=== PATIENT | male | born 1955 | race African-American/Black ===

== ENCOUNTER 2017-09-30 22:48 | Inpatient (IN) | payer OTHER ==
[2017-10-01 01:21] LABS: ADD MAN DIFF? NO
[2017-10-01] MEDS: ASPIRIN 325 MG TAB PO (01:28)
[2017-10-01] MEDS: morphine 2 MG INJ IV (01:28)
[2017-10-01] MEDS: ONDANSETRON 4 MG INJ IV ×3 (01:28→17:09)
[2017-10-01 01:48] LABS: ANION GAP 12 (8-16); BLOOD UREA NITROGEN 12 mg/dl (7-20); CARBON DIOXIDE 28 mmol/L (21-31); CHLORIDE 104 mmol/L (97-110); GLUCOSE 125 mg/dl (70-220); POTASSIUM 3.5 mmol/L (3.5-5.1); SODIUM 140 mmol/L (135-144)
[2017-10-01 02:01] LABS: TROPONIN-I < 0.012 ng/ml (0.00-0.12)
[2017-10-01 02:38] LABS: WHITE BLOOD COUNT 4.8 10^3/ul (4.8-10.8)
[2017-10-01 02:38] LABS: ABNORMAL IP MESSAGE 1; BASOPHILS % 0.2 % (0.0-2.0); EOSINOPHILS # 0.1 10^3/ul (0.0-0.5); EOSINOPHILS % 1.5 % (0.0-7.0); HEMATOCRIT 34.1 % (42.0-52.0); HEMOGLOBIN 10.3 g/dl (14.0-18.0); LYMPHOCYTES # 1.4 10^3/ul (0.8-2.9); MEAN CORPUSCULAR HEMOGLOBIN 23.3 pg (29.0-33.0); MEAN CORPUSCULAR HGB CONC 30.2 g/dl (32.0-37.0); MEAN PLATELET VOLUME 9.7 fl (7.4-10.4); MONOCYTE # 0.4 10^3/ul (0.3-0.9); MONOCYTES % 8.8 % (0.0-11.0); NEUTROPHIL # 2.9 10^3/ul (1.6-7.5); NEUTROPHILS % 60.1 % (39.0-77.0); PLATELET COUNT 258 10^3/UL (140-415); POSITIVE DIFF @See below; RED BLOOD COUNT 4.43 10^6/ul (4.70-6.10); RED CELL DISTRIBUTION WIDTH 24.4 % (11.5-14.5)
[2017-10-01] MEDS ORDERED: DOCUSATE SODIUM 100 MG CAP PO (06:30)
[2017-10-01] MEDS: PANTOPRAZOLE (EC) 40 MG TAB PO ×2 (06:55→19:03)
[2017-10-01] MEDS: LEVOFLOXACIN 500MG/D5W (PMX) 100 ML IVPB (06:55)
[2017-10-01] MEDS: DIPHENHYDRAMINE 50 MG INJ IV ×3 (06:57→21:33)
[2017-10-01] MEDS: morphine 4 MG/ML VIAL IV ×4 (07:16→21:33)
[2017-10-01 07:47] LABS: CREATINE KINASE 104 IU/L (23-200)
[2017-10-01 08:00] LABS: CK INDEX 2.3
[2017-10-01 08:10] LABS: CK-MB 2.41 ng/ml (0.0-2.4); TROPONIN-I < 0.012 ng/ml (0.00-0.12)
[2017-10-01] MEDS: BRIMONIDINE 0.1% 5 ML OPH BOTH EYES ×2 (09:00→21:29)
[2017-10-01] MEDS: RANOLAZINE (SR) 500 MG TAB PO ×2 (09:53→21:32)
[2017-10-01] MEDS: SOTALOL 80 MG TAB PO ×2 (09:54→21:32)
[2017-10-01] MEDS: ISOSORBIDE MONONITRATE(SR)60 MG TAB PO (09:54)
[2017-10-01] MEDS: ASPIRIN 81 MG TAB PO (09:54)
[2017-10-01] MEDS: TICAGRELOR 90 MG TABLET PO ×2 (09:56→21:31)
[2017-10-01] MEDS: ENOXAPARIN 40 MG/0.4 ML SYG SC (10:05)
[2017-10-01 13:39] LABS: CREATINE KINASE 96 IU/L (23-200)
[2017-10-01 13:51] LABS: CK INDEX 2.4
[2017-10-01 13:56] LABS: CK-MB 2.32 ng/ml (0.0-2.4); TROPONIN-I < 0.012 ng/ml (0.00-0.12)
[2017-10-01] MEDS: LATANOPROST 0.005% 2.5 ML OPH BOTH EYES (21:31)
[2017-10-01] MEDS: ATORVASTATIN 80 MG TAB PO (21:32)
[2017-10-02] MEDS: ONDANSETRON 4 MG INJ IV ×4 (04:12→22:07)
[2017-10-02] MEDS: DIPHENHYDRAMINE 50 MG INJ IV ×4 (04:12→22:07)
[2017-10-02] MEDS: morphine 4 MG/ML VIAL IV ×4 (04:13→22:08)
[2017-10-02] MEDS: LEVOFLOXACIN 500MG/D5W (PMX) 100 ML IVPB (06:30)
[2017-10-02] MEDS: PANTOPRAZOLE (EC) 40 MG TAB PO ×2 (06:43→18:00)
[2017-10-02 07:25] LABS: ADD MAN DIFF? NO
[2017-10-02 07:28] LABS: WHITE BLOOD COUNT 4.8 10^3/ul (4.8-10.8)
[2017-10-02 07:28] LABS: ABNORMAL IP MESSAGE 1; BASOPHILS % 0.2 % (0.0-2.0); EOSINOPHILS # 0.1 10^3/ul (0.0-0.5); EOSINOPHILS % 2.1 % (0.0-7.0); HEMATOCRIT 31.5 % (42.0-52.0); HEMOGLOBIN 9.5 g/dl (14.0-18.0); LYMPHOCYTES # 1.5 10^3/ul (0.8-2.9); LYMPHOCYTES % 31.3 % (15.0-51.0); MEAN CORPUSCULAR HGB CONC 30.2 g/dl (32.0-37.0); MEAN CORPUSCULAR VOLUME 76.3 fl (82.0-101.0); MEAN PLATELET VOLUME 9.3 fl (7.4-10.4); MONOCYTE # 0.4 10^3/ul (0.3-0.9); MONOCYTES % 8.1 % (0.0-11.0); NEUTROPHIL # 2.8 10^3/ul (1.6-7.5); NEUTROPHILS % 57.9 % (39.0-77.0); PLATELET COUNT 269 10^3/UL (140-415); POSITIVE DIFF @See below; RED BLOOD COUNT 4.13 10^6/ul (4.70-6.10); RED CELL DISTRIBUTION WIDTH 24.3 % (11.5-14.5)
[2017-10-02 07:57] LABS: ANION GAP 12 (8-16); BLOOD UREA NITROGEN 11 mg/dl (7-20); CALCIUM 8.8 mg/dl (8.4-10.2); CARBON DIOXIDE 24 mmol/L (21-31); CHLORIDE 107 mmol/L (97-110); CREATININE 0.93 mg/dl (0.61-1.24); GLUCOSE 113 mg/dl (70-220); POTASSIUM 3.9 mmol/L (3.5-5.1); SODIUM 139 mmol/L (135-144)
[2017-10-02] MEDS: BRIMONIDINE 0.1% 5 ML OPH BOTH EYES ×2 (09:00→21:00)
[2017-10-02] MEDS: ASPIRIN 81 MG TAB PO (09:08)
[2017-10-02] MEDS: RANOLAZINE (SR) 500 MG TAB PO ×2 (09:10→22:03)
[2017-10-02] MEDS: SOTALOL 80 MG TAB PO ×2 (09:11→22:04)
[2017-10-02] MEDS: ISOSORBIDE MONONITRATE(SR)60 MG TAB PO (09:11)
[2017-10-02] MEDS: TICAGRELOR 90 MG TABLET PO ×2 (09:15→22:06)
[2017-10-02] MEDS: ENOXAPARIN 40 MG/0.4 ML SYG SC (09:15)
[2017-10-02] MEDS: REGADENOSON 0.4 MG/5 ML SYG (14:00)
[2017-10-02] MEDS: LATANOPROST 0.005% 2.5 ML OPH BOTH EYES (21:00)
[2017-10-02] MEDS: ATORVASTATIN 80 MG TAB PO (22:03)
[2017-10-03] MEDS: DIPHENHYDRAMINE 50 MG INJ IV ×4 (04:22→22:16)
[2017-10-03] MEDS: ONDANSETRON 4 MG INJ IV ×4 (04:22→22:15)
[2017-10-03] MEDS: morphine 4 MG/ML VIAL IV ×4 (04:23→22:15)
[2017-10-03] MEDS: PANTOPRAZOLE (EC) 40 MG TAB PO ×2 (05:46→18:20)
[2017-10-03] MEDS: LEVOFLOXACIN 500MG/D5W (PMX) 100 ML IVPB (05:46)
[2017-10-03] MEDS: BRIMONIDINE 0.1% 5 ML OPH BOTH EYES ×2 (09:00→21:00)
[2017-10-03] MEDS: RANOLAZINE (SR) 500 MG TAB PO ×2 (09:11→21:58)
[2017-10-03] MEDS: SOTALOL 80 MG TAB PO ×2 (09:11→21:59)
[2017-10-03] MEDS: ASPIRIN 81 MG TAB PO (09:11)
[2017-10-03] MEDS: ISOSORBIDE MONONITRATE(SR)60 MG TAB PO (09:11)
[2017-10-03] MEDS: TICAGRELOR 90 MG TABLET PO ×2 (09:19→22:01)
[2017-10-03] MEDS: ENOXAPARIN 40 MG/0.4 ML SYG SC (09:19)
[2017-10-03] MEDS: LATANOPROST 0.005% 2.5 ML OPH BOTH EYES (21:00)
[2017-10-03] MEDS: ATORVASTATIN 80 MG TAB PO (21:58)
[2017-10-04] MEDS: ONDANSETRON 4 MG INJ IV ×3 (04:36→17:50)
[2017-10-04] MEDS: DIPHENHYDRAMINE 50 MG INJ IV ×3 (04:36→17:49)
[2017-10-04] MEDS: morphine 4 MG/ML VIAL IV ×3 (04:36→17:48)
[2017-10-04] MEDS: LEVOFLOXACIN 500MG/D5W (PMX) 100 ML IVPB (05:49)
[2017-10-04] MEDS: PANTOPRAZOLE (EC) 40 MG TAB PO ×2 (05:49→17:46)
[2017-10-04] MEDS: BRIMONIDINE 0.1% 5 ML OPH BOTH EYES ×2 (09:00→21:00)
[2017-10-04 09:10] LABS: ADD MAN DIFF? NO
[2017-10-04] MEDS: SOTALOL 80 MG TAB PO ×2 (09:10→21:21)
[2017-10-04] MEDS: ISOSORBIDE MONONITRATE(SR)60 MG TAB PO (09:10)
[2017-10-04] MEDS: RANOLAZINE (SR) 500 MG TAB PO ×2 (09:10→21:21)
[2017-10-04] MEDS: ASPIRIN 81 MG TAB PO (09:10)
[2017-10-04] MEDS: TICAGRELOR 90 MG TABLET PO ×2 (09:13→21:23)
[2017-10-04] MEDS: ENOXAPARIN 40 MG/0.4 ML SYG SC (09:14)
[2017-10-04 09:24] LABS: ABNORMAL IP MESSAGE 1; BASOPHILS % 0.3 % (0.0-2.0); EOSINOPHILS # 0.1 10^3/ul (0.0-0.5); EOSINOPHILS % 1.5 % (0.0-7.0); HEMATOCRIT 35.2 % (42.0-52.0); HEMOGLOBIN 10.9 g/dl (14.0-18.0); LYMPHOCYTES # 1.4 10^3/ul (0.8-2.9); MEAN CORPUSCULAR VOLUME 77.4 fl (82.0-101.0); MEAN PLATELET VOLUME 9.6 fl (7.4-10.4); MONOCYTE # 0.4 10^3/ul (0.3-0.9); MONOCYTES % 6.5 % (0.0-11.0); NEUTROPHIL # 4.1 10^3/ul (1.6-7.5); NEUTROPHILS % 68.4 % (39.0-77.0); PLATELET COUNT 299 10^3/UL (140-415); POSITIVE DIFF @See below; RED BLOOD COUNT 4.55 10^6/ul (4.70-6.10); RED CELL DISTRIBUTION WIDTH 24.8 % (11.5-14.5)
[2017-10-04 09:42] LABS: ANION GAP 16 (8-16); BLOOD UREA NITROGEN 11 mg/dl (7-20); CALCIUM 8.9 mg/dl (8.4-10.2); CARBON DIOXIDE 22 mmol/L (21-31); CHLORIDE 105 mmol/L (97-110); GLUCOSE 128 mg/dl (70-220); MAGNESIUM 1.9 mg/dl (1.7-2.5); POTASSIUM 3.9 mmol/L (3.5-5.1); SODIUM 139 mmol/L (135-144)
[2017-10-04] MEDS: LATANOPROST 0.005% 2.5 ML OPH BOTH EYES (21:00)
[2017-10-04] MEDS: ATORVASTATIN 80 MG TAB PO (21:21)
[2017-10-05] MEDS: DIPHENHYDRAMINE 50 MG INJ IV ×3 (02:45→21:25)
[2017-10-05] MEDS: ONDANSETRON 4 MG INJ IV ×4 (02:46→21:25)
[2017-10-05] MEDS: morphine 4 MG/ML VIAL IV ×4 (02:46→21:26)
[2017-10-05] MEDS: LEVOFLOXACIN 500MG/D5W (PMX) 100 ML IVPB (05:58)
[2017-10-05] MEDS: PANTOPRAZOLE (EC) 40 MG TAB PO ×2 (05:58→18:26)
[2017-10-05 08:25] LABS: ANION GAP 18 (8-16); BLOOD UREA NITROGEN 12 mg/dl (7-20); CALCIUM 9.5 mg/dl (8.4-10.2); CARBON DIOXIDE 24 mmol/L (21-31); CHLORIDE 104 mmol/L (97-110); CREATININE 1.01 mg/dl (0.61-1.24); GLUCOSE 99 mg/dl (70-220); POTASSIUM 4.2 mmol/L (3.5-5.1); SODIUM 142 mmol/L (135-144)
[2017-10-05] MEDS: BRIMONIDINE 0.1% 5 ML OPH BOTH EYES ×2 (09:00→21:00)
[2017-10-05] MEDS: SOTALOL 80 MG TAB PO ×2 (09:16→21:24)
[2017-10-05] MEDS: ISOSORBIDE MONONITRATE(SR)60 MG TAB PO (09:17)
[2017-10-05] MEDS: ASPIRIN 81 MG TAB PO (09:17)
[2017-10-05] MEDS: RANOLAZINE (SR) 500 MG TAB PO ×2 (09:17→21:24)
[2017-10-05] MEDS: TICAGRELOR 90 MG TABLET PO ×2 (09:21→21:27)
[2017-10-05] MEDS: ENOXAPARIN 40 MG/0.4 ML SYG SC (09:22)
[2017-10-05] MEDS: LATANOPROST 0.005% 2.5 ML OPH BOTH EYES (21:24)
[2017-10-05] MEDS: ATORVASTATIN 80 MG TAB PO (21:24)
[2017-10-06] MEDS: DIPHENHYDRAMINE 50 MG INJ IV ×4 (03:28→23:11)
[2017-10-06] MEDS: ONDANSETRON 4 MG INJ IV ×4 (03:29→23:11)
[2017-10-06] MEDS: morphine 4 MG/ML VIAL IV ×4 (03:31→23:12)
[2017-10-06] MEDS: PANTOPRAZOLE (EC) 40 MG TAB PO ×2 (06:20→17:04)
[2017-10-06] MEDS: ISOSORBIDE MONONITRATE(SR)60 MG TAB PO (08:18)
[2017-10-06] MEDS: ASPIRIN 81 MG TAB PO (08:19)
[2017-10-06] MEDS: SOTALOL 80 MG TAB PO ×2 (08:19→21:58)
[2017-10-06] MEDS: RANOLAZINE (SR) 500 MG TAB PO ×2 (08:20→21:00)
[2017-10-06] MEDS: TICAGRELOR 90 MG TABLET PO ×2 (08:21→21:59)
[2017-10-06] MEDS: ENOXAPARIN 40 MG/0.4 ML SYG SC (08:22)
[2017-10-06] MEDS: BRIMONIDINE 0.1% 5 ML OPH BOTH EYES ×2 (08:27→21:00)
[2017-10-06] MEDS: LATANOPROST 0.005% 2.5 ML OPH BOTH EYES (21:00)
[2017-10-06] MEDS: ATORVASTATIN 80 MG TAB PO (21:55)
[2017-10-06 22:36] LABS: B-TYPE NATRIURETIC PEPTIDE 388 PG/ML (0-125)
[2017-10-07] MEDS: PANTOPRAZOLE (EC) 40 MG TAB PO ×2 (05:20→17:50)
[2017-10-07] MEDS: ONDANSETRON 4 MG INJ IV ×3 (05:20→17:50)
[2017-10-07] MEDS: morphine 4 MG/ML VIAL IV ×3 (05:22→17:51)
[2017-10-07] MEDS: BRIMONIDINE 0.1% 5 ML OPH BOTH EYES ×2 (09:00→21:00)
[2017-10-07] MEDS: ASPIRIN 81 MG TAB PO (10:13)
[2017-10-07] MEDS: ISOSORBIDE MONONITRATE(SR)60 MG TAB PO (10:14)
[2017-10-07] MEDS: SOTALOL 80 MG TAB PO (10:15)
[2017-10-07] MEDS: RANOLAZINE (SR) 500 MG TAB PO (10:15)
[2017-10-07] MEDS: TICAGRELOR 90 MG TABLET PO (10:16)
[2017-10-07] MEDS: ENOXAPARIN 40 MG/0.4 ML SYG SC (10:25)
[2017-10-07] MEDS: DIPHENHYDRAMINE 50 MG INJ IV ×2 (11:22→17:50)
[2017-10-07] MEDS: LATANOPROST 0.005% 2.5 ML OPH BOTH EYES (21:00)
[2017-10-08] MEDS: RANOLAZINE (SR) 500 MG TAB PO ×3 (00:01→22:16)
[2017-10-08] MEDS: ATORVASTATIN 80 MG TAB PO ×2 (00:01→22:16)
[2017-10-08] MEDS: SOTALOL 80 MG TAB PO ×3 (00:01→22:18)
[2017-10-08] MEDS: ONDANSETRON 4 MG INJ IV ×4 (00:02→18:35)
[2017-10-08] MEDS: DIPHENHYDRAMINE 50 MG INJ IV ×4 (00:02→18:35)
[2017-10-08] MEDS: morphine 4 MG/ML VIAL IV ×4 (00:02→22:37)
[2017-10-08] MEDS: TICAGRELOR 90 MG TABLET PO ×3 (00:11→22:24)
[2017-10-08] MEDS: PANTOPRAZOLE (EC) 40 MG TAB PO ×2 (06:02→18:40)
[2017-10-08] MEDS: ASPIRIN 81 MG TAB PO (08:17)
[2017-10-08] MEDS: ISOSORBIDE MONONITRATE(SR)60 MG TAB PO (08:19)
[2017-10-08] MEDS: ENOXAPARIN 40 MG/0.4 ML SYG SC (08:20)
[2017-10-08] MEDS: SPIRONOLACTONE 25 MG TAB PO (08:21)
[2017-10-08] MEDS: BRIMONIDINE 0.1% 5 ML OPH BOTH EYES ×2 (08:25→21:00)
[2017-10-08 08:30] LABS: ADD MAN DIFF? NO
[2017-10-08 08:37] LABS: WHITE BLOOD COUNT 5.5 10^3/ul (4.8-10.8)
[2017-10-08 08:37] LABS: ABNORMAL IP MESSAGE 1; BASOPHILS % 0.2 % (0.0-2.0); EOSINOPHILS # 0.2 10^3/ul (0.0-0.5); EOSINOPHILS % 2.7 % (0.0-7.0); HEMATOCRIT 35.4 % (42.0-52.0); HEMOGLOBIN 10.5 g/dl (14.0-18.0); LYMPHOCYTES # 1.3 10^3/ul (0.8-2.9); MEAN CORPUSCULAR HEMOGLOBIN 23.2 pg (29.0-33.0); MEAN CORPUSCULAR HGB CONC 29.7 g/dl (32.0-37.0); MEAN CORPUSCULAR VOLUME 78.1 fl (82.0-101.0); MEAN PLATELET VOLUME 9.1 fl (7.4-10.4); MONOCYTE # 0.5 10^3/ul (0.3-0.9); NEUTROPHIL # 3.5 10^3/ul (1.6-7.5); NEUTROPHILS % 63.9 % (39.0-77.0); PLATELET COUNT 319 10^3/UL (140-415); POSITIVE DIFF @See below; RED BLOOD COUNT 4.53 10^6/ul (4.70-6.10); RED CELL DISTRIBUTION WIDTH 24.2 % (11.5-14.5)
[2017-10-08 09:00] LABS: ANION GAP 14 (8-16); BLOOD UREA NITROGEN 10 mg/dl (7-20); CALCIUM 8.8 mg/dl (8.4-10.2); CARBON DIOXIDE 26 mmol/L (21-31); CHLORIDE 105 mmol/L (97-110); CREATININE 0.97 mg/dl (0.61-1.24); GLUCOSE 144 mg/dl (70-220); POTASSIUM 4.1 mmol/L (3.5-5.1); SODIUM 141 mmol/L (135-144)
[2017-10-08] MEDS: LATANOPROST 0.005% 2.5 ML OPH BOTH EYES (21:00)
[2017-10-09] MEDS: morphine 4 MG/ML VIAL IV ×4 (04:43→23:06)
[2017-10-09] MEDS: DIPHENHYDRAMINE 50 MG INJ IV ×4 (04:43→23:05)
[2017-10-09] MEDS: ONDANSETRON 4 MG INJ IV ×4 (04:43→23:05)
[2017-10-09] MEDS: PANTOPRAZOLE (EC) 40 MG TAB PO ×2 (05:51→17:04)
[2017-10-09] MEDS: RANOLAZINE (SR) 500 MG TAB PO ×2 (08:08→20:58)
[2017-10-09] MEDS: ISOSORBIDE MONONITRATE(SR)60 MG TAB PO (08:10)
[2017-10-09] MEDS: SPIRONOLACTONE 25 MG TAB PO (08:11)
[2017-10-09] MEDS: ASPIRIN 81 MG TAB PO (08:11)
[2017-10-09] MEDS: SOTALOL 80 MG TAB PO ×2 (08:11→20:58)
[2017-10-09] MEDS: ENOXAPARIN 40 MG/0.4 ML SYG SC (08:12)
[2017-10-09] MEDS: TICAGRELOR 90 MG TABLET PO ×2 (08:12→21:01)
[2017-10-09] MEDS: BRIMONIDINE 0.1% 5 ML OPH BOTH EYES ×2 (08:20→21:00)
[2017-10-09] MEDS: ATORVASTATIN 80 MG TAB PO (20:58)
[2017-10-09] MEDS: LATANOPROST 0.005% 2.5 ML OPH BOTH EYES (21:00)
[2017-10-10] MEDS: PANTOPRAZOLE (EC) 40 MG TAB PO ×2 (05:04→16:42)
[2017-10-10] MEDS: ONDANSETRON 4 MG INJ IV ×4 (05:06→23:04)
[2017-10-10] MEDS: morphine 4 MG/ML VIAL IV ×4 (05:06→23:08)
[2017-10-10] MEDS: DIPHENHYDRAMINE 50 MG INJ IV ×4 (05:06→23:04)
[2017-10-10] MEDS: BRIMONIDINE 0.1% 5 ML OPH BOTH EYES ×2 (08:01→21:00)
[2017-10-10] MEDS: ASPIRIN 81 MG TAB PO (08:02)
[2017-10-10] MEDS: RANOLAZINE (SR) 500 MG TAB PO ×2 (08:02→21:34)
[2017-10-10] MEDS: SOTALOL 80 MG TAB PO ×2 (08:02→21:34)
[2017-10-10] MEDS: ISOSORBIDE MONONITRATE(SR)60 MG TAB PO (08:03)
[2017-10-10] MEDS: SPIRONOLACTONE 25 MG TAB PO (08:03)
[2017-10-10] MEDS: TICAGRELOR 90 MG TABLET PO ×2 (08:04→21:36)
[2017-10-10] MEDS: ENOXAPARIN 40 MG/0.4 ML SYG SC (08:04)
[2017-10-10] MEDS: LATANOPROST 0.005% 2.5 ML OPH BOTH EYES (21:00)
[2017-10-10] MEDS: ATORVASTATIN 80 MG TAB PO (21:34)
[2017-10-11] MEDS: ONDANSETRON 4 MG INJ IV ×4 (05:37→22:59)
[2017-10-11] MEDS: PANTOPRAZOLE (EC) 40 MG TAB PO ×2 (05:37→16:59)
[2017-10-11] MEDS: morphine 4 MG/ML VIAL IV ×4 (05:37→22:59)
[2017-10-11] MEDS: DIPHENHYDRAMINE 50 MG INJ IV ×4 (05:37→22:59)
[2017-10-11 08:43] LABS: ANION GAP 15 (8-16); BLOOD UREA NITROGEN 12 mg/dl (7-20); CALCIUM 8.7 mg/dl (8.4-10.2); CARBON DIOXIDE 27 mmol/L (21-31); CHLORIDE 102 mmol/L (97-110); CREATININE 0.99 mg/dl (0.61-1.24); GLUCOSE 146 mg/dl (70-220); POTASSIUM 4.2 mmol/L (3.5-5.1); SODIUM 140 mmol/L (135-144)
[2017-10-11] MEDS: BRIMONIDINE 0.1% 5 ML OPH BOTH EYES ×2 (09:00→21:00)
[2017-10-11] MEDS: ASPIRIN 81 MG TAB PO (09:08)
[2017-10-11] MEDS: ISOSORBIDE MONONITRATE(SR)60 MG TAB PO (09:08)
[2017-10-11] MEDS: SPIRONOLACTONE 25 MG TAB PO (09:08)
[2017-10-11] MEDS: RANOLAZINE (SR) 500 MG TAB PO ×2 (09:09→21:09)
[2017-10-11] MEDS: TICAGRELOR 90 MG TABLET PO ×2 (09:09→21:12)
[2017-10-11] MEDS: SOTALOL 80 MG TAB PO ×2 (09:09→21:10)
[2017-10-11] MEDS: ENOXAPARIN 40 MG/0.4 ML SYG SC (09:10)
[2017-10-11] MEDS ORDERED: morphine 4 MG/ML VIAL IV (18:30)
[2017-10-11] MEDS: LATANOPROST 0.005% 2.5 ML OPH BOTH EYES (21:00)
[2017-10-11] MEDS: ATORVASTATIN 80 MG TAB PO (21:13)
[2017-10-12] MEDS: PANTOPRAZOLE (EC) 40 MG TAB PO ×2 (05:23→17:28)
[2017-10-12] MEDS: DIPHENHYDRAMINE 50 MG INJ IV ×4 (05:24→23:22)
[2017-10-12] MEDS: morphine 4 MG/ML VIAL IV ×4 (05:24→23:23)
[2017-10-12] MEDS: ONDANSETRON 4 MG INJ IV ×4 (05:25→23:22)
[2017-10-12] MEDS: BRIMONIDINE 0.1% 5 ML OPH BOTH EYES ×3 (09:00→20:43)
[2017-10-12] MEDS: SPIRONOLACTONE 25 MG TAB PO (09:08)
[2017-10-12] MEDS: RANOLAZINE (SR) 500 MG TAB PO ×2 (09:08→20:42)
[2017-10-12] MEDS: ASPIRIN 81 MG TAB PO (09:08)
[2017-10-12] MEDS: ISOSORBIDE MONONITRATE(SR)60 MG TAB PO (09:08)
[2017-10-12] MEDS: SOTALOL 80 MG TAB PO ×2 (09:08→20:41)
[2017-10-12] MEDS: TICAGRELOR 90 MG TABLET PO ×2 (09:12→20:40)
[2017-10-12] MEDS: ENOXAPARIN 40 MG/0.4 ML SYG SC (09:16)
[2017-10-12] MEDS ORDERED: morphine LIQ (10 MG/5 ML) CUP PO (15:00)
[2017-10-12] MEDS: ATORVASTATIN 80 MG TAB PO (20:40)
[2017-10-12] MEDS: LATANOPROST 0.005% 2.5 ML OPH BOTH EYES (20:42)
[2017-10-13] MEDS: PANTOPRAZOLE (EC) 40 MG TAB PO ×2 (05:28→17:30)
[2017-10-13] MEDS: ONDANSETRON 4 MG INJ IV ×4 (05:28→23:30)
[2017-10-13] MEDS: DIPHENHYDRAMINE 50 MG INJ IV ×4 (05:28→23:30)
[2017-10-13] MEDS: morphine 4 MG/ML VIAL IV ×4 (05:29→23:30)
[2017-10-13] MEDS: RANOLAZINE (SR) 500 MG TAB PO ×2 (08:38→21:10)
[2017-10-13] MEDS: ASPIRIN 81 MG TAB PO (08:39)
[2017-10-13] MEDS: SPIRONOLACTONE 25 MG TAB PO (08:39)
[2017-10-13] MEDS: ISOSORBIDE MONONITRATE(SR)60 MG TAB PO (08:39)
[2017-10-13] MEDS: SOTALOL 80 MG TAB PO ×2 (08:40→21:11)
[2017-10-13] MEDS: TICAGRELOR 90 MG TABLET PO ×2 (08:47→21:12)
[2017-10-13] MEDS: ENOXAPARIN 40 MG/0.4 ML SYG SC (08:47)
[2017-10-13] MEDS: BRIMONIDINE 0.1% 5 ML OPH BOTH EYES ×2 (08:53→21:00)
[2017-10-13] MEDS: LATANOPROST 0.005% 2.5 ML OPH BOTH EYES (21:00)
[2017-10-13] MEDS: ATORVASTATIN 80 MG TAB PO (21:10)
[2017-10-14] MEDS: ONDANSETRON 4 MG INJ IV ×2 (05:25→11:34)
[2017-10-14] MEDS: morphine 4 MG/ML VIAL IV ×2 (05:26→11:34)
[2017-10-14] MEDS: PANTOPRAZOLE (EC) 40 MG TAB PO (05:26)
[2017-10-14] MEDS: BRIMONIDINE 0.1% 5 ML OPH BOTH EYES (09:00)
[2017-10-14] MEDS: RANOLAZINE (SR) 500 MG TAB PO (09:02)
[2017-10-14] MEDS: ASPIRIN 81 MG TAB PO (09:02)
[2017-10-14] MEDS: TICAGRELOR 90 MG TABLET PO (09:02)
[2017-10-14] MEDS: SPIRONOLACTONE 25 MG TAB PO (09:03)
[2017-10-14] MEDS: SOTALOL 80 MG TAB PO (09:03)
[2017-10-14] MEDS: ENOXAPARIN 40 MG/0.4 ML SYG SC (09:03)
[2017-10-14] MEDS: ISOSORBIDE MONONITRATE(SR)60 MG TAB PO (09:04)
[2017-10-14] MEDS: DIPHENHYDRAMINE 50 MG INJ IV (11:34)
== END 2017-10-14 17:46 | DRG 313 ==
LOC: E/R 22:48 → MS4 10-01 02:53
DX: R07.89 Other chest pain (principal); I25.5 Ischemic cardiomyopathy; I11.0 Hypertensive heart disease with heart failure; I50.22 Chronic systolic (congestive) heart failure; D50.9 Iron deficiency anemia, unspecified; Z95.1 Presence of aortocoronary bypass graft; Z95.810 Presence of automatic (implantable) cardiac defibrillator; Z95.5 Presence of coronary angioplasty implant and graft; G47.33 Obstructive sleep apnea (adult) (pediatric); Z79.02 Long term (current) use of antithrombotics/antiplatelets; Z79.82 Long term (current) use of aspirin; F41.9 Anxiety disorder, unspecified
CPT/HCPCS: 36415; 71045; 78452; 80048; 82550; 82553; 83735; 83880; 84484; 85025; 93005; 93017; 93306; 94660; 96374; 96375; 97110; 97116; 97162; 99285-25; G0378

== ENCOUNTER 2017-10-20 04:35 | Inpatient (IN) | payer OTHER ==
[2017-10-20 05:55] LABS: ADD MAN DIFF? NO
[2017-10-20 06:01] LABS: ABNORMAL IP MESSAGE 1; BASOPHILS % 0.2 % (0.0-2.0); EOSINOPHILS # 0.1 10^3/ul (0.0-0.5); EOSINOPHILS % 1.2 % (0.0-7.0); HEMOGLOBIN 11.9 g/dl (14.0-18.0); LYMPHOCYTES # 1.4 10^3/ul (0.8-2.9); LYMPHOCYTES % 22.1 % (15.0-51.0); MEAN CORPUSCULAR HEMOGLOBIN 23.5 pg (29.0-33.0); MEAN CORPUSCULAR HGB CONC 30.5 g/dl (32.0-37.0); MEAN CORPUSCULAR VOLUME 76.9 fl (82.0-101.0); MONOCYTE # 0.5 10^3/ul (0.3-0.9); MONOCYTES % 7.5 % (0.0-11.0); NEUTROPHIL # 4.5 10^3/ul (1.6-7.5); NEUTROPHILS % 68.7 % (39.0-77.0); PLATELET COUNT 252 10^3/UL (140-415); POSITIVE DIFF @See below; RED BLOOD COUNT 5.07 10^6/ul (4.70-6.10); RED CELL DISTRIBUTION WIDTH 22.7 % (11.5-14.5)
[2017-10-20 06:01] LABS: WHITE BLOOD COUNT 6.5 10^3/ul (4.8-10.8)
[2017-10-20 06:21] LABS: ANION GAP 18 (8-16); BLOOD UREA NITROGEN 20 mg/dl (7-20); CALCIUM 9.8 mg/dl (8.4-10.2); CARBON DIOXIDE 23 mmol/L (21-31); CHLORIDE 107 mmol/L (97-110); CREATININE 1.27 mg/dl (0.61-1.24); GLUCOSE 168 mg/dl (70-220); POTASSIUM 4.4 mmol/L (3.5-5.1); SODIUM 144 mmol/L (135-144)
[2017-10-20 06:31] LABS: TROPONIN-I 0.014 ng/ml (0.00-0.12)
[2017-10-20] MEDS ORDERED: ACETAMINOPHEN 325 MG TAB PO (07:30)
[2017-10-20] MEDS: ONDANSETRON 4 MG INJ IV (12:59)
[2017-10-20] MEDS ORDERED: DOCUSATE SODIUM 100 MG CAP PO (13:00)
[2017-10-20] MEDS: morphine 2 MG INJ IV (13:03)
[2017-10-20] MEDS: TICAGRELOR 90 MG TABLET PO ×2 (14:54→21:25)
[2017-10-20] MEDS: SOTALOL 80 MG TAB PO ×2 (14:56→21:00)
[2017-10-20] MEDS: RANOLAZINE (SR) 500 MG TAB PO ×2 (14:57→21:23)
[2017-10-20] MEDS: ISOSORBIDE MONONITRATE(SR)60 MG TAB PO (14:57)
[2017-10-20] MEDS: LISINOPRIL 5 MG TAB PO (15:03)
[2017-10-20 16:04] LABS: TROPONIN-I < 0.012 ng/ml (0.00-0.12)
[2017-10-20] MEDS: PANTOPRAZOLE (EC) 40 MG TAB PO (17:59)
[2017-10-20] MEDS ORDERED: NITROGLYCERIN (SL) 0.4 MG TAB SL (19:00)
[2017-10-20] MEDS: DIPHENHYDRAMINE 50 MG INJ IV (20:03)
[2017-10-20] MEDS: BIMATOPROST 0.01% 2.5 ML BTL BOTH EYES (20:47)
[2017-10-20] MEDS: ATORVASTATIN 80 MG TAB PO (21:22)
[2017-10-21 01:28] LABS: CREATINE KINASE 118 IU/L (23-200)
[2017-10-21 01:40] LABS: CK INDEX 1.4; TROPONIN-I 0.015 ng/ml (0.00-0.12)
[2017-10-21 01:45] LABS: CK-MB 1.61 ng/ml (0.0-2.4)
[2017-10-21] MEDS: ONDANSETRON 4 MG INJ IV (03:48)
[2017-10-21] MEDS: DIPHENHYDRAMINE 50 MG INJ IV (03:48)
[2017-10-21] MEDS: morphine 2 MG INJ IV (04:46)
[2017-10-21 05:36] LABS: CREATINE KINASE 111 IU/L (23-200)
[2017-10-21 05:47] LABS: CK INDEX 1.3; TROPONIN-I 0.012 ng/ml (0.00-0.12)
[2017-10-21] MEDS: PANTOPRAZOLE (EC) 40 MG TAB PO (05:53)
[2017-10-21 06:18] LABS: CK-MB 1.44 ng/ml (0.0-2.4)
[2017-10-21] MEDS ORDERED: ASPIRIN 81 MG TAB PO (09:00)
== END 2017-10-21 14:58 | disposition left against medical advice (07) | DRG 313 ==
LOC: E/R 04:35 → MS3 07:03
DX: R07.9 Chest pain, unspecified (principal); I25.10 Atherosclerotic heart disease of native coronary artery without angina pectoris; I42.9 Cardiomyopathy, unspecified; I50.9 Heart failure, unspecified; I10 Essential (primary) hypertension; Z95.1 Presence of aortocoronary bypass graft; E78.5 Hyperlipidemia, unspecified; H40.9 Unspecified glaucoma; I48.91 Unspecified atrial fibrillation; Z79.82 Long term (current) use of aspirin
CPT/HCPCS: 36415; 71045; 80048; 82550; 82553; 84484; 85025; 93005; 94660; 99285-25

== ENCOUNTER 2018-01-21 17:17 | Inpatient (IN) | payer OTHER ==
[2018-01-21] MEDS: ASPIRIN 81 MG TAB PO (19:34)
[2018-01-21 19:56] LABS: ADD MAN DIFF? NO
[2018-01-21 19:59] LABS: BASOPHILS % 0.2 % (0.0-2.0); EOSINOPHILS # 0.1 10^3/ul (0.0-0.5); EOSINOPHILS % 1.1 % (0.0-7.0); HEMATOCRIT 37.3 % (42.0-52.0); HEMOGLOBIN 11.6 g/dl (14.0-18.0); LYMPHOCYTES # 1.4 10^3/ul (0.8-2.9); LYMPHOCYTES % 24.4 % (15.0-51.0); MEAN CORPUSCULAR HEMOGLOBIN 25.7 pg (29.0-33.0); MEAN CORPUSCULAR HGB CONC 31.1 g/dl (32.0-37.0); MEAN CORPUSCULAR VOLUME 82.7 fl (82.0-101.0); MEAN PLATELET VOLUME 10.3 fl (7.4-10.4); MONOCYTE # 0.4 10^3/ul (0.3-0.9); MONOCYTES % 7.9 % (0.0-11.0); NEUTROPHIL # 3.7 10^3/ul (1.6-7.5); NEUTROPHILS % 66.2 % (39.0-77.0); PLATELET COUNT 213 10^3/UL (140-415); RED BLOOD COUNT 4.51 10^6/ul (4.70-6.10); RED CELL DISTRIBUTION WIDTH 20.6 % (11.5-14.5)
[2018-01-21 19:59] LABS: WHITE BLOOD COUNT 5.5 10^3/ul (4.8-10.8)
[2018-01-21 20:16] LABS: ANION GAP 12 (8-16); BLOOD UREA NITROGEN 16 mg/dl (7-20); CALCIUM 8.5 mg/dl (8.4-10.2); CARBON DIOXIDE 26 mmol/L (21-31); CHLORIDE 109 mmol/L (97-110); CREATININE 0.98 mg/dl (0.61-1.24); GLUCOSE 109 mg/dl (70-220); POTASSIUM 3.2 mmol/L (3.5-5.1); SODIUM 144 mmol/L (135-144)
[2018-01-21 20:27] LABS: B-TYPE NATRIURETIC PEPTIDE 1920 PG/ML (0-125); TROPONIN-I 0.049 ng/ml (0.00-0.12)
[2018-01-21] MEDS ORDERED: ONDANSETRON 4 MG INJ IV (21:30)
[2018-01-21] MEDS ORDERED: ACETAMINOPHEN 325 MG TAB PO (21:30)
[2018-01-21] MEDS: morphine 4 MG/ML VIAL IV (21:34)
[2018-01-21] MEDS: ONDANSETRON 4 MG INJ IV (21:34)
[2018-01-21 21:47] LABS: PROTIME 13.3 Sec (11.9-14.9)
[2018-01-22] MEDS ORDERED: DOCUSATE SODIUM 100 MG CAP PO (01:00)
[2018-01-22] MEDS: DIPHENHYDRAMINE 50 MG INJ IV ×4 (01:24→20:18)
[2018-01-22] MEDS: morphine 2 MG INJ IV ×4 (01:26→20:17)
[2018-01-22] MEDS: ONDANSETRON 4 MG INJ IV ×4 (01:35→20:18)
[2018-01-22 02:08] LABS: CREATINE KINASE 399 IU/L (23-200)
[2018-01-22 02:17] LABS: CK INDEX 1.1; TROPONIN-I 0.055 ng/ml (0.00-0.12)
[2018-01-22 02:19] LABS: CK-MB 4.29 ng/ml (0.0-2.4)
[2018-01-22] MEDS ORDERED: ACETAMINOPHEN 325 MG TAB PO (04:30)
[2018-01-22] MEDS: POTASSIUM CHLORIDE (SR) 20 MEQ TAB PO (06:12)
[2018-01-22] MEDS: BRIMONIDINE 0.1% 5 ML OPH BOTH EYES ×2 (09:00→20:06)
[2018-01-22] MEDS: RANOLAZINE (SR) 500 MG TAB PO ×2 (10:08→20:18)
[2018-01-22] MEDS: ISOSORBIDE MONONITRATE(SR)60 MG TAB PO (10:08)
[2018-01-22] MEDS: PANTOPRAZOLE (EC) 40 MG TAB PO ×2 (10:08→20:18)
[2018-01-22] MEDS: ASPIRIN 81 MG TAB PO (10:08)
[2018-01-22] MEDS: SOTALOL 80 MG TAB PO ×2 (10:09→20:32)
[2018-01-22] MEDS: TICAGRELOR 90 MG TABLET PO ×2 (10:16→20:59)
[2018-01-22] MEDS: ENOXAPARIN 40 MG/0.4 ML SYG SC (10:16)
[2018-01-22 16:09] LABS: ADD MAN DIFF? NO
[2018-01-22 16:34] LABS: ANION GAP 12 (8-16); BLOOD UREA NITROGEN 13 mg/dl (7-20); CALCIUM 8.2 mg/dl (8.4-10.2); CARBON DIOXIDE 25 mmol/L (21-31); CHLORIDE 106 mmol/L (97-110); CREATININE 1.15 mg/dl (0.61-1.24); GLUCOSE 91 mg/dl (70-220); POTASSIUM 4.2 mmol/L (3.5-5.1); SODIUM 139 mmol/L (135-144)
[2018-01-22 16:55] LABS: WHITE BLOOD COUNT 5.2 10^3/ul (4.8-10.8)
[2018-01-22 16:55] LABS: BASOPHILS % 0.2 % (0.0-2.0); EOSINOPHILS # 0.1 10^3/ul (0.0-0.5); EOSINOPHILS % 1.9 % (0.0-7.0); HEMATOCRIT 35.7 % (42.0-52.0); HEMOGLOBIN 11.2 g/dl (14.0-18.0); LYMPHOCYTES # 0.8 10^3/ul (0.8-2.9); MEAN CORPUSCULAR HEMOGLOBIN 26.1 pg (29.0-33.0); MEAN CORPUSCULAR HGB CONC 31.4 g/dl (32.0-37.0); MEAN CORPUSCULAR VOLUME 83.2 fl (82.0-101.0); MEAN PLATELET VOLUME 9.6 fl (7.4-10.4); MONOCYTE # 0.3 10^3/ul (0.3-0.9); MONOCYTES % 5.6 % (0.0-11.0); NEUTROPHILS % 76.9 % (39.0-77.0); PLATELET COUNT 221 10^3/UL (140-415); RED BLOOD COUNT 4.29 10^6/ul (4.70-6.10); RED CELL DISTRIBUTION WIDTH 20.7 % (11.5-14.5)
[2018-01-22 18:37] LABS: TROPONIN-I 0.032 ng/ml (0.00-0.12)
[2018-01-22] MEDS: LATANOPROST 0.005% 2.5 ML OPH BOTH EYES ×2 (20:06→20:18)
[2018-01-22] MEDS: ALTEPLASE (CATHFLO) 2 MG INJ CATHETER (20:19)
[2018-01-22] MEDS ORDERED: ATORVASTATIN 80 MG TAB PO (21:00)
[2018-01-23] MEDS: morphine 2 MG INJ IV ×4 (02:19→21:14)
[2018-01-23] MEDS: ONDANSETRON 4 MG INJ IV ×4 (02:20→21:10)
[2018-01-23] MEDS: DIPHENHYDRAMINE 50 MG INJ IV ×4 (02:20→21:13)
[2018-01-23] MEDS: ASPIRIN 81 MG TAB PO (08:26)
[2018-01-23] MEDS: RANOLAZINE (SR) 500 MG TAB PO ×2 (08:27→21:09)
[2018-01-23] MEDS: BRIMONIDINE 0.1% 5 ML OPH BOTH EYES ×2 (08:28→21:00)
[2018-01-23] MEDS: PANTOPRAZOLE (EC) 40 MG TAB PO ×2 (08:28→21:10)
[2018-01-23] MEDS: ISOSORBIDE MONONITRATE(SR)60 MG TAB PO (08:28)
[2018-01-23] MEDS: SOTALOL 80 MG TAB PO ×2 (08:28→21:09)
[2018-01-23] MEDS: LISINOPRIL 5 MG TAB PO (08:30)
[2018-01-23] MEDS: ENOXAPARIN 40 MG/0.4 ML SYG SC (08:43)
[2018-01-23] MEDS: TICAGRELOR 90 MG TABLET PO ×2 (08:43→21:12)
[2018-01-23 09:11] LABS: ADD MAN DIFF? NO
[2018-01-23 09:16] LABS: BASOPHILS % 0.2 % (0.0-2.0); EOSINOPHILS # 0.1 10^3/ul (0.0-0.5); EOSINOPHILS % 1.9 % (0.0-7.0); HEMATOCRIT 37.9 % (42.0-52.0); HEMOGLOBIN 11.6 g/dl (14.0-18.0); LYMPHOCYTES % 18.4 % (15.0-51.0); MEAN CORPUSCULAR HEMOGLOBIN 25.8 pg (29.0-33.0); MEAN CORPUSCULAR HGB CONC 30.6 g/dl (32.0-37.0); MEAN CORPUSCULAR VOLUME 84.2 fl (82.0-101.0); MEAN PLATELET VOLUME 10.1 fl (7.4-10.4); MONOCYTE # 0.4 10^3/ul (0.3-0.9); MONOCYTES % 7.6 % (0.0-11.0); NEUTROPHIL # 3.9 10^3/ul (1.6-7.5); NEUTROPHILS % 71.5 % (39.0-77.0); PLATELET COUNT 249 10^3/UL (140-415); RED CELL DISTRIBUTION WIDTH 20.8 % (11.5-14.5)
[2018-01-23 09:16] LABS: WHITE BLOOD COUNT 5.4 10^3/ul (4.8-10.8)
[2018-01-23 09:35] LABS: ANION GAP 9 (8-16); BLOOD UREA NITROGEN 14 mg/dl (7-20); CALCIUM 8.3 mg/dl (8.4-10.2); CARBON DIOXIDE 28 mmol/L (21-31); CHLORIDE 109 mmol/L (97-110); CHOL/HDL RATIO 4.4 RATIO; CHOLESTEROL 142 mg/dl (100-200); CREATININE 1.31 mg/dl (0.61-1.24); GLUCOSE 87 mg/dl (70-220); HDL CHOLESTEROL 32 mg/dl (30-78); LDL CHOLESTEROL,CALCULATED 73 mg/dl; POTASSIUM 4.2 mmol/L (3.5-5.1); SODIUM 142 mmol/L (135-144); TRIGLYCERIDES 184 mg/dl (0-149)
[2018-01-23 09:36] LABS: HEMOGLOBIN A1C 6.7 % (0-5.9)
[2018-01-23 09:49] LABS: FREE T4 (FREE THYROXINE) 1.31 ng/dl (0.78-2.44)
[2018-01-23 10:03] LABS: THYROID STIMULATING HORMONE 0.408 MIU/L (0.465-4.680)
[2018-01-23] MEDS: FUROSEMIDE 20 MG INJ IV (13:50)
[2018-01-23] MEDS: LATANOPROST 0.005% 2.5 ML OPH BOTH EYES (21:00)
[2018-01-24] MEDS: DIPHENHYDRAMINE 50 MG INJ IV ×4 (03:04→21:56)
[2018-01-24] MEDS: morphine 2 MG INJ IV ×4 (03:05→21:57)
[2018-01-24] MEDS: ONDANSETRON 4 MG INJ IV ×4 (03:05→21:57)
[2018-01-24] MEDS: BRIMONIDINE 0.1% 5 ML OPH BOTH EYES ×2 (09:00→19:50)
[2018-01-24] MEDS: LISINOPRIL 5 MG TAB PO (09:00)
[2018-01-24] MEDS: PANTOPRAZOLE (EC) 40 MG TAB PO ×2 (09:23→21:56)
[2018-01-24] MEDS: SOTALOL 80 MG TAB PO ×2 (09:23→21:55)
[2018-01-24] MEDS: FUROSEMIDE 20 MG INJ IV (09:23)
[2018-01-24] MEDS: ASPIRIN 81 MG TAB PO (09:23)
[2018-01-24] MEDS: RANOLAZINE (SR) 500 MG TAB PO ×2 (09:24→21:56)
[2018-01-24] MEDS: ISOSORBIDE MONONITRATE(SR)60 MG TAB PO (09:24)
[2018-01-24] MEDS: ENOXAPARIN 40 MG/0.4 ML SYG SC (09:29)
[2018-01-24] MEDS: TICAGRELOR 90 MG TABLET PO ×2 (09:29→21:56)
[2018-01-24 09:44] LABS: ANION GAP 12 (8-16); BLOOD UREA NITROGEN 17 mg/dl (7-20); CALCIUM 8.4 mg/dl (8.4-10.2); CARBON DIOXIDE 27 mmol/L (21-31); CHLORIDE 104 mmol/L (97-110); CREATININE 1.19 mg/dl (0.61-1.24); GLUCOSE 96 mg/dl (70-220); SODIUM 139 mmol/L (135-144)
[2018-01-24] MEDS: LATANOPROST 0.005% 2.5 ML OPH BOTH EYES (19:51)
[2018-01-25] MEDS: morphine 2 MG INJ IV ×4 (05:14→23:32)
[2018-01-25] MEDS: DIPHENHYDRAMINE 50 MG INJ IV ×4 (05:15→23:32)
[2018-01-25] MEDS: ONDANSETRON 4 MG INJ IV ×4 (05:15→23:32)
[2018-01-25] MEDS: PANTOPRAZOLE (EC) 40 MG TAB PO ×2 (08:07→20:52)
[2018-01-25] MEDS: BRIMONIDINE 0.1% 5 ML OPH BOTH EYES ×2 (08:07→20:46)
[2018-01-25] MEDS: RANOLAZINE (SR) 500 MG TAB PO ×2 (08:07→20:51)
[2018-01-25] MEDS: ASPIRIN 81 MG TAB PO (08:09)
[2018-01-25] MEDS: FUROSEMIDE 20 MG INJ IV (08:09)
[2018-01-25] MEDS: SOTALOL 80 MG TAB PO ×2 (08:09→20:51)
[2018-01-25 08:13] LABS: ADD MAN DIFF? NO
[2018-01-25] MEDS: ISOSORBIDE MONONITRATE(SR)60 MG TAB PO (08:13)
[2018-01-25] MEDS: ENOXAPARIN 40 MG/0.4 ML SYG SC (08:20)
[2018-01-25] MEDS: TICAGRELOR 90 MG TABLET PO ×2 (08:21→21:02)
[2018-01-25] MEDS: LISINOPRIL 5 MG TAB PO (08:21)
[2018-01-25 08:24] LABS: WHITE BLOOD COUNT 3.8 10^3/ul (4.8-10.8)
[2018-01-25 08:24] LABS: BASOPHILS % 0.3 % (0.0-2.0); EOSINOPHILS # 0.1 10^3/ul (0.0-0.5); EOSINOPHILS % 1.8 % (0.0-7.0); HEMATOCRIT 34.2 % (42.0-52.0); HEMOGLOBIN 10.6 g/dl (14.0-18.0); LYMPHOCYTES # 1.1 10^3/ul (0.8-2.9); LYMPHOCYTES % 29.2 % (15.0-51.0); MEAN CORPUSCULAR HEMOGLOBIN 25.5 pg (29.0-33.0); MEAN CORPUSCULAR VOLUME 82.2 fl (82.0-101.0); MEAN PLATELET VOLUME 10.3 fl (7.4-10.4); MONOCYTE # 0.5 10^3/ul (0.3-0.9); NEUTROPHIL # 2.2 10^3/ul (1.6-7.5); NEUTROPHILS % 56.4 % (39.0-77.0); PLATELET COUNT 209 10^3/UL (140-415); POSITIVE DIFF @See below; RED BLOOD COUNT 4.16 10^6/ul (4.70-6.10); RED CELL DISTRIBUTION WIDTH 20.4 % (11.5-14.5)
[2018-01-25 08:38] LABS: ANION GAP 9 (8-16); BLOOD UREA NITROGEN 19 mg/dl (7-20); CALCIUM 8.5 mg/dl (8.4-10.2); CARBON DIOXIDE 30 mmol/L (21-31); CHLORIDE 106 mmol/L (97-110); CREATININE 1.19 mg/dl (0.61-1.24); GLUCOSE 114 mg/dl (70-220); POTASSIUM 4.1 mmol/L (3.5-5.1); SODIUM 141 mmol/L (135-144)
[2018-01-25] MEDS: LATANOPROST 0.005% 2.5 ML OPH BOTH EYES (20:46)
[2018-01-26] MEDS: ONDANSETRON 4 MG INJ IV ×3 (06:00→18:09)
[2018-01-26] MEDS: DIPHENHYDRAMINE 50 MG INJ IV ×3 (06:00→18:09)
[2018-01-26] MEDS: morphine 2 MG INJ IV ×3 (06:01→18:09)
[2018-01-26] MEDS: SOTALOL 80 MG TAB PO ×2 (08:17→21:25)
[2018-01-26] MEDS: ISOSORBIDE MONONITRATE(SR)60 MG TAB PO (08:18)
[2018-01-26] MEDS: ASPIRIN 81 MG TAB PO (08:18)
[2018-01-26] MEDS: PANTOPRAZOLE (EC) 40 MG TAB PO ×2 (08:18→21:25)
[2018-01-26] MEDS: FUROSEMIDE 20 MG INJ IV (08:18)
[2018-01-26] MEDS: RANOLAZINE (SR) 500 MG TAB PO ×2 (08:18→21:25)
[2018-01-26] MEDS: TICAGRELOR 90 MG TABLET PO ×2 (08:19→21:43)
[2018-01-26] MEDS: ENOXAPARIN 40 MG/0.4 ML SYG SC (08:20)
[2018-01-26] MEDS: LISINOPRIL 5 MG TAB PO (08:21)
[2018-01-26] MEDS: BRIMONIDINE 0.1% 5 ML OPH BOTH EYES ×2 (08:21→21:00)
[2018-01-26 08:43] LABS: ADD MAN DIFF? NO
[2018-01-26 08:48] LABS: WHITE BLOOD COUNT 3.8 10^3/ul (4.8-10.8)
[2018-01-26 08:48] LABS: BASOPHILS % 0.3 % (0.0-2.0); EOSINOPHILS # 0.1 10^3/ul (0.0-0.5); EOSINOPHILS % 2.4 % (0.0-7.0); HEMATOCRIT 36.2 % (42.0-52.0); HEMOGLOBIN 11.4 g/dl (14.0-18.0); LYMPHOCYTES # 1.1 10^3/ul (0.8-2.9); LYMPHOCYTES % 29.5 % (15.0-51.0); MEAN CORPUSCULAR HGB CONC 31.5 g/dl (32.0-37.0); MEAN CORPUSCULAR VOLUME 82.5 fl (82.0-101.0); MEAN PLATELET VOLUME 10.1 fl (7.4-10.4); MONOCYTE # 0.4 10^3/ul (0.3-0.9); MONOCYTES % 10.4 % (0.0-11.0); NEUTROPHIL # 2.2 10^3/ul (1.6-7.5); NEUTROPHILS % 57.1 % (39.0-77.0); PLATELET COUNT 269 10^3/UL (140-415); RED BLOOD COUNT 4.39 10^6/ul (4.70-6.10); RED CELL DISTRIBUTION WIDTH 20.3 % (11.5-14.5)
[2018-01-26 09:16] LABS: ANION GAP 14 (8-16); BLOOD UREA NITROGEN 18 mg/dl (7-20); CALCIUM 8.8 mg/dl (8.4-10.2); CARBON DIOXIDE 27 mmol/L (21-31); CHLORIDE 103 mmol/L (97-110); CREATININE 1.09 mg/dl (0.61-1.24); GLUCOSE 134 mg/dl (70-220); POTASSIUM 4.2 mmol/L (3.5-5.1); SODIUM 140 mmol/L (135-144)
[2018-01-26] MEDS ORDERED: NITROGLYCERIN AEROSOL (4.9 GM) (09:30)
[2018-01-26] MEDS: SOD CHLORIDE 0.9% 100 ML (09:50)
[2018-01-26] MEDS: IOHEXOL 100 ML (09:50)
[2018-01-26] MEDS: IOHEXOL 350MG/ML 50 ML BTL (09:50)
[2018-01-26] MEDS: LATANOPROST 0.005% 2.5 ML OPH BOTH EYES (21:00)
[2018-01-27] MEDS: ONDANSETRON 4 MG INJ IV ×4 (00:14→18:13)
[2018-01-27] MEDS: morphine 2 MG INJ IV ×4 (00:14→18:13)
[2018-01-27] MEDS: DIPHENHYDRAMINE 50 MG INJ IV ×4 (00:14→18:13)
[2018-01-27] MEDS: RANOLAZINE (SR) 500 MG TAB PO ×2 (08:15→21:18)
[2018-01-27] MEDS: SOTALOL 80 MG TAB PO ×2 (08:15→21:00)
[2018-01-27] MEDS: PANTOPRAZOLE (EC) 40 MG TAB PO ×2 (08:16→21:18)
[2018-01-27] MEDS: ISOSORBIDE MONONITRATE(SR)60 MG TAB PO (08:16)
[2018-01-27] MEDS: ASPIRIN 81 MG TAB PO (08:17)
[2018-01-27] MEDS: FUROSEMIDE 20 MG INJ IV (08:17)
[2018-01-27] MEDS: ENOXAPARIN 40 MG/0.4 ML SYG SC (08:20)
[2018-01-27] MEDS: TICAGRELOR 90 MG TABLET PO ×2 (08:22→21:30)
[2018-01-27] MEDS: BRIMONIDINE 0.1% 5 ML OPH BOTH EYES ×2 (08:25→21:00)
[2018-01-27] MEDS: LISINOPRIL 5 MG TAB PO (08:26)
[2018-01-27 09:19] LABS: ADD MAN DIFF? NO
[2018-01-27 09:21] LABS: WHITE BLOOD COUNT 4.2 10^3/ul (4.8-10.8)
[2018-01-27 09:21] LABS: BASOPHILS % 0.5 % (0.0-2.0); EOSINOPHILS # 0.1 10^3/ul (0.0-0.5); EOSINOPHILS % 1.9 % (0.0-7.0); HEMATOCRIT 38.5 % (42.0-52.0); HEMOGLOBIN 12.1 g/dl (14.0-18.0); LYMPHOCYTES # 1.2 10^3/ul (0.8-2.9); LYMPHOCYTES % 29.2 % (15.0-51.0); MEAN CORPUSCULAR HEMOGLOBIN 25.5 pg (29.0-33.0); MEAN CORPUSCULAR HGB CONC 31.4 g/dl (32.0-37.0); MEAN CORPUSCULAR VOLUME 81.2 fl (82.0-101.0); MEAN PLATELET VOLUME 9.9 fl (7.4-10.4); MONOCYTE # 0.3 10^3/ul (0.3-0.9); MONOCYTES % 7.5 % (0.0-11.0); NEUTROPHIL # 2.6 10^3/ul (1.6-7.5); NEUTROPHILS % 60.7 % (39.0-77.0); POSITIVE DIFF @See below; RED BLOOD COUNT 4.74 10^6/ul (4.70-6.10); RED CELL DISTRIBUTION WIDTH 19.9 % (11.5-14.5)
[2018-01-27 09:30] LABS: PLATELET COUNT 184 10^3/UL (140-415)
[2018-01-27 09:48] LABS: ANION GAP 17 (8-16); BLOOD UREA NITROGEN 16 mg/dl (7-20); CALCIUM 8.5 mg/dl (8.4-10.2); CARBON DIOXIDE 25 mmol/L (21-31); CHLORIDE 102 mmol/L (97-110); CREATININE 1.15 mg/dl (0.61-1.24); GLUCOSE 139 mg/dl (70-220); POTASSIUM 4.1 mmol/L (3.5-5.1); SODIUM 140 mmol/L (135-144)
[2018-01-27] MEDS: LATANOPROST 0.005% 2.5 ML OPH BOTH EYES (21:00)
[2018-01-28] MEDS: DIPHENHYDRAMINE 50 MG INJ IV ×4 (00:27→18:47)
[2018-01-28] MEDS: ONDANSETRON 4 MG INJ IV ×4 (00:27→18:46)
[2018-01-28] MEDS: morphine 2 MG INJ IV ×4 (00:28→18:46)
[2018-01-28 06:48] LABS: ADD MAN DIFF? NO
[2018-01-28 06:54] LABS: WHITE BLOOD COUNT 4.4 10^3/ul (4.8-10.8)
[2018-01-28 06:54] LABS: BASOPHILS % 0.7 % (0.0-2.0); EOSINOPHILS # 0.1 10^3/ul (0.0-0.5); EOSINOPHILS % 1.8 % (0.0-7.0); HEMATOCRIT 38.8 % (42.0-52.0); HEMOGLOBIN 12.2 g/dl (14.0-18.0); LYMPHOCYTES # 1.6 10^3/ul (0.8-2.9); MEAN CORPUSCULAR HEMOGLOBIN 25.6 pg (29.0-33.0); MEAN CORPUSCULAR HGB CONC 31.4 g/dl (32.0-37.0); MEAN CORPUSCULAR VOLUME 81.5 fl (82.0-101.0); MEAN PLATELET VOLUME 9.6 fl (7.4-10.4); MONOCYTE # 0.4 10^3/ul (0.3-0.9); MONOCYTES % 9.5 % (0.0-11.0); NEUTROPHIL # 2.3 10^3/ul (1.6-7.5); NEUTROPHILS % 51.5 % (39.0-77.0); PLATELET COUNT 296 10^3/UL (140-415); RED BLOOD COUNT 4.76 10^6/ul (4.70-6.10); RED CELL DISTRIBUTION WIDTH 20.5 % (11.5-14.5)
[2018-01-28 07:10] LABS: ANION GAP 12 (8-16); BLOOD UREA NITROGEN 18 mg/dl (7-20); CARBON DIOXIDE 30 mmol/L (21-31); CHLORIDE 103 mmol/L (97-110); CREATININE 1.23 mg/dl (0.61-1.24); GLUCOSE 115 mg/dl (70-220); POTASSIUM 4.4 mmol/L (3.5-5.1); SODIUM 141 mmol/L (135-144)
[2018-01-28] MEDS: LISINOPRIL 5 MG TAB PO (09:00)
[2018-01-28] MEDS: BRIMONIDINE 0.1% 5 ML OPH BOTH EYES ×2 (09:00→21:00)
[2018-01-28] MEDS: FUROSEMIDE 20 MG INJ IV (09:10)
[2018-01-28] MEDS: RANOLAZINE (SR) 500 MG TAB PO ×2 (09:11→21:23)
[2018-01-28] MEDS: ASPIRIN 81 MG TAB PO (09:11)
[2018-01-28] MEDS: ISOSORBIDE MONONITRATE(SR)60 MG TAB PO (09:11)
[2018-01-28] MEDS: PANTOPRAZOLE (EC) 40 MG TAB PO ×2 (09:11→21:18)
[2018-01-28] MEDS: SOTALOL 80 MG TAB PO ×2 (09:12→21:18)
[2018-01-28] MEDS: ENOXAPARIN 40 MG/0.4 ML SYG SC (09:22)
[2018-01-28] MEDS: TICAGRELOR 90 MG TABLET PO ×2 (09:23→21:22)
[2018-01-28] MEDS: LATANOPROST 0.005% 2.5 ML OPH BOTH EYES (21:00)
[2018-01-29] MEDS: morphine 2 MG INJ IV ×4 (00:39→18:50)
[2018-01-29] MEDS: ONDANSETRON 4 MG INJ IV ×4 (00:39→18:48)
[2018-01-29] MEDS: DIPHENHYDRAMINE 50 MG INJ IV ×4 (00:39→18:48)
[2018-01-29] MEDS: LISINOPRIL 5 MG TAB PO (08:37)
[2018-01-29] MEDS: BRIMONIDINE 0.1% 5 ML OPH BOTH EYES ×2 (08:37→21:00)
[2018-01-29] MEDS: FUROSEMIDE 20 MG INJ IV ×2 (08:38→08:52)
[2018-01-29] MEDS: ISOSORBIDE MONONITRATE(SR)60 MG TAB PO (08:40)
[2018-01-29] MEDS: RANOLAZINE (SR) 500 MG TAB PO ×2 (08:40→21:33)
[2018-01-29] MEDS: ASPIRIN 81 MG TAB PO (08:41)
[2018-01-29] MEDS: SOTALOL 80 MG TAB PO ×2 (08:41→21:33)
[2018-01-29] MEDS: PANTOPRAZOLE (EC) 40 MG TAB PO ×2 (08:41→21:33)
[2018-01-29] MEDS: TICAGRELOR 90 MG TABLET PO ×2 (08:43→21:35)
[2018-01-29] MEDS: ENOXAPARIN 40 MG/0.4 ML SYG SC (08:44)
[2018-01-29] MEDS: LATANOPROST 0.005% 2.5 ML OPH BOTH EYES (21:00)
[2018-01-30] MEDS: morphine 2 MG INJ IV ×4 (00:54→18:21)
[2018-01-30] MEDS: DIPHENHYDRAMINE 50 MG INJ IV ×4 (00:54→18:20)
[2018-01-30] MEDS: ONDANSETRON 4 MG INJ IV ×4 (00:54→18:20)
[2018-01-30 06:25] LABS: ADD MAN DIFF? NO
[2018-01-30 06:29] LABS: WHITE BLOOD COUNT 4.8 10^3/ul (4.8-10.8)
[2018-01-30 06:29] LABS: BASOPHILS % 0.2 % (0.0-2.0); EOSINOPHILS # 0.1 10^3/ul (0.0-0.5); EOSINOPHILS % 1.5 % (0.0-7.0); HEMATOCRIT 38.2 % (42.0-52.0); HEMOGLOBIN 11.8 g/dl (14.0-18.0); LYMPHOCYTES # 1.4 10^3/ul (0.8-2.9); LYMPHOCYTES % 28.8 % (15.0-51.0); MEAN CORPUSCULAR HEMOGLOBIN 25.4 pg (29.0-33.0); MEAN CORPUSCULAR HGB CONC 30.9 g/dl (32.0-37.0); MEAN CORPUSCULAR VOLUME 82.3 fl (82.0-101.0); MONOCYTE # 0.3 10^3/ul (0.3-0.9); MONOCYTES % 6.5 % (0.0-11.0); NEUTROPHILS % 62.6 % (39.0-77.0); PLATELET COUNT 302 10^3/UL (140-415); RED BLOOD COUNT 4.64 10^6/ul (4.70-6.10); RED CELL DISTRIBUTION WIDTH 19.9 % (11.5-14.5)
[2018-01-30 07:05] LABS: ANION GAP 12 (8-16); BLOOD UREA NITROGEN 17 mg/dl (7-20); CALCIUM 8.8 mg/dl (8.4-10.2); CARBON DIOXIDE 29 mmol/L (21-31); CHLORIDE 104 mmol/L (97-110); CREATININE 1.24 mg/dl (0.61-1.24); GLUCOSE 137 mg/dl (70-220); POTASSIUM 4.1 mmol/L (3.5-5.1); SODIUM 141 mmol/L (135-144)
[2018-01-30] MEDS: ENOXAPARIN 40 MG/0.4 ML SYG SC (08:10)
[2018-01-30] MEDS: ASPIRIN 81 MG TAB PO (08:44)
[2018-01-30] MEDS: BRIMONIDINE 0.1% 5 ML OPH BOTH EYES ×2 (08:44→21:00)
[2018-01-30] MEDS: FUROSEMIDE 20 MG INJ IV (08:44)
[2018-01-30] MEDS: SOTALOL 80 MG TAB PO ×2 (08:44→21:01)
[2018-01-30] MEDS: PANTOPRAZOLE (EC) 40 MG TAB PO ×2 (08:44→21:01)
[2018-01-30] MEDS: RANOLAZINE (SR) 500 MG TAB PO ×2 (08:44→21:01)
[2018-01-30] MEDS: LISINOPRIL 5 MG TAB PO (08:45)
[2018-01-30] MEDS: ISOSORBIDE MONONITRATE(SR)60 MG TAB PO (08:45)
[2018-01-30] MEDS: TICAGRELOR 90 MG TABLET PO ×2 (08:51→21:05)
[2018-01-30] MEDS ORDERED: FENTAnyl 50 MCG/ML VIAL (09:05)
[2018-01-30] MEDS ORDERED: HEPARIN 1000 UNITS/NS (A-LINE) 1,000 ML (09:05)
[2018-01-30] MEDS ORDERED: MIDAZOLAM 1 MG/ML 2 ML INJ (09:05)
[2018-01-30] MEDS ORDERED: LIDOCAINE 1% (MDV) 20 ML INJ ×2 (09:05→10:08)
[2018-01-30] MEDS ORDERED: IODIXANOL LOCM 100 ML BTL ×2 (09:05→10:08)
[2018-01-30] MEDS ORDERED: AL HYDROX/MG HYDROX/SIMETH 30 ML CUP PO (11:00)
[2018-01-30] MEDS ORDERED: ACETAMINOPHEN 325 MG TAB PO (11:00)
[2018-01-30] MEDS: SOD CHLORIDE 0.9% 1,000 ML IV (12:31)
[2018-01-30] MEDS: LATANOPROST 0.005% 2.5 ML OPH BOTH EYES (21:00)
[2018-01-31] MEDS: morphine 2 MG INJ IV ×4 (00:21→18:10)
[2018-01-31] MEDS: DIPHENHYDRAMINE 50 MG INJ IV ×4 (00:24→18:10)
[2018-01-31] MEDS: ONDANSETRON 4 MG INJ IV ×4 (00:24→18:10)
[2018-01-31 07:06] LABS: ADD MAN DIFF? NO
[2018-01-31 07:15] LABS: WHITE BLOOD COUNT 4.7 10^3/ul (4.8-10.8)
[2018-01-31 07:15] LABS: BASOPHILS % 0.2 % (0.0-2.0); EOSINOPHILS # 0.1 10^3/ul (0.0-0.5); EOSINOPHILS % 1.3 % (0.0-7.0); HEMATOCRIT 42.8 % (42.0-52.0); HEMOGLOBIN 13.3 g/dl (14.0-18.0); LYMPHOCYTES # 1.4 10^3/ul (0.8-2.9); LYMPHOCYTES % 28.7 % (15.0-51.0); MEAN CORPUSCULAR HEMOGLOBIN 25.5 pg (29.0-33.0); MEAN CORPUSCULAR HGB CONC 31.1 g/dl (32.0-37.0); MONOCYTE # 0.3 10^3/ul (0.3-0.9); MONOCYTES % 6.3 % (0.0-11.0); NEUTROPHILS % 63.1 % (39.0-77.0); PLATELET COUNT 341 10^3/UL (140-415); RED BLOOD COUNT 5.22 10^6/ul (4.70-6.10); RED CELL DISTRIBUTION WIDTH 20.1 % (11.5-14.5)
[2018-01-31 07:29] LABS: BLOOD UREA NITROGEN 18 mg/dl (7-20); CARBON DIOXIDE 26 mmol/L (21-31); CHLORIDE 104 mmol/L (97-110); CREATININE 1.16 mg/dl (0.61-1.24); GLUCOSE 113 mg/dl (70-220); POTASSIUM 4.4 mmol/L (3.5-5.1); SODIUM 142 mmol/L (135-144)
[2018-01-31 07:59] LABS: ANION GAP 16 (8-16)
[2018-01-31] MEDS: BRIMONIDINE 0.1% 5 ML OPH BOTH EYES ×2 (08:06→21:00)
[2018-01-31] MEDS: FUROSEMIDE 20 MG INJ IV (08:07)
[2018-01-31] MEDS: LISINOPRIL 5 MG TAB PO (08:08)
[2018-01-31] MEDS: SOTALOL 80 MG TAB PO ×2 (08:08→21:00)
[2018-01-31] MEDS: ISOSORBIDE MONONITRATE(SR)60 MG TAB PO (08:08)
[2018-01-31] MEDS: ASPIRIN 81 MG TAB PO (08:08)
[2018-01-31] MEDS: PANTOPRAZOLE (EC) 40 MG TAB PO ×2 (08:09→21:51)
[2018-01-31] MEDS: RANOLAZINE (SR) 500 MG TAB PO ×2 (08:09→21:51)
[2018-01-31] MEDS: ENOXAPARIN 40 MG/0.4 ML SYG SC (08:36)
[2018-01-31] MEDS: TICAGRELOR 90 MG TABLET PO ×2 (08:36→21:54)
[2018-01-31] MEDS: LATANOPROST 0.005% 2.5 ML OPH BOTH EYES (21:00)
[2018-02-01] MEDS: DIPHENHYDRAMINE 50 MG INJ IV ×4 (00:13→16:53)
[2018-02-01] MEDS: ONDANSETRON 4 MG INJ IV ×4 (00:14→16:58)
[2018-02-01] MEDS: morphine 2 MG INJ IV ×5 (00:14→12:30)
[2018-02-01] MEDS: ISOSORBIDE MONONITRATE(SR)60 MG TAB PO (08:39)
[2018-02-01] MEDS: ASPIRIN 81 MG TAB PO (08:39)
[2018-02-01] MEDS: PANTOPRAZOLE (EC) 40 MG TAB PO ×2 (08:39→21:03)
[2018-02-01] MEDS: RANOLAZINE (SR) 500 MG TAB PO ×2 (08:40→21:03)
[2018-02-01] MEDS: FUROSEMIDE 20 MG INJ IV (08:40)
[2018-02-01] MEDS: LISINOPRIL 5 MG TAB PO (08:40)
[2018-02-01] MEDS: BRIMONIDINE 0.1% 5 ML OPH BOTH EYES ×2 (08:41→21:00)
[2018-02-01] MEDS: ENOXAPARIN 40 MG/0.4 ML SYG SC (08:56)
[2018-02-01] MEDS: TICAGRELOR 90 MG TABLET PO ×2 (08:56→21:06)
[2018-02-01] MEDS: SOTALOL 80 MG TAB PO ×2 (10:04→21:03)
[2018-02-01] MEDS: morphine LIQ (10 MG/5 ML) CUP PO (16:54)
[2018-02-01] MEDS: LATANOPROST 0.005% 2.5 ML OPH BOTH EYES (21:00)
[2018-02-02] MEDS: morphine LIQ (10 MG/5 ML) CUP PO ×2 (03:36→16:03)
[2018-02-02] MEDS: ONDANSETRON 4 MG INJ IV ×3 (03:36→16:03)
[2018-02-02] MEDS: DIPHENHYDRAMINE 50 MG INJ IV ×3 (03:39→16:03)
[2018-02-02] MEDS: ASPIRIN 81 MG TAB PO (09:00)
[2018-02-02] MEDS: BRIMONIDINE 0.1% 5 ML OPH BOTH EYES (09:00)
[2018-02-02] MEDS: RANOLAZINE (SR) 500 MG TAB PO (09:00)
[2018-02-02] MEDS: LISINOPRIL 5 MG TAB PO (09:00)
[2018-02-02] MEDS: ISOSORBIDE MONONITRATE(SR)60 MG TAB PO (09:00)
[2018-02-02] MEDS: PANTOPRAZOLE (EC) 40 MG TAB PO (09:01)
[2018-02-02] MEDS: SOTALOL 80 MG TAB PO (09:01)
[2018-02-02] MEDS: FUROSEMIDE 20 MG INJ IV (09:01)
[2018-02-02] MEDS: ENOXAPARIN 40 MG/0.4 ML SYG SC (09:15)
[2018-02-02] MEDS: TICAGRELOR 90 MG TABLET PO (09:15)
[2018-02-02 13:01] LABS: ANION GAP 17 (8-16); BLOOD UREA NITROGEN 17 mg/dl (7-20); CALCIUM 8.8 mg/dl (8.4-10.2); CARBON DIOXIDE 23 mmol/L (21-31); CHLORIDE 105 mmol/L (97-110); CREATININE 1.11 mg/dl (0.61-1.24); GLUCOSE 193 mg/dl (70-220); POTASSIUM 4.5 mmol/L (3.5-5.1); SODIUM 140 mmol/L (135-144)
== END 2018-02-02 17:47 | DRG 286 ==
LOC: TEL 21:29 → E/R 17:17
PROC: 4A023N7 Measurement of Cardiac Sampling and Pressure, Left Heart, Percutaneous Approach (ICD-10-PCS; principal; 2018-01-30 09:08)
PROC: B218YZZ Fluoroscopy of Left Internal Mammary Bypass Graft using Other Contrast (ICD-10-PCS; 2018-01-30 09:08)
PROC: B211YZZ Fluoroscopy of Multiple Coronary Arteries using Other Contrast (ICD-10-PCS; 2018-01-30 09:08)
DX: T82.855A Stenosis of coronary artery stent, initial encounter (principal); I50.23 Acute on chronic systolic (congestive) heart failure; I11.0 Hypertensive heart disease with heart failure; I25.5 Ischemic cardiomyopathy; G47.33 Obstructive sleep apnea (adult) (pediatric); E78.5 Hyperlipidemia, unspecified; F17.200 Nicotine dependence, unspecified, uncomplicated; I25.119 Atherosclerotic heart disease of native coronary artery with unspecified angina pectoris; J44.9 Chronic obstructive pulmonary disease, unspecified; E87.6 Hypokalemia; D64.9 Anemia, unspecified; Z95.810 Presence of automatic (implantable) cardiac defibrillator; Z95.1 Presence of aortocoronary bypass graft; Z95.5 Presence of coronary angioplasty implant and graft; Z79.02 Long term (current) use of antithrombotics/antiplatelets; Z79.82 Long term (current) use of aspirin
CPT/HCPCS: 36415; 71045; 75571; 75574; 80048; 80061; 82550; 82553; 83036; 83735; 83880; 84439; 84443; 84484; 85025; 85610; 87081; 93005; 93306; 93459; 94660; 96374; 96375; 97110; 97116; 97162; 97530; 99285-25

== ENCOUNTER 2018-02-03 01:57 | Observation (INO) | payer OTHER ==
[2018-02-03] MEDS: morphine 4 MG/ML VIAL IV (03:07)
[2018-02-03] MEDS: DIPHENHYDRAMINE 50 MG INJ IV ×4 (03:08→21:30)
[2018-02-03] MEDS: ONDANSETRON 4 MG INJ IV ×4 (03:08→21:30)
[2018-02-03] MEDS ORDERED: DOCUSATE SODIUM 100 MG CAP PO (04:30)
[2018-02-03] MEDS: RANOLAZINE (SR) 500 MG TAB PO ×2 (08:25→21:28)
[2018-02-03] MEDS: ISOSORBIDE MONONITRATE(SR)60 MG TAB PO (08:26)
[2018-02-03] MEDS: ASPIRIN 81 MG TAB PO (08:27)
[2018-02-03] MEDS: PANTOPRAZOLE (EC) 40 MG TAB PO ×2 (08:27→21:28)
[2018-02-03] MEDS: SOTALOL 80 MG TAB PO ×2 (08:27→21:28)
[2018-02-03] MEDS: LISINOPRIL 5 MG TAB PO (08:28)
[2018-02-03] MEDS: TICAGRELOR 90 MG TABLET PO ×2 (08:31→21:29)
[2018-02-03] MEDS: BRIMONIDINE 0.1% 5 ML OPH BOTH EYES ×2 (08:31→21:00)
[2018-02-03] MEDS: morphine 2 MG INJ IV (08:51)
[2018-02-03] MEDS: morphine LIQ (10 MG/5 ML) CUP PO ×2 (15:00→21:30)
[2018-02-03 17:35] LABS: TROPONIN-I < 0.012 ng/ml (0.000-0.120)
[2018-02-03 20:29] LABS: FREE T4 (FREE THYROXINE) 0.92 ng/dl (0.78-2.44)
[2018-02-03 20:41] LABS: CHOL/HDL RATIO 5.4 RATIO; HDL CHOLESTEROL 39 mg/dl (30-78); LDL CHOLESTEROL,CALCULATED 137 mg/dl; TRIGLYCERIDES 188 mg/dl (0-149)
[2018-02-03 20:41] LABS: CHOLESTEROL 214 mg/dl (100-200)
[2018-02-03] MEDS: LATANOPROST 0.005% 2.5 ML OPH BOTH EYES (21:00)
[2018-02-03] MEDS: ATORVASTATIN 80 MG TAB PO (21:28)
[2018-02-04] MEDS: morphine LIQ (10 MG/5 ML) CUP PO ×4 (03:37→18:55)
[2018-02-04] MEDS: DIPHENHYDRAMINE 50 MG INJ IV ×3 (03:37→16:04)
[2018-02-04] MEDS: ONDANSETRON 4 MG INJ IV ×3 (03:37→16:05)
[2018-02-04 07:07] LABS: ADD MAN DIFF? NO
[2018-02-04 07:15] LABS: WHITE BLOOD COUNT 4.9 10^3/ul (4.8-10.8)
[2018-02-04 07:15] LABS: BASOPHILS % 0.2 % (0.0-2.0); EOSINOPHILS # 0.1 10^3/ul (0.0-0.5); EOSINOPHILS % 1.2 % (0.0-7.0); HEMOGLOBIN 12.8 g/dl (14.0-18.0); LYMPHOCYTES # 1.3 10^3/ul (0.8-2.9); LYMPHOCYTES % 26.1 % (15.0-51.0); MEAN CORPUSCULAR HEMOGLOBIN 25.5 pg (29.0-33.0); MEAN CORPUSCULAR HGB CONC 31.2 g/dl (32.0-37.0); MEAN CORPUSCULAR VOLUME 81.8 fl (82.0-101.0); MEAN PLATELET VOLUME 9.3 fl (7.4-10.4); MONOCYTE # 0.3 10^3/ul (0.3-0.9); MONOCYTES % 6.3 % (0.0-11.0); NEUTROPHIL # 3.3 10^3/ul (1.6-7.5); NEUTROPHILS % 65.8 % (39.0-77.0); PLATELET COUNT 301 10^3/UL (140-415); RED BLOOD COUNT 5.01 10^6/ul (4.70-6.10); RED CELL DISTRIBUTION WIDTH 20.3 % (11.5-14.5)
[2018-02-04 07:43] LABS: ANION GAP 11 (8-16); BLOOD UREA NITROGEN 20 mg/dl (7-20); CALCIUM 9.2 mg/dl (8.4-10.2); CARBON DIOXIDE 26 mmol/L (21-31); CHLORIDE 106 mmol/L (97-110); CREATININE 1.13 mg/dl (0.61-1.24); GLUCOSE 103 mg/dl (70-220); SODIUM 139 mmol/L (135-144)
[2018-02-04] MEDS: LISINOPRIL 5 MG TAB PO (09:00)
[2018-02-04] MEDS: ASPIRIN 81 MG TAB PO (09:52)
[2018-02-04] MEDS: SOTALOL 80 MG TAB PO ×2 (09:52→19:54)
[2018-02-04] MEDS: RANOLAZINE (SR) 500 MG TAB PO (09:52)
[2018-02-04] MEDS: PANTOPRAZOLE (EC) 40 MG TAB PO ×2 (09:53→19:52)
[2018-02-04] MEDS: ISOSORBIDE MONONITRATE(SR)60 MG TAB PO (09:53)
[2018-02-04] MEDS: BRIMONIDINE 0.1% 5 ML OPH BOTH EYES ×2 (09:58→19:54)
[2018-02-04] MEDS: TICAGRELOR 90 MG TABLET PO ×2 (10:05→19:57)
[2018-02-04 16:08] LABS: TROPONIN-I < 0.012 ng/ml (0.000-0.120)
[2018-02-04] MEDS: ATORVASTATIN 80 MG TAB PO (19:53)
[2018-02-04] MEDS: LATANOPROST 0.005% 2.5 ML OPH BOTH EYES (19:54)
[2018-02-04] MEDS ORDERED: RANOLAZINE (SR) 500 MG TAB PO (21:00)
[2018-02-05] MEDS ORDERED: FUROSEMIDE 20 MG TAB PO (09:00)
== END 2018-02-04 20:15 ==
LOC: E/R 01:57 → TEL 02:36
PROVIDERS: Internal Medicine
DX: R07.9 Chest pain, unspecified (principal); I25.10 Atherosclerotic heart disease of native coronary artery without angina pectoris; E78.5 Hyperlipidemia, unspecified; G47.33 Obstructive sleep apnea (adult) (pediatric); I10 Essential (primary) hypertension; Z95.0 Presence of cardiac pacemaker; E78.00 Pure hypercholesterolemia, unspecified; I42.9 Cardiomyopathy, unspecified
CPT/HCPCS: 80048; 80061; 84439; 84443; 84484; 85025; 93005; 94660; 96374; 96375; 99285-25; G0378

== ENCOUNTER 2018-02-05 08:57 | Emergency (ER) | payer OTHER ==
[2018-02-05 09:37] LABS: ADD MAN DIFF? NO
[2018-02-05 09:38] LABS: BASOPHILS % 0.2 % (0.0-2.0); EOSINOPHILS # 0.1 10^3/ul (0.0-0.5); EOSINOPHILS % 0.8 % (0.0-7.0); HEMATOCRIT 41.8 % (42.0-52.0); LYMPHOCYTES # 1.3 10^3/ul (0.8-2.9); LYMPHOCYTES % 21.5 % (15.0-51.0); MEAN CORPUSCULAR HEMOGLOBIN 25.6 pg (29.0-33.0); MEAN CORPUSCULAR HGB CONC 31.1 g/dl (32.0-37.0); MEAN CORPUSCULAR VOLUME 82.3 fl (82.0-101.0); MONOCYTE # 0.3 10^3/ul (0.3-0.9); MONOCYTES % 4.7 % (0.0-11.0); NEUTROPHIL # 4.3 10^3/ul (1.6-7.5); NEUTROPHILS % 72.6 % (39.0-77.0); PLATELET COUNT 297 10^3/UL (140-415); RED BLOOD COUNT 5.08 10^6/ul (4.70-6.10); RED CELL DISTRIBUTION WIDTH 19.5 % (11.5-14.5)
[2018-02-05 09:38] LABS: WHITE BLOOD COUNT 5.9 10^3/ul (4.8-10.8)
[2018-02-05 09:58] LABS: INR 0.91; PROTIME 12.3 Sec (11.9-14.9)
[2018-02-05 09:59] LABS: PARTIAL THROMBOPLASTIN TIME 21.5 Sec (25.0-35.0)
[2018-02-05 10:06] LABS: ALANINE AMINOTRANSFERASE 25 IU/L (13-69); ALBUMIN 4.2 g/dl (3.3-4.9); ALBUMIN/GLOBULIN RATIO 1.16; ALKALINE PHOSPHATASE 114 IU/L (42-121); ANION GAP 16 (8-16); ASPARTATE AMINO TRANSFERASE 22 IU/L (15-46); BILIRUBIN,INDIRECT 0.2 mg/dl (0-1.1); BILIRUBIN,TOTAL 0.2 mg/dl (0.2-1.3); BLOOD UREA NITROGEN 23 mg/dl (7-20); CALCIUM 9.5 mg/dl (8.4-10.2); CARBON DIOXIDE 25 mmol/L (21-31); CHLORIDE 106 mmol/L (97-110); GLUCOSE 161 mg/dl (70-220); POTASSIUM 4.2 mmol/L (3.5-5.1); SODIUM 143 mmol/L (135-144); TOTAL PROTEIN 7.8 g/dl (6.1-8.1)
[2018-02-05 10:17] LABS: B-TYPE NATRIURETIC PEPTIDE 402 PG/ML (0-125); TROPONIN-I 0.019 ng/ml (0.000-0.120)
== END 2018-02-05 10:34 | disposition home or self-care (01) ==
LOC: E/R 08:57
DX: R07.9 Chest pain, unspecified (principal); E11.9 Type 2 diabetes mellitus without complications; I10 Essential (primary) hypertension; J44.9 Chronic obstructive pulmonary disease, unspecified; I50.9 Heart failure, unspecified; I25.10 Atherosclerotic heart disease of native coronary artery without angina pectoris; Z79.82 Long term (current) use of aspirin; Z95.0 Presence of cardiac pacemaker; Z95.1 Presence of aortocoronary bypass graft
CPT/HCPCS: 36415; 71045; 80053; 83880; 84484; 85025; 85610; 85730; 93005; 99285-25

== ENCOUNTER 2018-03-06 21:09 | Emergency (ER) | payer OTHER ==
[2018-03-06 21:45] LABS: ADD MAN DIFF? NO
[2018-03-06 21:48] LABS: BASOPHILS % 0.4 % (0.0-2.0); EOSINOPHILS # 0.1 10^3/ul (0.0-0.5); HEMATOCRIT 37.3 % (42.0-52.0); HEMOGLOBIN 11.8 g/dl (14.0-18.0); LYMPHOCYTES # 1.6 10^3/ul (0.8-2.9); LYMPHOCYTES % 31.5 % (15.0-51.0); MEAN CORPUSCULAR HEMOGLOBIN 26.4 pg (29.0-33.0); MEAN CORPUSCULAR HGB CONC 31.6 g/dl (32.0-37.0); MEAN CORPUSCULAR VOLUME 83.4 fl (82.0-101.0); MEAN PLATELET VOLUME 8.7 fl (7.4-10.4); MONOCYTE # 0.4 10^3/ul (0.3-0.9); MONOCYTES % 7.4 % (0.0-11.0); NEUTROPHIL # 3.1 10^3/ul (1.6-7.5); NEUTROPHILS % 59.5 % (39.0-77.0); PLATELET COUNT 331 10^3/UL (140-415); RED BLOOD COUNT 4.47 10^6/ul (4.70-6.10); RED CELL DISTRIBUTION WIDTH 19.6 % (11.5-14.5)
[2018-03-06 21:48] LABS: WHITE BLOOD COUNT 5.1 10^3/ul (4.8-10.8)
[2018-03-06 22:19] LABS: ANION GAP 11 (8-16); BLOOD UREA NITROGEN 13 mg/dl (7-20); CALCIUM 8.9 mg/dl (8.4-10.2); CARBON DIOXIDE 22 mmol/L (21-31); CHLORIDE 109 mmol/L (97-110); CREATININE 1.18 mg/dl (0.61-1.24); GLUCOSE 121 mg/dl (70-220); POTASSIUM 4.3 mmol/L (3.5-5.1); SODIUM 138 mmol/L (135-144)
[2018-03-06 23:03] LABS: TROPONIN-I < 0.012 ng/ml (0.000-0.120)
== END 2018-03-06 23:34 | disposition home or self-care (01) ==
LOC: E/R 21:09
DX: D64.9 Anemia, unspecified (principal); I50.9 Heart failure, unspecified; J44.9 Chronic obstructive pulmonary disease, unspecified; I25.810 Atherosclerosis of coronary artery bypass graft(s) without angina pectoris; Z79.82 Long term (current) use of aspirin; Z87.891 Personal history of nicotine dependence; Z95.0 Presence of cardiac pacemaker
CPT/HCPCS: 71045; 80048; 84484; 85025; 93005; 99285-25

== ENCOUNTER 2018-03-09 07:55 | Emergency (ER) | payer OTHER ==
[2018-03-09 08:46] LABS: ADD MAN DIFF? NO
[2018-03-09 08:51] LABS: WHITE BLOOD COUNT 5.9 10^3/ul (4.8-10.8)
[2018-03-09 08:51] LABS: BASOPHILS % 0.3 % (0.0-2.0); EOSINOPHILS % 0.7 % (0.0-7.0); HEMOGLOBIN 11.7 g/dl (14.0-18.0); LYMPHOCYTES # 1.3 10^3/ul (0.8-2.9); LYMPHOCYTES % 22.4 % (15.0-51.0); MEAN CORPUSCULAR HEMOGLOBIN 25.6 pg (29.0-33.0); MEAN CORPUSCULAR HGB CONC 30.8 g/dl (32.0-37.0); MEAN CORPUSCULAR VOLUME 83.2 fl (82.0-101.0); MEAN PLATELET VOLUME 9.4 fl (7.4-10.4); MONOCYTE # 0.4 10^3/ul (0.3-0.9); MONOCYTES % 6.5 % (0.0-11.0); NEUTROPHIL # 4.1 10^3/ul (1.6-7.5); NEUTROPHILS % 69.8 % (39.0-77.0); PLATELET COUNT 345 10^3/UL (140-415); RED BLOOD COUNT 4.57 10^6/ul (4.70-6.10); RED CELL DISTRIBUTION WIDTH 19.5 % (11.5-14.5)
[2018-03-09] MEDS: ONDANSETRON 4 MG INJ IV (09:09)
[2018-03-09] MEDS: SOD CHLORIDE 0.9% 500 ML IV (09:09)
[2018-03-09] MEDS: morphine 4 MG/ML VIAL IV (09:09)
[2018-03-09 09:10] LABS: ANION GAP 14 (8-16); BLOOD UREA NITROGEN 17 mg/dl (7-20); CALCIUM 9.2 mg/dl (8.4-10.2); CARBON DIOXIDE 24 mmol/L (21-31); CHLORIDE 108 mmol/L (97-110); CREATININE 1.13 mg/dl (0.61-1.24); GLUCOSE 130 mg/dl (70-220); SODIUM 142 mmol/L (135-144)
[2018-03-09 09:14] LABS: INR 0.89; PROTIME 12.1 Sec (11.9-14.9); PT RATIO 0.9
[2018-03-09 09:24] LABS: TROPONIN-I 0.014 ng/ml (0.000-0.120)
[2018-03-09] MEDS: HYDROmorphONE 1 MG/ML SYG IV (11:31)
[2018-03-09] MEDS: DIPHENHYDRAMINE 50 MG INJ IV (11:31)
== END 2018-03-09 15:21 | disposition short-term general hospital (02) ==
LOC: E/R 07:55
DX: R55 Syncope and collapse (principal); R07.9 Chest pain, unspecified; I25.810 Atherosclerosis of coronary artery bypass graft(s) without angina pectoris; J44.9 Chronic obstructive pulmonary disease, unspecified; I50.9 Heart failure, unspecified; F17.210 Nicotine dependence, cigarettes, uncomplicated; Z95.0 Presence of cardiac pacemaker; Z79.82 Long term (current) use of aspirin
CPT/HCPCS: 36415; 70450; 71045; 80048; 84484; 85025; 85610; 85730; 93005; 96361; 96374; 96375; 99285-25

== ENCOUNTER 2018-03-25 12:41 | Emergency (ER) | payer OTHER ==
[2018-03-25 13:16] LABS: ADD MAN DIFF? NO
[2018-03-25 13:23] LABS: BASOPHILS % 0.1 % (0.0-2.0); EOSINOPHILS % 0.1 % (0.0-7.0); HEMATOCRIT 40.7 % (42.0-52.0); HEMOGLOBIN 12.8 g/dl (14.0-18.0); LYMPHOCYTES # 1.6 10^3/ul (0.8-2.9); MEAN CORPUSCULAR HEMOGLOBIN 25.8 pg (29.0-33.0); MEAN CORPUSCULAR HGB CONC 31.4 g/dl (32.0-37.0); MEAN CORPUSCULAR VOLUME 81.9 fl (82.0-101.0); MEAN PLATELET VOLUME 9.2 fl (7.4-10.4); MONOCYTE # 0.7 10^3/ul (0.3-0.9); MONOCYTES % 7.2 % (0.0-11.0); NEUTROPHIL # 7.8 10^3/ul (1.6-7.5); NEUTROPHILS % 76.2 % (39.0-77.0); PLATELET COUNT 287 10^3/UL (140-415); RED BLOOD COUNT 4.97 10^6/ul (4.70-6.10); RED CELL DISTRIBUTION WIDTH 18.6 % (11.5-14.5)
[2018-03-25 13:23] LABS: WHITE BLOOD COUNT 10.3 10^3/ul (4.8-10.8)
[2018-03-25 13:38] LABS: INR 0.93; PROTIME 12.6 Sec (11.9-14.9)
[2018-03-25 13:39] LABS: PARTIAL THROMBOPLASTIN TIME 23.9 Sec (25.0-35.0)
[2018-03-25 13:51] LABS: ANION GAP 16 (8-16); BLOOD UREA NITROGEN 23 mg/dl (7-20); CALCIUM 9.5 mg/dl (8.4-10.2); CARBON DIOXIDE 21 mmol/L (21-31); CHLORIDE 108 mmol/L (97-110); CREATININE 1.13 mg/dl (0.61-1.24); GLUCOSE 179 mg/dl (70-220); POTASSIUM 4.1 mmol/L (3.5-5.1); SODIUM 141 mmol/L (135-144)
[2018-03-25 14:03] LABS: TROPONIN-I 0.062 ng/ml (0.000-0.120)
== END 2018-03-25 16:22 | disposition short-term general hospital (02) ==
LOC: E/R 12:41
DX: R07.9 Chest pain, unspecified (principal); R55 Syncope and collapse; I25.5 Ischemic cardiomyopathy; I10 Essential (primary) hypertension; I25.10 Atherosclerotic heart disease of native coronary artery without angina pectoris; J44.9 Chronic obstructive pulmonary disease, unspecified; I50.9 Heart failure, unspecified; F17.210 Nicotine dependence, cigarettes, uncomplicated; Z98.61 Coronary angioplasty status; Z95.810 Presence of automatic (implantable) cardiac defibrillator; Z95.1 Presence of aortocoronary bypass graft; Z79.82 Long term (current) use of aspirin
CPT/HCPCS: 36415; 71045; 80048; 84484; 85025; 85610; 85730; 93005; 99285-25

== ENCOUNTER 2018-03-29 10:33 | Emergency (ER) | payer OTHER | END 2018-03-29 12:41 | disposition home or self-care (01) | LOC: E/R 10:33 | DX: R55 Syncope and collapse (principal); R07.89 Other chest pain; J44.9 Chronic obstructive pulmonary disease, unspecified; I50.9 Heart failure, unspecified; I25.810 Atherosclerosis of coronary artery bypass graft(s) without angina pectoris; F17.210 Nicotine dependence, cigarettes, uncomplicated; Z95.0 Presence of cardiac pacemaker; Z79.82 Long term (current) use of aspirin | CPT/HCPCS: 71045; 93005; 99284-25 ==

== ENCOUNTER 2018-04-08 09:46 | Emergency (ER) | payer OTHER | END 2018-04-08 12:38 | disposition home or self-care (01) | LOC: E/R 09:46 | DX: F41.9 Anxiety disorder, unspecified (principal); F99 Mental disorder, not otherwise specified; F11.29 Opioid dependence with unspecified opioid-induced disorder; J44.9 Chronic obstructive pulmonary disease, unspecified; I25.10 Atherosclerotic heart disease of native coronary artery without angina pectoris; I50.9 Heart failure, unspecified; I10 Essential (primary) hypertension; Z87.891 Personal history of nicotine dependence; Z95.0 Presence of cardiac pacemaker; Z95.1 Presence of aortocoronary bypass graft; Z79.82 Long term (current) use of aspirin | CPT/HCPCS: 99283; Z7502 ==

== ENCOUNTER 2018-04-16 12:26 | Inpatient (IN) | payer OTHER ==
[2018-04-16 17:37] LABS: MODE ROOM AIR; MetHgb Venous 0.3 %; Sample Type Blood venous; Site VENOUS LINE; Venous COHb 1.7 %; Venous Oxygen Sat 37.8 mmHG (55.0-75.0); Venous Total Hemglobin 13.9 g/dl
[2018-04-16 17:41] LABS: ADD MAN DIFF? NO
[2018-04-16 17:47] LABS: BASOPHILS % 0.1 % (0.0-2.0); EOSINOPHILS % 0.3 % (0.0-7.0); HEMATOCRIT 40.1 % (42.0-52.0); HEMOGLOBIN 12.3 g/dl (14.0-18.0); LYMPHOCYTES # 1.8 10^3/ul (0.8-2.9); LYMPHOCYTES % 22.1 % (15.0-51.0); MEAN CORPUSCULAR HEMOGLOBIN 25.1 pg (29.0-33.0); MEAN CORPUSCULAR HGB CONC 30.7 g/dl (32.0-37.0); MEAN CORPUSCULAR VOLUME 81.7 fl (82.0-101.0); MEAN PLATELET VOLUME 9.9 fl (7.4-10.4); MONOCYTE # 0.7 10^3/ul (0.3-0.9); MONOCYTES % 8.3 % (0.0-11.0); NEUTROPHIL # 5.5 10^3/ul (1.6-7.5); NEUTROPHILS % 68.9 % (39.0-77.0); PLATELET COUNT 241 10^3/UL (140-415); RED BLOOD COUNT 4.91 10^6/ul (4.70-6.10); RED CELL DISTRIBUTION WIDTH 18.5 % (11.5-14.5)
[2018-04-16 17:47] LABS: WHITE BLOOD COUNT 7.9 10^3/ul (4.8-10.8)
[2018-04-16 18:05] LABS: ANION GAP 14 (8-16); BLOOD UREA NITROGEN 17 mg/dl (7-20); CALCIUM 9.2 mg/dl (8.4-10.2); CARBON DIOXIDE 25 mmol/L (21-31); CHLORIDE 105 mmol/L (97-110); GLUCOSE 105 mg/dl (70-220); POTASSIUM 3.7 mmol/L (3.5-5.1); SODIUM 140 mmol/L (135-144)
[2018-04-16 18:10] LABS: PARTIAL THROMBOPLASTIN TIME 25.5 Sec (25.0-35.0); PROTIME 12.2 Sec (11.9-14.9)
[2018-04-16 18:17] LABS: B-TYPE NATRIURETIC PEPTIDE 4440 PG/ML (0-125)
[2018-04-16 18:22] LABS: TROPONIN-I 0.152 ng/ml (0.000-0.120)
[2018-04-16] MEDS: NITROGLYCERIN (SL) 0.4 MG TAB SL (18:52)
[2018-04-16] MEDS: ASPIRIN 325 MG TAB PO (18:55)
[2018-04-16] MEDS: HEPARIN 1000 UNITS/ML 10 ML INJ IV (18:57)
[2018-04-16] MEDS: HEPARIN 25000 UNITS/250 ML 250 ML IV (19:08)
[2018-04-17] MEDS ORDERED: HEPARIN 1000 UNITS/ML 10 ML INJ IV (01:30)
[2018-04-17] MEDS: HEPARIN 25000 UNITS/250 ML 250 ML IV ×2 (02:18→03:21)
[2018-04-17 02:25] LABS: CREATINE KINASE 310 IU/L (23-200)
[2018-04-17 02:27] LABS: INR 0.98; PROTIME 13.1 Sec (11.9-14.9)
[2018-04-17] MEDS ORDERED: DIPHENHYDRAMINE 25 MG CAP PO (02:30)
[2018-04-17 02:38] LABS: CK INDEX 1.2
[2018-04-17 02:40] LABS: TROPONIN-I 0.124 ng/ml (0.000-0.120)
[2018-04-17] MEDS: ONDANSETRON 4 MG INJ IV ×3 (03:07→21:41)
[2018-04-17] MEDS: morphine 2 MG INJ IV ×2 (03:07→21:41)
[2018-04-17 09:03] LABS: PARTIAL THROMBOPLASTIN TIME 60.5 Sec (25.0-35.0)
[2018-04-17 09:09] LABS: CREATINE KINASE 267 IU/L (23-200)
[2018-04-17 09:17] LABS: CK INDEX 1.3; CK-MB 3.53 ng/ml (0.0-2.4); TROPONIN-I 0.093 ng/ml (0.000-0.120)
[2018-04-17] MEDS: ASPIRIN 81 MG TAB PO (12:06)
[2018-04-17] MEDS: ISOSORBIDE DINITRATE 10 MG TAB PO ×2 (12:06→21:42)
[2018-04-17] MEDS: TICAGRELOR 90 MG TABLET PO ×2 (12:07→21:53)
[2018-04-17] MEDS: DIPHENHYDRAMINE 50 MG INJ IV ×2 (14:02→21:41)
[2018-04-17] MEDS: HEPARIN 5,000 UNIT/0.5 ML VIAL SC ×2 (14:04→21:53)
[2018-04-17] MEDS: PANTOPRAZOLE (EC) 40 MG TAB PO (14:06)
[2018-04-17] MEDS: RANOLAZINE (SR) 500 MG TAB PO (21:42)
[2018-04-18] MEDS: PANTOPRAZOLE (EC) 40 MG TAB PO (05:11)
[2018-04-18] MEDS: morphine 2 MG INJ IV ×2 (05:11→10:54)
[2018-04-18] MEDS: ONDANSETRON 4 MG INJ IV ×2 (05:11→10:57)
[2018-04-18] MEDS: DIPHENHYDRAMINE 50 MG INJ IV ×2 (05:11→10:56)
[2018-04-18] MEDS: HEPARIN 5,000 UNIT/0.5 ML VIAL SC ×2 (05:35→14:00)
[2018-04-18 06:33] LABS: ADD MAN DIFF? NO
[2018-04-18 06:35] LABS: BASOPHILS % 0.2 % (0.0-2.0); EOSINOPHILS # 0.1 10^3/ul (0.0-0.5); EOSINOPHILS % 2.5 % (0.0-7.0); HEMATOCRIT 33.6 % (42.0-52.0); HEMOGLOBIN 10.4 g/dl (14.0-18.0); LYMPHOCYTES # 1.4 10^3/ul (0.8-2.9); LYMPHOCYTES % 33.9 % (15.0-51.0); MEAN CORPUSCULAR HEMOGLOBIN 25.2 pg (29.0-33.0); MEAN CORPUSCULAR VOLUME 81.4 fl (82.0-101.0); MEAN PLATELET VOLUME 10.5 fl (7.4-10.4); MONOCYTE # 0.4 10^3/ul (0.3-0.9); MONOCYTES % 10.7 % (0.0-11.0); NEUTROPHIL # 2.1 10^3/ul (1.6-7.5); NEUTROPHILS % 52.5 % (39.0-77.0); PLATELET COUNT 210 10^3/UL (140-415); RED BLOOD COUNT 4.13 10^6/ul (4.70-6.10); RED CELL DISTRIBUTION WIDTH 18.3 % (11.5-14.5)
[2018-04-18 07:00] LABS: ANION GAP 12 (8-16); BLOOD UREA NITROGEN 19 mg/dl (7-20); CALCIUM 8.5 mg/dl (8.4-10.2); CARBON DIOXIDE 25 mmol/L (21-31); CHLORIDE 108 mmol/L (97-110); CHOLESTEROL 124 mg/dl (100-200); CREATININE 1.01 mg/dl (0.61-1.24); GLUCOSE 83 mg/dl (70-220); POTASSIUM 3.5 mmol/L (3.5-5.1); SODIUM 141 mmol/L (135-144)
[2018-04-18 07:11] LABS: INR 0.88; PARTIAL THROMBOPLASTIN TIME 26.9 Sec (25.0-35.0); PT RATIO 0.9
[2018-04-18] MEDS: DIPHENHYDRAMINE 50 MG CAP PO (08:00)
[2018-04-18] MEDS: DIAZEPAM 5 MG TAB PO (08:00)
[2018-04-18] MEDS: ASPIRIN 81 MG TAB PO (08:28)
[2018-04-18] MEDS: RANOLAZINE (SR) 500 MG TAB PO (08:29)
[2018-04-18] MEDS: ISOSORBIDE DINITRATE 10 MG TAB PO ×2 (08:29→13:00)
[2018-04-18] MEDS: LOSARTAN 25 MG TAB PO (08:29)
[2018-04-18] MEDS: TICAGRELOR 90 MG TABLET PO (08:33)
[2018-04-18] MEDS ORDERED: DIPHENHYDRAMINE 50 MG INJ IV (12:00)
[2018-04-18] MEDS ORDERED: LIDOCAINE 1% (MDV) 10 ML INJ (12:19)
[2018-04-18] MEDS ORDERED: VERAPAMIL 5 MG INJ (12:19)
[2018-04-18] MEDS ORDERED: IODIXANOL LOCM 100 ML BTL (12:19)
[2018-04-18] MEDS ORDERED: NITROGLYCERIN (IC) 100 MCG/ML INJ (12:19)
[2018-04-18] MEDS ORDERED: HEPARIN 1000 UNITS/ML 10 ML INJ (12:19)
[2018-04-18] MEDS ORDERED: FENTAnyl 50 MCG/ML VIAL (12:23)
[2018-04-18] MEDS ORDERED: MIDAZOLAM 1 MG/ML 2 ML INJ (12:23)
[2018-04-18] MEDS ORDERED: ACETAMINOPHEN 325 MG TAB PO (15:00)
[2018-04-18] MEDS: SOD CHLORIDE 0.9% 1,000 ML IV (15:00)
[2018-04-18] MEDS ORDERED: morphine 2 MG INJ IV (15:00)
[2018-04-18] MEDS ORDERED: ONDANSETRON 4 MG INJ IV (15:00)
[2018-04-18] MEDS ORDERED: AL HYDROX/MG HYDROX/SIMETH 30 ML CUP PO (15:00)
[2018-04-18] MEDS ORDERED: ALTEPLASE 100 MG INJ IV* (17:00)
[2018-04-18] MEDS ORDERED: SOD CHLORIDE 0.9% 50 ML IVPB (17:00)
[2018-04-18] MEDS: ALTEPLASE (tPA) 1 MG/ML BOLUS SYG IV* (17:22)
[2018-04-18] MEDS: ALTEPLASE IV (17:24)
[2018-04-18] MEDS: WATER STERILE FOR IV (17:24)
[2018-04-18] MEDS: SOD CHLORIDE 0.9% 50 ML IVPB (18:14)
== END 2018-04-18 22:30 | disposition left against medical advice (07) | DRG 287 ==
LOC: E/R 12:26 → ICU 04-18 16:25 → TEL 21:52
PROC: 4A023N7 Measurement of Cardiac Sampling and Pressure, Left Heart, Percutaneous Approach (ICD-10-PCS; principal; 2018-04-18 12:04)
PROC: B310YZZ Fluoroscopy of Thoracic Aorta using Other Contrast (ICD-10-PCS; 2018-04-18 12:04)
PROC: B211YZZ Fluoroscopy of Multiple Coronary Arteries using Other Contrast (ICD-10-PCS; 2018-04-18 12:04)
PROC: B218YZZ Fluoroscopy of Left Internal Mammary Bypass Graft using Other Contrast (ICD-10-PCS; 2018-04-18 12:04)
PROC: B213YZZ Fluoroscopy of Multiple Coronary Artery Bypass Grafts using Other Contrast (ICD-10-PCS; 2018-04-18 12:04)
PROC: B215YZZ Fluoroscopy of Left Heart using Other Contrast (ICD-10-PCS; 2018-04-18 12:04)
PROC: 4A033R1 Measurement of Arterial Saturation, Peripheral, Percutaneous Approach (ICD-10-PCS; 2018-04-18 12:04)
PROC: 3E03317 Introduction of Other Thrombolytic into Peripheral Vein, Percutaneous Approach (ICD-10-PCS; 2018-04-18 12:04)
DX: I24.9 Acute ischemic heart disease, unspecified (principal); I97.810 Intraoperative cerebrovascular infarction during cardiac surgery; I48.92 Unspecified atrial flutter; R74.8 Abnormal levels of other serum enzymes; I25.10 Atherosclerotic heart disease of native coronary artery without angina pectoris; J44.9 Chronic obstructive pulmonary disease, unspecified; I11.0 Hypertensive heart disease with heart failure; I50.9 Heart failure, unspecified; E78.00 Pure hypercholesterolemia, unspecified; Z95.1 Presence of aortocoronary bypass graft; Z95.5 Presence of coronary angioplasty implant and graft; Z95.810 Presence of automatic (implantable) cardiac defibrillator; Z79.82 Long term (current) use of aspirin; Z88.0 Allergy status to penicillin; Z86.73 Personal history of transient ischemic attack (TIA), and cerebral infarction without residual deficits; Y84.0 Cardiac catheterization as the cause of abnormal reaction of the patient, or of later complication, without mention of misadventure at the time of the procedure; Y92.238 Other place in hospital as the place of occurrence of the external cause
CPT/HCPCS: 36415; 70450; 71045; 80048; 82465; 82550; 82553; 82803; 83880; 84484; 85025; 85610; 85730; 87081; 93005; 93459; 94660; 96374; 96375; 99285-25

== ENCOUNTER 2018-04-19 00:21 | Inpatient (IN) | payer OTHER ==
[2018-04-19 00:54] LABS: ADD MAN DIFF? NO
[2018-04-19 00:56] LABS: WHITE BLOOD COUNT 6.1 10^3/ul (4.8-10.8)
[2018-04-19 00:56] LABS: ABNORMAL IP MESSAGE 1; BASOPHILS % 0.2 % (0.0-2.0); EOSINOPHILS # 0.1 10^3/ul (0.0-0.5); EOSINOPHILS % 0.8 % (0.0-7.0); HEMATOCRIT 35.7 % (42.0-52.0); HEMOGLOBIN 10.9 g/dl (14.0-18.0); LYMPHOCYTES # 0.5 10^3/ul (0.8-2.9); LYMPHOCYTES % 8.2 % (15.0-51.0); MEAN CORPUSCULAR HEMOGLOBIN 24.9 pg (29.0-33.0); MEAN CORPUSCULAR HGB CONC 30.5 g/dl (32.0-37.0); MEAN CORPUSCULAR VOLUME 81.7 fl (82.0-101.0); MEAN PLATELET VOLUME 10.1 fl (7.4-10.4); MONOCYTE # 0.4 10^3/ul (0.3-0.9); MONOCYTES % 5.9 % (0.0-11.0); NEUTROPHIL # 5.1 10^3/ul (1.6-7.5); NEUTROPHILS % 84.6 % (39.0-77.0); PLATELET COUNT 221 10^3/UL (140-415); POSITIVE DIFF @See below; RED BLOOD COUNT 4.37 10^6/ul (4.70-6.10); RED CELL DISTRIBUTION WIDTH 18.2 % (11.5-14.5)
[2018-04-19 01:14] LABS: INR 0.89; PARTIAL THROMBOPLASTIN TIME 22.7 Sec (25.0-35.0); PROTIME 12.1 Sec (11.9-14.9); PT RATIO 0.9
[2018-04-19 01:15] LABS: ANION GAP 11 (8-16); BLOOD UREA NITROGEN 15 mg/dl (7-20); CALCIUM 8.8 mg/dl (8.4-10.2); CARBON DIOXIDE 25 mmol/L (21-31); CHLORIDE 107 mmol/L (97-110); CHOL/HDL RATIO 4.2 RATIO; CHOLESTEROL 154 mg/dl (100-200); CREATININE 1.11 mg/dl (0.61-1.24); GLUCOSE 127 mg/dl (70-220); HDL CHOLESTEROL 36 mg/dl (30-78); LDL CHOLESTEROL,CALCULATED 78 mg/dl; POTASSIUM 3.6 mmol/L (3.5-5.1); SODIUM 139 mmol/L (135-144); TRIGLYCERIDES 200 mg/dl (0-149)
[2018-04-19 01:30] LABS: TROPONIN-I 0.134 ng/ml (0.000-0.120)
[2018-04-19 01:39] LABS: ETHANOL < 10.0 mg/dl
[2018-04-19] MEDS ORDERED: ISOSORBIDE MONONITRATE 20 MG TAB PO (10:30)
[2018-04-19] MEDS ORDERED: BISACODYL 10 MG SUPP PR (10:30)
[2018-04-19] MEDS ORDERED: ACETAMINOPHEN 325 MG TAB PO (10:30)
[2018-04-19] MEDS ORDERED: MAGNESIUM HYDROXIDE 30ML CUP PO (10:30)
[2018-04-19] MEDS ORDERED: NACL 0.9% 3 ML SYG IV (10:30)
[2018-04-19] MEDS ORDERED: DOCUSATE SODIUM 100 MG CAP PO ×2 (10:30)
[2018-04-19] MEDS ORDERED: LORAZEPAM 2 MG INJ IV (10:30)
[2018-04-19] MEDS: IOHEXOL 100 ML (14:26)
[2018-04-19] MEDS: SOD CHLORIDE 0.9% 100 ML (14:26)
[2018-04-19 14:46] LABS: TROPONIN-I 0.062 ng/ml (0.000-0.120)
[2018-04-19 20:45] LABS: TROPONIN-I 0.049 ng/ml (0.000-0.120)
[2018-04-19] MEDS: ATORVASTATIN 80 MG TAB PO (21:08)
[2018-04-19] MEDS: FAMOTIDINE 20 MG TAB PO (21:08)
[2018-04-19] MEDS: RANOLAZINE (SR) 500 MG TAB PO (21:08)
[2018-04-19] MEDS ORDERED: DIPHENHYDRAMINE 50 MG CAP PO (22:30)
[2018-04-19] MEDS: SOTALOL 80 MG TAB PO (22:55)
[2018-04-19] MEDS: ONDANSETRON 4 MG INJ IV (23:30)
[2018-04-20] MEDS: ONDANSETRON 4 MG INJ IV ×4 (00:35→22:24)
[2018-04-20] MEDS: DIPHENHYDRAMINE 50 MG INJ IV ×4 (00:36→22:24)
[2018-04-20 01:51] LABS: TROPONIN-I 0.053 ng/ml (0.000-0.120)
[2018-04-20 07:47] LABS: ADD MAN DIFF? NO
[2018-04-20 07:53] LABS: BASOPHILS % 0.2 % (0.0-2.0); EOSINOPHILS # 0.1 10^3/ul (0.0-0.5); EOSINOPHILS % 2.6 % (0.0-7.0); HEMOGLOBIN 9.9 g/dl (14.0-18.0); LYMPHOCYTES # 0.9 10^3/ul (0.8-2.9); LYMPHOCYTES % 21.8 % (15.0-51.0); MEAN CORPUSCULAR HEMOGLOBIN 25.6 pg (29.0-33.0); MEAN CORPUSCULAR HGB CONC 30.9 g/dl (32.0-37.0); MEAN CORPUSCULAR VOLUME 82.9 fl (82.0-101.0); MEAN PLATELET VOLUME 10.4 fl (7.4-10.4); MONOCYTE # 0.4 10^3/ul (0.3-0.9); MONOCYTES % 8.9 % (0.0-11.0); NEUTROPHIL # 2.8 10^3/ul (1.6-7.5); NEUTROPHILS % 65.8 % (39.0-77.0); PLATELET COUNT 207 10^3/UL (140-415); RED BLOOD COUNT 3.86 10^6/ul (4.70-6.10); RED CELL DISTRIBUTION WIDTH 18.1 % (11.5-14.5)
[2018-04-20 07:53] LABS: WHITE BLOOD COUNT 4.3 10^3/ul (4.8-10.8)
[2018-04-20 08:27] LABS: ANION GAP 11 (8-16); BLOOD UREA NITROGEN 13 mg/dl (7-20); CALCIUM 8.7 mg/dl (8.4-10.2); CARBON DIOXIDE 24 mmol/L (21-31); CHLORIDE 108 mmol/L (97-110); CREATININE 0.98 mg/dl (0.61-1.24); GLUCOSE 129 mg/dl (70-220); MAGNESIUM 1.8 mg/dl (1.7-2.5); POTASSIUM 3.9 mmol/L (3.5-5.1); SODIUM 139 mmol/L (135-144)
[2018-04-20] MEDS: FAMOTIDINE 20 MG TAB PO ×2 (08:38→20:37)
[2018-04-20] MEDS: SOTALOL 80 MG TAB PO ×2 (08:39→20:48)
[2018-04-20] MEDS: RANOLAZINE (SR) 500 MG TAB PO ×2 (08:39→20:37)
[2018-04-20] MEDS: LOSARTAN 25 MG TAB PO (08:39)
[2018-04-20] MEDS: ASPIRIN (EC) 81 MG TAB PO (08:39)
[2018-04-20] MEDS: morphine 2 MG INJ IV ×3 (08:47→20:52)
[2018-04-20] MEDS: TICAGRELOR 90 MG TABLET PO ×2 (09:06→20:39)
[2018-04-20 11:19] LABS: ADD UMIC YES; UR ASCORBIC ACID NEGATIVE (NEGATIVE); UR BILIRUBIN (Dip) NEGATIVE (NEGATIVE); UR BLOOD (Dip) NEGATIVE (NEGATIVE); UR CLARITY CLEAR (CLEAR); UR COLOR YELLOW (YELLOW); UR GLUCOSE (Dip) NEGATIVE (NEGATIVE); UR KETONES (Dip) NEGATIVE (NEGATIVE); UR LEUKOCYTE ESTERASE (Dip) TRACE Leu/ul (NEGATIVE); UR NITRITE (Dip) NEGATIVE (NEGATIVE); UR RBC 1 /HPF (0-5); UR SPECIFIC GRAVITY (Dip) 1.012 (1.003-1.030); UR TOTAL PROTEIN (Dip) NEGATIVE (NEGATIVE); UR UROBILINOGEN (Dip) 2+ mg/dL (NEGATIVE); UR WBC 11 /HPF (0-5)
[2018-04-20 11:24] LABS: AMPHETAMINE/METHAMPHETAMINE Negative (NEGATIVE); BARBITURATES Negative (NEGATIVE); BENZODIAZEPINES Negative (NEGATIVE); CANNABINOIDS Negative (NEGATIVE); COCAINE Positive (NEGATIVE); OPIATES Negative (NEGATIVE)
[2018-04-20] MEDS: ATORVASTATIN 80 MG TAB PO (20:37)
[2018-04-20] MEDS ORDERED: morphine LIQ (10 MG/5 ML) CUP PO (22:30)
[2018-04-21] MEDS: ONDANSETRON 4 MG INJ IV (04:50)
[2018-04-21] MEDS: DIPHENHYDRAMINE 50 MG INJ IV (04:50)
[2018-04-21] MEDS: FAMOTIDINE 20 MG TAB PO (08:18)
[2018-04-21] MEDS: RANOLAZINE (SR) 500 MG TAB PO (08:18)
[2018-04-21] MEDS: ASPIRIN (EC) 81 MG TAB PO (08:19)
[2018-04-21] MEDS: LOSARTAN 25 MG TAB PO (08:22)
[2018-04-21] MEDS: SOTALOL 80 MG TAB PO (08:23)
[2018-04-21] MEDS: TICAGRELOR 90 MG TABLET PO (08:25)
[2018-04-21 08:43] LABS: MAGNESIUM 1.7 mg/dl (1.7-2.5)
[2018-04-21 08:50] LABS: ANION GAP 12 (8-16); BLOOD UREA NITROGEN 14 mg/dl (7-20); CALCIUM 9.1 mg/dl (8.4-10.2); CARBON DIOXIDE 25 mmol/L (21-31); CHLORIDE 105 mmol/L (97-110); CREATININE 1.01 mg/dl (0.61-1.24); GLUCOSE 132 mg/dl (70-220); POTASSIUM 3.9 mmol/L (3.5-5.1); SODIUM 138 mmol/L (135-144)
== END 2018-04-21 20:00 | DRG 64 ==
LOC: E/R 00:21 → TEL 02:21
DX: I63.9 Cerebral infarction, unspecified (principal); G93.49 Other encephalopathy; I42.9 Cardiomyopathy, unspecified; I48.92 Unspecified atrial flutter; R47.01 Aphasia; I10 Essential (primary) hypertension; I25.10 Atherosclerotic heart disease of native coronary artery without angina pectoris; E78.5 Hyperlipidemia, unspecified; I48.0 Paroxysmal atrial fibrillation; Z87.891 Personal history of nicotine dependence; Z95.0 Presence of cardiac pacemaker; Z95.1 Presence of aortocoronary bypass graft; Z95.5 Presence of coronary angioplasty implant and graft
CPT/HCPCS: 36415; 70450; 70496; 70498; 71045; 80048; 80061; 80307; 81001; 83036; 83735; 84484; 85025; 85610; 85730; 93005; 97116; 97162; 97165; 97530; 97535; 99285-25

== ENCOUNTER 2018-04-21 21:12 | Emergency (ER) | payer OTHER | END 2018-04-21 23:04 | disposition home or self-care (01) | LOC: E/R 21:12 | DX: I25.10 Atherosclerotic heart disease of native coronary artery without angina pectoris (principal); I10 Essential (primary) hypertension; Z86.73 Personal history of transient ischemic attack (TIA), and cerebral infarction without residual deficits; Z86.79 Personal history of other diseases of the circulatory system; Z79.82 Long term (current) use of aspirin; Z95.1 Presence of aortocoronary bypass graft | CPT/HCPCS: 99283 ==

== ENCOUNTER 2018-05-18 21:01 | Emergency (ER) | payer OTHER | END 2018-05-18 21:57 | disposition home or self-care (01) | LOC: E/R 21:01 | DX: R41.3 Other amnesia (principal); R07.9 Chest pain, unspecified; I10 Essential (primary) hypertension; I25.10 Atherosclerotic heart disease of native coronary artery without angina pectoris; I25.2 Old myocardial infarction; Z79.82 Long term (current) use of aspirin; Z95.1 Presence of aortocoronary bypass graft; Z86.73 Personal history of transient ischemic attack (TIA), and cerebral infarction without residual deficits | CPT/HCPCS: 93005; 99283 ==

== ENCOUNTER 2018-06-11 08:21 | Inpatient (IN) | payer OTHER ==
[2018-06-11] MEDS ORDERED: morphine LIQ (10 MG/5 ML) CUP PO (09:00)
[2018-06-11] MEDS ORDERED: NACL 0.9% 3 ML SYG IV (09:00)
[2018-06-11] MEDS ORDERED: ONDANSETRON 4 MG INJ IV (09:00)
[2018-06-11] MEDS: RANOLAZINE (SR) 500 MG TAB PO ×2 (09:38→20:19)
[2018-06-11] MEDS: morphine 2 MG INJ IV ×4 (09:39→21:39)
[2018-06-11] MEDS: TICAGRELOR 90 MG TABLET PO ×2 (09:55→20:22)
[2018-06-11 10:28] LABS: CREATINE KINASE 99 IU/L (23-200)
[2018-06-11 10:41] LABS: CK INDEX 1.9; CK-MB 1.93 ng/ml (0.0-2.4); TROPONIN-I < 0.012 ng/ml (0.000-0.120)
[2018-06-11] MEDS: LEVOFLOXACIN 500MG/D5W (PMX) 100 ML IVPB (12:18)
[2018-06-11] MEDS: HEPARIN 5,000 UNIT/0.5 ML VIAL SC ×2 (14:40→21:49)
[2018-06-11] MEDS: ISOSORBIDE MONONITRATE(SR)30 MG TAB PO (14:41)
[2018-06-11 15:18] LABS: ADD MAN DIFF? NO
[2018-06-11 15:21] LABS: BASOPHILS % 0.2 % (0.0-2.0); EOSINOPHILS # 0.1 10^3/ul (0.0-0.5); EOSINOPHILS % 2.3 % (0.0-7.0); HEMATOCRIT 34.6 % (42.0-52.0); HEMOGLOBIN 10.5 g/dl (14.0-18.0); LYMPHOCYTES # 1.4 10^3/ul (0.8-2.9); LYMPHOCYTES % 25.9 % (15.0-51.0); MEAN CORPUSCULAR HEMOGLOBIN 23.6 pg (29.0-33.0); MEAN CORPUSCULAR HGB CONC 30.3 g/dl (32.0-37.0); MEAN CORPUSCULAR VOLUME 77.9 fl (82.0-101.0); MEAN PLATELET VOLUME 10.4 fl (7.4-10.4); MONOCYTE # 0.6 10^3/ul (0.3-0.9); MONOCYTES % 10.1 % (0.0-11.0); NEUTROPHIL # 3.4 10^3/ul (1.6-7.5); NEUTROPHILS % 61.1 % (39.0-77.0); PLATELET COUNT 244 10^3/UL (140-415); RED BLOOD COUNT 4.44 10^6/ul (4.70-6.10); RED CELL DISTRIBUTION WIDTH 17.9 % (11.5-14.5)
[2018-06-11 15:21] LABS: WHITE BLOOD COUNT 5.6 10^3/ul (4.8-10.8)
[2018-06-11 15:43] LABS: ALANINE AMINOTRANSFERASE 53 IU/L (13-69); ALBUMIN 3.2 g/dl (3.3-4.9); ALBUMIN/GLOBULIN RATIO 0.94; ALKALINE PHOSPHATASE 80 IU/L (42-121); ANION GAP 12 (8-16); ASPARTATE AMINO TRANSFERASE 40 IU/L (15-46); BILIRUBIN,INDIRECT 0.5 mg/dl (0-1.1); BILIRUBIN,TOTAL 0.5 mg/dl (0.2-1.3); BLOOD UREA NITROGEN 12 mg/dl (7-20); CALCIUM 8.9 mg/dl (8.4-10.2); CARBON DIOXIDE 25 mmol/L (21-31); CHLORIDE 108 mmol/L (97-110); CREATININE 0.92 mg/dl (0.61-1.24); GLUCOSE 100 mg/dl (70-220); POTASSIUM 4.1 mmol/L (3.5-5.1); SODIUM 141 mmol/L (135-144); TOTAL PROTEIN 6.6 g/dl (6.1-8.1)
[2018-06-11 15:52] LABS: B-TYPE NATRIURETIC PEPTIDE 869 PG/ML (0-125)
[2018-06-11 16:44] LABS: ADD UMIC NO; UR ASCORBIC ACID NEGATIVE (NEGATIVE); UR BILIRUBIN (Dip) NEGATIVE (NEGATIVE); UR BLOOD (Dip) NEGATIVE (NEGATIVE); UR CLARITY CLEAR (CLEAR); UR COLOR YELLOW (YELLOW); UR GLUCOSE (Dip) NEGATIVE (NEGATIVE); UR KETONES (Dip) NEGATIVE (NEGATIVE); UR LEUKOCYTE ESTERASE (Dip) NEGATIVE Leu/ul (NEGATIVE); UR NITRITE (Dip) NEGATIVE (NEGATIVE); UR SPECIFIC GRAVITY (Dip) 1.019 (1.003-1.030); UR TOTAL PROTEIN (Dip) NEGATIVE (NEGATIVE); UR UROBILINOGEN (Dip) 1+ mg/dL (NEGATIVE)
[2018-06-11 17:29] LABS: AMPHETAMINE/METHAMPHETAMINE Negative (NEGATIVE); BARBITURATES Negative (NEGATIVE); BENZODIAZEPINES Negative (NEGATIVE); CANNABINOIDS Negative (NEGATIVE); COCAINE Negative (NEGATIVE)
[2018-06-11] MEDS: PANTOPRAZOLE (EC) 40 MG TAB PO (17:35)
[2018-06-11 17:48] LABS: OPIATES Positive (NEGATIVE)
[2018-06-11] MEDS: ATORVASTATIN 80 MG TAB PO (20:19)
[2018-06-12] MEDS: PANTOPRAZOLE (EC) 40 MG TAB PO ×2 (05:16→18:08)
[2018-06-12] MEDS: morphine 2 MG INJ IV ×3 (05:17→15:39)
[2018-06-12] MEDS: HEPARIN 5,000 UNIT/0.5 ML VIAL SC ×3 (05:24→21:23)
[2018-06-12 05:52] LABS: ADD MAN DIFF? NO
[2018-06-12 06:01] LABS: WHITE BLOOD COUNT 4.8 10^3/ul (4.8-10.8)
[2018-06-12 06:01] LABS: BASOPHILS % 0.2 % (0.0-2.0); EOSINOPHILS # 0.2 10^3/ul (0.0-0.5); EOSINOPHILS % 3.1 % (0.0-7.0); HEMOGLOBIN 9.7 g/dl (14.0-18.0); LYMPHOCYTES # 1.2 10^3/ul (0.8-2.9); MEAN CORPUSCULAR HEMOGLOBIN 23.7 pg (29.0-33.0); MEAN CORPUSCULAR HGB CONC 30.3 g/dl (32.0-37.0); MEAN CORPUSCULAR VOLUME 78.2 fl (82.0-101.0); MEAN PLATELET VOLUME 9.9 fl (7.4-10.4); MONOCYTE # 0.5 10^3/ul (0.3-0.9); MONOCYTES % 9.4 % (0.0-11.0); NEUTROPHIL # 2.9 10^3/ul (1.6-7.5); NEUTROPHILS % 61.1 % (39.0-77.0); PLATELET COUNT 247 10^3/UL (140-415); RED BLOOD COUNT 4.09 10^6/ul (4.70-6.10); RED CELL DISTRIBUTION WIDTH 17.9 % (11.5-14.5)
[2018-06-12 06:44] LABS: ANION GAP 10 (8-16); BLOOD UREA NITROGEN 15 mg/dl (7-20); CALCIUM 8.4 mg/dl (8.4-10.2); CARBON DIOXIDE 25 mmol/L (21-31); CHLORIDE 110 mmol/L (97-110); CREATININE 0.96 mg/dl (0.61-1.24); GLUCOSE 104 mg/dl (70-220); POTASSIUM 3.9 mmol/L (3.5-5.1); SODIUM 141 mmol/L (135-144)
[2018-06-12] MEDS: ISOSORBIDE MONONITRATE(SR)30 MG TAB PO (08:55)
[2018-06-12] MEDS: RANOLAZINE (SR) 500 MG TAB PO ×2 (08:55→20:27)
[2018-06-12] MEDS: ASPIRIN (EC) 81 MG TAB PO (08:55)
[2018-06-12] MEDS: TICAGRELOR 90 MG TABLET PO ×2 (09:00→20:38)
[2018-06-12] MEDS: LEVOFLOXACIN 500MG/D5W (PMX) 100 ML IVPB (09:47)
[2018-06-12] MEDS: DIPHENHYDRAMINE 50 MG INJ IV ×2 (11:12→18:08)
[2018-06-12] MEDS: LOSARTAN 25 MG TAB PO (11:23)
[2018-06-12] MEDS: SOTALOL 80 MG TAB PO ×2 (13:10→20:27)
[2018-06-12] MEDS: ATORVASTATIN 80 MG TAB PO (20:26)
[2018-06-12] MEDS: morphine LIQ (10 MG/5 ML) CUP PO (20:27)
[2018-06-13] MEDS: morphine LIQ (10 MG/5 ML) CUP PO (01:14)
[2018-06-13] MEDS: DIPHENHYDRAMINE 50 MG INJ IV ×4 (04:12→23:56)
[2018-06-13] MEDS: morphine 2 MG INJ IV ×5 (05:06→22:26)
[2018-06-13] MEDS: PANTOPRAZOLE (EC) 40 MG TAB PO ×2 (05:06→18:11)
[2018-06-13] MEDS: HEPARIN 5,000 UNIT/0.5 ML VIAL SC ×3 (05:11→22:33)
[2018-06-13 07:01] LABS: MAGNESIUM 1.8 mg/dl (1.7-2.5)
[2018-06-13 07:02] LABS: ANION GAP 10 (8-16); BLOOD UREA NITROGEN 14 mg/dl (7-20); CALCIUM 8.4 mg/dl (8.4-10.2); CARBON DIOXIDE 25 mmol/L (21-31); CHLORIDE 111 mmol/L (97-110); CREATININE 1.02 mg/dl (0.61-1.24); GLUCOSE 127 mg/dl (70-220); POTASSIUM 4.1 mmol/L (3.5-5.1); SODIUM 142 mmol/L (135-144)
[2018-06-13] MEDS: RANOLAZINE (SR) 500 MG TAB PO ×2 (09:12→22:22)
[2018-06-13] MEDS: ASPIRIN (EC) 81 MG TAB PO (09:12)
[2018-06-13] MEDS: ISOSORBIDE MONONITRATE(SR)30 MG TAB PO (09:13)
[2018-06-13] MEDS: SOTALOL 80 MG TAB PO ×2 (09:13→22:22)
[2018-06-13] MEDS: LOSARTAN 25 MG TAB PO (09:14)
[2018-06-13] MEDS: TICAGRELOR 90 MG TABLET PO ×2 (09:20→22:24)
[2018-06-13] MEDS: LEVOFLOXACIN 500MG/D5W (PMX) 100 ML IVPB (10:32)
[2018-06-13] MEDS: ATORVASTATIN 80 MG TAB PO (22:21)
[2018-06-14] MEDS: morphine 2 MG INJ IV ×5 (03:11→20:04)
[2018-06-14] MEDS: PANTOPRAZOLE (EC) 40 MG TAB PO ×2 (06:08→17:59)
[2018-06-14] MEDS: DIPHENHYDRAMINE 50 MG INJ IV ×4 (06:09→23:59)
[2018-06-14] MEDS: HEPARIN 5,000 UNIT/0.5 ML VIAL SC ×3 (06:13→22:52)
[2018-06-14 08:32] LABS: ANION GAP 12 (8-16); CARBON DIOXIDE 26 mmol/L (21-31); CHLORIDE 107 mmol/L (97-110); POTASSIUM 3.8 mmol/L (3.5-5.1); SODIUM 141 mmol/L (135-144)
[2018-06-14 08:41] LABS: MAGNESIUM 1.6 mg/dl (1.7-2.5)
[2018-06-14 08:42] LABS: BLOOD UREA NITROGEN 15 mg/dl (7-20); GLUCOSE 112 mg/dl (70-220)
[2018-06-14] MEDS: RANOLAZINE (SR) 500 MG TAB PO ×2 (08:55→20:01)
[2018-06-14] MEDS: ASPIRIN (EC) 81 MG TAB PO (08:55)
[2018-06-14] MEDS: LOSARTAN 25 MG TAB PO (08:56)
[2018-06-14] MEDS: ISOSORBIDE MONONITRATE(SR)30 MG TAB PO (08:56)
[2018-06-14] MEDS: SOTALOL 80 MG TAB PO ×2 (08:57→20:04)
[2018-06-14] MEDS: TICAGRELOR 90 MG TABLET PO ×2 (09:34→20:10)
[2018-06-14] MEDS: LEVOFLOXACIN 500MG/D5W (PMX) 100 ML IVPB (10:21)
[2018-06-14] MEDS: MAGNESIUM SULFATE 2 GM/50 ML 50 ML IVPB (11:31)
[2018-06-14] MEDS: ATORVASTATIN 80 MG TAB PO (20:02)
[2018-06-14] MEDS: DOCUSATE SODIUM 100 MG CAP PO (22:49)
[2018-06-15] MEDS: morphine 2 MG INJ IV ×6 (00:04→22:54)
[2018-06-15] MEDS: PANTOPRAZOLE (EC) 40 MG TAB PO ×2 (06:03→17:33)
[2018-06-15] MEDS: DOCUSATE SODIUM 100 MG CAP PO ×2 (06:03→20:30)
[2018-06-15] MEDS: DIPHENHYDRAMINE 50 MG INJ IV ×3 (06:03→18:58)
[2018-06-15] MEDS: LEVOFLOXACIN 500 MG TAB PO (06:03)
[2018-06-15] MEDS: HEPARIN 5,000 UNIT/0.5 ML VIAL SC ×3 (06:10→23:09)
[2018-06-15] MEDS: ASPIRIN (EC) 81 MG TAB PO (08:09)
[2018-06-15] MEDS: RANOLAZINE (SR) 500 MG TAB PO ×2 (08:11→20:30)
[2018-06-15] MEDS: LOSARTAN 25 MG TAB PO (08:14)
[2018-06-15] MEDS: ISOSORBIDE MONONITRATE(SR)30 MG TAB PO (08:14)
[2018-06-15] MEDS: SOTALOL 80 MG TAB PO ×2 (08:14→20:29)
[2018-06-15] MEDS: TICAGRELOR 90 MG TABLET PO ×2 (08:26→20:34)
[2018-06-15] MEDS ORDERED: BISACODYL 10 MG SUPP PR (12:00)
[2018-06-15 13:28] LABS: ANION GAP 13 (8-16); BLOOD UREA NITROGEN 15 mg/dl (7-20); CALCIUM 9.1 mg/dl (8.4-10.2); CARBON DIOXIDE 22 mmol/L (21-31); CHLORIDE 107 mmol/L (97-110); CREATININE 1.01 mg/dl (0.61-1.24); GLUCOSE 142 mg/dl (70-220); POTASSIUM 4.1 mmol/L (3.5-5.1); SODIUM 138 mmol/L (135-144)
[2018-06-15] MEDS ORDERED: DIAZEPAM 5 MG TAB PO (19:00)
[2018-06-15] MEDS ORDERED: DIPHENHYDRAMINE 50 MG CAP PO (19:00)
[2018-06-15] MEDS: ATORVASTATIN 80 MG TAB PO (20:30)
[2018-06-15] MEDS: TAMSULOSIN (SR) 0.4 MG CAP PO (20:30)
[2018-06-16] MEDS: morphine 2 MG INJ IV ×2 (04:36→10:11)
[2018-06-16] MEDS: DIPHENHYDRAMINE 50 MG INJ IV ×2 (04:37→10:10)
[2018-06-16] MEDS: LEVOFLOXACIN 500 MG TAB PO (05:39)
[2018-06-16] MEDS: PANTOPRAZOLE (EC) 40 MG TAB PO (05:40)
[2018-06-16] MEDS: HEPARIN 5,000 UNIT/0.5 ML VIAL SC (05:43)
[2018-06-16 07:02] LABS: ADD MAN DIFF? NO
[2018-06-16 07:14] LABS: HEMATOCRIT 32.3 % (42.0-52.0); MEAN CORPUSCULAR HEMOGLOBIN 23.5 pg (29.0-33.0); RED BLOOD COUNT 4.25 10^6/ul (4.70-6.10)
[2018-06-16 07:14] LABS: WHITE BLOOD COUNT 8.2 10^3/ul (4.8-10.8)
[2018-06-16 07:15] LABS: BASOPHILS % 0.1 % (0.0-2.0); EOSINOPHILS % 0.4 % (0.0-7.0); LYMPHOCYTES # 1.2 10^3/ul (0.8-2.9); LYMPHOCYTES % 14.8 % (15.0-51.0); MEAN PLATELET VOLUME 10.6 fl (7.4-10.4); MONOCYTE # 0.7 10^3/ul (0.3-0.9); MONOCYTES % 8.6 % (0.0-11.0); NEUTROPHIL # 6.2 10^3/ul (1.6-7.5); NEUTROPHILS % 75.6 % (39.0-77.0); PLATELET COUNT 222 10^3/UL (140-415)
[2018-06-16 07:26] LABS: INR 0.97; PARTIAL THROMBOPLASTIN TIME 29.7 Sec (23.0-35.0)
[2018-06-16 07:49] LABS: ANION GAP 14 (8-16); BLOOD UREA NITROGEN 15 mg/dl (7-20); CALCIUM 8.7 mg/dl (8.4-10.2); CARBON DIOXIDE 23 mmol/L (21-31); CHLORIDE 107 mmol/L (97-110); CREATININE 0.94 mg/dl (0.61-1.24); GLUCOSE 86 mg/dl (70-220); POTASSIUM 3.6 mmol/L (3.5-5.1); SODIUM 140 mmol/L (135-144)
[2018-06-16 08:11] LABS: MAGNESIUM 1.5 mg/dl (1.7-2.5)
[2018-06-16] MEDS: ISOSORBIDE MONONITRATE(SR)30 MG TAB PO (08:27)
[2018-06-16] MEDS: LOSARTAN 25 MG TAB PO (08:27)
[2018-06-16] MEDS: RANOLAZINE (SR) 500 MG TAB PO (08:27)
[2018-06-16] MEDS: SOTALOL 80 MG TAB PO (08:28)
[2018-06-16] MEDS: ASPIRIN (EC) 81 MG TAB PO (08:28)
[2018-06-16] MEDS: TICAGRELOR 90 MG TABLET PO (08:32)
[2018-06-16] MEDS: MINERAL OIL 133 ML ENEMA PR (11:37)
== END 2018-06-16 13:47 | disposition home or self-care (01) | DRG 313 ==
LOC: TEL 08:21
DX: R07.89 Other chest pain (principal); I48.92 Unspecified atrial flutter; N39.0 Urinary tract infection, site not specified; N13.30 Unspecified hydronephrosis; I10 Essential (primary) hypertension; Z95.1 Presence of aortocoronary bypass graft; Z95.810 Presence of automatic (implantable) cardiac defibrillator; Z86.73 Personal history of transient ischemic attack (TIA), and cerebral infarction without residual deficits; I25.5 Ischemic cardiomyopathy; E78.5 Hyperlipidemia, unspecified; Z95.5 Presence of coronary angioplasty implant and graft; I25.2 Old myocardial infarction; E66.9 Obesity, unspecified; Z68.31 Body mass index [BMI] 31.0-31.9, adult
CPT/HCPCS: 76775; 80048; 80053; 80307; 81003; 82550; 82553; 83735; 83880; 84443; 84484; 85025; 85610; 85730; 93005; 93306; 94660; G0378

== ENCOUNTER 2018-06-18 12:42 | Emergency (ER) | payer OTHER ==
[2018-06-18] MEDS: ASPIRIN 325 MG TAB PO (13:39)
[2018-06-18] MEDS: NITROGLYCERIN (SL) 0.4 MG TAB SL (13:39)
[2018-06-18 14:06] LABS: ADD MAN DIFF? NO
[2018-06-18 14:11] LABS: BASOPHILS % 0.2 % (0.0-2.0); EOSINOPHILS % 0.5 % (0.0-7.0); HEMATOCRIT 35.8 % (42.0-52.0); LYMPHOCYTES # 1.3 10^3/ul (0.8-2.9); LYMPHOCYTES % 21.2 % (15.0-51.0); MEAN CORPUSCULAR HEMOGLOBIN 23.5 pg (29.0-33.0); MEAN CORPUSCULAR HGB CONC 30.7 g/dl (32.0-37.0); MEAN CORPUSCULAR VOLUME 76.3 fl (82.0-101.0); MEAN PLATELET VOLUME 10.2 fl (7.4-10.4); MONOCYTE # 0.5 10^3/ul (0.3-0.9); MONOCYTES % 8.4 % (0.0-11.0); NEUTROPHIL # 4.4 10^3/ul (1.6-7.5); NEUTROPHILS % 69.5 % (39.0-77.0); PLATELET COUNT 241 10^3/UL (140-415); RED BLOOD COUNT 4.69 10^6/ul (4.70-6.10); RED CELL DISTRIBUTION WIDTH 18.3 % (11.5-14.5)
[2018-06-18 14:11] LABS: WHITE BLOOD COUNT 6.3 10^3/ul (4.8-10.8)
[2018-06-18 14:31] LABS: ALANINE AMINOTRANSFERASE 57 IU/L (13-69); ALBUMIN 3.5 g/dl (3.3-4.9); ALKALINE PHOSPHATASE 84 IU/L (42-121); ANION GAP 14 (8-16); ASPARTATE AMINO TRANSFERASE 51 IU/L (15-46); BILIRUBIN,INDIRECT 0.2 mg/dl (0-1.1); BILIRUBIN,TOTAL 0.2 mg/dl (0.2-1.3); BLOOD UREA NITROGEN 18 mg/dl (7-20); CARBON DIOXIDE 24 mmol/L (21-31); CHLORIDE 108 mmol/L (97-110); CREATINE KINASE 251 IU/L (23-200); CREATININE 0.96 mg/dl (0.61-1.24); GLUCOSE 106 mg/dl (70-220); POTASSIUM 3.3 mmol/L (3.5-5.1); SODIUM 143 mmol/L (135-144)
[2018-06-18 14:32] LABS: INR 0.93; PROTIME 12.6 Sec (11.9-14.9)
[2018-06-18 14:43] LABS: B-TYPE NATRIURETIC PEPTIDE 2750 PG/ML (0-125); CK INDEX 1.4; CK-MB 3.61 ng/ml (0.0-2.4); TROPONIN-I 0.017 ng/ml (0.000-0.120)
[2018-06-18] MEDS: morphine 4 MG/ML VIAL IV ×2 (14:43→17:10)
[2018-06-18] MEDS: ONDANSETRON 4 MG INJ IV ×2 (14:44→17:10)
[2018-06-18 20:15] LABS: TROPONIN-I 0.017 ng/ml (0.000-0.120)
== END 2018-06-18 21:09 | disposition home or self-care (01) ==
LOC: E/R 12:42
DX: R07.89 Other chest pain (principal); I25.10 Atherosclerotic heart disease of native coronary artery without angina pectoris; I10 Essential (primary) hypertension; I25.2 Old myocardial infarction; F17.210 Nicotine dependence, cigarettes, uncomplicated; Z79.82 Long term (current) use of aspirin; Z86.73 Personal history of transient ischemic attack (TIA), and cerebral infarction without residual deficits; Z95.1 Presence of aortocoronary bypass graft
CPT/HCPCS: 71045; 80053; 82550; 82553; 83880; 84484; 85025; 85610; 85730; 93005; 96374; 96375; 96376; 99285-25

== ENCOUNTER 2018-08-05 15:28 | Inpatient (IN) | payer OTHER ==
[2018-08-05 16:47] LABS: ADD MAN DIFF? NO
[2018-08-05 16:51] LABS: BASOPHILS % 0.1 % (0.0-2.0); EOSINOPHILS % 0.1 % (0.0-7.0); HEMATOCRIT 34.4 % (42.0-52.0); HEMOGLOBIN 10.4 g/dl (14.0-18.0); LYMPHOCYTES # 1.3 10^3/ul (0.8-2.9); LYMPHOCYTES % 17.5 % (15.0-51.0); MEAN CORPUSCULAR HGB CONC 30.2 g/dl (32.0-37.0); MEAN CORPUSCULAR VOLUME 75.9 fl (82.0-101.0); MEAN PLATELET VOLUME 10.6 fl (7.4-10.4); MONOCYTE # 0.6 10^3/ul (0.3-0.9); MONOCYTES % 7.5 % (0.0-11.0); NEUTROPHIL # 5.7 10^3/ul (1.6-7.5); NEUTROPHILS % 74.3 % (39.0-77.0); NUCLEATED RED BLOOD CELLS% 0.3 /100WBC (0.0-0.0); PLATELET COUNT 183 10^3/UL (140-415); RED BLOOD COUNT 4.53 10^6/ul (4.70-6.10); RED CELL DISTRIBUTION WIDTH 21.2 % (11.5-14.5)
[2018-08-05 16:51] LABS: WHITE BLOOD COUNT 7.7 10^3/ul (4.8-10.8)
[2018-08-05] MEDS: ASPIRIN 325 MG TAB PO (16:59)
[2018-08-05 17:08] LABS: INR 1.09; PROTIME 14.2 Sec (11.9-14.9); PT RATIO 1.1
[2018-08-05 17:09] LABS: ALANINE AMINOTRANSFERASE 33 IU/L (13-69); ALBUMIN 2.4 g/dl (3.3-4.9); ALKALINE PHOSPHATASE 60 IU/L (42-121); ANION GAP 7 (5-13); ASPARTATE AMINO TRANSFERASE 24 IU/L (15-46); BILIRUBIN,INDIRECT 0.3 mg/dl (0-1.1); BILIRUBIN,TOTAL 0.3 mg/dl (0.2-1.3); BLOOD UREA NITROGEN 19 mg/dl (7-20); CARBON DIOXIDE 16 mmol/L (21-31); CHLORIDE 127 mmol/L (97-110); CREATININE 0.66 mg/dl (0.61-1.24); Estimated GFR > 60 mL/min (>60); GLUCOSE 129 mg/dl (70-220); SODIUM 150 mmol/L (135-144); TOTAL PROTEIN 4.8 g/dl (6.1-8.1)
[2018-08-05 17:16] LABS: CALCIUM 5.9 mg/dl (8.4-10.2); POTASSIUM 2.9 mmol/L (3.5-5.1)
[2018-08-05 17:21] LABS: B-TYPE NATRIURETIC PEPTIDE 5470 PG/ML (0-125); TROPONIN-I 0.052 ng/ml (0.000-0.120)
[2018-08-05] MEDS: POTASSIUM CHLORIDE (SR) 20 MEQ TAB PO ×2 (18:51→20:30)
[2018-08-05] MEDS: MAGNESIUM SULFATE 2 GM/50 ML 50 ML IVPB (18:51)
[2018-08-05] MEDS: CALCIUM CARBONATE 1.25 GM TAB PO (18:51)
[2018-08-05] MEDS: SOTALOL 80 MG TAB PO (21:00)
[2018-08-05] MEDS ORDERED: ONDANSETRON 4 MG TAB PO (21:00)
[2018-08-05] MEDS: PANTOPRAZOLE (EC) 40 MG TAB PO (21:00)
[2018-08-05] MEDS ORDERED: NACL 0.9% 3 ML SYG IV (21:00)
[2018-08-05] MEDS ORDERED: DIPHENHYDRAMINE 25 MG CAP PO (21:00)
[2018-08-05] MEDS ORDERED: ACETAMINOPHEN 325 MG TAB PO (21:00)
[2018-08-05] MEDS: DEXTROSE 5% 1,000 ML IV (21:00)
[2018-08-05] MEDS ORDERED: DOCUSATE SODIUM 100 MG CAP PO (21:00)
[2018-08-06] MEDS: morphine 4 MG/ML VIAL IV ×2 (01:10→07:33)
[2018-08-06] MEDS: DIPHENHYDRAMINE 50 MG INJ IV ×2 (01:10→07:33)
[2018-08-06] MEDS: ONDANSETRON 4 MG INJ IV ×2 (01:11→07:33)
[2018-08-06] MEDS: TICAGRELOR 90 MG TABLET PO ×2 (01:40→08:37)
[2018-08-06] MEDS: CALCIUM GLUCONATE 10% 1 GM in DEXTROSE 5% 100 ML IVPB (01:42)
[2018-08-06] MEDS: ATORVASTATIN 80 MG TAB PO (01:50)
[2018-08-06] MEDS: RANOLAZINE (SR) 500 MG TAB PO ×2 (01:50→08:36)
[2018-08-06 01:54] LABS: TROPONIN-I 0.074 ng/ml (0.000-0.120)
[2018-08-06] MEDS: PANTOPRAZOLE (EC) 40 MG TAB PO (05:47)
[2018-08-06 06:42] LABS: ADD MAN DIFF? NO
[2018-08-06 06:45] LABS: WHITE BLOOD COUNT 6.6 10^3/ul (4.8-10.8)
[2018-08-06 06:45] LABS: BASOPHILS % 0.3 % (0.0-2.0); EOSINOPHILS # 0.1 10^3/ul (0.0-0.5); EOSINOPHILS % 1.1 % (0.0-7.0); HEMATOCRIT 32.8 % (42.0-52.0); HEMOGLOBIN 9.9 g/dl (14.0-18.0); LYMPHOCYTES # 1.5 10^3/ul (0.8-2.9); LYMPHOCYTES % 23.3 % (15.0-51.0); MEAN CORPUSCULAR HEMOGLOBIN 22.9 pg (29.0-33.0); MEAN CORPUSCULAR HGB CONC 30.2 g/dl (32.0-37.0); MEAN CORPUSCULAR VOLUME 75.8 fl (82.0-101.0); MEAN PLATELET VOLUME 10.4 fl (7.4-10.4); MONOCYTE # 0.6 10^3/ul (0.3-0.9); MONOCYTES % 8.6 % (0.0-11.0); NEUTROPHIL # 4.4 10^3/ul (1.6-7.5); NEUTROPHILS % 66.2 % (39.0-77.0); PLATELET COUNT 292 10^3/UL (140-415); RED BLOOD COUNT 4.33 10^6/ul (4.70-6.10); RED CELL DISTRIBUTION WIDTH 21.5 % (11.5-14.5)
[2018-08-06] MEDS: DEXTROSE 5% 1,000 ML IV (07:00)
[2018-08-06 07:22] LABS: ANION GAP 9 (5-13); BLOOD UREA NITROGEN 21 mg/dl (7-20); CALCIUM 8.8 mg/dl (8.4-10.2); CARBON DIOXIDE 25 mmol/L (21-31); CHLORIDE 106 mmol/L (97-110); CREATININE 0.88 mg/dl (0.61-1.24); Estimated GFR > 60 mL/min (>60); GLUCOSE 101 mg/dl (70-220); POTASSIUM 4.3 mmol/L (3.5-5.1); SODIUM 140 mmol/L (135-144)
[2018-08-06 07:32] LABS: TROPONIN-I 0.058 ng/ml (0.000-0.120)
[2018-08-06] MEDS: ASPIRIN (EC) 81 MG TAB PO (08:35)
[2018-08-06] MEDS: LOSARTAN 25 MG TAB PO (08:37)
[2018-08-06] MEDS: ISOSORBIDE MONONITRATE(SR)30 MG TAB PO (08:37)
[2018-08-06] MEDS: ENOXAPARIN 40 MG/0.4 ML SYG SC (08:38)
[2018-08-06] MEDS ORDERED: VALSARTAN 40 MG PO (09:00)
[2018-08-06] MEDS: SOTALOL 80 MG TAB PO (12:34)
[2018-08-08 22:52] LABS: PTH CALCIUM 6.1 mg/dL (8.6-10.3)
[2018-08-09 09:23] LABS: PTH INTACT 35 pg/mL (14-64)
== END 2018-08-06 14:40 | disposition home or self-care (01) | DRG 313 ==
LOC: E/R 15:28 → TEL 20:26
DX: R07.9 Chest pain, unspecified (principal); E87.1 Hypo-osmolality and hyponatremia; I48.92 Unspecified atrial flutter; E87.6 Hypokalemia; E83.51 Hypocalcemia; E78.5 Hyperlipidemia, unspecified; I25.10 Atherosclerotic heart disease of native coronary artery without angina pectoris; I10 Essential (primary) hypertension; I25.5 Ischemic cardiomyopathy; R55 Syncope and collapse; Z86.73 Personal history of transient ischemic attack (TIA), and cerebral infarction without residual deficits; Z98.61 Coronary angioplasty status; Z95.1 Presence of aortocoronary bypass graft; Z95.810 Presence of automatic (implantable) cardiac defibrillator
CPT/HCPCS: 36415; 71045; 80048; 80053; 83880; 83970; 84484; 85025; 85610; 93005; 94660; 96374; 99285-25

== ENCOUNTER 2018-08-24 04:48 | Emergency (ER) | payer OTHER ==
[2018-08-24 06:02] LABS: ADD MAN DIFF? NO; BASOPHILS % 0.2 % (0.0-2.0); EOSINOPHILS # 0.1 10^3/ul (0.0-0.5); EOSINOPHILS % 1.1 % (0.0-7.0); HEMATOCRIT 29.8 % (42.0-52.0); HEMOGLOBIN 8.8 g/dl (14.0-18.0); LYMPHOCYTES % 16.5 % (15.0-51.0); MEAN CORPUSCULAR HEMOGLOBIN 22.4 pg (29.0-33.0); MEAN CORPUSCULAR HGB CONC 29.5 g/dl (32.0-37.0); MONOCYTE # 0.6 10^3/ul (0.3-0.9); NEUTROPHIL # 4.5 10^3/ul (1.6-7.5); NEUTROPHILS % 72.9 % (39.0-77.0); PLATELET COUNT 295 10^3/UL (140-415); RED BLOOD COUNT 3.92 10^6/ul (4.70-6.10); RED CELL DISTRIBUTION WIDTH 20.6 % (11.5-14.5)
[2018-08-24 06:02] LABS: WHITE BLOOD COUNT 6.1 10^3/ul (4.8-10.8)
[2018-08-24 06:26] LABS: ALANINE AMINOTRANSFERASE 20 IU/L (13-69); ALBUMIN 3.7 g/dl (3.3-4.9); ALBUMIN/GLOBULIN RATIO 1.19; ALKALINE PHOSPHATASE 86 IU/L (42-121); ANION GAP 8 (5-13); ASPARTATE AMINO TRANSFERASE 21 IU/L (15-46); BILIRUBIN,INDIRECT 0.4 mg/dl (0-1.1); BILIRUBIN,TOTAL 0.4 mg/dl (0.2-1.3); BLOOD UREA NITROGEN 11 mg/dl (7-20); CALCIUM 8.9 mg/dl (8.4-10.2); CARBON DIOXIDE 27 mmol/L (21-31); CHLORIDE 106 mmol/L (97-110); CREATININE 0.85 mg/dl (0.61-1.24); Estimated GFR > 60 mL/min (>60); GLUCOSE 126 mg/dl (70-220); SODIUM 141 mmol/L (135-144); TOTAL PROTEIN 6.8 g/dl (6.1-8.1)
[2018-08-24 06:38] LABS: B-TYPE NATRIURETIC PEPTIDE 704 PG/ML (0-125); TROPONIN-I < 0.012 ng/ml (0.000-0.120)
[2018-08-24] MEDS: ASPIRIN 81 MG TAB PO (07:25)
[2018-08-24] MEDS: FUROSEMIDE 40 MG INJ IV (07:25)
== END 2018-08-24 08:34 | disposition home or self-care (01) ==
LOC: E/R 04:48
DX: F41.9 Anxiety disorder, unspecified (principal); F99 Mental disorder, not otherwise specified; D64.9 Anemia, unspecified; I50.21 Acute systolic (congestive) heart failure; I10 Essential (primary) hypertension; R40.2142 Coma scale, eyes open, spontaneous, at arrival to emergency department; R40.2252 Coma scale, best verbal response, oriented, at arrival to emergency department; R40.2362 Coma scale, best motor response, obeys commands, at arrival to emergency department; Z86.73 Personal history of transient ischemic attack (TIA), and cerebral infarction without residual deficits; Z95.0 Presence of cardiac pacemaker; Z79.82 Long term (current) use of aspirin
CPT/HCPCS: 36415; 71045; 80053; 83880; 84484; 85025; 93005; 96374; 99285-25

== ENCOUNTER 2018-09-01 16:02 | Inpatient (IN) | payer MEDICAID, OTHER ==
[2018-09-01 20:46] LABS: ADD MAN DIFF? NO
[2018-09-01 20:56] LABS: WHITE BLOOD COUNT 7.3 10^3/ul (4.8-10.8)
[2018-09-01 20:56] LABS: BASOPHILS % 0.3 % (0.0-2.0); EOSINOPHILS # 0.1 10^3/ul (0.0-0.5); EOSINOPHILS % 1.1 % (0.0-7.0); HEMATOCRIT 34.3 % (42.0-52.0); HEMOGLOBIN 10.4 g/dl (14.0-18.0); LYMPHOCYTES # 1.8 10^3/ul (0.8-2.9); LYMPHOCYTES % 24.8 % (15.0-51.0); MEAN CORPUSCULAR HEMOGLOBIN 22.9 pg (29.0-33.0); MEAN CORPUSCULAR HGB CONC 30.3 g/dl (32.0-37.0); MEAN CORPUSCULAR VOLUME 75.6 fl (82.0-101.0); MEAN PLATELET VOLUME 9.3 fl (7.4-10.4); MONOCYTE # 0.5 10^3/ul (0.3-0.9); MONOCYTES % 6.9 % (0.0-11.0); NEUTROPHIL # 4.9 10^3/ul (1.6-7.5); NEUTROPHILS % 66.6 % (39.0-77.0); PLATELET COUNT 383 10^3/UL (140-415); RED BLOOD COUNT 4.54 10^6/ul (4.70-6.10); RED CELL DISTRIBUTION WIDTH 21.2 % (11.5-14.5)
[2018-09-01 21:29] LABS: ANION GAP 12 (5-13); BLOOD UREA NITROGEN 18 mg/dl (7-20); CALCIUM 9.4 mg/dl (8.4-10.2); CARBON DIOXIDE 24 mmol/L (21-31); CHLORIDE 103 mmol/L (97-110); CREATININE 0.95 mg/dl (0.61-1.24); Estimated GFR > 60 mL/min (>60); GLUCOSE 116 mg/dl (70-220); POTASSIUM 3.8 mmol/L (3.5-5.1); SODIUM 139 mmol/L (135-144)
[2018-09-01 21:40] LABS: TROPONIN-I 0.015 ng/ml (0.000-0.120)
[2018-09-01] MEDS ORDERED: ACETAMINOPHEN 325 MG TAB PO (22:00)
[2018-09-01] MEDS: ASPIRIN 81 MG TAB PO (23:40)
[2018-09-01] MEDS: SOD CHLORIDE 0.9% 1,000 ML IV (23:56)
[2018-09-02] MEDS ORDERED: BISACODYL (EC) 5 MG TAB PO
[2018-09-02] MEDS ORDERED: NITROGLYCERIN (SL) 0.4 MG TAB SL
[2018-09-02] MEDS ORDERED: NACL 0.9% 3 ML SYG IV
[2018-09-02] MEDS ORDERED: ACETAMINOPHEN 325 MG TAB PO
[2018-09-02] MEDS ORDERED: DIPHENHYDRAMINE 50 MG CAP PO (01:30)
[2018-09-02] MEDS: morphine 2 MG INJ IV ×4 (02:31→21:39)
[2018-09-02] MEDS: ONDANSETRON 4 MG INJ IV ×2 (02:31→13:01)
[2018-09-02 03:15] LABS: CREATINE KINASE 138 IU/L (23-200)
[2018-09-02 03:30] LABS: TROPONIN-I 0.015 ng/ml (0.000-0.120)
[2018-09-02] MEDS ORDERED: DOCUSATE SODIUM 100 MG CAP PO ×2 (05:00)
[2018-09-02] MEDS ORDERED: ONDANSETRON 4 MG TAB PO (05:00)
[2018-09-02] MEDS: PANTOPRAZOLE (EC) 40 MG TAB PO (05:41)
[2018-09-02 07:17] LABS: ADD MAN DIFF? NO
[2018-09-02 07:19] LABS: WHITE BLOOD COUNT 6.4 10^3/ul (4.8-10.8)
[2018-09-02 07:19] LABS: BASOPHILS % 0.3 % (0.0-2.0); EOSINOPHILS # 0.1 10^3/ul (0.0-0.5); EOSINOPHILS % 1.6 % (0.0-7.0); HEMATOCRIT 33.9 % (42.0-52.0); HEMOGLOBIN 10.1 g/dl (14.0-18.0); LYMPHOCYTES # 1.8 10^3/ul (0.8-2.9); LYMPHOCYTES % 28.1 % (15.0-51.0); MEAN CORPUSCULAR HEMOGLOBIN 22.7 pg (29.0-33.0); MEAN CORPUSCULAR HGB CONC 29.8 g/dl (32.0-37.0); MEAN CORPUSCULAR VOLUME 76.4 fl (82.0-101.0); MEAN PLATELET VOLUME 9.6 fl (7.4-10.4); MONOCYTE # 0.5 10^3/ul (0.3-0.9); MONOCYTES % 7.2 % (0.0-11.0); NEUTROPHILS % 62.5 % (39.0-77.0); PLATELET COUNT 379 10^3/UL (140-415); RED BLOOD COUNT 4.44 10^6/ul (4.70-6.10); RED CELL DISTRIBUTION WIDTH 21.1 % (11.5-14.5)
[2018-09-02 07:40] LABS: ALANINE AMINOTRANSFERASE 22 IU/L (13-69); ALBUMIN 4.3 g/dl (3.3-4.9); ALBUMIN/GLOBULIN RATIO 1.22; ALKALINE PHOSPHATASE 119 IU/L (42-121); ANION GAP 11 (5-13); ASPARTATE AMINO TRANSFERASE 30 IU/L (15-46); BILIRUBIN,INDIRECT 0.3 mg/dl (0-1.1); BILIRUBIN,TOTAL 0.3 mg/dl (0.2-1.3); BLOOD UREA NITROGEN 17 mg/dl (7-20); CALCIUM 9.3 mg/dl (8.4-10.2); CARBON DIOXIDE 25 mmol/L (21-31); CHLORIDE 105 mmol/L (97-110); CHOL/HDL RATIO 3.2 RATIO; CHOLESTEROL 111 mg/dl (100-200); CREATININE 1.01 mg/dl (0.61-1.24); Estimated GFR > 60 mL/min (>60); GLUCOSE 112 mg/dl (70-220); HDL CHOLESTEROL 34 mg/dl (30-78); LDL CHOLESTEROL,CALCULATED 54 mg/dl; MAGNESIUM 1.9 mg/dl (1.7-2.5); SODIUM 141 mmol/L (135-144); TOTAL PROTEIN 7.8 g/dl (6.1-8.1); TRIGLYCERIDES 115 mg/dl (0-149)
[2018-09-02 07:47] LABS: HEMOGLOBIN A1C 6.6 % (0-5.9)
[2018-09-02] MEDS: ISOSORBIDE MONONITRATE(SR)30 MG TAB PO (08:15)
[2018-09-02] MEDS: ASPIRIN (EC) 81 MG TAB PO (08:15)
[2018-09-02] MEDS: LOSARTAN 25 MG TAB PO (08:15)
[2018-09-02] MEDS: FUROSEMIDE 20 MG TAB PO ×2 (08:16→18:31)
[2018-09-02] MEDS: SOTALOL 80 MG TAB PO ×2 (08:16→21:39)
[2018-09-02] MEDS: RANOLAZINE (SR) 500 MG TAB PO ×2 (08:16→21:38)
[2018-09-02] MEDS: ASPIRIN 81 MG TAB PO (08:16)
[2018-09-02] MEDS: ENOXAPARIN 40 MG/0.4 ML SYG SC (08:24)
[2018-09-02] MEDS: TICAGRELOR 90 MG TABLET PO ×2 (08:25→21:50)
[2018-09-02] MEDS ORDERED: VALSARTAN 40 MG PO (09:00)
[2018-09-02 09:30] LABS: CREATINE KINASE 146 IU/L (23-200)
[2018-09-02 09:42] LABS: TROPONIN-I 0.018 ng/ml (0.000-0.120)
[2018-09-02 09:43] LABS: CK-MB 2.93 ng/ml (0.0-2.4)
[2018-09-02 12:12] LABS: IRON 41 ug/dl (35-150)
[2018-09-02 12:21] LABS: % IRON SATURATION 9 % SAT (22-52); TOTAL IRON BINDING CAPACITY 440 ug/dl (241-421)
[2018-09-02] MEDS: SOD CHLORIDE 0.9% 1,000 ML IV (12:57)
[2018-09-02 13:41] LABS: FERRITIN 11.1 ng/ml (11.1-264.0)
[2018-09-02 15:14] LABS: AMPHETAMINE/METHAMPHETAMINE Negative (NEGATIVE); BARBITURATES Negative (NEGATIVE); BENZODIAZEPINES Negative (NEGATIVE); CANNABINOIDS Negative (NEGATIVE); COCAINE Negative (NEGATIVE); OPIATES Positive (NEGATIVE)
[2018-09-02] MEDS: PANTOPRAZOLE 40 MG INJ IV (18:30)
[2018-09-02] MEDS: ATORVASTATIN 80 MG TAB PO (21:38)
[2018-09-03] MEDS: SOD CHLORIDE 0.9% 1,000 ML IV (00:56)
[2018-09-03] MEDS: FUROSEMIDE 20 MG TAB PO ×2 (06:18→17:35)
[2018-09-03] MEDS: PANTOPRAZOLE 40 MG INJ IV ×2 (06:19→17:36)
[2018-09-03] MEDS: morphine 2 MG INJ IV ×4 (06:19→21:46)
[2018-09-03] MEDS: ONDANSETRON 4 MG INJ IV ×3 (06:19→21:45)
[2018-09-03 06:21] LABS: ADD MAN DIFF? NO
[2018-09-03 06:23] LABS: WHITE BLOOD COUNT 5.4 10^3/ul (4.8-10.8)
[2018-09-03 06:23] LABS: BASOPHILS % 0.2 % (0.0-2.0); EOSINOPHILS # 0.1 10^3/ul (0.0-0.5); HEMATOCRIT 33.3 % (42.0-52.0); HEMOGLOBIN 9.7 g/dl (14.0-18.0); LYMPHOCYTES # 1.4 10^3/ul (0.8-2.9); LYMPHOCYTES % 26.2 % (15.0-51.0); MEAN CORPUSCULAR HEMOGLOBIN 22.6 pg (29.0-33.0); MEAN CORPUSCULAR HGB CONC 29.1 g/dl (32.0-37.0); MEAN CORPUSCULAR VOLUME 77.4 fl (82.0-101.0); MEAN PLATELET VOLUME 9.2 fl (7.4-10.4); MONOCYTE # 0.4 10^3/ul (0.3-0.9); MONOCYTES % 6.7 % (0.0-11.0); NEUTROPHIL # 3.5 10^3/ul (1.6-7.5); NEUTROPHILS % 64.7 % (39.0-77.0); PLATELET COUNT 345 10^3/UL (140-415); RED CELL DISTRIBUTION WIDTH 21.2 % (11.5-14.5)
[2018-09-03 07:06] LABS: PHOSPHORUS 4.5 mg/dl (2.5-4.9)
[2018-09-03 07:06] LABS: ANION GAP 9 (5-13); BLOOD UREA NITROGEN 15 mg/dl (7-20); CALCIUM 9.1 mg/dl (8.4-10.2); CARBON DIOXIDE 27 mmol/L (21-31); CHLORIDE 104 mmol/L (97-110); CREATININE 0.95 mg/dl (0.61-1.24); Estimated GFR > 60 mL/min (>60); GLUCOSE 115 mg/dl (70-220); MAGNESIUM 1.9 mg/dl (1.7-2.5); POTASSIUM 4.1 mmol/L (3.5-5.1); SODIUM 140 mmol/L (135-144)
[2018-09-03 07:16] LABS: TROPONIN-I 0.012 ng/ml (0.000-0.120)
[2018-09-03] MEDS: RANOLAZINE (SR) 500 MG TAB PO ×2 (08:12→21:44)
[2018-09-03] MEDS: ASPIRIN (EC) 81 MG TAB PO (08:12)
[2018-09-03] MEDS: ISOSORBIDE MONONITRATE(SR)30 MG TAB PO (08:13)
[2018-09-03] MEDS: SOTALOL 80 MG TAB PO ×2 (08:13→21:45)
[2018-09-03] MEDS: LOSARTAN 25 MG TAB PO (08:14)
[2018-09-03] MEDS: ASPIRIN 81 MG TAB PO (08:14)
[2018-09-03] MEDS: ENOXAPARIN 40 MG/0.4 ML SYG SC (08:28)
[2018-09-03] MEDS: TICAGRELOR 90 MG TABLET PO ×2 (08:29→21:55)
[2018-09-03] MEDS: FERROUS FUMARATE (SR) TAB PO (15:07)
[2018-09-03] MEDS: ATORVASTATIN 80 MG TAB PO (21:44)
[2018-09-04] MEDS: morphine 2 MG INJ IV ×6 (03:21→23:03)
[2018-09-04] MEDS: ONDANSETRON 4 MG INJ IV ×2 (03:21→11:03)
[2018-09-04] MEDS: PANTOPRAZOLE 40 MG INJ IV ×2 (05:37→18:14)
[2018-09-04] MEDS: FUROSEMIDE 20 MG TAB PO ×2 (05:37→18:15)
[2018-09-04 06:21] LABS: ADD MAN DIFF? NO
[2018-09-04 06:28] LABS: BASOPHILS % 0.3 % (0.0-2.0); EOSINOPHILS # 0.1 10^3/ul (0.0-0.5); EOSINOPHILS % 2.2 % (0.0-7.0); HEMATOCRIT 33.9 % (42.0-52.0); HEMOGLOBIN 10.1 g/dl (14.0-18.0); LYMPHOCYTES # 1.7 10^3/ul (0.8-2.9); LYMPHOCYTES % 27.5 % (15.0-51.0); MEAN CORPUSCULAR HGB CONC 29.8 g/dl (32.0-37.0); MEAN PLATELET VOLUME 9.5 fl (7.4-10.4); MONOCYTE # 0.4 10^3/ul (0.3-0.9); MONOCYTES % 6.7 % (0.0-11.0); NEUTROPHIL # 3.8 10^3/ul (1.6-7.5); PLATELET COUNT 362 10^3/UL (140-415); RED CELL DISTRIBUTION WIDTH 20.9 % (11.5-14.5)
[2018-09-04 06:42] LABS: ANION GAP 11 (5-13); BLOOD UREA NITROGEN 17 mg/dl (7-20); CALCIUM 9.2 mg/dl (8.4-10.2); CARBON DIOXIDE 28 mmol/L (21-31); CHLORIDE 102 mmol/L (97-110); CREATININE 1.07 mg/dl (0.61-1.24); Estimated GFR > 60 mL/min (>60); GLUCOSE 106 mg/dl (70-220); POTASSIUM 3.9 mmol/L (3.5-5.1); SODIUM 141 mmol/L (135-144)
[2018-09-04 07:08] LABS: PHOSPHORUS 4.3 mg/dl (2.5-4.9)
[2018-09-04 07:08] LABS: MAGNESIUM 1.8 mg/dl (1.7-2.5)
[2018-09-04] MEDS: RANOLAZINE (SR) 500 MG TAB PO ×2 (08:05→21:05)
[2018-09-04] MEDS: ASPIRIN 81 MG TAB PO (08:05)
[2018-09-04] MEDS: FERROUS FUMARATE (SR) TAB PO (08:05)
[2018-09-04] MEDS: LOSARTAN 25 MG TAB PO (08:05)
[2018-09-04] MEDS: ISOSORBIDE MONONITRATE(SR)30 MG TAB PO (08:06)
[2018-09-04] MEDS: SOTALOL 80 MG TAB PO ×2 (08:06→21:09)
[2018-09-04] MEDS: ENOXAPARIN 40 MG/0.4 ML SYG SC (08:10)
[2018-09-04] MEDS: TICAGRELOR 90 MG TABLET PO ×2 (08:10→21:07)
[2018-09-04 16:03] LABS: B-TYPE NATRIURETIC PEPTIDE 106 PG/ML (0-125)
[2018-09-04] MEDS: ATORVASTATIN 80 MG TAB PO (21:05)
[2018-09-05] MEDS: morphine 2 MG INJ IV ×2 (03:11→06:53)
[2018-09-05 06:31] LABS: ADD MAN DIFF? NO
[2018-09-05 06:40] LABS: WHITE BLOOD COUNT 6.5 10^3/ul (4.8-10.8)
[2018-09-05 06:40] LABS: BASOPHILS % 0.5 % (0.0-2.0); EOSINOPHILS # 0.1 10^3/ul (0.0-0.5); EOSINOPHILS % 1.4 % (0.0-7.0); HEMATOCRIT 35.7 % (42.0-52.0); HEMOGLOBIN 10.5 g/dl (14.0-18.0); LYMPHOCYTES # 1.6 10^3/ul (0.8-2.9); LYMPHOCYTES % 23.8 % (15.0-51.0); MEAN CORPUSCULAR HEMOGLOBIN 22.5 pg (29.0-33.0); MEAN CORPUSCULAR HGB CONC 29.4 g/dl (32.0-37.0); MEAN CORPUSCULAR VOLUME 76.6 fl (82.0-101.0); MEAN PLATELET VOLUME 9.1 fl (7.4-10.4); MONOCYTE # 0.6 10^3/ul (0.3-0.9); MONOCYTES % 8.4 % (0.0-11.0); NEUTROPHIL # 4.3 10^3/ul (1.6-7.5); NEUTROPHILS % 65.3 % (39.0-77.0); PLATELET COUNT 338 10^3/UL (140-415); RED BLOOD COUNT 4.66 10^6/ul (4.70-6.10); RED CELL DISTRIBUTION WIDTH 20.7 % (11.5-14.5)
[2018-09-05] MEDS: FUROSEMIDE 20 MG TAB PO ×2 (06:54→17:23)
[2018-09-05 07:06] LABS: INR 0.88; PT RATIO 0.9
[2018-09-05 07:32] LABS: ALANINE AMINOTRANSFERASE 19 IU/L (13-69); ALBUMIN 4.2 g/dl (3.3-4.9); ALKALINE PHOSPHATASE 97 IU/L (42-121); ANION GAP 10 (5-13); ASPARTATE AMINO TRANSFERASE 27 IU/L (15-46); BILIRUBIN,INDIRECT 0.2 mg/dl (0-1.1); BILIRUBIN,TOTAL 0.2 mg/dl (0.2-1.3); BLOOD UREA NITROGEN 18 mg/dl (7-20); CALCIUM 9.4 mg/dl (8.4-10.2); CARBON DIOXIDE 28 mmol/L (21-31); CHLORIDE 102 mmol/L (97-110); CHOL/HDL RATIO 2.9 RATIO; CHOLESTEROL 125 mg/dl (100-200); Estimated GFR > 60 mL/min (>60); GLUCOSE 130 mg/dl (70-220); HDL CHOLESTEROL 42 mg/dl (30-78); LDL CHOLESTEROL,CALCULATED 51 mg/dl; MAGNESIUM 1.8 mg/dl (1.7-2.5); POTASSIUM 4.1 mmol/L (3.5-5.1); SODIUM 140 mmol/L (135-144); TOTAL PROTEIN 7.2 g/dl (6.1-8.1); TRIGLYCERIDES 162 mg/dl (0-149)
[2018-09-05] MEDS: ISOSORBIDE MONONITRATE(SR)30 MG TAB PO (08:14)
[2018-09-05] MEDS: FAMOTIDINE 20 MG TAB PO (08:14)
[2018-09-05] MEDS: FERROUS FUMARATE (SR) TAB PO (08:14)
[2018-09-05] MEDS: RANOLAZINE (SR) 500 MG TAB PO ×2 (08:15→22:29)
[2018-09-05] MEDS: LOSARTAN 25 MG TAB PO (08:15)
[2018-09-05] MEDS: SOTALOL 80 MG TAB PO ×2 (08:16→21:00)
[2018-09-05] MEDS: ASPIRIN 81 MG TAB PO (08:16)
[2018-09-05] MEDS: ENOXAPARIN 40 MG/0.4 ML SYG SC (08:37)
[2018-09-05] MEDS: TICAGRELOR 90 MG TABLET PO ×2 (08:37→22:33)
[2018-09-05 09:30] LABS: TROPONIN-I 0.015 ng/ml (0.000-0.120)
[2018-09-05] MEDS: HYDROmorphONE 0.5 MG/0.5 ML SYG IV ×4 (10:59→23:30)
[2018-09-05] MEDS: ATORVASTATIN 80 MG TAB PO (22:35)
[2018-09-06] MEDS: FUROSEMIDE 20 MG TAB PO (05:54)
[2018-09-06] MEDS: HYDROmorphONE 0.5 MG/0.5 ML SYG IV ×4 (06:00→18:41)
[2018-09-06] MEDS: FERROUS FUMARATE (SR) TAB PO (08:59)
[2018-09-06] MEDS: RANOLAZINE (SR) 500 MG TAB PO ×2 (08:59→22:24)
[2018-09-06] MEDS: ASPIRIN 81 MG TAB PO (08:59)
[2018-09-06] MEDS: SOTALOL 80 MG TAB PO ×2 (08:59→22:24)
[2018-09-06] MEDS: FAMOTIDINE 20 MG TAB PO (08:59)
[2018-09-06] MEDS: ISOSORBIDE MONONITRATE(SR)30 MG TAB PO (08:59)
[2018-09-06] MEDS: LOSARTAN 25 MG TAB PO (08:59)
[2018-09-06] MEDS: TICAGRELOR 90 MG TABLET PO ×2 (09:08→22:27)
[2018-09-06] MEDS: ENOXAPARIN 40 MG/0.4 ML SYG SC (09:08)
[2018-09-06] MEDS: FUROSEMIDE 20 MG INJ IV (17:43)
[2018-09-06] MEDS: ATORVASTATIN 80 MG TAB PO (22:24)
[2018-09-07] MEDS: HYDROmorphONE 0.5 MG/0.5 ML SYG IV ×4 (00:10→12:49)
[2018-09-07] MEDS: FUROSEMIDE 20 MG INJ IV (06:21)
[2018-09-07] MEDS: LOSARTAN 25 MG TAB PO (08:42)
[2018-09-07] MEDS: FERROUS FUMARATE (SR) TAB PO (08:42)
[2018-09-07] MEDS: RANOLAZINE (SR) 500 MG TAB PO (08:42)
[2018-09-07] MEDS: FAMOTIDINE 20 MG TAB PO (08:43)
[2018-09-07] MEDS: ISOSORBIDE MONONITRATE(SR)30 MG TAB PO (08:43)
[2018-09-07] MEDS: ASPIRIN 81 MG TAB PO (08:43)
[2018-09-07] MEDS: SOTALOL 80 MG TAB PO (08:44)
[2018-09-07] MEDS: ENOXAPARIN 40 MG/0.4 ML SYG SC (08:48)
[2018-09-07] MEDS: TICAGRELOR 90 MG TABLET PO (08:48)
== END 2018-09-07 16:00 | disposition home health service (06) | DRG 313 ==
LOC: E/R 16:02 → TEL 21:51
DX: R07.89 Other chest pain (principal); I50.23 Acute on chronic systolic (congestive) heart failure; I48.92 Unspecified atrial flutter; I25.2 Old myocardial infarction; D64.9 Anemia, unspecified; E78.5 Hyperlipidemia, unspecified; E11.9 Type 2 diabetes mellitus without complications; I48.0 Paroxysmal atrial fibrillation; I11.0 Hypertensive heart disease with heart failure; I25.5 Ischemic cardiomyopathy; G47.33 Obstructive sleep apnea (adult) (pediatric); K21.9 Gastro-esophageal reflux disease without esophagitis; Z79.82 Long term (current) use of aspirin; Z95.0 Presence of cardiac pacemaker; Z95.1 Presence of aortocoronary bypass graft; Z95.5 Presence of coronary angioplasty implant and graft; Z86.73 Personal history of transient ischemic attack (TIA), and cerebral infarction without residual deficits
CPT/HCPCS: 36415; 71045; 80048; 80053; 80061; 80307; 82550; 82553; 82728; 83036; 83540; 83735; 83880; 84100; 84443; 84484; 85025; 85610; 90686; 93005; 93880; 94660; 97110; 97116; 97162; 99285-25; G0378

== ENCOUNTER 2018-09-15 11:34 | Emergency (ER) | payer MEDICAID | END 2018-09-15 14:15 | disposition home or self-care (01) | LOC: E/R 11:34 | DX: S06.0X0A Concussion without loss of consciousness, initial encounter (principal); F17.210 Nicotine dependence, cigarettes, uncomplicated; I10 Essential (primary) hypertension; I50.9 Heart failure, unspecified; W22.8XXA Striking against or struck by other objects, initial encounter; Y92.009 Unspecified place in unspecified non-institutional (private) residence as the place of occurrence of the external cause; Z95.0 Presence of cardiac pacemaker; Z79.82 Long term (current) use of aspirin | CPT/HCPCS: 70450; 99284-25 ==

== ENCOUNTER 2018-10-20 12:23 | Emergency (ER) | payer MEDICAID ==
[2018-10-20 13:06] LABS: ADD MAN DIFF? NO
[2018-10-20 13:09] LABS: WHITE BLOOD COUNT 6.1 10^3/ul (4.8-10.8)
[2018-10-20 13:09] LABS: BASOPHILS % 0.3 % (0.0-2.0); EOSINOPHILS # 0.1 10^3/ul (0.0-0.5); EOSINOPHILS % 0.8 % (0.0-7.0); HEMATOCRIT 36.3 % (42.0-52.0); HEMOGLOBIN 10.8 g/dl (14.0-18.0); LYMPHOCYTES # 1.6 10^3/ul (0.8-2.9); LYMPHOCYTES % 26.7 % (15.0-51.0); MEAN CORPUSCULAR HEMOGLOBIN 22.7 pg (29.0-33.0); MEAN CORPUSCULAR HGB CONC 29.8 g/dl (32.0-37.0); MEAN CORPUSCULAR VOLUME 76.3 fl (82.0-101.0); MEAN PLATELET VOLUME 9.4 fl (7.4-10.4); MONOCYTE # 0.3 10^3/ul (0.3-0.9); MONOCYTES % 5.4 % (0.0-11.0); NEUTROPHIL # 4.1 10^3/ul (1.6-7.5); NEUTROPHILS % 66.6 % (39.0-77.0); PLATELET COUNT 326 10^3/UL (140-415); RED BLOOD COUNT 4.76 10^6/ul (4.70-6.10); RED CELL DISTRIBUTION WIDTH 21.4 % (11.5-14.5)
[2018-10-20 13:26] LABS: ANION GAP 7 (5-13); BLOOD UREA NITROGEN 27 mg/dl (7-20); CALCIUM 9.1 mg/dl (8.4-10.2); CARBON DIOXIDE 26 mmol/L (21-31); CHLORIDE 109 mmol/L (97-110); Estimated GFR > 60 mL/min (>60); GLUCOSE 138 mg/dl (70-220); POTASSIUM 3.4 mmol/L (3.5-5.1); SODIUM 142 mmol/L (135-144)
== END 2018-10-20 14:48 | disposition home or self-care (01) ==
LOC: E/R 12:23
DX: R07.9 Chest pain, unspecified (principal); G89.29 Other chronic pain; I50.9 Heart failure, unspecified; F17.210 Nicotine dependence, cigarettes, uncomplicated; I11.0 Hypertensive heart disease with heart failure; Z95.0 Presence of cardiac pacemaker; Z79.82 Long term (current) use of aspirin; Z76.5 Malingerer [conscious simulation]
CPT/HCPCS: 36415; 71045; 80048; 84484; 85025; 93005; 99285-25

== ENCOUNTER 2018-11-28 10:38 | Inpatient (IN) | payer OTHER ==
[2018-11-28] MEDS ORDERED: DOCUSATE SODIUM 100 MG CAP PO ×2 (11:30→12:00)
[2018-11-28] MEDS ORDERED: ONDANSETRON 4 MG TAB PO (11:30)
[2018-11-28] MEDS ORDERED: DIPHENHYDRAMINE 25 MG CAP PO (11:30)
[2018-11-28] MEDS ORDERED: NACL 0.9% 3 ML SYG IV ×2 (12:00)
[2018-11-28] MEDS: morphine 2 MG INJ IV ×3 (12:07→20:33)
[2018-11-28] MEDS: ONDANSETRON 4 MG INJ IV ×2 (13:28→22:00)
[2018-11-28] MEDS ORDERED: PHYTONADIONE 10 MG in DEXTROSE 5% 50 ML IVPB (13:30)
[2018-11-28 14:17] LABS: ADD MAN DIFF? NO
[2018-11-28 14:22] LABS: BASOPHILS % 0.3 % (0.0-2.0); EOSINOPHILS # 0.1 10^3/ul (0.0-0.5); EOSINOPHILS % 0.6 % (0.0-7.0); HEMATOCRIT 29.3 % (42.0-52.0); HEMOGLOBIN 8.9 g/dl (14.0-18.0); LYMPHOCYTES # 1.2 10^3/ul (0.8-2.9); LYMPHOCYTES % 14.8 % (15.0-51.0); MEAN CORPUSCULAR HEMOGLOBIN 22.9 pg (29.0-33.0); MEAN CORPUSCULAR HGB CONC 30.4 g/dl (32.0-37.0); MEAN CORPUSCULAR VOLUME 75.3 fl (82.0-101.0); MEAN PLATELET VOLUME 9.5 fl (7.4-10.4); MONOCYTE # 0.4 10^3/ul (0.3-0.9); NEUTROPHIL # 6.1 10^3/ul (1.6-7.5); NEUTROPHILS % 78.9 % (39.0-77.0); PLATELET COUNT 374 10^3/UL (140-415); RED BLOOD COUNT 3.89 10^6/ul (4.70-6.10); RED CELL DISTRIBUTION WIDTH 20.7 % (11.5-14.5)
[2018-11-28 14:22] LABS: WHITE BLOOD COUNT 7.8 10^3/ul (4.8-10.8)
[2018-11-28 14:43] LABS: PROTIME 12.3 Sec (11.9-14.9)
[2018-11-28 14:45] LABS: ALANINE AMINOTRANSFERASE 56 IU/L (13-69); ALBUMIN 3.8 g/dl (3.3-4.9); ALBUMIN/GLOBULIN RATIO 0.92; ALKALINE PHOSPHATASE 121 IU/L (42-121); ANION GAP 14 (5-13); ASPARTATE AMINO TRANSFERASE 30 IU/L (15-46); BILIRUBIN,INDIRECT 0.2 mg/dl (0-1.1); BILIRUBIN,TOTAL 0.2 mg/dl (0.2-1.3); BLOOD UREA NITROGEN 13 mg/dl (7-20); CALCIUM 9.1 mg/dl (8.4-10.2); CARBON DIOXIDE 27 mmol/L (21-31); CHLORIDE 100 mmol/L (97-110); CREATINE KINASE 43 IU/L (23-200); CREATININE 0.86 mg/dl (0.61-1.24); Estimated GFR > 60 mL/min (>60); GLUCOSE 154 mg/dl (70-220); POTASSIUM 3.9 mmol/L (3.5-5.1); SODIUM 141 mmol/L (135-144); TOTAL PROTEIN 7.9 g/dl (6.1-8.1)
[2018-11-28 14:47] LABS: MAGNESIUM 2.1 mg/dl (1.7-2.5)
[2018-11-28 14:57] LABS: CK INDEX 5.4; CK-MB 2.34 ng/ml (0.0-2.4); TROPONIN-I < 0.012 ng/ml (0.000-0.120)
[2018-11-28 19:16] LABS: CREATINE KINASE 42 IU/L (23-200)
[2018-11-28 19:30] LABS: CK INDEX 4.9; CK-MB 2.06 ng/ml (0.0-2.4); TROPONIN-I < 0.012 ng/ml (0.000-0.120)
[2018-11-28] MEDS: ATORVASTATIN 40 MG TAB PO (20:33)
[2018-11-28] MEDS: RANOLAZINE (SR) 500 MG TAB PO (20:34)
[2018-11-28] MEDS: TICAGRELOR 90 MG TABLET PO (20:54)
[2018-11-28] MEDS: SOTALOL 80 MG TAB PO (20:54)
[2018-11-28] MEDS ORDERED: RANOLAZINE (SR) 500 MG TAB PO (21:00)
[2018-11-28] MEDS ORDERED: TICAGRELOR 90 MG TABLET PO (21:00)
[2018-11-28] MEDS: DIPHENHYDRAMINE 50 MG INJ IV (22:00)
[2018-11-29] MEDS: morphine 2 MG INJ IV ×5 (00:36→17:08)
[2018-11-29] MEDS: DIPHENHYDRAMINE 50 MG INJ IV ×2 (04:01→10:28)
[2018-11-29 07:24] LABS: INR 0.94; PROTIME 12.7 Sec (11.9-14.9)
[2018-11-29 07:24] LABS: HEMOGLOBIN A1C 7.4 % (0-5.9)
[2018-11-29 07:30] LABS: HDL CHOLESTEROL 14 mg/dl (30-78); LDL CHOLESTEROL,CALCULATED 42 mg/dl; TRIGLYCERIDES 138 mg/dl (0-149)
[2018-11-29 07:30] LABS: CHOLESTEROL 84 mg/dl (100-200)
[2018-11-29] MEDS: ASPIRIN 81 MG TAB PO (08:57)
[2018-11-29] MEDS: SOTALOL 80 MG TAB PO ×2 (08:58→21:00)
[2018-11-29] MEDS: TAMSULOSIN (SR) 0.4 MG CAP PO (08:58)
[2018-11-29] MEDS: FOLIC ACID 1 MG TAB PO (08:58)
[2018-11-29] MEDS: FERROUS FUMARATE (SR) TAB PO (08:58)
[2018-11-29] MEDS: ISOSORBIDE MONONITRATE(SR)30 MG TAB PO (08:58)
[2018-11-29] MEDS: FUROSEMIDE 20 MG TAB PO (08:59)
[2018-11-29] MEDS: FINASTERIDE 5 MG TAB PO (08:59)
[2018-11-29] MEDS: RANOLAZINE (SR) 500 MG TAB PO ×2 (08:59→21:38)
[2018-11-29] MEDS: LISINOPRIL 5 MG TAB PO (08:59)
[2018-11-29] MEDS ORDERED: ASPIRIN (EC) 81 MG TAB PO (09:00)
[2018-11-29] MEDS: TICAGRELOR 90 MG TABLET PO ×2 (09:01→21:49)
[2018-11-29] MEDS: ONDANSETRON 4 MG INJ IV ×2 (10:28→17:08)
[2018-11-29] MEDS ORDERED: DEXTROSE 50% 50 ML SYRINGE IV ×2 (15:00)
[2018-11-29] MEDS ORDERED: GLUCAGON 1 MG INJ IM (15:00)
[2018-11-29] MEDS ORDERED: GLUCOSE GEL 15 GRAM TUBE PO ×2 (15:00)
[2018-11-29] MEDS ORDERED: GLUCOSE GEL 15 GRAM TUBE BUCCAL (15:00)
[2018-11-29] MEDS: INSULIN ASPART [NOVOLOG] 3 ML PEN SC ×2 (17:20→21:00)
[2018-11-29] MEDS: ATORVASTATIN 40 MG TAB PO (21:38)
[2018-11-29] MEDS: INSULIN GLARGINE [LANTus] (100 UNITS/ML) SYG SC (21:49)
[2018-11-30] MEDS: morphine 2 MG INJ IV ×5 (00:34→22:49)
[2018-11-30] MEDS: ACCU-CHEK XX (02:06)
[2018-11-30 07:11] LABS: ANION GAP 8 (5-13); BLOOD UREA NITROGEN 15 mg/dl (7-20); CALCIUM 9.1 mg/dl (8.4-10.2); CARBON DIOXIDE 30 mmol/L (21-31); CHLORIDE 99 mmol/L (97-110); CREATININE 0.93 mg/dl (0.61-1.24); Estimated GFR > 60 mL/min (>60); GLUCOSE 168 mg/dl (70-220); SODIUM 137 mmol/L (135-144)
[2018-11-30] MEDS: INSULIN ASPART [NOVOLOG] 3 ML PEN SC ×6 (07:55→21:00)
[2018-11-30] MEDS: ASPIRIN 81 MG TAB PO (08:26)
[2018-11-30] MEDS: RANOLAZINE (SR) 500 MG TAB PO ×2 (08:26→21:00)
[2018-11-30] MEDS: TAMSULOSIN (SR) 0.4 MG CAP PO (08:26)
[2018-11-30] MEDS: FINASTERIDE 5 MG TAB PO (08:27)
[2018-11-30] MEDS: FOLIC ACID 1 MG TAB PO (08:27)
[2018-11-30] MEDS: ISOSORBIDE MONONITRATE(SR)30 MG TAB PO (08:27)
[2018-11-30] MEDS: LISINOPRIL 5 MG TAB PO (08:27)
[2018-11-30] MEDS: SOTALOL 80 MG TAB PO ×2 (08:27→21:00)
[2018-11-30] MEDS: FERROUS FUMARATE (SR) TAB PO (08:27)
[2018-11-30] MEDS: FUROSEMIDE 20 MG TAB PO (08:28)
[2018-11-30] MEDS: TICAGRELOR 90 MG TABLET PO ×2 (08:28→23:03)
[2018-11-30] MEDS: INSULIN GLARGINE [LANTus] (100 UNITS/ML) SYG SC (20:00)
[2018-11-30] MEDS: ATORVASTATIN 40 MG TAB PO (22:01)
[2018-12-01] MEDS: ACCU-CHEK XX (02:00)
[2018-12-01] MEDS: morphine 2 MG INJ IV ×4 (03:13→15:37)
[2018-12-01 06:54] LABS: ADD MAN DIFF? NO
[2018-12-01 07:00] LABS: BASOPHILS % 0.2 % (0.0-2.0); EOSINOPHILS % 0.1 % (0.0-7.0); HEMATOCRIT 30.7 % (42.0-52.0); HEMOGLOBIN 9.2 g/dl (14.0-18.0); LYMPHOCYTES % 6.6 % (15.0-51.0); MEAN CORPUSCULAR HEMOGLOBIN 22.8 pg (29.0-33.0); MEAN CORPUSCULAR VOLUME 76.2 fl (82.0-101.0); MEAN PLATELET VOLUME 9.3 fl (7.4-10.4); MONOCYTE # 0.4 10^3/ul (0.3-0.9); MONOCYTES % 2.8 % (0.0-11.0); NEUTROPHIL # 13.5 10^3/ul (1.6-7.5); NEUTROPHILS % 89.7 % (39.0-77.0); PLATELET COUNT 436 10^3/UL (140-415); RED BLOOD COUNT 4.03 10^6/ul (4.70-6.10); RED CELL DISTRIBUTION WIDTH 20.4 % (11.5-14.5)
[2018-12-01 07:20] LABS: INR 0.92; PROTIME 12.5 Sec (11.9-14.9)
[2018-12-01 07:21] LABS: PARTIAL THROMBOPLASTIN TIME 24.2 Sec (23.0-35.0)
[2018-12-01 07:22] LABS: ANION GAP 11 (5-13); BLOOD UREA NITROGEN 14 mg/dl (7-20); CALCIUM 9.3 mg/dl (8.4-10.2); CARBON DIOXIDE 26 mmol/L (21-31); CHLORIDE 102 mmol/L (97-110); CREATININE 0.89 mg/dl (0.61-1.24); Estimated GFR > 60 mL/min (>60); GLUCOSE 153 mg/dl (70-220); POTASSIUM 4.5 mmol/L (3.5-5.1); SODIUM 139 mmol/L (135-144)
[2018-12-01] MEDS: INSULIN ASPART [NOVOLOG] 3 ML PEN SC ×7 (07:55→21:00)
[2018-12-01] MEDS: ISOSORBIDE MONONITRATE(SR)30 MG TAB PO (08:22)
[2018-12-01] MEDS: FERROUS FUMARATE (SR) TAB PO (08:22)
[2018-12-01] MEDS: FOLIC ACID 1 MG TAB PO (08:23)
[2018-12-01] MEDS: SOTALOL 80 MG TAB PO ×2 (08:24→21:00)
[2018-12-01] MEDS: TAMSULOSIN (SR) 0.4 MG CAP PO (08:24)
[2018-12-01] MEDS: FINASTERIDE 5 MG TAB PO (08:24)
[2018-12-01] MEDS: LISINOPRIL 5 MG TAB PO (08:26)
[2018-12-01] MEDS: FUROSEMIDE 20 MG TAB PO (08:27)
[2018-12-01] MEDS: ASPIRIN 81 MG TAB PO (08:33)
[2018-12-01] MEDS: TICAGRELOR 90 MG TABLET PO ×2 (08:33→21:34)
[2018-12-01] MEDS: RANOLAZINE (SR) 500 MG TAB PO ×2 (08:34→20:59)
[2018-12-01] MEDS ORDERED: IODIXANOL LOCM 100 ML BTL (12:50)
[2018-12-01] MEDS ORDERED: LIDOCAINE 1% (MDV) 20 ML INJ (12:50)
[2018-12-01] MEDS ORDERED: VERAPAMIL 5 MG INJ (12:50)
[2018-12-01] MEDS ORDERED: NITROGLYCERIN (IC) 100 MCG/ML INJ ×2 (12:50→14:09)
[2018-12-01] MEDS ORDERED: HEPARIN 1000 UNITS/ML 10 ML INJ (12:50)
[2018-12-01] MEDS ORDERED: FENTAnyl 50 MCG/ML VIAL (13:21)
[2018-12-01] MEDS ORDERED: MIDAZOLAM 1 MG/ML 2 ML INJ (13:23)
[2018-12-01] MEDS ORDERED: ASPIRIN 325 MG TAB (14:54)
[2018-12-01] MEDS ORDERED: morphine 2 MG INJ IV (15:00)
[2018-12-01] MEDS ORDERED: AL HYDROX/MG HYDROX/SIMETH 30 ML CUP PO (15:00)
[2018-12-01] MEDS ORDERED: OXYCODONE/ACETAMINOPHEN (5/325) TAB PO (15:00)
[2018-12-01] MEDS ORDERED: ASPIRIN 81 MG TAB (15:03)
[2018-12-01] MEDS ORDERED: TICAGRELOR 90 MG TABLET (15:04)
[2018-12-01] MEDS: SOD CHLORIDE 0.9% 1,000 ML IV (15:43)
[2018-12-01] MEDS: ACETAMINOPHEN 325 MG TAB PO (17:13)
[2018-12-01] MEDS ORDERED: VANCOMYCIN IV PER PHARMACY XX (18:00)
[2018-12-01 19:36] LABS: AADO2 Arterial 36.9 mmHg (7.0-24.0); Allen Test ACCEPTAB; Arterial Base Excess 1.4 mmol/L (-3.0-3); Arterial Blood Gas Oxygen Sat 95.1 mmHG (95.0-98.0); Arterial COHb 0.3 % (0.0-3.0); Arterial Fraction of Oxyhgb 94.7 % (93.0-99.0); Arterial HCO3 23.9 mmol/L (22.0-26.0); Arterial MetHb 0.1 % (0.0-1.5); Arterial pCO2 30.3 mmhg (35-45); MODE ROOM AIR; Site Right Radial
[2018-12-01] MEDS: AZTREONAM 2 GM in SOD CHLORIDE 0.9% 100 ML IVPB (20:59)
[2018-12-01] MEDS: ATORVASTATIN 40 MG TAB PO (20:59)
[2018-12-01] MEDS ORDERED: TICAGRELOR 90 MG TABLET PO (21:00)
[2018-12-01] MEDS ORDERED: CEFEPIME 1GM/50 ML (PMX) 50 ML IVPB (21:00)
[2018-12-01] MEDS: INSULIN GLARGINE [LANTus] (100 UNITS/ML) SYG SC (21:34)
[2018-12-01] MEDS: VANCOMYCIN HCL 1.75 GM in SOD CHLORIDE 0.9% 500 ML IVPB (22:18)
[2018-12-01] MEDS ORDERED: ALBUTEROL/IPRATROPIUM (NEB) 3 ML AMP HHN (23:00)
[2018-12-02] MEDS: ACCU-CHEK XX (02:00)
[2018-12-02] MEDS: Metronidazole 500 MG in NS 100 ML IVPB ×4 (05:50→21:04)
[2018-12-02] MEDS: AZTREONAM 2 GM in SOD CHLORIDE 0.9% 100 ML IVPB ×3 (05:52→20:31)
[2018-12-02 06:35] LABS: ADD MAN DIFF? NO
[2018-12-02 06:44] LABS: WHITE BLOOD COUNT 14.2 10^3/ul (4.8-10.8)
[2018-12-02 06:44] LABS: BASOPHILS % 0.2 % (0.0-2.0); EOSINOPHILS % 0.1 % (0.0-7.0); HEMATOCRIT 27.4 % (42.0-52.0); HEMOGLOBIN 8.5 g/dl (14.0-18.0); LYMPHOCYTES # 1.2 10^3/ul (0.8-2.9); LYMPHOCYTES % 8.7 % (15.0-51.0); MEAN CORPUSCULAR HEMOGLOBIN 23.3 pg (29.0-33.0); MEAN CORPUSCULAR VOLUME 75.1 fl (82.0-101.0); MEAN PLATELET VOLUME 9.5 fl (7.4-10.4); MONOCYTE # 0.8 10^3/ul (0.3-0.9); MONOCYTES % 5.8 % (0.0-11.0); NEUTROPHILS % 84.7 % (39.0-77.0); PLATELET COUNT 418 10^3/UL (140-415); RED BLOOD COUNT 3.65 10^6/ul (4.70-6.10); RED CELL DISTRIBUTION WIDTH 20.4 % (11.5-14.5)
[2018-12-02 07:14] LABS: ANION GAP 10 (5-13); BLOOD UREA NITROGEN 13 mg/dl (7-20); CARBON DIOXIDE 26 mmol/L (21-31); CHLORIDE 106 mmol/L (97-110); Estimated GFR > 60 mL/min (>60); GLUCOSE 100 mg/dl (70-220); SODIUM 142 mmol/L (135-144)
[2018-12-02] MEDS: INSULIN ASPART [NOVOLOG] 3 ML PEN SC ×7 (07:51→20:47)
[2018-12-02] MEDS: ALBUTEROL/IPRATROPIUM (NEB) 3 ML AMP HHN ×3 (08:13→20:17)
[2018-12-02] MEDS: VANCOMYCIN HCL 1.5 GM in SOD CHLORIDE 0.9% 250 ML IVPB ×2 (09:43→21:41)
[2018-12-02] MEDS: TAMSULOSIN (SR) 0.4 MG CAP PO (09:58)
[2018-12-02] MEDS: SOTALOL 80 MG TAB PO ×2 (09:59→20:31)
[2018-12-02] MEDS: LISINOPRIL 5 MG TAB PO (09:59)
[2018-12-02] MEDS: FUROSEMIDE 20 MG TAB PO (10:00)
[2018-12-02] MEDS: FOLIC ACID 1 MG TAB PO (10:00)
[2018-12-02] MEDS: FINASTERIDE 5 MG TAB PO (10:00)
[2018-12-02] MEDS: FERROUS FUMARATE (SR) TAB PO (10:01)
[2018-12-02] MEDS: ISOSORBIDE MONONITRATE(SR)30 MG TAB PO (10:01)
[2018-12-02] MEDS: ASPIRIN (EC) 81 MG TAB PO (10:01)
[2018-12-02] MEDS: TICAGRELOR 90 MG TABLET PO ×2 (10:06→20:47)
[2018-12-02] MEDS: RANOLAZINE (SR) 500 MG TAB PO ×2 (10:10→20:30)
[2018-12-02 14:53] LABS: ADD UMIC YES; UR ASCORBIC ACID NEGATIVE (NEGATIVE); UR BILIRUBIN (Dip) NEGATIVE (NEGATIVE); UR BLOOD (Dip) NEGATIVE (NEGATIVE); UR CLARITY CLOUDY (CLEAR); UR COLOR AMBER (YELLOW); UR GLUCOSE (Dip) NEGATIVE (NEGATIVE); UR KETONES (Dip) NEGATIVE (NEGATIVE); UR LEUKOCYTE ESTERASE (Dip) 2+ Leu/ul (NEGATIVE); UR MUCUS FEW /HPF (NONE SEEN); UR NITRITE (Dip) NEGATIVE (NEGATIVE); UR RBC 15 /HPF (0-5); UR SPECIFIC GRAVITY (Dip) 1.031 (1.003-1.030); UR TOTAL PROTEIN (Dip) NEGATIVE (NEGATIVE); UR UROBILINOGEN (Dip) 2+ mg/dL (NEGATIVE); UR WBC > 182 /HPF (0-5)
[2018-12-02] MEDS: DIAZEPAM 5 MG TAB PO (19:43)
[2018-12-02] MEDS: DIPHENHYDRAMINE 50 MG CAP PO (19:43)
[2018-12-02] MEDS: ATORVASTATIN 40 MG TAB PO (20:30)
[2018-12-02] MEDS: INSULIN GLARGINE [LANTus] (100 UNITS/ML) SYG SC (20:46)
[2018-12-02] MEDS ORDERED: TOBRAMYCIN IV PER PHARMACY XX (23:00)
[2018-12-02] MEDS: ERTAPENEM SODIUM 1 GM in SOD CHLORIDE 0.9% 100 ML IVPB (23:22)
[2018-12-03] MEDS: TOBRAMYCIN 400 MG in SOD CHLORIDE 0.9% 100 ML IVPB ×2 (00:30→22:28)
[2018-12-03] MEDS: ACCU-CHEK XX (02:26)
[2018-12-03 06:39] LABS: ADD MAN DIFF? NO
[2018-12-03 06:40] LABS: BASOPHILS % 0.2 % (0.0-2.0); EOSINOPHILS % 0.1 % (0.0-7.0); HEMATOCRIT 28.5 % (42.0-52.0); HEMOGLOBIN 8.7 g/dl (14.0-18.0); LYMPHOCYTES # 0.6 10^3/ul (0.8-2.9); LYMPHOCYTES % 5.6 % (15.0-51.0); MEAN CORPUSCULAR HGB CONC 30.5 g/dl (32.0-37.0); MEAN CORPUSCULAR VOLUME 75.2 fl (82.0-101.0); MONOCYTE # 0.6 10^3/ul (0.3-0.9); MONOCYTES % 5.3 % (0.0-11.0); NEUTROPHIL # 9.7 10^3/ul (1.6-7.5); PLATELET COUNT 384 10^3/UL (140-415); RED BLOOD COUNT 3.79 10^6/ul (4.70-6.10); RED CELL DISTRIBUTION WIDTH 20.5 % (11.5-14.5)
[2018-12-03 07:27] LABS: ANION GAP 9 (5-13); BLOOD UREA NITROGEN 13 mg/dl (7-20); CALCIUM 8.8 mg/dl (8.4-10.2); CARBON DIOXIDE 24 mmol/L (21-31); CHLORIDE 107 mmol/L (97-110); CREATININE 0.81 mg/dl (0.61-1.24); Estimated GFR > 60 mL/min (>60); GLUCOSE 95 mg/dl (70-220); POTASSIUM 4.3 mmol/L (3.5-5.1); SODIUM 140 mmol/L (135-144)
[2018-12-03] MEDS: INSULIN ASPART [NOVOLOG] 3 ML PEN SC ×7 (07:55→21:00)
[2018-12-03] MEDS: ALBUTEROL/IPRATROPIUM (NEB) 3 ML AMP HHN ×3 (08:43→20:00)
[2018-12-03] MEDS: TICAGRELOR 90 MG TABLET PO ×2 (10:01→21:22)
[2018-12-03] MEDS: FUROSEMIDE 20 MG TAB PO (10:01)
[2018-12-03] MEDS: FINASTERIDE 5 MG TAB PO (10:05)
[2018-12-03] MEDS: ISOSORBIDE MONONITRATE(SR)30 MG TAB PO (10:05)
[2018-12-03] MEDS: ASPIRIN (EC) 81 MG TAB PO (10:05)
[2018-12-03] MEDS: FOLIC ACID 1 MG TAB PO (10:06)
[2018-12-03] MEDS: FERROUS FUMARATE (SR) TAB PO (10:06)
[2018-12-03] MEDS: RANOLAZINE (SR) 500 MG TAB PO ×2 (10:12→21:19)
[2018-12-03] MEDS: SOTALOL 80 MG TAB PO ×2 (10:12→21:00)
[2018-12-03] MEDS: TAMSULOSIN (SR) 0.4 MG CAP PO (10:12)
[2018-12-03] MEDS: LISINOPRIL 5 MG TAB PO (10:13)
[2018-12-03] MEDS: morphine 2 MG INJ IV ×3 (10:15→22:46)
[2018-12-03 13:41] LABS: TOBRAMYCIN, RANDOM 1.6 ug/ml
[2018-12-03] MEDS: ATORVASTATIN 40 MG TAB PO (21:19)
[2018-12-03] MEDS: INSULIN GLARGINE [LANTus] (100 UNITS/ML) SYG SC (21:25)
[2018-12-03] MEDS: ERTAPENEM SODIUM 1 GM in SOD CHLORIDE 0.9% 100 ML IVPB (22:28)
[2018-12-04] MEDS: ACCU-CHEK XX (02:00)
[2018-12-04] MEDS: morphine 2 MG INJ IV ×5 (03:12→21:17)
[2018-12-04 06:22] LABS: ADD MAN DIFF? NO
[2018-12-04 06:31] LABS: WHITE BLOOD COUNT 7.1 10^3/ul (4.8-10.8)
[2018-12-04 06:31] LABS: BASOPHILS % 0.4 % (0.0-2.0); EOSINOPHILS % 0.4 % (0.0-7.0); HEMATOCRIT 28.5 % (42.0-52.0); HEMOGLOBIN 8.7 g/dl (14.0-18.0); LYMPHOCYTES # 1.1 10^3/ul (0.8-2.9); MEAN CORPUSCULAR HGB CONC 30.5 g/dl (32.0-37.0); MEAN CORPUSCULAR VOLUME 75.2 fl (82.0-101.0); MEAN PLATELET VOLUME 8.6 fl (7.4-10.4); MONOCYTE # 0.5 10^3/ul (0.3-0.9); MONOCYTES % 7.4 % (0.0-11.0); NEUTROPHIL # 5.4 10^3/ul (1.6-7.5); NEUTROPHILS % 76.2 % (39.0-77.0); PLATELET COUNT 399 10^3/UL (140-415); RED BLOOD COUNT 3.79 10^6/ul (4.70-6.10); RED CELL DISTRIBUTION WIDTH 20.5 % (11.5-14.5)
[2018-12-04 07:07] LABS: ANION GAP 11 (5-13); BLOOD UREA NITROGEN 15 mg/dl (7-20); CARBON DIOXIDE 25 mmol/L (21-31); CHLORIDE 105 mmol/L (97-110); CREATININE 0.78 mg/dl (0.61-1.24); Estimated GFR > 60 mL/min (>60); GLUCOSE 102 mg/dl (70-220); POTASSIUM 3.7 mmol/L (3.5-5.1); SODIUM 141 mmol/L (135-144)
[2018-12-04] MEDS: ALBUTEROL/IPRATROPIUM (NEB) 3 ML AMP HHN ×3 (07:33→20:25)
[2018-12-04] MEDS: INSULIN ASPART [NOVOLOG] 3 ML PEN SC ×7 (07:55→21:00)
[2018-12-04] MEDS: TAMSULOSIN (SR) 0.4 MG CAP PO (08:11)
[2018-12-04] MEDS: RANOLAZINE (SR) 500 MG TAB PO ×2 (08:11→20:56)
[2018-12-04] MEDS: LISINOPRIL 5 MG TAB PO (08:11)
[2018-12-04] MEDS: FERROUS FUMARATE (SR) TAB PO (08:12)
[2018-12-04] MEDS: FOLIC ACID 1 MG TAB PO (08:12)
[2018-12-04] MEDS: FUROSEMIDE 20 MG TAB PO (08:12)
[2018-12-04] MEDS: ISOSORBIDE MONONITRATE(SR)30 MG TAB PO (08:12)
[2018-12-04] MEDS: FINASTERIDE 5 MG TAB PO (08:12)
[2018-12-04] MEDS: TICAGRELOR 90 MG TABLET PO ×2 (08:23→21:12)
[2018-12-04] MEDS: ASPIRIN (EC) 81 MG TAB PO (12:14)
[2018-12-04] MEDS: SOTALOL 80 MG TAB PO ×2 (12:15→21:17)
[2018-12-04] MEDS ORDERED: BIVALIRUDIN 250MG /NS 50 ML 50 ML IVPB (16:18)
[2018-12-04] MEDS: ONDANSETRON 4 MG INJ IV (16:36)
[2018-12-04] MEDS: ACETAMINOPHEN 325 MG TAB PO (17:33)
[2018-12-04] MEDS: ATORVASTATIN 40 MG TAB PO (20:52)
[2018-12-04] MEDS: INSULIN GLARGINE [LANTus] (100 UNITS/ML) SYG SC (21:11)
[2018-12-05] MEDS: TOBRAMYCIN 400 MG in SOD CHLORIDE 0.9% 100 ML IVPB (00:13)
[2018-12-05] MEDS: morphine 2 MG INJ IV ×6 (01:39→22:26)
[2018-12-05] MEDS: ACCU-CHEK XX (02:00)
[2018-12-05] MEDS: INSULIN ASPART [NOVOLOG] 3 ML PEN SC ×7 (07:48→21:00)
[2018-12-05] MEDS: ALBUTEROL/IPRATROPIUM (NEB) 3 ML AMP HHN ×3 (07:57→20:00)
[2018-12-05] MEDS: RANOLAZINE (SR) 500 MG TAB PO ×2 (08:38→20:40)
[2018-12-05] MEDS: SOTALOL 80 MG TAB PO ×2 (08:38→20:40)
[2018-12-05] MEDS: FINASTERIDE 5 MG TAB PO (08:38)
[2018-12-05] MEDS: TAMSULOSIN (SR) 0.4 MG CAP PO (08:39)
[2018-12-05] MEDS: FERROUS FUMARATE (SR) TAB PO (08:39)
[2018-12-05] MEDS: FUROSEMIDE 20 MG TAB PO ×2 (08:39→08:46)
[2018-12-05] MEDS: ASPIRIN (EC) 81 MG TAB PO (08:40)
[2018-12-05] MEDS: FOLIC ACID 1 MG TAB PO (08:40)
[2018-12-05] MEDS: ISOSORBIDE MONONITRATE(SR)30 MG TAB PO (08:40)
[2018-12-05] MEDS: TICAGRELOR 90 MG TABLET PO ×2 (08:44→22:41)
[2018-12-05] MEDS: LISINOPRIL 5 MG TAB PO (08:45)
[2018-12-05] MEDS: INSULIN GLARGINE [LANTus] (100 UNITS/ML) SYG SC (20:00)
[2018-12-05] MEDS: ATORVASTATIN 40 MG TAB PO (20:40)
[2018-12-06] MEDS: TOBRAMYCIN 400 MG in SOD CHLORIDE 0.9% 100 ML IVPB (01:14)
[2018-12-06] MEDS: ACCU-CHEK XX (01:26)
[2018-12-06] MEDS: morphine 2 MG INJ IV ×4 (04:44→15:55)
[2018-12-06] MEDS: INSULIN ASPART [NOVOLOG] 3 ML PEN SC ×4 (07:55→11:57)
[2018-12-06] MEDS: ALBUTEROL/IPRATROPIUM (NEB) 3 ML AMP HHN ×2 (08:00→14:00)
[2018-12-06] MEDS: RANOLAZINE (SR) 500 MG TAB PO (08:41)
[2018-12-06] MEDS: FERROUS FUMARATE (SR) TAB PO (08:41)
[2018-12-06] MEDS: ISOSORBIDE MONONITRATE(SR)30 MG TAB PO (08:41)
[2018-12-06] MEDS: ASPIRIN (EC) 81 MG TAB PO (08:41)
[2018-12-06] MEDS: FOLIC ACID 1 MG TAB PO (08:41)
[2018-12-06] MEDS: FINASTERIDE 5 MG TAB PO (08:41)
[2018-12-06] MEDS: TAMSULOSIN (SR) 0.4 MG CAP PO (08:41)
[2018-12-06] MEDS: SOTALOL 80 MG TAB PO (08:42)
[2018-12-06] MEDS: TICAGRELOR 90 MG TABLET PO (08:49)
[2018-12-06] MEDS: FUROSEMIDE 20 MG TAB PO (09:00)
[2018-12-06] MEDS: LISINOPRIL 5 MG TAB PO (09:00)
== END 2018-12-06 17:51 | DRG 246 ==
LOC: TEL 10:38
PROC: 027034Z Dilation of Coronary Artery, One Artery with Drug-eluting Intraluminal Device, Percutaneous Approach (ICD-10-PCS; principal; 2018-12-01 12:35)
PROC: 4A023N7 Measurement of Cardiac Sampling and Pressure, Left Heart, Percutaneous Approach (ICD-10-PCS; 2018-12-01 12:35)
PROC: B211YZZ Fluoroscopy of Multiple Coronary Arteries using Other Contrast (ICD-10-PCS; 2018-12-01 12:35)
PROC: B212YZZ Fluoroscopy of Single Coronary Artery Bypass Graft using Other Contrast (ICD-10-PCS; 2018-12-01 12:35)
PROC: B218YZZ Fluoroscopy of Left Internal Mammary Bypass Graft using Other Contrast (ICD-10-PCS; 2018-12-01 12:35)
DX: I25.10 Atherosclerotic heart disease of native coronary artery without angina pectoris (principal); A41.50 Gram-negative sepsis, unspecified; T80.211A Bloodstream infection due to central venous catheter, initial encounter; I48.92 Unspecified atrial flutter; N39.0 Urinary tract infection, site not specified; I50.22 Chronic systolic (congestive) heart failure; I25.82 Chronic total occlusion of coronary artery; I25.5 Ischemic cardiomyopathy; I11.0 Hypertensive heart disease with heart failure; D64.9 Anemia, unspecified; E11.9 Type 2 diabetes mellitus without complications; E78.00 Pure hypercholesterolemia, unspecified; G89.4 Chronic pain syndrome; I48.0 Paroxysmal atrial fibrillation; M19.90 Unspecified osteoarthritis, unspecified site; N40.0 Benign prostatic hyperplasia without lower urinary tract symptoms; R07.9 Chest pain, unspecified; I25.2 Old myocardial infarction; Z95.810 Presence of automatic (implantable) cardiac defibrillator; Z86.73 Personal history of transient ischemic attack (TIA), and cerebral infarction without residual deficits; Z79.891 Long term (current) use of opiate analgesic; Z79.02 Long term (current) use of antithrombotics/antiplatelets; Z79.82 Long term (current) use of aspirin
CPT/HCPCS: 36600; 70450; 71045; 73030-RT; 73060-RT; 73070; 80048; 80053; 80061; 80200; 81001; 82550; 82553; 82803; 82962; 83036; 83735; 84443; 84484; 85025; 85610; 85730; 87040; 87086; 92928; 93005; 93306; 93459; 93571; 94640; 94664; 97162; G0378

== ENCOUNTER 2018-12-18 12:46 | Emergency (ER) | payer OTHER | END 2018-12-18 13:58 | disposition home or self-care (01) | LOC: E/R 12:46 | DX: R07.9 Chest pain, unspecified (principal); I11.0 Hypertensive heart disease with heart failure; I50.9 Heart failure, unspecified; I25.10 Atherosclerotic heart disease of native coronary artery without angina pectoris; I25.2 Old myocardial infarction; Z79.82 Long term (current) use of aspirin; Z95.1 Presence of aortocoronary bypass graft; Z86.73 Personal history of transient ischemic attack (TIA), and cerebral infarction without residual deficits; Z87.891 Personal history of nicotine dependence; Z79.84 Long term (current) use of oral hypoglycemic drugs | CPT/HCPCS: 71045; 93005; 99284-25 ==

== ENCOUNTER 2018-12-19 16:38 | Inpatient (IN) | payer OTHER ==
[2018-12-19] MEDS ORDERED: NITROGLYCERIN (SL) 0.4 MG TAB SL (17:30)
[2018-12-19] MEDS ORDERED: DIPHENHYDRAMINE 50 MG CAP PO (17:30)
[2018-12-19] MEDS ORDERED: DOCUSATE SODIUM 100 MG CAP PO (17:30)
[2018-12-19] MEDS ORDERED: NACL 0.9% 3 ML SYG IV (17:30)
[2018-12-19] MEDS ORDERED: ONDANSETRON 4 MG INJ IV (17:30)
[2018-12-19] MEDS: INSULIN ASPART [NOVOLOG] 3 ML PEN SC ×2 (18:00→21:00)
[2018-12-19] MEDS ORDERED: GLUCAGON 1 MG INJ IM (18:30)
[2018-12-19] MEDS ORDERED: DEXTROSE 50% 50 ML SYRINGE IV ×2 (18:30)
[2018-12-19] MEDS ORDERED: GLUCOSE GEL 15 GRAM TUBE BUCCAL (18:30)
[2018-12-19] MEDS ORDERED: GLUCOSE GEL 15 GRAM TUBE PO ×2 (18:30)
[2018-12-19] MEDS: PANTOPRAZOLE (EC) 40 MG TAB PO (18:50)
[2018-12-19 20:20] LABS: CREATINE KINASE 40 IU/L (23-200)
[2018-12-19 20:34] LABS: CK INDEX 2.7; CK-MB 1.07 ng/ml (0.0-2.4); TROPONIN-I 0.022 ng/ml (0.000-0.120)
[2018-12-19] MEDS: RANOLAZINE (SR) 500 MG TAB PO (21:18)
[2018-12-19] MEDS: ATORVASTATIN 40 MG TAB PO (21:19)
[2018-12-19] MEDS: SOTALOL 80 MG TAB PO (21:19)
[2018-12-19] MEDS: TICAGRELOR 90 MG TABLET PO (21:42)
[2018-12-20 05:25] LABS: ABNORMAL IP MESSAGE 1; HEMATOCRIT 25.7 % (42.0-52.0); HEMOGLOBIN 7.8 g/dl (14.0-18.0); MEAN CORPUSCULAR HEMOGLOBIN 22.1 pg (29.0-33.0); MEAN CORPUSCULAR HGB CONC 30.4 g/dl (32.0-37.0); MEAN CORPUSCULAR VOLUME 72.8 fl (82.0-101.0); PLATELET COUNT 200 10^3/UL (140-415); POSITIVE DIFF @See below; RED BLOOD COUNT 3.53 10^6/ul (4.70-6.10); RED CELL DISTRIBUTION WIDTH 20.1 % (11.5-14.5)
[2018-12-20 05:25] LABS: WHITE BLOOD COUNT 13.9 10^3/ul (4.8-10.8)
[2018-12-20 05:43] LABS: ADD MAN DIFF? YES; MEAN PLATELET VOLUME 11.3 fl (7.4-10.4)
[2018-12-20] MEDS: PANTOPRAZOLE (EC) 40 MG TAB PO ×2 (05:50→17:25)
[2018-12-20 05:58] LABS: CREATINE KINASE 30 IU/L (23-200)
[2018-12-20 06:00] LABS: ALANINE AMINOTRANSFERASE 43 IU/L (13-69); ALBUMIN 3.2 g/dl (3.3-4.9); ALBUMIN/GLOBULIN RATIO 0.86; ALKALINE PHOSPHATASE 145 IU/L (42-121); ANION GAP 9 (5-13); ASPARTATE AMINO TRANSFERASE 28 IU/L (15-46); BILIRUBIN,INDIRECT 0.7 mg/dl (0-1.1); BILIRUBIN,TOTAL 0.7 mg/dl (0.2-1.3); BLOOD UREA NITROGEN 20 mg/dl (7-20); CALCIUM 8.5 mg/dl (8.4-10.2); CARBON DIOXIDE 25 mmol/L (21-31); CHLORIDE 104 mmol/L (97-110); CREATININE 0.91 mg/dl (0.61-1.24); Estimated GFR > 60 mL/min (>60); GLUCOSE 123 mg/dl (70-220); MAGNESIUM 1.9 mg/dl (1.7-2.5); POTASSIUM 3.2 mmol/L (3.5-5.1); SODIUM 138 mmol/L (135-144); TOTAL PROTEIN 6.9 g/dl (6.1-8.1)
[2018-12-20 06:11] LABS: CK INDEX 1.8; CK-MB 0.55 ng/ml (0.0-2.4); TROPONIN-I 0.015 ng/ml (0.000-0.120)
[2018-12-20] MEDS: INSULIN ASPART [NOVOLOG] 3 ML PEN SC ×4 (07:39→21:00)
[2018-12-20 07:55] LABS: ANISOCYTOSIS 1+ (0-0); BAND NEUTROPHILS #M 0.6 10^3/ul (0.0-0.6); BAND NEUTROPHILS % (M) 5 % (0-4); BURR CELLS 1+ (0-0); ERYTHROBLAST% (NRBC) (M) 1 % (0-0); HYPOCHROMASIA 1+ (0-0); LYMPHOCYTES #M 1.5 10^3/ul (0.8-2.9); LYMPHOCYTES % (M) 11 % (15-51); MICROCYTOSIS 1+ (0-0); MONOCYTE #M 0.4 10^3/ul (0.3-0.9); MONOCYTES % (M) 3 % (0-11); OVALOCYTES 1+ (0-0); PLATELET ESTIMATE NORMAL; POIKILOCYTOSIS 2+ (0-0); POLYCHROMASIA 1+ (0-0); SEG NEUT #M 11.3 10^3/ul (1.6-7.5); SEGMENTED NEUTROPHILS (M) % 81 % (39-77); SMUDGE%M 49 % (0-0)
[2018-12-20] MEDS: FINASTERIDE 5 MG TAB PO ×2 (09:00→09:35)
[2018-12-20] MEDS: FUROSEMIDE 20 MG TAB PO ×2 (09:00→09:36)
[2018-12-20] MEDS: FERROUS FUMARATE (SR) TAB PO (09:35)
[2018-12-20] MEDS: SOTALOL 80 MG TAB PO ×2 (09:35→21:25)
[2018-12-20] MEDS: FOLIC ACID 1 MG TAB PO (09:35)
[2018-12-20] MEDS: RANOLAZINE (SR) 500 MG TAB PO ×2 (09:35→21:25)
[2018-12-20] MEDS: ASPIRIN (EC) 81 MG TAB PO (09:35)
[2018-12-20] MEDS: ISOSORBIDE MONONITRATE(SR)30 MG TAB PO (09:36)
[2018-12-20] MEDS: TICAGRELOR 90 MG TABLET PO ×2 (09:43→21:30)
[2018-12-20] MEDS: morphine 2 MG INJ IV ×4 (10:39→23:01)
[2018-12-20] MEDS: POTASSIUM CHLORIDE (SR) 20 MEQ TAB PO (12:20)
[2018-12-20] MEDS ORDERED: POTASSIUM CHLORIDE (SR) 20 MEQ TAB PO (14:39)
[2018-12-20 16:25] LABS: TROPONIN-I < 0.012 ng/ml (0.000-0.120)
[2018-12-20] MEDS: HEPARIN 5,000 UNIT/1 ML VIAL SC (21:31)
[2018-12-20] MEDS: ATORVASTATIN 40 MG TAB PO (21:33)
[2018-12-21] MEDS: PANTOPRAZOLE (EC) 40 MG TAB PO ×2 (05:31→17:30)
[2018-12-21] MEDS: morphine 2 MG INJ IV (05:31)
[2018-12-21 05:43] LABS: HEMATOCRIT 24.4 % (42.0-52.0); HEMOGLOBIN 7.5 g/dl (14.0-18.0); MEAN CORPUSCULAR HEMOGLOBIN 22.3 pg (29.0-33.0); MEAN CORPUSCULAR HGB CONC 30.7 g/dl (32.0-37.0); MEAN CORPUSCULAR VOLUME 72.6 fl (82.0-101.0); PLATELET COUNT 245 10^3/UL (140-415); POSITIVE DIFF @See below; RED BLOOD COUNT 3.36 10^6/ul (4.70-6.10); RED CELL DISTRIBUTION WIDTH 20.2 % (11.5-14.5)
[2018-12-21 05:43] LABS: WHITE BLOOD COUNT 14.9 10^3/ul (4.8-10.8)
[2018-12-21 05:50] LABS: ADD MAN DIFF? YES
[2018-12-21 06:20] LABS: ANION GAP 11 (5-13); BLOOD UREA NITROGEN 19 mg/dl (7-20); CALCIUM 8.4 mg/dl (8.4-10.2); CARBON DIOXIDE 25 mmol/L (21-31); CHLORIDE 102 mmol/L (97-110); CREATININE 0.92 mg/dl (0.61-1.24); Estimated GFR > 60 mL/min (>60); GLUCOSE 151 mg/dl (70-220); POTASSIUM 3.5 mmol/L (3.5-5.1); SODIUM 138 mmol/L (135-144)
[2018-12-21 06:41] LABS: THYROID STIMULATING HORMONE 0.938 MIU/L (0.465-4.680)
[2018-12-21] MEDS: INSULIN ASPART [NOVOLOG] 3 ML PEN SC ×4 (08:00→20:58)
[2018-12-21] MEDS: RANOLAZINE (SR) 500 MG TAB PO ×2 (09:00→20:58)
[2018-12-21] MEDS: ASPIRIN (EC) 81 MG TAB PO (09:00)
[2018-12-21] MEDS: FERROUS FUMARATE (SR) TAB PO (09:00)
[2018-12-21] MEDS: FOLIC ACID 1 MG TAB PO (09:00)
[2018-12-21] MEDS: TICAGRELOR 90 MG TABLET PO ×2 (09:00→15:18)
[2018-12-21] MEDS: LISINOPRIL 5 MG TAB PO (09:00)
[2018-12-21] MEDS: FUROSEMIDE 20 MG TAB PO (09:00)
[2018-12-21] MEDS: HEPARIN 5,000 UNIT/1 ML VIAL SC ×2 (09:00→21:19)
[2018-12-21] MEDS: SOTALOL 80 MG TAB PO ×2 (09:00→15:17)
[2018-12-21] MEDS: ISOSORBIDE MONONITRATE(SR)30 MG TAB PO (09:00)
[2018-12-21] MEDS: FINASTERIDE 5 MG TAB PO (09:00)
[2018-12-21 09:25] LABS: ANISOCYTOSIS 1+ (0-0); BAND NEUTROPHILS #M 0.1 10^3/ul (0.0-0.6); BAND NEUTROPHILS % (M) 1 % (0-4); BURR CELLS 1+ (0-0); EOSINOPHILS % (M) 1 % (0-7); HYPOCHROMASIA 1+ (0-0); LYMPHOCYTES #M 0.7 10^3/ul (0.8-2.9); LYMPHOCYTES % (M) 5 % (15-51); MONOCYTE #M 0.5 10^3/ul (0.3-0.9); MONOCYTES % (M) 4 % (0-11); OVALOCYTES 1+ (0-0); PLATELET ESTIMATE NORMAL; POIKILOCYTOSIS 2+ (0-0); POLYCHROMASIA 1+ (0-0); SEG NEUT #M 13.3 10^3/ul (1.6-7.5); SEGMENTED NEUTROPHILS (M) % 89 % (39-77); SMUDGE%M 39 % (0-0)
[2018-12-21] MEDS: LEVOFLOXACIN 500MG/D5W (PMX) 100 ML IVPB (10:57)
[2018-12-21] MEDS: SOD CHLORIDE 0.9% 1,000 ML IV ×2 (11:30→12:46)
[2018-12-21] MEDS: SOD CHLORIDE 0.9% 500 ML IV (11:30)
[2018-12-21 11:33] LABS: LACTIC ACID 1.6 mmol/L (0.5-2.0)
[2018-12-21 11:33] LABS: GLUCOSE, FASTING 115 mg/dl (70-110)
[2018-12-21] MEDS ORDERED: VANCOMYCIN IV PER PHARMACY XX (12:00)
[2018-12-21] MEDS: MEROPENEM 1 GM/50ML(PMX) 50 ML IVPB ×3 (13:25→22:00)
[2018-12-21] MEDS ORDERED: VANCOMYCIN HCL 1.5 GM in SOD CHLORIDE 0.9% 250 ML IVPB (13:30)
[2018-12-21] MEDS ORDERED: MEROPENEM 1 GM/50ML(PMX) 50 ML IVPB (14:00)
[2018-12-21 15:27] LABS: ADD UMIC YES; UR ASCORBIC ACID NEGATIVE (NEGATIVE); UR BACTERIA FEW /HPF (NONE SEEN); UR BILIRUBIN (Dip) NEGATIVE (NEGATIVE); UR BLOOD (Dip) 2+ mg/dL (NEGATIVE); UR CLARITY CLOUDY (CLEAR); UR COLOR AMBER (YELLOW); UR GLUCOSE (Dip) NEGATIVE (NEGATIVE); UR KETONES (Dip) NEGATIVE (NEGATIVE); UR LEUKOCYTE ESTERASE (Dip) 2+ Leu/ul (NEGATIVE); UR MUCUS FEW /HPF (NONE SEEN); UR NITRITE (Dip) POSITIVE (NEGATIVE); UR RBC 17 /HPF (0-5); UR SPECIFIC GRAVITY (Dip) 1.015 (1.003-1.030); UR TOTAL PROTEIN (Dip) 2+ mg/dl (NEGATIVE); UR UROBILINOGEN (Dip) 2+ mg/dL (NEGATIVE); UR WBC > 182 /HPF (0-5)
[2018-12-21] MEDS: VANCOMYCIN HCL 1.75 GM in SOD CHLORIDE 0.9% 500 ML IVPB (15:59)
[2018-12-21] MEDS: TRIMETHOPRIM/SULFAMETHOX (DS) TAB PO (20:58)
[2018-12-21] MEDS: ATORVASTATIN 40 MG TAB PO (20:58)
[2018-12-21] MEDS: ZYVOX 600 MG TAB PO (21:30)
[2018-12-22] MEDS ORDERED: VANCOMYCIN HCL 1.5 GM in SOD CHLORIDE 0.9% 250 ML IVPB (03:00)
[2018-12-22] MEDS: SOTALOL 80 MG TAB PO ×3 (03:10→20:15)
[2018-12-22] MEDS: TICAGRELOR 90 MG TABLET PO ×3 (03:11→20:23)
[2018-12-22] MEDS: MEROPENEM 1 GM/50ML(PMX) 50 ML IVPB ×2 (06:00→13:45)
[2018-12-22] MEDS: PANTOPRAZOLE (EC) 40 MG TAB PO ×2 (06:20→17:05)
[2018-12-22] MEDS: INSULIN ASPART [NOVOLOG] 3 ML PEN SC ×4 (07:53→20:25)
[2018-12-22] MEDS: LISINOPRIL 5 MG TAB PO (09:00)
[2018-12-22] MEDS: FINASTERIDE 5 MG TAB PO (09:00)
[2018-12-22] MEDS: FUROSEMIDE 20 MG TAB PO (09:00)
[2018-12-22] MEDS: ASPIRIN (EC) 81 MG TAB PO (09:11)
[2018-12-22] MEDS: ISOSORBIDE MONONITRATE(SR)30 MG TAB PO (09:11)
[2018-12-22] MEDS: FERROUS FUMARATE (SR) TAB PO (09:11)
[2018-12-22] MEDS: RANOLAZINE (SR) 500 MG TAB PO ×2 (09:11→20:10)
[2018-12-22] MEDS: ZYVOX 600 MG TAB PO ×2 (09:11→20:10)
[2018-12-22] MEDS: TRIMETHOPRIM/SULFAMETHOX (DS) TAB PO (09:11)
[2018-12-22] MEDS: FOLIC ACID 1 MG TAB PO (09:12)
[2018-12-22] MEDS: HEPARIN 5,000 UNIT/1 ML VIAL SC ×2 (09:22→20:25)
[2018-12-22] MEDS: morphine 2 MG INJ IV ×2 (13:45→20:10)
[2018-12-22] MEDS: CEFTRIAXONE 2 GM/50 ML (PMX) 50 ML IVPB (17:05)
[2018-12-22] MEDS: ATORVASTATIN 40 MG TAB PO (20:11)
[2018-12-23] MEDS: ACETAMINOPHEN 325 MG TAB PO (00:01)
[2018-12-23] MEDS: morphine 2 MG INJ IV ×5 (00:05→18:33)
[2018-12-23 05:53] LABS: WHITE BLOOD COUNT 20.9 10^3/ul (4.8-10.8)
[2018-12-23 05:53] LABS: ABNORMAL IP MESSAGE 1; HEMATOCRIT 21.4 % (42.0-52.0); MEAN CORPUSCULAR HEMOGLOBIN 22.6 pg (29.0-33.0); MEAN CORPUSCULAR HGB CONC 31.3 g/dl (32.0-37.0); MEAN CORPUSCULAR VOLUME 72.1 fl (82.0-101.0); PLATELET COUNT 189 10^3/UL (140-415); POSITIVE DIFF @See below; RED BLOOD COUNT 2.97 10^6/ul (4.70-6.10); RED CELL DISTRIBUTION WIDTH 20.3 % (11.5-14.5)
[2018-12-23 06:00] LABS: HEMOGLOBIN 6.7 g/dl (14.0-18.0)
[2018-12-23] MEDS: PANTOPRAZOLE (EC) 40 MG TAB PO ×2 (06:00→17:32)
[2018-12-23 06:01] LABS: ADD MAN DIFF? YES
[2018-12-23 06:25] LABS: ANION GAP 13 (5-13); BLOOD UREA NITROGEN 26 mg/dl (7-20); CALCIUM 8.2 mg/dl (8.4-10.2); CARBON DIOXIDE 21 mmol/L (21-31); CHLORIDE 104 mmol/L (97-110); CREATININE 1.23 mg/dl (0.61-1.24); Estimated GFR > 60 mL/min (>60); GLUCOSE 133 mg/dl (70-220); POTASSIUM 3.6 mmol/L (3.5-5.1); SODIUM 138 mmol/L (135-144)
[2018-12-23] MEDS: ASPIRIN (EC) 81 MG TAB PO (08:18)
[2018-12-23] MEDS: RANOLAZINE (SR) 500 MG TAB PO ×2 (08:18→20:31)
[2018-12-23] MEDS: FOLIC ACID 1 MG TAB PO (08:18)
[2018-12-23] MEDS: FINASTERIDE 5 MG TAB PO (08:22)
[2018-12-23] MEDS: HEPARIN 5,000 UNIT/1 ML VIAL SC ×2 (08:27→20:38)
[2018-12-23] MEDS: TICAGRELOR 90 MG TABLET PO ×2 (08:28→20:39)
[2018-12-23] MEDS: INSULIN ASPART [NOVOLOG] 3 ML PEN SC ×4 (08:28→21:00)
[2018-12-23] MEDS: FERROUS FUMARATE (SR) TAB PO (08:34)
[2018-12-23] MEDS: SOTALOL 80 MG TAB PO ×2 (08:38→20:30)
[2018-12-23] MEDS: FUROSEMIDE 20 MG TAB PO (08:39)
[2018-12-23] MEDS: LISINOPRIL 5 MG TAB PO (08:39)
[2018-12-23] MEDS: ISOSORBIDE MONONITRATE(SR)30 MG TAB PO (08:39)
[2018-12-23 09:06] LABS: ANISOCYTOSIS 1+ (0-0); BAND NEUTROPHILS #M 1.6 10^3/ul (0.0-0.6); BAND NEUTROPHILS % (M) 8 % (0-4); BURR CELLS 1+ (0-0); GIANT THROMBO% (M) 1 % (0-0); HYPOCHROMASIA 3+ (0-0); LYMPHOCYTES #M 0.6 10^3/ul (0.8-2.9); LYMPHOCYTES % (M) 3 % (15-51); MICROCYTOSIS 1+ (0-0); MONOCYTE #M 0.4 10^3/ul (0.3-0.9); MONOCYTES % (M) 2 % (0-11); OVALOCYTES 2+ (0-0); PLATELET ESTIMATE NORMAL; POIKILOCYTOSIS 3+ (0-0); POLYCHROMASIA 2+ (0-0); SCHISTOCYTES 1+ (0-0); SEG NEUT #M 18.5 10^3/ul (1.6-7.5); SEGMENTED NEUTROPHILS (M) % 87 % (39-77); SMUDGE%M 5 % (0-0); TARGET CELLS 2+ (0-0)
[2018-12-23] MEDS: ZYVOX 600 MG TAB PO ×2 (10:27→20:30)
[2018-12-23 11:21] LABS: WHITE BLOOD COUNT 20.8 10^3/ul (4.8-10.8)
[2018-12-23 11:21] LABS: ABNORMAL IP MESSAGE 1; HEMATOCRIT 23.8 % (42.0-52.0); HEMOGLOBIN 7.4 g/dl (14.0-18.0); MEAN CORPUSCULAR HEMOGLOBIN 22.6 pg (29.0-33.0); MEAN CORPUSCULAR HGB CONC 31.1 g/dl (32.0-37.0); MEAN CORPUSCULAR VOLUME 72.6 fl (82.0-101.0); PLATELET COUNT 183 10^3/UL (140-415); POSITIVE DIFF @See below; RED BLOOD COUNT 3.28 10^6/ul (4.70-6.10); RED CELL DISTRIBUTION WIDTH 20.7 % (11.5-14.5)
[2018-12-23 11:24] LABS: ADD MAN DIFF? YES
[2018-12-23 13:06] LABS: ANISOCYTOSIS 2+ (0-0); BAND NEUTROPHILS #M 0.4 10^3/ul (0.0-0.6); BAND NEUTROPHILS % (M) 2 % (0-4); BURR CELLS 1+ (0-0); HYPOCHROMASIA 2+ (0-0); LYMPHOCYTES #M 1.2 10^3/ul (0.8-2.9); LYMPHOCYTES % (M) 6 % (15-51); MICROCYTOSIS 2+ (0-0); OVALOCYTES 2+ (0-0); PLATELET ESTIMATE NORMAL; POIKILOCYTOSIS 2+ (0-0); POLYCHROMASIA 2+ (0-0); SCHISTOCYTES 1+ (0-0); SEG NEUT #M 19.2 10^3/ul (1.6-7.5); SEGMENTED NEUTROPHILS (M) % 92 % (39-77); SMUDGE%M 15 % (0-0); TARGET CELLS 1+ (0-0)
[2018-12-23] MEDS: SOD FERRIC GLUC COMPLX 125 MG in SOD CHLORIDE 0.9% 100 ML IVPB (14:09)
[2018-12-23] MEDS: CEFTRIAXONE 2 GM/50 ML (PMX) 50 ML IVPB (17:32)
[2018-12-23] MEDS: ATORVASTATIN 40 MG TAB PO (20:30)
[2018-12-24] MEDS: morphine 2 MG INJ IV ×2 (01:06→06:39)
[2018-12-24 06:30] LABS: ABNORMAL IP MESSAGE 1; HEMATOCRIT 23.7 % (42.0-52.0); HEMOGLOBIN 7.3 g/dl (14.0-18.0); MEAN CORPUSCULAR HEMOGLOBIN 22.5 pg (29.0-33.0); MEAN CORPUSCULAR HGB CONC 30.8 g/dl (32.0-37.0); MEAN CORPUSCULAR VOLUME 72.9 fl (82.0-101.0); PLATELET COUNT 183 10^3/UL (140-415); POSITIVE DIFF @See below; RED BLOOD COUNT 3.25 10^6/ul (4.70-6.10); RED CELL DISTRIBUTION WIDTH 21.5 % (11.5-14.5)
[2018-12-24 06:30] LABS: WHITE BLOOD COUNT 15.6 10^3/ul (4.8-10.8)
[2018-12-24] MEDS: PANTOPRAZOLE (EC) 40 MG TAB PO ×2 (06:31→18:32)
[2018-12-24 06:41] LABS: ADD MAN DIFF? YES
[2018-12-24 06:57] LABS: ANION GAP 10 (5-13); BLOOD UREA NITROGEN 22 mg/dl (7-20); CALCIUM 8.3 mg/dl (8.4-10.2); CARBON DIOXIDE 24 mmol/L (21-31); CHLORIDE 104 mmol/L (97-110); CREATININE 0.96 mg/dl (0.61-1.24); Estimated GFR > 60 mL/min (>60); GLUCOSE 140 mg/dl (70-220); POTASSIUM 3.5 mmol/L (3.5-5.1); SODIUM 138 mmol/L (135-144)
[2018-12-24] MEDS: INSULIN ASPART [NOVOLOG] 3 ML PEN SC ×4 (07:50→20:11)
[2018-12-24 08:05] LABS: ERYTHROCYTE SEDIMENTATION RATE 45 mm/Hr (0-20)
[2018-12-24] MEDS: FOLIC ACID 1 MG TAB PO (09:00)
[2018-12-24] MEDS: ISOSORBIDE MONONITRATE(SR)30 MG TAB PO (09:00)
[2018-12-24] MEDS: SOTALOL 80 MG TAB PO ×2 (09:00→20:11)
[2018-12-24] MEDS: LIDOCAINE 1% (MPF) 5 ML VIAL SC ×2 (09:00)
[2018-12-24] MEDS: FINASTERIDE 5 MG TAB PO (09:00)
[2018-12-24] MEDS: FUROSEMIDE 20 MG TAB PO (09:00)
[2018-12-24 09:22] LABS: ANISOCYTOSIS 2+ (0-0); BAND NEUTROPHILS #M 0.1 10^3/ul (0.0-0.6); BAND NEUTROPHILS % (M) 1 % (0-4); BURR CELLS 2+ (0-0); HYPOCHROMASIA 1+ (0-0); LYMPHOCYTES #M 0.4 10^3/ul (0.8-2.9); LYMPHOCYTES % (M) 3 % (15-51); MICROCYTOSIS 2+ (0-0); MONOCYTE #M 0.6 10^3/ul (0.3-0.9); MONOCYTES % (M) 4 % (0-11); OVALOCYTES 2+ (0-0); PLATELET ESTIMATE NORMAL; POIKILOCYTOSIS 3+ (0-0); POLYCHROMASIA 2+ (0-0); SCHISTOCYTES 1+ (0-0); SEG NEUT #M 14.4 10^3/ul (1.6-7.5); SEGMENTED NEUTROPHILS (M) % 92 % (39-77); SMUDGE%M 159 % (0-0); TARGET CELLS 1+ (0-0)
[2018-12-24] MEDS: RANOLAZINE (SR) 500 MG TAB PO ×2 (09:39→20:10)
[2018-12-24] MEDS: FERROUS FUMARATE (SR) TAB PO (09:39)
[2018-12-24] MEDS: ZYVOX 600 MG TAB PO ×2 (09:40→20:10)
[2018-12-24] MEDS: ASPIRIN (EC) 81 MG TAB PO (09:40)
[2018-12-24] MEDS: ERGOCALCIFEROL 50,000 UNIT CAP PO (09:40)
[2018-12-24] MEDS: HEPARIN 5,000 UNIT/1 ML VIAL SC ×2 (10:34→20:22)
[2018-12-24] MEDS: TICAGRELOR 90 MG TABLET PO ×2 (10:38→20:22)
[2018-12-24] MEDS: morphine 4 MG/ML VIAL IV ×2 (13:43→20:09)
[2018-12-24] MEDS: LISINOPRIL 5 MG TAB PO (13:43)
[2018-12-24] MEDS: SOD FERRIC GLUC COMPLX 125 MG in SOD CHLORIDE 0.9% 100 ML IVPB (13:43)
[2018-12-24] MEDS: CEFTRIAXONE 2 GM/50 ML (PMX) 50 ML IVPB (18:36)
[2018-12-24] MEDS: ATORVASTATIN 40 MG TAB PO (20:10)
[2018-12-25] MEDS: morphine 4 MG/ML VIAL IV ×2 (03:51→09:58)
[2018-12-25] MEDS: PANTOPRAZOLE (EC) 40 MG TAB PO ×2 (05:34→17:04)
[2018-12-25 05:42] LABS: WHITE BLOOD COUNT 12.3 10^3/ul (4.8-10.8)
[2018-12-25 05:42] LABS: ABNORMAL IP MESSAGE 1; HEMATOCRIT 23.7 % (42.0-52.0); HEMOGLOBIN 7.3 g/dl (14.0-18.0); MEAN CORPUSCULAR HEMOGLOBIN 22.3 pg (29.0-33.0); MEAN CORPUSCULAR HGB CONC 30.8 g/dl (32.0-37.0); MEAN CORPUSCULAR VOLUME 72.3 fl (82.0-101.0); PLATELET COUNT 185 10^3/UL (140-415); POSITIVE DIFF @See below; RED BLOOD COUNT 3.28 10^6/ul (4.70-6.10); RED CELL DISTRIBUTION WIDTH 21.2 % (11.5-14.5)
[2018-12-25 05:48] LABS: ADD MAN DIFF? YES
[2018-12-25 05:56] LABS: MAGNESIUM 1.9 mg/dl (1.7-2.5)
[2018-12-25 06:08] LABS: ALANINE AMINOTRANSFERASE 24 IU/L (13-69); ALBUMIN 2.8 g/dl (3.3-4.9); ALKALINE PHOSPHATASE 137 IU/L (42-121); ANION GAP 6 (5-13); ASPARTATE AMINO TRANSFERASE 16 IU/L (15-46); BILIRUBIN,INDIRECT 0.3 mg/dl (0-1.1); BILIRUBIN,TOTAL 0.3 mg/dl (0.2-1.3); BLOOD UREA NITROGEN 17 mg/dl (7-20); CALCIUM 8.3 mg/dl (8.4-10.2); CARBON DIOXIDE 24 mmol/L (21-31); CHLORIDE 107 mmol/L (97-110); Estimated GFR > 60 mL/min (>60); GLUCOSE 134 mg/dl (70-220); POTASSIUM 3.5 mmol/L (3.5-5.1); SODIUM 137 mmol/L (135-144); TOTAL PROTEIN 6.3 g/dl (6.1-8.1)
[2018-12-25 08:02] LABS: ACANTHOCYTES 1+ (0-0); ANISOCYTOSIS 1+ (0-0); BAND NEUTROPHILS #M 0.1 10^3/ul (0.0-0.6); BAND NEUTROPHILS % (M) 1 % (0-4); BASOPHIL #M 0.1 10^3/ul (0.0-0.0); BASOPHILS % (M) 1 % (0-2); BURR CELLS 1+ (0-0); ELLIPTO 1+ (0-0); EOSINOPHILS % (M) 1 % (0-7); GIANT THROMBO% (M) 1 % (0-0); HYPOCHROMASIA 2+ (0-0); LYMPHOCYTES #M 0.7 10^3/ul (0.8-2.9); LYMPHOCYTES % (M) 6 % (15-51); PLATELET ESTIMATE NORMAL; POIKILOCYTOSIS 2+ (0-0); POLYCHROMASIA 1+ (0-0); SCHISTOCYTES 1+ (0-0); SEG NEUT #M 11.2 10^3/ul (1.6-7.5); SEGMENTED NEUTROPHILS (M) % 91 % (39-77); SMUDGE%M 4 % (0-0); TARGET CELLS 1+ (0-0)
[2018-12-25] MEDS: FUROSEMIDE 20 MG TAB PO (08:28)
[2018-12-25] MEDS: RANOLAZINE (SR) 500 MG TAB PO ×3 (08:28→22:18)
[2018-12-25] MEDS: FINASTERIDE 5 MG TAB PO (08:28)
[2018-12-25] MEDS: ASPIRIN (EC) 81 MG TAB PO (08:29)
[2018-12-25] MEDS: SOTALOL 80 MG TAB PO ×3 (08:29→22:14)
[2018-12-25] MEDS: FERROUS FUMARATE (SR) TAB PO (08:29)
[2018-12-25] MEDS: LOSARTAN 25 MG TAB PO (08:29)
[2018-12-25] MEDS: ZYVOX 600 MG TAB PO (08:29)
[2018-12-25] MEDS: ISOSORBIDE MONONITRATE(SR)30 MG TAB PO (08:29)
[2018-12-25] MEDS: TICAGRELOR 90 MG TABLET PO ×3 (08:31→21:17)
[2018-12-25] MEDS: HEPARIN 5,000 UNIT/1 ML VIAL SC ×3 (08:32→21:00)
[2018-12-25] MEDS: INSULIN ASPART [NOVOLOG] 3 ML PEN SC ×4 (08:32→21:00)
[2018-12-25] MEDS: FOLIC ACID 1 MG TAB PO (08:47)
[2018-12-25] MEDS: GUAIFENESIN/DM 5ML CUP PO (08:47)
[2018-12-25] MEDS ORDERED: NALOXONE (0.4 MG/ML) INJ (11:28)
[2018-12-25] MEDS: NALOXONE (0.4 MG/ML) INJ IV (11:30)
[2018-12-25] MEDS: ACETAMINOPHEN 325 MG TAB PO (11:30)
[2018-12-25] MEDS: SOD FERRIC GLUC COMPLX 125 MG in SOD CHLORIDE 0.9% 100 ML IVPB (12:08)
[2018-12-25] MEDS: SOD CHLORIDE 0.9% 1,000 ML IV (13:08)
[2018-12-25] MEDS: MEROPENEM 1 GM/50ML(PMX) 50 ML IVPB ×2 (16:30→21:06)
[2018-12-25] MEDS: ATORVASTATIN 40 MG TAB PO ×2 (21:06→22:18)
[2018-12-25] MEDS: POTASSIUM CHLORIDE (SR) 20 MEQ TAB PO (21:59)
[2018-12-25] MEDS: MAGNESIUM SULFATE 1 GM/D5W 100 ML IVPB (21:59)
[2018-12-26] MEDS: morphine 4 MG/ML VIAL IV ×2 (05:06→18:00)
[2018-12-26 05:49] LABS: WHITE BLOOD COUNT 19.9 10^3/ul (4.8-10.8)
[2018-12-26 05:49] LABS: ABNORMAL IP MESSAGE 1; HEMATOCRIT 24.5 % (42.0-52.0); HEMOGLOBIN 7.5 g/dl (14.0-18.0); MEAN CORPUSCULAR HEMOGLOBIN 22.6 pg (29.0-33.0); MEAN CORPUSCULAR HGB CONC 30.6 g/dl (32.0-37.0); MEAN CORPUSCULAR VOLUME 73.8 fl (82.0-101.0); PLATELET COUNT 149 10^3/UL (140-415); POSITIVE DIFF @See below; RED BLOOD COUNT 3.32 10^6/ul (4.70-6.10); RED CELL DISTRIBUTION WIDTH 21.2 % (11.5-14.5)
[2018-12-26 05:53] LABS: ADD MAN DIFF? YES
[2018-12-26] MEDS: PANTOPRAZOLE (EC) 40 MG TAB PO ×2 (06:00→17:10)
[2018-12-26 06:24] LABS: ANION GAP 13 (5-13); BLOOD UREA NITROGEN 19 mg/dl (7-20); CALCIUM 8.5 mg/dl (8.4-10.2); CARBON DIOXIDE 21 mmol/L (21-31); CHLORIDE 106 mmol/L (97-110); CREATININE 1.02 mg/dl (0.61-1.24); Estimated GFR > 60 mL/min (>60); GLUCOSE 105 mg/dl (70-220); MAGNESIUM 1.8 mg/dl (1.7-2.5); POTASSIUM 3.6 mmol/L (3.5-5.1); SODIUM 140 mmol/L (135-144)
[2018-12-26 07:03] LABS: ANISOCYTOSIS 1+ (0-0); BAND NEUTROPHILS #M 3.5 10^3/ul (0.0-0.6); BAND NEUTROPHILS % (M) 18 % (0-4); BURR CELLS 2+ (0-0); ELLIPTO 1+ (0-0); HYPOCHROMASIA 1+ (0-0); LYMPHOCYTES #M 0.7 10^3/ul (0.8-2.9); LYMPHOCYTES % (M) 4 % (15-51); MONOCYTE #M 0.5 10^3/ul (0.3-0.9); MONOCYTES % (M) 3 % (0-11); OVALOCYTES 1+ (0-0); PLATELET ESTIMATE NORMAL; POIKILOCYTOSIS 3+ (0-0); POLYCHROMASIA 3+ (0-0); SCHISTOCYTES 1+ (0-0); SEG NEUT #M 15.6 10^3/ul (1.6-7.5); SEGMENTED NEUTROPHILS (M) % 75 % (39-77); SMUDGE%M 7 % (0-0); TARGET CELLS 2+ (0-0)
[2018-12-26] MEDS: INSULIN ASPART [NOVOLOG] 3 ML PEN SC ×4 (08:00→20:56)
[2018-12-26] MEDS: FINASTERIDE 5 MG TAB PO (09:00)
[2018-12-26] MEDS: FOLIC ACID 1 MG TAB PO (09:00)
[2018-12-26] MEDS: LOSARTAN 25 MG TAB PO (09:00)
[2018-12-26] MEDS: ISOSORBIDE MONONITRATE(SR)30 MG TAB PO (09:00)
[2018-12-26] MEDS: FERROUS FUMARATE (SR) TAB PO (09:00)
[2018-12-26] MEDS: FUROSEMIDE 20 MG TAB PO (09:00)
[2018-12-26] MEDS: HEPARIN 5,000 UNIT/1 ML VIAL SC ×2 (09:00→20:52)
[2018-12-26] MEDS: ASPIRIN (EC) 81 MG TAB PO (09:21)
[2018-12-26] MEDS: TICAGRELOR 90 MG TABLET PO ×2 (09:21→20:56)
[2018-12-26] MEDS: MEROPENEM 1 GM/50ML(PMX) 50 ML IVPB ×2 (09:22→09:59)
[2018-12-26] MEDS: ERTAPENEM SODIUM 1 GM in SOD CHLORIDE 0.9% 100 ML IVPB (16:00)
[2018-12-26] MEDS: SOTALOL 80 MG TAB PO (20:50)
[2018-12-26] MEDS: RANOLAZINE (SR) 500 MG TAB PO (20:51)
[2018-12-27 05:53] LABS: ABNORMAL IP MESSAGE 1; HEMATOCRIT 27.2 % (42.0-52.0); HEMOGLOBIN 8.3 g/dl (14.0-18.0); MEAN CORPUSCULAR HEMOGLOBIN 22.6 pg (29.0-33.0); MEAN CORPUSCULAR HGB CONC 30.5 g/dl (32.0-37.0); MEAN CORPUSCULAR VOLUME 74.1 fl (82.0-101.0); PLATELET COUNT 120 10^3/UL (140-415); POSITIVE DIFF @See below; RED BLOOD COUNT 3.67 10^6/ul (4.70-6.10); RED CELL DISTRIBUTION WIDTH 21.7 % (11.5-14.5)
[2018-12-27] MEDS: PANTOPRAZOLE (EC) 40 MG TAB PO ×2 (06:00→17:01)
[2018-12-27 06:33] LABS: ADD MAN DIFF? YES
[2018-12-27] MEDS: INSULIN ASPART [NOVOLOG] 3 ML PEN SC ×4 (07:44→21:00)
[2018-12-27] MEDS: SOTALOL 80 MG TAB PO ×2 (08:50→21:01)
[2018-12-27] MEDS: LOSARTAN 25 MG TAB PO (08:50)
[2018-12-27] MEDS: FERROUS FUMARATE (SR) TAB PO (08:51)
[2018-12-27] MEDS: FOLIC ACID 1 MG TAB PO (08:51)
[2018-12-27] MEDS: ISOSORBIDE MONONITRATE(SR)30 MG TAB PO (08:51)
[2018-12-27] MEDS: FINASTERIDE 5 MG TAB PO (08:51)
[2018-12-27] MEDS: HEPARIN 5,000 UNIT/1 ML VIAL SC ×2 (08:51→21:00)
[2018-12-27] MEDS: FUROSEMIDE 20 MG TAB PO (08:51)
[2018-12-27] MEDS: ASPIRIN (EC) 81 MG TAB PO (08:52)
[2018-12-27] MEDS: TICAGRELOR 90 MG TABLET PO ×2 (09:02→22:40)
[2018-12-27 09:07] LABS: ANISOCYTOSIS 2+ (0-0); BAND NEUTROPHILS #M 2.2 10^3/ul (0.0-0.6); BAND NEUTROPHILS % (M) 19 % (0-4); BURR CELLS 1+ (0-0); ELLIPTO 1+ (0-0); HYPOCHROMASIA 3+ (0-0); LYMPHOCYTES #M 0.3 10^3/ul (0.8-2.9); LYMPHOCYTES % (M) 3 % (15-51); METAMYELOCYTES #M 0.1 10^3/ul (0.0-0.0); METAMYELOCYTES %M 1 % (0-0); MICROCYTOSIS 1+ (0-0); MONOCYTE #M 0.1 10^3/ul (0.3-0.9); MONOCYTES % (M) 1 % (0-11); MYELOCYTES #M 0.1 10^3/ul (0.0-0.0); MYELOCYTES % (M) 1 % (0-0); PLATELET ESTIMATE DECREASED; POIKILOCYTOSIS 3+ (0-0); POLYCHROMASIA 1+ (0-0); SEG NEUT #M 9.3 10^3/ul (1.6-7.5); SEGMENTED NEUTROPHILS (M) % 75 % (39-77); SMUDGE%M 6 % (0-0); TARGET CELLS 1+ (0-0)
[2018-12-27] MEDS: RANOLAZINE (SR) 500 MG TAB PO ×2 (10:32→21:01)
[2018-12-27] MEDS: morphine 4 MG/ML VIAL IV (13:03)
[2018-12-27] MEDS: ERTAPENEM SODIUM 1 GM in SOD CHLORIDE 0.9% 100 ML IVPB (16:06)
[2018-12-27] MEDS: ATORVASTATIN 40 MG TAB PO (21:00)
[2018-12-28] MEDS: morphine 4 MG/ML VIAL IV ×4 (02:44→21:13)
[2018-12-28] MEDS: PANTOPRAZOLE (EC) 40 MG TAB PO ×2 (05:41→17:29)
[2018-12-28 06:25] LABS: WHITE BLOOD COUNT 16.7 10^3/ul (4.8-10.8)
[2018-12-28 06:25] LABS: ABNORMAL IP MESSAGE 1; HEMATOCRIT 23.1 % (42.0-52.0); HEMOGLOBIN 7.1 g/dl (14.0-18.0); MEAN CORPUSCULAR HEMOGLOBIN 22.7 pg (29.0-33.0); MEAN CORPUSCULAR HGB CONC 30.7 g/dl (32.0-37.0); MEAN CORPUSCULAR VOLUME 73.8 fl (82.0-101.0); NUCLEATED RED BLOOD CELLS% 0.1 /100WBC (0.0-0.0); PLATELET COUNT 139 10^3/UL (140-415); POSITIVE DIFF @See below; RED BLOOD COUNT 3.13 10^6/ul (4.70-6.10)
[2018-12-28 06:38] LABS: ADD MAN DIFF? YES
[2018-12-28] MEDS: INSULIN ASPART [NOVOLOG] 3 ML PEN SC ×4 (07:34→21:00)
[2018-12-28 07:42] LABS: ANISOCYTOSIS 1+ (0-0); BAND NEUTROPHILS #M 0.3 10^3/ul (0.0-0.6); BAND NEUTROPHILS % (M) 2 % (0-4); BASOPHIL #M 0.1 10^3/ul (0.0-0.0); BASOPHILS % (M) 1 % (0-2); BURR CELLS 1+ (0-0); ERYTHROBLAST% (NRBC) (M) 1 % (0-0); GIANT THROMBO% (M) 2 % (0-0); HYPOCHROMASIA 2+ (0-0); LYMPHOCYTES #M 0.5 10^3/ul (0.8-2.9); LYMPHOCYTES % (M) 3 % (15-51); MICROCYTOSIS 1+ (0-0); MONOCYTES % (M) 6 % (0-11); OVALOCYTES 1+ (0-0); PLATELET ESTIMATE DECREASED; POIKILOCYTOSIS 2+ (0-0); POLYCHROMASIA 3+ (0-0); SEG NEUT #M 14.7 10^3/ul (1.6-7.5); SEGMENTED NEUTROPHILS (M) % 88 % (39-77); SMUDGE%M 12 % (0-0); TARGET CELLS 1+ (0-0)
[2018-12-28] MEDS: RANOLAZINE (SR) 500 MG TAB PO ×2 (08:39→20:57)
[2018-12-28] MEDS: FOLIC ACID 1 MG TAB PO (08:39)
[2018-12-28] MEDS: ASPIRIN (EC) 81 MG TAB PO (08:39)
[2018-12-28] MEDS: ISOSORBIDE MONONITRATE(SR)30 MG TAB PO (08:40)
[2018-12-28] MEDS: FERROUS FUMARATE (SR) TAB PO (08:40)
[2018-12-28] MEDS: FINASTERIDE 5 MG TAB PO (08:40)
[2018-12-28] MEDS: FUROSEMIDE 20 MG TAB PO (08:41)
[2018-12-28] MEDS: HEPARIN 5,000 UNIT/1 ML VIAL SC ×2 (08:41→20:57)
[2018-12-28] MEDS: SOTALOL 80 MG TAB PO ×2 (08:41→20:57)
[2018-12-28] MEDS: LOSARTAN 25 MG TAB PO (08:41)
[2018-12-28] MEDS: TICAGRELOR 90 MG TABLET PO ×2 (09:15→21:37)
[2018-12-28] MEDS: ERTAPENEM SODIUM 1 GM in SOD CHLORIDE 0.9% 100 ML IVPB (16:12)
[2018-12-28] MEDS: ATORVASTATIN 40 MG TAB PO (20:56)
[2018-12-29] MEDS: morphine 4 MG/ML VIAL IV ×3 (03:58→16:13)
[2018-12-29] MEDS: PANTOPRAZOLE (EC) 40 MG TAB PO ×2 (05:48→18:00)
[2018-12-29] MEDS: INSULIN ASPART [NOVOLOG] 3 ML PEN SC ×4 (08:00→20:47)
[2018-12-29] MEDS: FINASTERIDE 5 MG TAB PO (09:00)
[2018-12-29] MEDS: FUROSEMIDE 20 MG TAB PO (09:00)
[2018-12-29] MEDS: HEPARIN 5,000 UNIT/1 ML VIAL SC ×2 (09:00→20:48)
[2018-12-29] MEDS: LOSARTAN 25 MG TAB PO (09:44)
[2018-12-29] MEDS: ASPIRIN (EC) 81 MG TAB PO (09:44)
[2018-12-29] MEDS: FERROUS FUMARATE (SR) TAB PO (09:45)
[2018-12-29] MEDS: TICAGRELOR 90 MG TABLET PO ×2 (09:46→20:47)
[2018-12-29] MEDS: RANOLAZINE (SR) 500 MG TAB PO ×2 (09:46→20:28)
[2018-12-29] MEDS: FOLIC ACID 1 MG TAB PO (09:46)
[2018-12-29] MEDS: ISOSORBIDE MONONITRATE(SR)30 MG TAB PO (09:46)
[2018-12-29] MEDS: SOTALOL 80 MG TAB PO ×2 (09:50→20:48)
[2018-12-29] MEDS: ERTAPENEM SODIUM 1 GM in SOD CHLORIDE 0.9% 100 ML IVPB (16:15)
[2018-12-29] MEDS: ATORVASTATIN 40 MG TAB PO (20:29)
[2018-12-30] MEDS: morphine 4 MG/ML VIAL IV ×5 (02:54→20:12)
[2018-12-30] MEDS: PANTOPRAZOLE (EC) 40 MG TAB PO ×2 (06:51→18:00)
[2018-12-30] MEDS: INSULIN ASPART [NOVOLOG] 3 ML PEN SC ×4 (08:00→20:03)
[2018-12-30] MEDS: HEPARIN 5,000 UNIT/1 ML VIAL SC ×2 (09:00→21:00)
[2018-12-30] MEDS: RANOLAZINE (SR) 500 MG TAB PO ×2 (09:17→20:05)
[2018-12-30] MEDS: ASPIRIN (EC) 81 MG TAB PO (09:18)
[2018-12-30] MEDS: SOTALOL 80 MG TAB PO ×2 (09:18→20:06)
[2018-12-30] MEDS: FERROUS FUMARATE (SR) TAB PO (09:18)
[2018-12-30] MEDS: LOSARTAN 25 MG TAB PO (09:18)
[2018-12-30] MEDS: FINASTERIDE 5 MG TAB PO (09:19)
[2018-12-30] MEDS: FOLIC ACID 1 MG TAB PO (09:19)
[2018-12-30] MEDS: FUROSEMIDE 20 MG TAB PO (09:19)
[2018-12-30] MEDS: ISOSORBIDE MONONITRATE(SR)30 MG TAB PO (09:19)
[2018-12-30] MEDS: TICAGRELOR 90 MG TABLET PO ×2 (09:50→20:09)
[2018-12-30] MEDS: ERTAPENEM SODIUM 1 GM in SOD CHLORIDE 0.9% 100 ML IVPB (16:00)
[2018-12-30] MEDS: ATORVASTATIN 40 MG TAB PO (20:05)
[2018-12-31] MEDS: morphine 4 MG/ML VIAL IV ×4 (02:52→23:19)
[2018-12-31 06:56] LABS: ADD MAN DIFF? NO
[2018-12-31] MEDS: PANTOPRAZOLE (EC) 40 MG TAB PO ×2 (07:03→18:00)
[2018-12-31 07:06] LABS: ABNORMAL IP MESSAGE 1; BASOPHILS % 0.2 % (0.0-2.0); EOSINOPHILS % 0.2 % (0.0-7.0); HEMATOCRIT 21.6 % (42.0-52.0); LYMPHOCYTES # 1.3 10^3/ul (0.8-2.9); LYMPHOCYTES % 7.4 % (15.0-51.0); MEAN CORPUSCULAR HEMOGLOBIN 22.9 pg (29.0-33.0); MONOCYTE # 1.2 10^3/ul (0.3-0.9); MONOCYTES % 6.9 % (0.0-11.0); NEUTROPHIL # 14.1 10^3/ul (1.6-7.5); NEUTROPHILS % 83.3 % (39.0-77.0); PLATELET COUNT 155 10^3/UL (140-415); POSITIVE DIFF @See below; RED BLOOD COUNT 2.92 10^6/ul (4.70-6.10); RED CELL DISTRIBUTION WIDTH 22.6 % (11.5-14.5)
[2018-12-31 07:06] LABS: WHITE BLOOD COUNT 16.9 10^3/ul (4.8-10.8)
[2018-12-31 07:13] LABS: HEMOGLOBIN 6.7 g/dl (14.0-18.0); PATH REVIEW? YES
[2018-12-31] MEDS: INSULIN ASPART [NOVOLOG] 3 ML PEN SC ×4 (07:56→21:00)
[2018-12-31 08:04] LABS: ACANTHOCYTES 1+ (0-0); ANISOCYTOSIS 2+ (0-0); BAND NEUTROPHILS #M 0.8 10^3/ul (0.0-0.6); BAND NEUTROPHILS % (M) 5 % (0-4); BURR CELLS 1+ (0-0); ELLIPTO 1+ (0-0); GIANT THROMBO% (M) 4 % (0-0); HYPOCHROMASIA 2+ (0-0); LYMPHOCYTES #M 0.6 10^3/ul (0.8-2.9); LYMPHOCYTES % (M) 4 % (15-51); MICROCYTOSIS 1+ (0-0); MONOCYTES % (M) 6 % (0-11); OVALOCYTES 1+ (0-0); PLATELET ESTIMATE NORMAL; POIKILOCYTOSIS 2+ (0-0); POLYCHROMASIA 3+ (0-0); SCHISTOCYTES 1+ (0-0); SEG NEUT #M 14.5 10^3/ul (1.6-7.5); SEGMENTED NEUTROPHILS (M) % 85 % (39-77); SMUDGE%M 3 % (0-0); TARGET CELLS 1+ (0-0)
[2018-12-31] MEDS: ERGOCALCIFEROL 50,000 UNIT CAP PO (09:00)
[2018-12-31] MEDS: FINASTERIDE 5 MG TAB PO (09:00)
[2018-12-31] MEDS: LOSARTAN 25 MG TAB PO (09:00)
[2018-12-31] MEDS: FUROSEMIDE 20 MG TAB PO (09:00)
[2018-12-31] MEDS: HEPARIN 5,000 UNIT/1 ML VIAL SC ×2 (09:00→21:00)
[2018-12-31] MEDS: TICAGRELOR 90 MG TABLET PO ×2 (09:24→21:00)
[2018-12-31] MEDS: FOLIC ACID 1 MG TAB PO (09:27)
[2018-12-31] MEDS: FERROUS FUMARATE (SR) TAB PO (09:27)
[2018-12-31] MEDS: ASPIRIN (EC) 81 MG TAB PO (09:27)
[2018-12-31] MEDS: ISOSORBIDE MONONITRATE(SR)30 MG TAB PO (09:27)
[2018-12-31] MEDS: SOTALOL 80 MG TAB PO ×2 (09:28→21:00)
[2018-12-31] MEDS: RANOLAZINE (SR) 500 MG TAB PO ×2 (09:28→21:00)
[2018-12-31] MEDS: NALOXONE (0.4 MG/ML) INJ IV (11:13)
[2018-12-31] MEDS: ERTAPENEM SODIUM 1 GM in SOD CHLORIDE 0.9% 100 ML IVPB (18:09)
[2018-12-31] MEDS: ATORVASTATIN 40 MG TAB PO (21:00)
[2018-12-31] MEDS: RIFAXIMIN 200 MG TAB PO (21:00)
[2019-01-01] MEDS: PANTOPRAZOLE (EC) 40 MG TAB PO ×2 (06:00→17:01)
[2019-01-01 06:15] LABS: ADD MAN DIFF? NO
[2019-01-01 06:23] LABS: ABNORMAL IP MESSAGE 1; HEMATOCRIT 22.6 % (42.0-52.0); MEAN CORPUSCULAR VOLUME 74.1 fl (82.0-101.0); PLATELET COUNT 151 10^3/UL (140-415); POSITIVE DIFF @See below; RED BLOOD COUNT 3.05 10^6/ul (4.70-6.10); RED CELL DISTRIBUTION WIDTH 22.2 % (11.5-14.5)
[2019-01-01 07:00] LABS: IRON 25 ug/dl (35-150)
[2019-01-01 07:10] LABS: % IRON SATURATION 9 % SAT (22-52); TOTAL IRON BINDING CAPACITY 283 ug/dl (241-421)
[2019-01-01 07:58] LABS: ANISOCYTOSIS 2+ (0-0); BAND NEUTROPHILS #M 3.8 10^3/ul (0.0-0.6); BAND NEUTROPHILS % (M) 16 % (0-4); BURR CELLS 1+ (0-0); ELLIPTO 1+ (0-0); HYPOCHROMASIA 3+ (0-0); LYMPHOCYTES #M 1.4 10^3/ul (0.8-2.9); LYMPHOCYTES % (M) 6 % (15-51); METAMYELOCYTES #M 0.2 10^3/ul (0.0-0.0); METAMYELOCYTES %M 1 % (0-0); MICROCYTOSIS 1+ (0-0); MONOCYTE #M 0.7 10^3/ul (0.3-0.9); MONOCYTES % (M) 3 % (0-11); PLATELET ESTIMATE NORMAL; POIKILOCYTOSIS 2+ (0-0); POLYCHROMASIA 1+ (0-0); SCHISTOCYTES 1+ (0-0); SEG NEUT #M 18.7 10^3/ul (1.6-7.5); SEGMENTED NEUTROPHILS (M) % 74 % (39-77); SMUDGE%M 8 % (0-0); TARGET CELLS 1+ (0-0)
[2019-01-01] MEDS: INSULIN ASPART [NOVOLOG] 3 ML PEN SC ×4 (08:00→21:00)
[2019-01-01] MEDS: SOTALOL 80 MG TAB PO ×2 (08:58→20:42)
[2019-01-01] MEDS: ASPIRIN (EC) 81 MG TAB PO (08:59)
[2019-01-01] MEDS: LOSARTAN 25 MG TAB PO (08:59)
[2019-01-01] MEDS: FOLIC ACID 1 MG TAB PO (08:59)
[2019-01-01] MEDS: ISOSORBIDE MONONITRATE(SR)30 MG TAB PO (08:59)
[2019-01-01] MEDS: TICAGRELOR 90 MG TABLET PO ×2 (08:59→21:11)
[2019-01-01] MEDS: FERROUS FUMARATE (SR) TAB PO (08:59)
[2019-01-01] MEDS: FUROSEMIDE 20 MG TAB PO (08:59)
[2019-01-01] MEDS: FINASTERIDE 5 MG TAB PO (09:00)
[2019-01-01] MEDS: HEPARIN 5,000 UNIT/1 ML VIAL SC ×2 (09:00→20:42)
[2019-01-01] MEDS: RIFAXIMIN 200 MG TAB PO ×3 (09:00→20:40)
[2019-01-01] MEDS: RANOLAZINE (SR) 500 MG TAB PO ×2 (09:00→20:42)
[2019-01-01] MEDS: morphine 4 MG/ML VIAL IV (11:45)
[2019-01-01] MEDS: ERTAPENEM SODIUM 1 GM in SOD CHLORIDE 0.9% 100 ML IVPB (16:09)
[2019-01-01] MEDS: SOD FERRIC GLUC COMPLX 125 MG in SOD CHLORIDE 0.9% 100 ML IVPB (16:11)
[2019-01-01] MEDS: ATORVASTATIN 40 MG TAB PO (20:40)
[2019-01-02] MEDS: morphine 4 MG/ML VIAL IV ×2 (00:47→13:00)
[2019-01-02] MEDS: PANTOPRAZOLE (EC) 40 MG TAB PO ×2 (05:45→17:24)
[2019-01-02] MEDS: INSULIN ASPART [NOVOLOG] 3 ML PEN SC ×4 (08:00→21:00)
[2019-01-02] MEDS: FUROSEMIDE 20 MG TAB PO (09:00)
[2019-01-02] MEDS: FINASTERIDE 5 MG TAB PO (09:00)
[2019-01-02] MEDS: LOSARTAN 25 MG TAB PO (09:00)
[2019-01-02] MEDS: HEPARIN 5,000 UNIT/1 ML VIAL SC ×2 (09:00→21:00)
[2019-01-02] MEDS: RIFAXIMIN 200 MG TAB PO ×3 (09:00→21:00)
[2019-01-02] MEDS: FERROUS FUMARATE (SR) TAB PO (09:00)
[2019-01-02] MEDS: TICAGRELOR 90 MG TABLET PO ×2 (09:09→21:00)
[2019-01-02] MEDS: ISOSORBIDE MONONITRATE(SR)30 MG TAB PO (09:10)
[2019-01-02] MEDS: ASPIRIN (EC) 81 MG TAB PO (09:10)
[2019-01-02] MEDS: FOLIC ACID 1 MG TAB PO (09:10)
[2019-01-02] MEDS: SOTALOL 80 MG TAB PO ×2 (09:10→21:00)
[2019-01-02] MEDS: RANOLAZINE (SR) 500 MG TAB PO ×2 (09:11→21:00)
[2019-01-02] MEDS: SOD FERRIC GLUC COMPLX 125 MG in SOD CHLORIDE 0.9% 100 ML IVPB (13:00)
[2019-01-02] MEDS: IOHEXOL 14.3 MG(I)/ML (ADULT) BTL PO (13:00)
[2019-01-02] MEDS: SOD CHLORIDE 0.9% 100 ML (14:26)
[2019-01-02] MEDS: IOHEXOL 300MG/ML 150 ML BTL (14:26)
[2019-01-02] MEDS: ERTAPENEM SODIUM 1 GM in SOD CHLORIDE 0.9% 100 ML IVPB (15:42)
[2019-01-02] MEDS: ATORVASTATIN 40 MG TAB PO (21:00)
[2019-01-03] MEDS: morphine 2 MG INJ IV (00:28)
[2019-01-03] MEDS: morphine 4 MG/ML VIAL IV ×4 (04:47→17:45)
[2019-01-03] MEDS: PANTOPRAZOLE (EC) 40 MG TAB PO ×2 (06:00→17:58)
[2019-01-03] MEDS: INSULIN ASPART [NOVOLOG] 3 ML PEN SC ×4 (08:00→21:00)
[2019-01-03] MEDS: ASPIRIN (EC) 81 MG TAB PO (08:48)
[2019-01-03] MEDS: TICAGRELOR 90 MG TABLET PO ×2 (08:49→22:19)
[2019-01-03] MEDS: FOLIC ACID 1 MG TAB PO (08:49)
[2019-01-03] MEDS: RANOLAZINE (SR) 500 MG TAB PO ×2 (08:49→20:56)
[2019-01-03] MEDS: SOTALOL 80 MG TAB PO ×2 (08:50→20:58)
[2019-01-03] MEDS: LOSARTAN 25 MG TAB PO (08:51)
[2019-01-03] MEDS: ISOSORBIDE MONONITRATE(SR)30 MG TAB PO (08:51)
[2019-01-03] MEDS: FUROSEMIDE 20 MG TAB PO (09:00)
[2019-01-03] MEDS: FERROUS FUMARATE (SR) TAB PO (09:00)
[2019-01-03] MEDS: FINASTERIDE 5 MG TAB PO (09:00)
[2019-01-03] MEDS: RIFAXIMIN 200 MG TAB PO ×2 (09:00→12:10)
[2019-01-03] MEDS: HEPARIN 5,000 UNIT/1 ML VIAL SC ×2 (09:00→21:00)
[2019-01-03] MEDS: SOD FERRIC GLUC COMPLX 125 MG in SOD CHLORIDE 0.9% 100 ML IVPB (12:09)
[2019-01-03] MEDS ORDERED: DOCUSATE SODIUM 100 MG CAP PO (13:00)
[2019-01-03] MEDS ORDERED: GENTAMICIN IV PER PHARMACY XX (13:00)
[2019-01-03] MEDS ORDERED: POLYETHYLENE GLYCOL 17 GM PACKET PO (13:00)
[2019-01-03] MEDS ORDERED: GENTAMICIN IVPB ×2 (16:00)
[2019-01-03] MEDS ORDERED: DEXTROSE 5% IVPB ×2 (16:00)
[2019-01-03 16:02] LABS: CREATININE 0.82 mg/dl (0.61-1.24)
[2019-01-03 16:02] LABS: BLOOD UREA NITROGEN 13 mg/dl (7-20)
[2019-01-03] MEDS: ERTAPENEM SODIUM 1 GM in SOD CHLORIDE 0.9% 100 ML IVPB (16:26)
[2019-01-03] MEDS: GENTAMICIN IVPB (17:00)
[2019-01-03] MEDS: DEXTROSE 5% IVPB (17:00)
[2019-01-03] MEDS: ATORVASTATIN 40 MG TAB PO (20:58)
[2019-01-04] MEDS: morphine 2 MG INJ IV (00:51)
[2019-01-04] MEDS: INSULIN ASPART [NOVOLOG] 3 ML PEN SC ×6 (01:00→21:00)
[2019-01-04] MEDS: PANTOPRAZOLE (EC) 40 MG TAB PO ×2 (05:47→19:00)
[2019-01-04 06:02] LABS: ADD MAN DIFF? NO
[2019-01-04 06:13] LABS: WHITE BLOOD COUNT 8.9 10^3/ul (4.8-10.8)
[2019-01-04 06:13] LABS: ABNORMAL IP MESSAGE 1; BASOPHIL # 0.1 10^3/ul (0.0-0.1); BASOPHILS % 0.6 % (0.0-2.0); EOSINOPHILS # 0.1 10^3/ul (0.0-0.5); HEMATOCRIT 24.2 % (42.0-52.0); HEMOGLOBIN 7.4 g/dl (14.0-18.0); LYMPHOCYTES # 1.3 10^3/ul (0.8-2.9); LYMPHOCYTES % 14.4 % (15.0-51.0); MEAN CORPUSCULAR HEMOGLOBIN 22.8 pg (29.0-33.0); MEAN CORPUSCULAR HGB CONC 30.6 g/dl (32.0-37.0); MEAN CORPUSCULAR VOLUME 74.5 fl (82.0-101.0); MEAN PLATELET VOLUME 10.7 fl (7.4-10.4); MONOCYTE # 0.6 10^3/ul (0.3-0.9); NEUTROPHIL # 6.8 10^3/ul (1.6-7.5); NEUTROPHILS % 76.3 % (39.0-77.0); PLATELET COUNT 193 10^3/UL (140-415); POSITIVE DIFF @See below; RED BLOOD COUNT 3.25 10^6/ul (4.70-6.10); RED CELL DISTRIBUTION WIDTH 21.8 % (11.5-14.5)
[2019-01-04 06:27] LABS: ANION GAP 10 (5-13); BLOOD UREA NITROGEN 11 mg/dl (7-20); CARBON DIOXIDE 23 mmol/L (21-31); CHLORIDE 109 mmol/L (97-110); CREATININE 0.86 mg/dl (0.61-1.24); Estimated GFR > 60 mL/min (>60); GLUCOSE 114 mg/dl (70-220); POTASSIUM 3.9 mmol/L (3.5-5.1); SODIUM 142 mmol/L (135-144)
[2019-01-04 06:34] LABS: GENTAMICIN,RANDOM < 0.6 ug/ml
[2019-01-04 06:36] LABS: INR 1.01; PROTIME 13.4 Sec (11.9-14.9)
[2019-01-04] MEDS: SOTALOL 80 MG TAB PO ×2 (08:08→21:00)
[2019-01-04] MEDS: LOSARTAN 25 MG TAB PO (08:08)
[2019-01-04] MEDS: FERROUS FUMARATE (SR) TAB PO (08:08)
[2019-01-04] MEDS: TICAGRELOR 90 MG TABLET PO ×2 (08:08→21:45)
[2019-01-04] MEDS: FOLIC ACID 1 MG TAB PO (08:08)
[2019-01-04] MEDS: FUROSEMIDE 20 MG TAB PO (08:09)
[2019-01-04] MEDS: FINASTERIDE 5 MG TAB PO (08:09)
[2019-01-04] MEDS: ISOSORBIDE MONONITRATE(SR)30 MG TAB PO (08:09)
[2019-01-04] MEDS: RANOLAZINE (SR) 500 MG TAB PO ×2 (08:09→21:00)
[2019-01-04] MEDS: ASPIRIN (EC) 81 MG TAB PO (08:09)
[2019-01-04] MEDS: HEPARIN 5,000 UNIT/1 ML VIAL SC ×2 (08:09→21:45)
[2019-01-04] MEDS: SOD FERRIC GLUC COMPLX 125 MG in SOD CHLORIDE 0.9% 100 ML IVPB (13:00)
[2019-01-04] MEDS ORDERED: hydrALAzine 20 MG INJ IV (13:00)
[2019-01-04] MEDS: MEPERIDINE 25 MG INJ IV (13:13)
[2019-01-04] MEDS ORDERED: morphine (1 MG/ML) 10ML SYRINGE IV (13:30)
[2019-01-04] MEDS ORDERED: FENTAnyl 50 MCG/ML VIAL IV (13:30)
[2019-01-04] MEDS: FENTAnyl 50 MCG/ML VIAL IV (13:33)
[2019-01-04] MEDS ORDERED: PROPOFOL 0 ML (13:46)
[2019-01-04] MEDS: GENTAMICIN IVPB (14:21)
[2019-01-04] MEDS: DEXTROSE 5% IVPB (14:21)
[2019-01-04] MEDS: ACETAMINOPHEN 325 MG TAB PO (15:30)
[2019-01-04] MEDS: SOD CHLORIDE 0.9% 500 ML IV ×2 (19:34→21:01)
[2019-01-04] MEDS: ALBUMIN HUMAN 25% 100 ML IV (19:35)
[2019-01-04] MEDS ORDERED: NORepinephrine 8MG/250 ML (PMX 250 ML (20:45)
[2019-01-04] MEDS: NORepinephrine 8MG/250 ML (PMX 250 ML IV ×3 (21:02→21:50)
[2019-01-04] MEDS: ATORVASTATIN 40 MG TAB PO (21:43)
[2019-01-05] MEDS: [UNRECOGNIZED DRUG - REMARK] XX (00:30)
[2019-01-05] MEDS: INSULIN ASPART [NOVOLOG] 3 ML PEN SC ×6 (00:44→21:00)
[2019-01-05 01:50] LABS: GENTAMICIN,RANDOM 9.3 ug/ml
[2019-01-05] MEDS: PANTOPRAZOLE (EC) 40 MG TAB PO ×2 (06:23→18:01)
[2019-01-05] MEDS: morphine 4 MG/ML VIAL IV ×3 (06:24→16:20)
[2019-01-05] MEDS: RANOLAZINE (SR) 500 MG TAB PO ×2 (09:00→22:27)
[2019-01-05] MEDS: LOSARTAN 25 MG TAB PO (09:00)
[2019-01-05] MEDS: HEPARIN 5,000 UNIT/1 ML VIAL SC ×2 (09:00→21:00)
[2019-01-05] MEDS: ISOSORBIDE MONONITRATE(SR)30 MG TAB PO (09:00)
[2019-01-05] MEDS: FINASTERIDE 5 MG TAB PO (09:00)
[2019-01-05] MEDS: FERROUS FUMARATE (SR) TAB PO (09:00)
[2019-01-05] MEDS: SOTALOL 80 MG TAB PO ×2 (09:00→21:00)
[2019-01-05] MEDS: FUROSEMIDE 20 MG TAB PO (09:00)
[2019-01-05] MEDS: FOLIC ACID 1 MG TAB PO (09:00)
[2019-01-05] MEDS: ASPIRIN (EC) 81 MG TAB PO (09:50)
[2019-01-05] MEDS: TICAGRELOR 90 MG TABLET PO ×2 (09:55→22:31)
[2019-01-05] MEDS: HYDROCODONE/APAP (5/325) TAB PO (10:05)
[2019-01-05 12:48] LABS: GENTAMICIN,RANDOM 4.1 ug/ml
[2019-01-05] MEDS ORDERED: GENTAMICIN IVPB (14:30)
[2019-01-05] MEDS ORDERED: DEXTROSE 5% IVPB (14:30)
[2019-01-05] MEDS: SOD FERRIC GLUC COMPLX 125 MG in SOD CHLORIDE 0.9% 100 ML IVPB (15:54)
[2019-01-05] MEDS: ATORVASTATIN 40 MG TAB PO (21:00)
[2019-01-06] MEDS: INSULIN ASPART [NOVOLOG] 3 ML PEN SC ×6 (01:00→20:34)
[2019-01-06] MEDS ORDERED: PENDING SANTYL ORDER FOR WOUND CARE XX (03:00)
[2019-01-06] MEDS: morphine 4 MG/ML VIAL IV ×2 (03:50→15:56)
[2019-01-06 05:40] LABS: CREATINE KINASE < 20 IU/L (23-200)
[2019-01-06 05:45] LABS: CK-MB 0.65 ng/ml (0.0-2.4); TROPONIN-I < 0.012 ng/ml (0.000-0.120)
[2019-01-06] MEDS: PANTOPRAZOLE (EC) 40 MG TAB PO ×2 (06:27→16:42)
[2019-01-06] MEDS: DEXTROSE 5% IVPB (06:27)
[2019-01-06] MEDS: GENTAMICIN IVPB (06:27)
[2019-01-06] MEDS: HEPARIN 5,000 UNIT/1 ML VIAL SC ×2 (07:42→20:11)
[2019-01-06] MEDS: FINASTERIDE 5 MG TAB PO (09:49)
[2019-01-06] MEDS: FUROSEMIDE 20 MG TAB PO (09:49)
[2019-01-06] MEDS: FOLIC ACID 1 MG TAB PO (09:50)
[2019-01-06] MEDS: ISOSORBIDE MONONITRATE(SR)30 MG TAB PO (09:50)
[2019-01-06] MEDS: LOSARTAN 25 MG TAB PO (09:50)
[2019-01-06] MEDS: SOTALOL 80 MG TAB PO ×2 (09:50→20:13)
[2019-01-06] MEDS: ASPIRIN (EC) 81 MG TAB PO (09:50)
[2019-01-06] MEDS: FERROUS FUMARATE (SR) TAB PO (09:50)
[2019-01-06] MEDS: RANOLAZINE (SR) 500 MG TAB PO ×2 (09:50→20:10)
[2019-01-06] MEDS: TICAGRELOR 90 MG TABLET PO ×2 (10:13→20:34)
[2019-01-06 12:10] LABS: BLOOD UREA NITROGEN 17 mg/dl (7-20)
[2019-01-06 12:10] LABS: CREATININE 1.06 mg/dl (0.61-1.24)
[2019-01-06 12:12] LABS: CREATINE KINASE 20 IU/L (23-200)
[2019-01-06 12:23] LABS: CK-MB 0.79 ng/ml (0.0-2.4); TROPONIN-I < 0.012 ng/ml (0.000-0.120)
[2019-01-06] MEDS: ATORVASTATIN 40 MG TAB PO (20:10)
[2019-01-06] MEDS: BALSAM PERU/CASTOR OIL 60 GM TUBE TOP (20:13)
[2019-01-07] MEDS: INSULIN ASPART [NOVOLOG] 3 ML PEN SC (01:00)
[2019-01-07] MEDS: morphine 4 MG/ML VIAL IV ×2 (04:21→16:27)
[2019-01-07] MEDS: PANTOPRAZOLE (EC) 40 MG TAB PO ×2 (05:10→17:09)
[2019-01-07] MEDS: HEPARIN 5,000 UNIT/1 ML VIAL SC ×2 (07:25→20:50)
[2019-01-07] MEDS: Insulin NOVOLOG SS MILD Algorithm (SS with meals and bedtime) SC ×4 (07:25→20:50)
[2019-01-07] MEDS ORDERED: INSULIN ASPART [NOVOLOG] 3 ML PEN SC (08:00)
[2019-01-07] MEDS: FUROSEMIDE 20 MG TAB PO (08:36)
[2019-01-07] MEDS: RANOLAZINE (SR) 500 MG TAB PO ×2 (08:37→20:49)
[2019-01-07] MEDS: FINASTERIDE 5 MG TAB PO (08:37)
[2019-01-07] MEDS: FERROUS FUMARATE (SR) TAB PO (08:37)
[2019-01-07] MEDS: FOLIC ACID 1 MG TAB PO (08:37)
[2019-01-07] MEDS: ASPIRIN (EC) 81 MG TAB PO (08:37)
[2019-01-07] MEDS: SOTALOL 80 MG TAB PO ×2 (08:38→20:49)
[2019-01-07] MEDS: LOSARTAN 25 MG TAB PO (08:38)
[2019-01-07] MEDS: ISOSORBIDE MONONITRATE(SR)30 MG TAB PO (08:38)
[2019-01-07] MEDS: BALSAM PERU/CASTOR OIL 60 GM TUBE TOP ×2 (08:44→20:50)
[2019-01-07] MEDS: ERGOCALCIFEROL 50,000 UNIT CAP PO (08:44)
[2019-01-07] MEDS: TICAGRELOR 90 MG TABLET PO ×2 (08:57→20:49)
[2019-01-07] MEDS: morphine 2 MG INJ IV (12:15)
[2019-01-07] MEDS: ATORVASTATIN 40 MG TAB PO (20:49)
[2019-01-08] MEDS: ACCUCHECK AT 2AM (Patients on SS coverage) XX (02:00)
[2019-01-08] MEDS: morphine 4 MG/ML VIAL IV ×3 (04:16→17:35)
[2019-01-08] MEDS: PANTOPRAZOLE (EC) 40 MG TAB PO ×2 (05:29→17:35)
[2019-01-08 06:24] LABS: GENTAMICIN,TROUGH < 0.6 ug/ml (1.0-2.0)
[2019-01-08] MEDS: GENTAMICIN IVPB (06:29)
[2019-01-08] MEDS: DEXTROSE 5% IVPB (06:29)
[2019-01-08 06:33] LABS: CREATININE 0.98 mg/dl (0.61-1.24)
[2019-01-08 06:33] LABS: BLOOD UREA NITROGEN 13 mg/dl (7-20)
[2019-01-08] MEDS: Insulin NOVOLOG SS MILD Algorithm (SS with meals and bedtime) SC ×4 (07:59→20:15)
[2019-01-08] MEDS: ISOSORBIDE MONONITRATE(SR)30 MG TAB PO (09:00)
[2019-01-08] MEDS: LOSARTAN 25 MG TAB PO (09:00)
[2019-01-08] MEDS: FINASTERIDE 5 MG TAB PO (09:00)
[2019-01-08] MEDS: FUROSEMIDE 20 MG TAB PO (09:00)
[2019-01-08] MEDS: HEPARIN 5,000 UNIT/1 ML VIAL SC ×2 (09:00→20:15)
[2019-01-08] MEDS: ASPIRIN (EC) 81 MG TAB PO (09:32)
[2019-01-08] MEDS: SOTALOL 80 MG TAB PO ×2 (09:33→20:55)
[2019-01-08] MEDS: FERROUS FUMARATE (SR) TAB PO (09:34)
[2019-01-08] MEDS: RANOLAZINE (SR) 500 MG TAB PO ×2 (09:34→20:45)
[2019-01-08] MEDS: FOLIC ACID 1 MG TAB PO (09:35)
[2019-01-08] MEDS: TICAGRELOR 90 MG TABLET PO ×2 (09:39→20:56)
[2019-01-08] MEDS: BALSAM PERU/CASTOR OIL 60 GM TUBE TOP ×2 (09:43→20:46)
[2019-01-08] MEDS: ATORVASTATIN 40 MG TAB PO (20:45)
[2019-01-09] MEDS: ACCUCHECK AT 2AM (Patients on SS coverage) XX (01:52)
[2019-01-09] MEDS: morphine 4 MG/ML VIAL IV ×3 (06:38→22:05)
[2019-01-09] MEDS: PANTOPRAZOLE (EC) 40 MG TAB PO ×2 (06:39→17:27)
[2019-01-09] MEDS: Insulin NOVOLOG SS MILD Algorithm (SS with meals and bedtime) SC ×4 (08:00→21:00)
[2019-01-09] MEDS: FOLIC ACID 1 MG TAB PO (08:16)
[2019-01-09] MEDS: SOTALOL 80 MG TAB PO ×2 (08:16→21:10)
[2019-01-09] MEDS: ASPIRIN (EC) 81 MG TAB PO (08:16)
[2019-01-09] MEDS: FINASTERIDE 5 MG TAB PO (08:17)
[2019-01-09] MEDS: ISOSORBIDE MONONITRATE(SR)30 MG TAB PO (08:17)
[2019-01-09] MEDS: RANOLAZINE (SR) 500 MG TAB PO ×2 (08:17→21:10)
[2019-01-09] MEDS: FERROUS FUMARATE (SR) TAB PO (08:17)
[2019-01-09] MEDS: FUROSEMIDE 20 MG TAB PO (08:17)
[2019-01-09] MEDS: HEPARIN 5,000 UNIT/1 ML VIAL SC ×2 (08:18→21:00)
[2019-01-09] MEDS: BALSAM PERU/CASTOR OIL 60 GM TUBE TOP ×2 (08:18→21:11)
[2019-01-09] MEDS: LOSARTAN 25 MG TAB PO (08:18)
[2019-01-09] MEDS: TICAGRELOR 90 MG TABLET PO ×2 (08:34→21:14)
[2019-01-09] MEDS: ATORVASTATIN 40 MG TAB PO (21:10)
[2019-01-10] MEDS: ACCUCHECK AT 2AM (Patients on SS coverage) XX (02:00)
[2019-01-10] MEDS: DEXTROSE 5% IVPB (05:50)
[2019-01-10] MEDS: PANTOPRAZOLE (EC) 40 MG TAB PO ×2 (05:50→17:28)
[2019-01-10] MEDS: GENTAMICIN IVPB (05:50)
[2019-01-10] MEDS: Insulin NOVOLOG SS MILD Algorithm (SS with meals and bedtime) SC ×4 (08:00→20:04)
[2019-01-10] MEDS: FINASTERIDE 5 MG TAB PO (09:00)
[2019-01-10] MEDS: LOSARTAN 25 MG TAB PO (09:00)
[2019-01-10] MEDS: HEPARIN 5,000 UNIT/1 ML VIAL SC ×2 (09:00→20:56)
[2019-01-10] MEDS: FUROSEMIDE 20 MG TAB PO (09:00)
[2019-01-10] MEDS: ISOSORBIDE MONONITRATE(SR)30 MG TAB PO (09:00)
[2019-01-10] MEDS: BALSAM PERU/CASTOR OIL 60 GM TUBE TOP ×2 (09:05→20:57)
[2019-01-10] MEDS: FOLIC ACID 1 MG TAB PO (09:06)
[2019-01-10] MEDS: FERROUS FUMARATE (SR) TAB PO (09:06)
[2019-01-10] MEDS: RANOLAZINE (SR) 500 MG TAB PO ×2 (09:06→20:55)
[2019-01-10] MEDS: ASPIRIN (EC) 81 MG TAB PO (09:07)
[2019-01-10] MEDS: SOTALOL 80 MG TAB PO ×2 (09:07→20:54)
[2019-01-10] MEDS: TICAGRELOR 90 MG TABLET PO ×2 (09:10→20:55)
[2019-01-10] MEDS: morphine 4 MG/ML VIAL IV ×2 (10:03→17:29)
[2019-01-10] MEDS: ATORVASTATIN 40 MG TAB PO (20:55)
[2019-01-10] MEDS ORDERED: NALOXONE (0.4 MG/ML) INJ (23:29)
[2019-01-10] MEDS: NALOXONE (0.4 MG/ML) INJ IV (23:31)
[2019-01-10 23:38] LABS: AADO2 Arterial 87.1 mmHg (7.0-24.0); Allen Test ACCEPTAB; Arterial Base Excess 1.5 mmol/L (-3.0-3); Arterial Blood Gas Oxygen Sat 97.3 mmHG (95.0-98.0); Arterial COHb 0.3 % (0.0-3.0); Arterial Fraction of Oxyhgb 96.6 % (93.0-99.0); Arterial HCO3 22.7 mmol/L (22.0-26.0); Arterial MetHb 0.4 % (0.0-1.5); Arterial pCO2 24.7 mmhg (35-45); MODE NASAL CANNULA; Site Right Radial
[2019-01-10 23:53] LABS: WHITE BLOOD COUNT 8.9 10^3/ul (4.8-10.8)
[2019-01-10 23:53] LABS: ABNORMAL IP MESSAGE 1; HEMATOCRIT 26.7 % (42.0-52.0); HEMOGLOBIN 8.1 g/dl (14.0-18.0); MEAN CORPUSCULAR HEMOGLOBIN 22.7 pg (29.0-33.0); MEAN CORPUSCULAR HGB CONC 30.3 g/dl (32.0-37.0); MEAN CORPUSCULAR VOLUME 74.8 fl (82.0-101.0); MEAN PLATELET VOLUME 10.1 fl (7.4-10.4); PLATELET COUNT 181 10^3/UL (140-415); POSITIVE DIFF @See below; RED BLOOD COUNT 3.57 10^6/ul (4.70-6.10); RED CELL DISTRIBUTION WIDTH 22.5 % (11.5-14.5)
[2019-01-11] MEDS ORDERED: VANCOMYCIN IV PER PHARMACY XX
[2019-01-11 00:03] LABS: ADD MAN DIFF? YES
[2019-01-11 00:15] LABS: ALANINE AMINOTRANSFERASE 13 IU/L (13-69); ALBUMIN 3.3 g/dl (3.3-4.9); ALBUMIN/GLOBULIN RATIO 0.86; ALKALINE PHOSPHATASE 140 IU/L (42-121); ANION GAP 14 (5-13); ASPARTATE AMINO TRANSFERASE 20 IU/L (15-46); BILIRUBIN,INDIRECT 0.5 mg/dl (0-1.1); BILIRUBIN,TOTAL 0.5 mg/dl (0.2-1.3); BLOOD UREA NITROGEN 13 mg/dl (7-20); CALCIUM 8.4 mg/dl (8.4-10.2); CARBON DIOXIDE 23 mmol/L (21-31); CHLORIDE 104 mmol/L (97-110); CREATININE 1.23 mg/dl (0.61-1.24); Estimated GFR > 60 mL/min (>60); GLUCOSE 213 mg/dl (70-220); POTASSIUM 3.9 mmol/L (3.5-5.1); SODIUM 141 mmol/L (135-144); TOTAL PROTEIN 7.1 g/dl (6.1-8.1)
[2019-01-11 00:20] LABS: LACTIC ACID 2.2 mmol/L (0.5-2.0)
[2019-01-11 00:27] LABS: TROPONIN-I < 0.012 ng/ml (0.000-0.120)
[2019-01-11 00:32] LABS: ANISOCYTOSIS 3+ (0-0); BAND NEUTROPHILS #M 1.6 10^3/ul (0.0-0.6); BAND NEUTROPHILS % (M) 18 % (0-4); LYMPHOCYTES #M 0.4 10^3/ul (0.8-2.9); LYMPHOCYTES % (M) 5 % (15-51); MICROCYTOSIS 3+ (0-0); PLATELET ESTIMATE NORMAL; POIKILOCYTOSIS 3+ (0-0); POLYCHROMASIA 3+ (0-0); SEGMENTED NEUTROPHILS (M) % 77 % (39-77)
[2019-01-11] MEDS: ACETAMINOPHEN 325 MG TAB PO (00:47)
[2019-01-11] MEDS: VANCOMYCIN HCL 1.75 GM in SOD CHLORIDE 0.9% 500 ML IVPB (01:32)
[2019-01-11] MEDS: ACCUCHECK AT 2AM (Patients on SS coverage) XX (02:00)
[2019-01-11] MEDS: PANTOPRAZOLE (EC) 40 MG TAB PO ×2 (05:44→17:04)
[2019-01-11] MEDS: Insulin NOVOLOG SS MILD Algorithm (SS with meals and bedtime) SC ×3 (08:00→17:04)
[2019-01-11] MEDS: morphine 4 MG/ML VIAL IV ×3 (08:18→17:48)
[2019-01-11] MEDS: FERROUS FUMARATE (SR) TAB PO (08:22)
[2019-01-11] MEDS: ASPIRIN (EC) 81 MG TAB PO (08:22)
[2019-01-11] MEDS: SOTALOL 80 MG TAB PO (08:23)
[2019-01-11] MEDS: RANOLAZINE (SR) 500 MG TAB PO (08:25)
[2019-01-11] MEDS: FUROSEMIDE 20 MG TAB PO (08:25)
[2019-01-11] MEDS: FOLIC ACID 1 MG TAB PO (08:26)
[2019-01-11] MEDS: ISOSORBIDE MONONITRATE(SR)30 MG TAB PO (08:26)
[2019-01-11] MEDS: FINASTERIDE 5 MG TAB PO (08:27)
[2019-01-11] MEDS: TICAGRELOR 90 MG TABLET PO (08:29)
[2019-01-11] MEDS: LOSARTAN 25 MG TAB PO (08:31)
[2019-01-11] MEDS: HEPARIN 5,000 UNIT/1 ML VIAL SC (08:32)
[2019-01-11] MEDS: VANCOMYCIN 1 GM 250 ML IVPB (12:28)
[2019-01-11] MEDS: BALSAM PERU/CASTOR OIL 60 GM TUBE TOP (12:29)
[2019-01-11] MEDS ORDERED: VANCOMYCIN HCL 1.5 GM in SOD CHLORIDE 0.9% 250 ML IVPB (13:00)
[2019-01-11] MEDS: ZYVOX 600 MG TAB PO (17:04)
== END 2019-01-11 18:17 | disposition short-term general hospital (02) | DRG 314 ==
LOC: PP2 01-02 01:10 → 6WM 01-05 16:51 → TEL 01-04 17:34 → ICU 01-04 19:00
PROVIDERS: Internal Medicine
PROC: B24BZZ4 Ultrasonography of Heart with Aorta, Transesophageal (ICD-10-PCS; principal; 2019-01-04 11:36)
PROC: 02HV33Z Insertion of Infusion Device into Superior Vena Cava, Percutaneous Approach (ICD-10-PCS; 2019-01-04 11:36)
DX: T82.7XXA Infection and inflammatory reaction due to other cardiac and vascular devices, implants and grafts, initial encounter (principal); G92 Toxic encephalopathy; A41.59 Other Gram-negative sepsis; I38 Endocarditis, valve unspecified; I42.9 Cardiomyopathy, unspecified; I48.92 Unspecified atrial flutter; I50.22 Chronic systolic (congestive) heart failure; N13.2 Hydronephrosis with renal and ureteral calculous obstruction; I07.1 Rheumatic tricuspid insufficiency; D50.9 Iron deficiency anemia, unspecified; E11.9 Type 2 diabetes mellitus without complications; E78.5 Hyperlipidemia, unspecified; G89.29 Other chronic pain; G47.33 Obstructive sleep apnea (adult) (pediatric); I48.0 Paroxysmal atrial fibrillation; I11.0 Hypertensive heart disease with heart failure; I25.10 Atherosclerotic heart disease of native coronary artery without angina pectoris; K21.9 Gastro-esophageal reflux disease without esophagitis; R53.81 Other malaise; T40.2X5A Adverse effect of other opioids, initial encounter; Y83.8 Other surgical procedures as the cause of abnormal reaction of the patient, or of later complication, without mention of misadventure at the time of the procedure; Z16.19 Resistance to other specified beta lactam antibiotics; Z53.29 Procedure and treatment not carried out because of patient's decision for other reasons; Z95.810 Presence of automatic (implantable) cardiac defibrillator; Z95.5 Presence of coronary angioplasty implant and graft; Z95.1 Presence of aortocoronary bypass graft; Z79.01 Long term (current) use of anticoagulants; Z79.84 Long term (current) use of oral hypoglycemic drugs; Z79.82 Long term (current) use of aspirin
CPT/HCPCS: 36569; 36600; 70450; 71045; 74177; 76937; 78806; 80048; 80053; 80170; 81001; 82550; 82553; 82565; 82803; 82947; 82962; 83540; 83605; 83735; 84443; 84484; 84520; 85025; 85610; 85651; 86850; 86900; 86901; 86920; 87040-91; 87081; 87086; 93005; 93306; 93312; 93325; 93880; 94660; 97162; 97167; 97530; 99217; G0378

== ENCOUNTER 2019-01-17 01:00 | Inpatient (IN) | payer OTHER ==
[2019-01-17] MEDS ORDERED: DIPHENHYDRAMINE 25 MG CAP PO (02:00)
[2019-01-17] MEDS ORDERED: NACL 0.9% 3 ML SYG IV (02:00)
[2019-01-17] MEDS ORDERED: DOCUSATE SODIUM 100 MG CAP PO (02:00)
[2019-01-17] MEDS ORDERED: NITROGLYCERIN (SL) 0.4 MG TAB SL (02:00)
[2019-01-17] MEDS ORDERED: ONDANSETRON 4 MG TAB PO (02:00)
[2019-01-17] MEDS ORDERED: DIPHENHYDRAMINE 50 MG CAP PO (02:25)
[2019-01-17] MEDS ORDERED: DEXTROSE 50% 50 ML SYRINGE IV (05:00)
[2019-01-17] MEDS ORDERED: GLUCOSE GEL 15 GRAM TUBE BUCCAL (05:00)
[2019-01-17] MEDS ORDERED: GLUCOSE GEL 15 GRAM TUBE PO ×2 (05:00)
[2019-01-17] MEDS ORDERED: GLUCAGON 1 MG INJ IM (05:00)
[2019-01-17] MEDS: PANTOPRAZOLE (EC) 40 MG TAB PO ×2 (06:27→17:09)
[2019-01-17] MEDS: AMIKACIN 500 MG in SOD CHLORIDE 0.9% 100 ML IVPB (06:28)
[2019-01-17] MEDS: INSULIN ASPART [NOVOLOG] 3 ML PEN SC ×4 (07:47→21:00)
[2019-01-17] MEDS ORDERED: PENDING SANTYL ORDER FOR WOUND CARE XX (08:30)
[2019-01-17 08:47] LABS: ADD MAN DIFF? NO
[2019-01-17 08:52] LABS: ABNORMAL IP MESSAGE 1; BASOPHILS % 0.2 % (0.0-2.0); EOSINOPHILS % 0.3 % (0.0-7.0); HEMATOCRIT 24.2 % (42.0-52.0); HEMOGLOBIN 7.5 g/dl (14.0-18.0); LYMPHOCYTES # 1.1 10^3/ul (0.8-2.9); LYMPHOCYTES % 8.6 % (15.0-51.0); MEAN CORPUSCULAR HEMOGLOBIN 24.6 pg (29.0-33.0); MEAN CORPUSCULAR VOLUME 79.3 fl (82.0-101.0); MEAN PLATELET VOLUME 10.4 fl (7.4-10.4); MONOCYTE # 1.1 10^3/ul (0.3-0.9); MONOCYTES % 8.8 % (0.0-11.0); NEUTROPHIL # 10.6 10^3/ul (1.6-7.5); NEUTROPHILS % 81.5 % (39.0-77.0); PLATELET COUNT 368 10^3/UL (140-415); POSITIVE DIFF @See below; RED BLOOD COUNT 3.05 10^6/ul (4.70-6.10); RED CELL DISTRIBUTION WIDTH 22.8 % (11.5-14.5)
[2019-01-17] MEDS: MEROPENEM 1 GM/50ML(PMX) 50 ML IVPB ×2 (08:59→21:43)
[2019-01-17] MEDS ORDERED: AMIKACIN IV PER PHARMACY XX (09:00)
[2019-01-17] MEDS: FUROSEMIDE 20 MG TAB PO (09:00)
[2019-01-17] MEDS: morphine 2 MG INJ IV ×2 (09:05→13:53)
[2019-01-17] MEDS: FERROUS FUMARATE (SR) TAB PO (09:08)
[2019-01-17] MEDS: FOLIC ACID 1 MG TAB PO (09:08)
[2019-01-17] MEDS: RANOLAZINE (SR) 500 MG TAB PO ×2 (09:09→21:43)
[2019-01-17] MEDS: ASPIRIN (EC) 81 MG TAB PO (09:11)
[2019-01-17] MEDS: FINASTERIDE 5 MG TAB PO (09:11)
[2019-01-17 09:16] LABS: ALANINE AMINOTRANSFERASE 10 IU/L (13-69); ALBUMIN 3.2 g/dl (3.3-4.9); ALBUMIN/GLOBULIN RATIO 0.82; ALKALINE PHOSPHATASE 118 IU/L (42-121); ANION GAP 13 (5-13); ASPARTATE AMINO TRANSFERASE 18 IU/L (15-46); BILIRUBIN,INDIRECT 0.6 mg/dl (0-1.1); BILIRUBIN,TOTAL 0.6 mg/dl (0.2-1.3); BLOOD UREA NITROGEN 36 mg/dl (7-20); CALCIUM 8.9 mg/dl (8.4-10.2); CARBON DIOXIDE 22 mmol/L (21-31); CHLORIDE 109 mmol/L (97-110); CREATININE 3.65 mg/dl (0.61-1.24); Estimated GFR 20 mL/min (>60); GLUCOSE 102 mg/dl (70-220); POTASSIUM 4.2 mmol/L (3.5-5.1); SODIUM 144 mmol/L (135-144); TOTAL PROTEIN 7.1 g/dl (6.1-8.1)
[2019-01-17] MEDS: TICAGRELOR 90 MG TABLET PO ×2 (09:18→21:48)
[2019-01-17] MEDS: SOTALOL 80 MG TAB PO ×2 (12:37→21:44)
[2019-01-17] MEDS: ISOSORBIDE MONONITRATE(SR)30 MG TAB PO (12:37)
[2019-01-17] MEDS: SOD CHLORIDE 0.9% 1,000 ML IV (12:38)
[2019-01-17] MEDS ORDERED: GENTAMICIN IV PER PHARMACY XX (13:00)
[2019-01-17] MEDS: BALSAM PERU/CASTOR OIL 60 GM TUBE TOP (17:12)
[2019-01-17] MEDS: ATORVASTATIN 40 MG TAB PO (21:43)
[2019-01-18] MEDS: ACCU-CHEK XX (02:00)
[2019-01-18] MEDS: GENTAMICIN 150 MG in SOD CHLORIDE 0.9% 100 ML IVPB (05:33)
[2019-01-18] MEDS: PANTOPRAZOLE (EC) 40 MG TAB PO ×2 (05:34→18:11)
[2019-01-18] MEDS: INSULIN ASPART [NOVOLOG] 3 ML PEN SC ×4 (07:55→20:51)
[2019-01-18 08:10] LABS: ADD MAN DIFF? NO
[2019-01-18 08:15] LABS: ABNORMAL IP MESSAGE 1; BASOPHILS % 0.2 % (0.0-2.0); EOSINOPHILS % 0.3 % (0.0-7.0); HEMATOCRIT 23.7 % (42.0-52.0); HEMOGLOBIN 7.4 g/dl (14.0-18.0); LYMPHOCYTES # 0.8 10^3/ul (0.8-2.9); LYMPHOCYTES % 7.1 % (15.0-51.0); MEAN CORPUSCULAR HGB CONC 31.2 g/dl (32.0-37.0); MEAN CORPUSCULAR VOLUME 80.1 fl (82.0-101.0); MEAN PLATELET VOLUME 10.1 fl (7.4-10.4); MONOCYTE # 0.7 10^3/ul (0.3-0.9); MONOCYTES % 5.7 % (0.0-11.0); NEUTROPHIL # 10.1 10^3/ul (1.6-7.5); PLATELET COUNT 383 10^3/UL (140-415); POSITIVE DIFF @See below; RED BLOOD COUNT 2.96 10^6/ul (4.70-6.10); RED CELL DISTRIBUTION WIDTH 22.3 % (11.5-14.5)
[2019-01-18 08:15] LABS: WHITE BLOOD COUNT 11.7 10^3/ul (4.8-10.8)
[2019-01-18 08:43] LABS: ALANINE AMINOTRANSFERASE 20 IU/L (13-69); ALBUMIN/GLOBULIN RATIO 0.76; ALKALINE PHOSPHATASE 101 IU/L (42-121); ANION GAP 13 (5-13); ASPARTATE AMINO TRANSFERASE 26 IU/L (15-46); BILIRUBIN,INDIRECT 0.5 mg/dl (0-1.1); BILIRUBIN,TOTAL 0.5 mg/dl (0.2-1.3); BLOOD UREA NITROGEN 40 mg/dl (7-20); CALCIUM 8.7 mg/dl (8.4-10.2); CARBON DIOXIDE 21 mmol/L (21-31); CHLORIDE 110 mmol/L (97-110); CREATININE 4.31 mg/dl (0.61-1.24); Estimated GFR 17 mL/min (>60); GLUCOSE 111 mg/dl (70-220); POTASSIUM 4.3 mmol/L (3.5-5.1); SODIUM 144 mmol/L (135-144); TOTAL PROTEIN 6.9 g/dl (6.1-8.1)
[2019-01-18] MEDS: MEROPENEM 1 GM/50ML(PMX) 50 ML IVPB ×2 (08:52→20:52)
[2019-01-18] MEDS: TICAGRELOR 90 MG TABLET PO ×2 (08:55→20:46)
[2019-01-18] MEDS: ASPIRIN (EC) 81 MG TAB PO (08:55)
[2019-01-18] MEDS: FOLIC ACID 1 MG TAB PO (08:56)
[2019-01-18] MEDS: FERROUS FUMARATE (SR) TAB PO (08:57)
[2019-01-18] MEDS: ISOSORBIDE MONONITRATE(SR)30 MG TAB PO (09:00)
[2019-01-18] MEDS: FINASTERIDE 5 MG TAB PO (09:00)
[2019-01-18] MEDS: RANOLAZINE (SR) 500 MG TAB PO ×2 (09:00→20:43)
[2019-01-18] MEDS: SOTALOL 80 MG TAB PO ×2 (09:00→20:52)
[2019-01-18] MEDS: morphine 2 MG INJ IV (10:17)
[2019-01-18] MEDS: BALSAM PERU/CASTOR OIL 60 GM TUBE TOP (11:48)
[2019-01-18] MEDS: ALBUMIN HUMAN 25% 100 ML IV ×2 (11:48→20:35)
[2019-01-18 13:15] LABS: CREATININE,URINE RANDOM 106.61 mg/dl (20-370)
[2019-01-18 13:15] LABS: SODIUM,URINE RANDOM 77 mmol/L (30-90)
[2019-01-18 13:28] LABS: ADD UMIC YES; UR AMORPHOUS CRYSTAL FEW /HPF (NONE SEEN); UR ASCORBIC ACID NEGATIVE (NEGATIVE); UR BACTERIA FEW /HPF (NONE SEEN); UR BILIRUBIN (Dip) NEGATIVE (NEGATIVE); UR BLOOD (Dip) 1+ mg/dL (NEGATIVE); UR CLARITY SLIGHTLY CLOUDY (CLEAR); UR COLOR AMBER (YELLOW); UR GLUCOSE (Dip) NEGATIVE (NEGATIVE); UR KETONES (Dip) NEGATIVE (NEGATIVE); UR LEUKOCYTE ESTERASE (Dip) NEGATIVE Leu/ul (NEGATIVE); UR NITRITE (Dip) NEGATIVE (NEGATIVE); UR RBC 3 /HPF (0-5); UR SPECIFIC GRAVITY (Dip) 1.015 (1.003-1.030); UR TOTAL PROTEIN (Dip) 1+ mg/dl (NEGATIVE); UR UROBILINOGEN (Dip) NEGATIVE (NEGATIVE); UR WBC 10 /HPF (0-5)
[2019-01-18] MEDS: morphine 4 MG/ML VIAL IV ×2 (18:08→22:22)
[2019-01-18] MEDS: ATORVASTATIN 40 MG TAB PO (20:43)
[2019-01-19] MEDS: ACCU-CHEK XX (02:00)
[2019-01-19] MEDS: morphine 4 MG/ML VIAL IV ×4 (03:12→20:33)
[2019-01-19] MEDS: ALBUMIN HUMAN 25% 100 ML IV ×3 (03:13→18:09)
[2019-01-19] MEDS: PANTOPRAZOLE (EC) 40 MG TAB PO ×2 (06:25→18:09)
[2019-01-19 07:41] LABS: ADD MAN DIFF? NO
[2019-01-19 07:49] LABS: ABNORMAL IP MESSAGE 1; BASOPHILS % 0.1 % (0.0-2.0); EOSINOPHILS % 0.2 % (0.0-7.0); HEMATOCRIT 22.1 % (42.0-52.0); LYMPHOCYTES # 0.8 10^3/ul (0.8-2.9); LYMPHOCYTES % 5.6 % (15.0-51.0); MEAN CORPUSCULAR HGB CONC 31.7 g/dl (32.0-37.0); MEAN CORPUSCULAR VOLUME 78.9 fl (82.0-101.0); MEAN PLATELET VOLUME 10.7 fl (7.4-10.4); MONOCYTE # 0.7 10^3/ul (0.3-0.9); MONOCYTES % 4.8 % (0.0-11.0); NEUTROPHIL # 12.7 10^3/ul (1.6-7.5); NEUTROPHILS % 88.9 % (39.0-77.0); PLATELET COUNT 429 10^3/UL (140-415); POSITIVE DIFF @See below; RED CELL DISTRIBUTION WIDTH 22.8 % (11.5-14.5)
[2019-01-19 07:49] LABS: WHITE BLOOD COUNT 14.3 10^3/ul (4.8-10.8)
[2019-01-19] MEDS: INSULIN ASPART [NOVOLOG] 3 ML PEN SC ×4 (07:55→20:32)
[2019-01-19] MEDS: ASPIRIN (EC) 81 MG TAB PO (08:03)
[2019-01-19] MEDS: FERROUS FUMARATE (SR) TAB PO (08:03)
[2019-01-19] MEDS: FOLIC ACID 1 MG TAB PO (08:03)
[2019-01-19] MEDS: RANOLAZINE (SR) 500 MG TAB PO ×2 (08:03→20:32)
[2019-01-19] MEDS: BALSAM PERU/CASTOR OIL 60 GM TUBE TOP (08:03)
[2019-01-19] MEDS: SOTALOL 80 MG TAB PO ×2 (08:04→20:33)
[2019-01-19] MEDS: MEROPENEM 1 GM/50ML(PMX) 50 ML IVPB (08:04)
[2019-01-19 08:05] LABS: ANION GAP 15 (5-13); BLOOD UREA NITROGEN 44 mg/dl (7-20); CALCIUM 8.5 mg/dl (8.4-10.2); CARBON DIOXIDE 21 mmol/L (21-31); CHLORIDE 108 mmol/L (97-110); CREATININE 4.19 mg/dl (0.61-1.24); Estimated GFR 17 mL/min (>60); GLUCOSE 96 mg/dl (70-220); MAGNESIUM 1.7 mg/dl (1.7-2.5); POTASSIUM 4.1 mmol/L (3.5-5.1); SODIUM 144 mmol/L (135-144)
[2019-01-19 08:07] LABS: GENTAMICIN,RANDOM 3.4 ug/ml
[2019-01-19 08:08] LABS: ALANINE AMINOTRANSFERASE 17 IU/L (13-69); ALBUMIN 3.4 g/dl (3.3-4.9); ALBUMIN/GLOBULIN RATIO 1.06; ALKALINE PHOSPHATASE 85 IU/L (42-121); ANION GAP 16 (5-13); ASPARTATE AMINO TRANSFERASE 18 IU/L (15-46); BILIRUBIN,INDIRECT 0.6 mg/dl (0-1.1); BILIRUBIN,TOTAL 0.6 mg/dl (0.2-1.3); BLOOD UREA NITROGEN 43 mg/dl (7-20); CALCIUM 8.8 mg/dl (8.4-10.2); CARBON DIOXIDE 20 mmol/L (21-31); CHLORIDE 109 mmol/L (97-110); CREATININE 4.14 mg/dl (0.61-1.24); Estimated GFR 18 mL/min (>60); GLUCOSE 91 mg/dl (70-220); POTASSIUM 4.4 mmol/L (3.5-5.1); SODIUM 145 mmol/L (135-144); TOTAL PROTEIN 6.6 g/dl (6.1-8.1)
[2019-01-19] MEDS: FINASTERIDE 5 MG TAB PO (08:11)
[2019-01-19] MEDS: TICAGRELOR 90 MG TABLET PO ×2 (08:11→20:36)
[2019-01-19] MEDS: SOD CHLORIDE 0.9% 250 ML IV* (08:48)
[2019-01-19 11:36] LABS: VANCOMYCIN,RANDOM 7.8 ug/ml
[2019-01-19 14:39] LABS: CREATININE, RANDOM URINE 110 mg/dL (20-320); MICROALBUMIN 4.6 mg/dL; MICROALBUMIN/CREATININE RATIO 42 (<30)
[2019-01-19] MEDS: ATORVASTATIN 40 MG TAB PO (20:34)
[2019-01-20] MEDS: morphine 4 MG/ML VIAL IV ×6 (00:18→23:15)
[2019-01-20] MEDS: ACCU-CHEK XX (02:00)
[2019-01-20] MEDS: ALBUMIN HUMAN 25% 100 ML IV (02:22)
[2019-01-20] MEDS: PANTOPRAZOLE (EC) 40 MG TAB PO ×2 (05:26→18:12)
[2019-01-20 06:09] LABS: ADD MAN DIFF? NO
[2019-01-20 06:24] LABS: ABNORMAL IP MESSAGE 1; BASOPHILS % 0.1 % (0.0-2.0); EOSINOPHILS # 0.1 10^3/ul (0.0-0.5); EOSINOPHILS % 0.6 % (0.0-7.0); HEMATOCRIT 12.7 % (42.0-52.0); LYMPHOCYTES # 1.1 10^3/ul (0.8-2.9); LYMPHOCYTES % 6.5 % (15.0-51.0); MEAN CORPUSCULAR HEMOGLOBIN 24.5 pg (29.0-33.0); MEAN CORPUSCULAR HGB CONC 30.7 g/dl (32.0-37.0); MEAN CORPUSCULAR VOLUME 79.9 fl (82.0-101.0); MEAN PLATELET VOLUME 10.2 fl (7.4-10.4); MONOCYTE # 1.1 10^3/ul (0.3-0.9); MONOCYTES % 6.4 % (0.0-11.0); NEUTROPHIL # 14.2 10^3/ul (1.6-7.5); NEUTROPHILS % 85.9 % (39.0-77.0); PLATELET COUNT 382 10^3/UL (140-415); POSITIVE DIFF @See below; RED BLOOD COUNT 1.59 10^6/ul (4.70-6.10); RED CELL DISTRIBUTION WIDTH 22.8 % (11.5-14.5)
[2019-01-20 06:24] LABS: WHITE BLOOD COUNT 16.6 10^3/ul (4.8-10.8)
[2019-01-20 06:47] LABS: HEMOGLOBIN 3.9 g/dl (14.0-18.0)
[2019-01-20 07:07] LABS: ALANINE AMINOTRANSFERASE 12 IU/L (13-69); ALBUMIN 3.8 g/dl (3.3-4.9); ALBUMIN/GLOBULIN RATIO 1.22; ALKALINE PHOSPHATASE 73 IU/L (42-121); ANION GAP 15 (5-13); ASPARTATE AMINO TRANSFERASE 16 IU/L (15-46); BILIRUBIN,INDIRECT 0.5 mg/dl (0-1.1); BILIRUBIN,TOTAL 0.5 mg/dl (0.2-1.3); BLOOD UREA NITROGEN 43 mg/dl (7-20); CALCIUM 8.7 mg/dl (8.4-10.2); CARBON DIOXIDE 22 mmol/L (21-31); CHLORIDE 107 mmol/L (97-110); CREATININE 3.92 mg/dl (0.61-1.24); Estimated GFR 19 mL/min (>60); GLUCOSE 71 mg/dl (70-220); POTASSIUM 3.9 mmol/L (3.5-5.1); SODIUM 144 mmol/L (135-144); TOTAL PROTEIN 6.9 g/dl (6.1-8.1)
[2019-01-20 07:49] LABS: HEMATOCRIT 25.3 % (42.0-52.0); HEMOGLOBIN 7.6 g/dl (14.0-18.0)
[2019-01-20] MEDS: INSULIN ASPART [NOVOLOG] 3 ML PEN SC ×4 (07:55→20:49)
[2019-01-20] MEDS: RANOLAZINE (SR) 500 MG TAB PO ×2 (09:07→20:27)
[2019-01-20] MEDS: FINASTERIDE 5 MG TAB PO (09:08)
[2019-01-20] MEDS: FERROUS FUMARATE (SR) TAB PO (09:08)
[2019-01-20] MEDS: FOLIC ACID 1 MG TAB PO (09:09)
[2019-01-20] MEDS: ASPIRIN (EC) 81 MG TAB PO (09:09)
[2019-01-20] MEDS: TICAGRELOR 90 MG TABLET PO ×2 (09:12→20:48)
[2019-01-20] MEDS: SOTALOL 80 MG TAB PO ×2 (09:13→20:27)
[2019-01-20] MEDS: BALSAM PERU/CASTOR OIL 60 GM TUBE TOP (09:14)
[2019-01-20] MEDS: ATORVASTATIN 40 MG TAB PO (20:27)
[2019-01-21] MEDS: ACCU-CHEK XX (01:45)
[2019-01-21] MEDS: PANTOPRAZOLE (EC) 40 MG TAB PO ×2 (05:15→17:53)
[2019-01-21] MEDS: morphine 4 MG/ML VIAL IV ×4 (05:20→21:37)
[2019-01-21] MEDS: INSULIN ASPART [NOVOLOG] 3 ML PEN SC ×4 (07:36→20:20)
[2019-01-21] MEDS: GENTAMICIN 150 MG in SOD CHLORIDE 0.9% 100 ML IVPB (08:42)
[2019-01-21] MEDS: FERROUS FUMARATE (SR) TAB PO (08:42)
[2019-01-21] MEDS: FINASTERIDE 5 MG TAB PO (08:43)
[2019-01-21] MEDS: SOTALOL 80 MG TAB PO ×2 (08:43→20:08)
[2019-01-21] MEDS: ASPIRIN (EC) 81 MG TAB PO (08:44)
[2019-01-21] MEDS: RANOLAZINE (SR) 500 MG TAB PO ×2 (08:44→20:07)
[2019-01-21] MEDS: FOLIC ACID 1 MG TAB PO (08:44)
[2019-01-21] MEDS: BALSAM PERU/CASTOR OIL 60 GM TUBE TOP (08:46)
[2019-01-21] MEDS: TICAGRELOR 90 MG TABLET PO ×2 (08:56→20:19)
[2019-01-21 10:43] LABS: ADD MAN DIFF? NO
[2019-01-21 10:58] LABS: ABNORMAL IP MESSAGE 1; BASOPHILS % 0.2 % (0.0-2.0); EOSINOPHILS # 0.1 10^3/ul (0.0-0.5); EOSINOPHILS % 0.4 % (0.0-7.0); HEMATOCRIT 23.1 % (42.0-52.0); HEMOGLOBIN 7.2 g/dl (14.0-18.0); LYMPHOCYTES # 1.1 10^3/ul (0.8-2.9); LYMPHOCYTES % 6.6 % (15.0-51.0); MEAN CORPUSCULAR HEMOGLOBIN 24.7 pg (29.0-33.0); MEAN CORPUSCULAR HGB CONC 31.2 g/dl (32.0-37.0); MEAN CORPUSCULAR VOLUME 79.1 fl (82.0-101.0); MEAN PLATELET VOLUME 10.3 fl (7.4-10.4); MONOCYTES % 6.3 % (0.0-11.0); NEUTROPHIL # 14.2 10^3/ul (1.6-7.5); NEUTROPHILS % 85.7 % (39.0-77.0); PLATELET COUNT 380 10^3/UL (140-415); POSITIVE DIFF @See below; RED BLOOD COUNT 2.92 10^6/ul (4.70-6.10); RED CELL DISTRIBUTION WIDTH 22.4 % (11.5-14.5)
[2019-01-21 10:58] LABS: WHITE BLOOD COUNT 16.6 10^3/ul (4.8-10.8)
[2019-01-21 11:11] LABS: ANION GAP 15 (5-13); BLOOD UREA NITROGEN 45 mg/dl (7-20); CALCIUM 8.5 mg/dl (8.4-10.2); CARBON DIOXIDE 20 mmol/L (21-31); CHLORIDE 108 mmol/L (97-110); CREATININE 3.65 mg/dl (0.61-1.24); Estimated GFR 20 mL/min (>60); GLUCOSE 69 mg/dl (70-220); MAGNESIUM 1.6 mg/dl (1.7-2.5); PHOSPHORUS 5.6 mg/dl (2.5-4.9); POTASSIUM 4.1 mmol/L (3.5-5.1); SODIUM 143 mmol/L (135-144)
[2019-01-21] MEDS: MAGNESIUM SULFATE 2 GM/50 ML 50 ML IVPB (14:38)
[2019-01-21] MEDS: HEPARIN 5,000 UNIT/1 ML VIAL SC (20:08)
[2019-01-21] MEDS: ATORVASTATIN 40 MG TAB PO (20:08)
[2019-01-22] MEDS: ACCU-CHEK XX (01:09)
[2019-01-22] MEDS: PANTOPRAZOLE (EC) 40 MG TAB PO ×2 (05:09→18:00)
[2019-01-22] MEDS: morphine 4 MG/ML VIAL IV ×4 (05:10→22:10)
[2019-01-22 07:21] LABS: ADD MAN DIFF? NO
[2019-01-22 07:29] LABS: WHITE BLOOD COUNT 16.6 10^3/ul (4.8-10.8)
[2019-01-22 07:29] LABS: ABNORMAL IP MESSAGE 1; BASOPHILS % 0.1 % (0.0-2.0); EOSINOPHILS # 0.1 10^3/ul (0.0-0.5); EOSINOPHILS % 0.4 % (0.0-7.0); HEMOGLOBIN 8.1 g/dl (14.0-18.0); LYMPHOCYTES # 0.9 10^3/ul (0.8-2.9); LYMPHOCYTES % 5.3 % (15.0-51.0); MEAN CORPUSCULAR HEMOGLOBIN 24.5 pg (29.0-33.0); MEAN CORPUSCULAR HGB CONC 31.2 g/dl (32.0-37.0); MEAN CORPUSCULAR VOLUME 78.8 fl (82.0-101.0); MEAN PLATELET VOLUME 10.2 fl (7.4-10.4); MONOCYTE # 1.2 10^3/ul (0.3-0.9); MONOCYTES % 7.2 % (0.0-11.0); NEUTROPHIL # 14.4 10^3/ul (1.6-7.5); NEUTROPHILS % 86.3 % (39.0-77.0); PLATELET COUNT 355 10^3/UL (140-415); POSITIVE DIFF @See below; RED CELL DISTRIBUTION WIDTH 22.5 % (11.5-14.5)
[2019-01-22 07:54] LABS: ANION GAP 16 (5-13); BLOOD UREA NITROGEN 47 mg/dl (7-20); CALCIUM 8.6 mg/dl (8.4-10.2); CARBON DIOXIDE 19 mmol/L (21-31); CHLORIDE 107 mmol/L (97-110); CREATININE 3.77 mg/dl (0.61-1.24); Estimated GFR 20 mL/min (>60); GLUCOSE 138 mg/dl (70-220); PHOSPHORUS 6.1 mg/dl (2.5-4.9); SODIUM 142 mmol/L (135-144)
[2019-01-22] MEDS: INSULIN ASPART [NOVOLOG] 3 ML PEN SC ×4 (07:55→21:00)
[2019-01-22 08:48] LABS: POTASSIUM 4.2 mmol/L (3.5-5.1)
[2019-01-22] MEDS: SOTALOL 80 MG TAB PO ×2 (09:00→20:23)
[2019-01-22] MEDS: HEPARIN 5,000 UNIT/1 ML VIAL SC ×2 (09:00→20:33)
[2019-01-22] MEDS: FERROUS FUMARATE (SR) TAB PO (09:37)
[2019-01-22] MEDS: ASPIRIN (EC) 81 MG TAB PO (09:39)
[2019-01-22] MEDS: RANOLAZINE (SR) 500 MG TAB PO ×2 (09:39→20:23)
[2019-01-22] MEDS: FINASTERIDE 5 MG TAB PO (09:39)
[2019-01-22] MEDS: FOLIC ACID 1 MG TAB PO (09:39)
[2019-01-22] MEDS: TICAGRELOR 90 MG TABLET PO ×2 (09:41→20:32)
[2019-01-22] MEDS: BALSAM PERU/CASTOR OIL 60 GM TUBE TOP (09:42)
[2019-01-22] MEDS: ATORVASTATIN 40 MG TAB PO (20:23)
[2019-01-23] MEDS: ACCU-CHEK XX (02:14)
[2019-01-23] MEDS: morphine 4 MG/ML VIAL IV ×2 (03:46→08:17)
[2019-01-23] MEDS: PANTOPRAZOLE (EC) 40 MG TAB PO ×2 (06:21→17:50)
[2019-01-23] MEDS: RANOLAZINE (SR) 500 MG TAB PO ×3 (08:29→20:41)
[2019-01-23 08:36] LABS: ADD MAN DIFF? NO
[2019-01-23] MEDS: INSULIN ASPART [NOVOLOG] 3 ML PEN SC ×4 (08:37→21:00)
[2019-01-23 08:40] LABS: ABNORMAL IP MESSAGE 1; BASOPHILS % 0.2 % (0.0-2.0); EOSINOPHILS # 0.1 10^3/ul (0.0-0.5); EOSINOPHILS % 0.5 % (0.0-7.0); HEMOGLOBIN 8.5 g/dl (14.0-18.0); LYMPHOCYTES # 1.1 10^3/ul (0.8-2.9); LYMPHOCYTES % 6.2 % (15.0-51.0); MEAN CORPUSCULAR HEMOGLOBIN 24.3 pg (29.0-33.0); MEAN CORPUSCULAR HGB CONC 30.4 g/dl (32.0-37.0); MEAN PLATELET VOLUME 10.7 fl (7.4-10.4); MONOCYTES % 5.6 % (0.0-11.0); NEUTROPHIL # 14.8 10^3/ul (1.6-7.5); NEUTROPHILS % 86.9 % (39.0-77.0); PLATELET COUNT 452 10^3/UL (140-415); POSITIVE DIFF @See below; RED CELL DISTRIBUTION WIDTH 22.6 % (11.5-14.5)
[2019-01-23 08:40] LABS: WHITE BLOOD COUNT 17.1 10^3/ul (4.8-10.8)
[2019-01-23 08:58] LABS: ANION GAP 17 (5-13); BLOOD UREA NITROGEN 53 mg/dl (7-20); CALCIUM 9.2 mg/dl (8.4-10.2); CARBON DIOXIDE 20 mmol/L (21-31); CHLORIDE 107 mmol/L (97-110); CREATININE 4.04 mg/dl (0.61-1.24); Estimated GFR 18 mL/min (>60); GLUCOSE 151 mg/dl (70-220); POTASSIUM 4.8 mmol/L (3.5-5.1); SODIUM 144 mmol/L (135-144)
[2019-01-23] MEDS: HEPARIN 5,000 UNIT/1 ML VIAL SC ×2 (09:00→20:42)
[2019-01-23] MEDS: BALSAM PERU/CASTOR OIL 60 GM TUBE TOP (09:00)
[2019-01-23] MEDS: FERROUS FUMARATE (SR) TAB PO (09:27)
[2019-01-23] MEDS: ASPIRIN (EC) 81 MG TAB PO (09:27)
[2019-01-23] MEDS: FINASTERIDE 5 MG TAB PO (09:28)
[2019-01-23] MEDS: FOLIC ACID 1 MG TAB PO (09:28)
[2019-01-23] MEDS: SOTALOL 80 MG TAB PO ×2 (09:28→20:47)
[2019-01-23] MEDS: TICAGRELOR 90 MG TABLET PO ×2 (09:55→21:51)
[2019-01-23] MEDS: MULTIVIT/CA CARB/B CMPLX/FA TAB PO (13:36)
[2019-01-23] MEDS: morphine 2 MG INJ IV ×3 (13:36→21:47)
[2019-01-23] MEDS: MEROPENEM 500MG/50 ML (PMX) 50 ML IVPB ×2 (15:09→22:57)
[2019-01-23] MEDS: ZYVOX 600 MG TAB PO (20:41)
[2019-01-23] MEDS: ATORVASTATIN 40 MG TAB PO (20:41)
[2019-01-24] MEDS: ACCU-CHEK XX (02:00)
[2019-01-24] MEDS: morphine 2 MG INJ IV ×4 (02:52→16:07)
[2019-01-24] MEDS: PANTOPRAZOLE (EC) 40 MG TAB PO ×2 (05:24→17:32)
[2019-01-24 05:31] LABS: ADD MAN DIFF? NO
[2019-01-24 05:36] LABS: WHITE BLOOD COUNT 11.4 10^3/ul (4.8-10.8)
[2019-01-24 05:36] LABS: ABNORMAL IP MESSAGE 1; BASOPHILS % 0.3 % (0.0-2.0); EOSINOPHILS # 0.1 10^3/ul (0.0-0.5); HEMOGLOBIN 7.1 g/dl (14.0-18.0); LYMPHOCYTES # 0.8 10^3/ul (0.8-2.9); LYMPHOCYTES % 7.2 % (15.0-51.0); MEAN CORPUSCULAR HEMOGLOBIN 24.2 pg (29.0-33.0); MEAN CORPUSCULAR HGB CONC 30.9 g/dl (32.0-37.0); MEAN CORPUSCULAR VOLUME 78.5 fl (82.0-101.0); MEAN PLATELET VOLUME 10.4 fl (7.4-10.4); MONOCYTE # 0.7 10^3/ul (0.3-0.9); MONOCYTES % 6.3 % (0.0-11.0); NEUTROPHIL # 9.7 10^3/ul (1.6-7.5); NEUTROPHILS % 84.6 % (39.0-77.0); PLATELET COUNT 426 10^3/UL (140-415); POSITIVE DIFF @See below; RED BLOOD COUNT 2.93 10^6/ul (4.70-6.10); RED CELL DISTRIBUTION WIDTH 22.6 % (11.5-14.5)
[2019-01-24 06:00] LABS: GENTAMICIN,RANDOM 1.8 ug/ml
[2019-01-24 06:01] LABS: ANION GAP 14 (5-13); BLOOD UREA NITROGEN 58 mg/dl (7-20); CALCIUM 8.5 mg/dl (8.4-10.2); CARBON DIOXIDE 20 mmol/L (21-31); CHLORIDE 107 mmol/L (97-110); CREATININE 4.24 mg/dl (0.61-1.24); Estimated GFR 17 mL/min (>60); GLUCOSE 115 mg/dl (70-220); POTASSIUM 4.7 mmol/L (3.5-5.1); SODIUM 141 mmol/L (135-144)
[2019-01-24] MEDS: ONDANSETRON 4 MG INJ IV ×2 (07:09→20:05)
[2019-01-24] MEDS: INSULIN ASPART [NOVOLOG] 3 ML PEN SC ×4 (07:51→21:00)
[2019-01-24] MEDS: MEROPENEM 500MG/50 ML (PMX) 50 ML IVPB ×2 (08:41→21:26)
[2019-01-24] MEDS: MULTIVIT/CA CARB/B CMPLX/FA TAB PO (08:42)
[2019-01-24] MEDS: FERROUS FUMARATE (SR) TAB PO (08:42)
[2019-01-24] MEDS: SOTALOL 80 MG TAB PO ×2 (08:43→21:25)
[2019-01-24] MEDS: ZYVOX 600 MG TAB PO ×2 (08:44→21:25)
[2019-01-24] MEDS: FOLIC ACID 1 MG TAB PO (08:44)
[2019-01-24] MEDS: FINASTERIDE 5 MG TAB PO (08:44)
[2019-01-24] MEDS: RANOLAZINE (SR) 500 MG TAB PO ×2 (08:44→21:24)
[2019-01-24] MEDS: ASPIRIN (EC) 81 MG TAB PO (08:44)
[2019-01-24] MEDS: TICAGRELOR 90 MG TABLET PO ×2 (08:58→21:37)
[2019-01-24] MEDS: BALSAM PERU/CASTOR OIL 60 GM TUBE TOP (09:00)
[2019-01-24] MEDS: HEPARIN 5,000 UNIT/1 ML VIAL SC (09:00)
[2019-01-24 10:20] LABS: HAAIG REFLEX REFLEX FILED
[2019-01-24] MEDS: ALBUMIN HUMAN 25% 100 ML IV ×3 (10:36→23:57)
[2019-01-24 12:22] LABS: HEMATOCRIT 24.6 % (42.0-52.0); HEMOGLOBIN 7.5 g/dl (14.0-18.0)
[2019-01-24 13:03] LABS: COMPLEMENT C3 137 mg/dl (88-165)
[2019-01-24 13:23] LABS: HEPATITIS B SURFACE ANTIGEN NEGATIVE (NEGATIVE)
[2019-01-24 13:40] LABS: HEPATITIS B CORE ANTIBODY NEGATIVE (NEGATIVE); HEPATITIS C VIRAL ANTIBODY NEGATIVE (NEGATIVE)
[2019-01-24 18:55] LABS: RHEUMATOID FACTOR NEGATIVE (NEGATIVE)
[2019-01-24] MEDS: ATORVASTATIN 40 MG TAB PO (21:25)
[2019-01-25] MEDS: ACCU-CHEK XX (02:00)
[2019-01-25] MEDS: morphine 2 MG INJ IV ×4 (02:57→23:13)
[2019-01-25] MEDS: PANTOPRAZOLE (EC) 40 MG TAB PO ×2 (05:35→17:29)
[2019-01-25] MEDS: INSULIN ASPART [NOVOLOG] 3 ML PEN SC ×4 (07:49→21:00)
[2019-01-25] MEDS: MEROPENEM 500MG/50 ML (PMX) 50 ML IVPB ×2 (08:48→21:52)
[2019-01-25] MEDS: MULTIVIT/CA CARB/B CMPLX/FA TAB PO (08:48)
[2019-01-25] MEDS: FINASTERIDE 5 MG TAB PO (08:49)
[2019-01-25] MEDS: RANOLAZINE (SR) 500 MG TAB PO ×2 (08:49→21:37)
[2019-01-25] MEDS: ASPIRIN (EC) 81 MG TAB PO (08:49)
[2019-01-25] MEDS: FOLIC ACID 1 MG TAB PO (08:50)
[2019-01-25] MEDS: ZYVOX 600 MG TAB PO ×2 (08:50→21:37)
[2019-01-25] MEDS: FERROUS FUMARATE (SR) TAB PO (08:50)
[2019-01-25] MEDS: TICAGRELOR 90 MG TABLET PO ×2 (08:55→21:41)
[2019-01-25 08:56] LABS: ADD MAN DIFF? NO
[2019-01-25] MEDS: ALBUMIN HUMAN 25% 100 ML IV ×4 (08:57→23:22)
[2019-01-25] MEDS: SOTALOL 80 MG TAB PO ×2 (08:58→21:00)
[2019-01-25] MEDS: BALSAM PERU/CASTOR OIL 60 GM TUBE TOP (08:59)
[2019-01-25 09:00] LABS: ABNORMAL IP MESSAGE 1; BASOPHILS % 0.3 % (0.0-2.0); EOSINOPHILS # 0.1 10^3/ul (0.0-0.5); EOSINOPHILS % 0.9 % (0.0-7.0); HEMATOCRIT 21.6 % (42.0-52.0); LYMPHOCYTES # 0.7 10^3/ul (0.8-2.9); LYMPHOCYTES % 7.8 % (15.0-51.0); MEAN CORPUSCULAR HEMOGLOBIN 24.5 pg (29.0-33.0); MEAN CORPUSCULAR VOLUME 78.8 fl (82.0-101.0); MEAN PLATELET VOLUME 10.5 fl (7.4-10.4); MONOCYTE # 0.7 10^3/ul (0.3-0.9); NEUTROPHIL # 7.9 10^3/ul (1.6-7.5); NEUTROPHILS % 83.4 % (39.0-77.0); PLATELET COUNT 369 10^3/UL (140-415); POSITIVE DIFF @See below; RED BLOOD COUNT 2.74 10^6/ul (4.70-6.10); RED CELL DISTRIBUTION WIDTH 22.9 % (11.5-14.5)
[2019-01-25 09:00] LABS: WHITE BLOOD COUNT 9.4 10^3/ul (4.8-10.8)
[2019-01-25 09:30] LABS: ANION GAP 16 (5-13); BLOOD UREA NITROGEN 62 mg/dl (7-20); CARBON DIOXIDE 20 mmol/L (21-31); CHLORIDE 106 mmol/L (97-110); GLUCOSE 96 mg/dl (70-220); POTASSIUM 5.1 mmol/L (3.5-5.1); SODIUM 142 mmol/L (135-144)
[2019-01-25 09:31] LABS: CALCIUM 7.9 mg/dl (8.4-10.2); CREATININE 4.49 mg/dl (0.61-1.24); Estimated GFR 16 mL/min (>60)
[2019-01-25 09:33] LABS: HEMOGLOBIN 6.7 g/dl (14.0-18.0)
[2019-01-25 11:11] LABS: ANA SCREEN NEGATIVE (NEGATIVE)
[2019-01-25 12:11] LABS: HEMATOCRIT 23.6 % (42.0-52.0); HEMOGLOBIN 7.3 g/dl (14.0-18.0)
[2019-01-25 12:52] LABS: MYELOPEROXIDASE ANTIBODY <1.0 AI; PROTEINASE-3 ANTIBODY <1.0 AI
[2019-01-25 13:37] LABS: ANCA SCREEN NEGATIVE (NEGATIVE)
[2019-01-25 13:40] LABS: ADD UMIC YES; UR AMORPHOUS CRYSTAL FEW /HPF (NONE SEEN); UR ASCORBIC ACID NEGATIVE (NEGATIVE); UR BACTERIA FEW /HPF (NONE SEEN); UR BILIRUBIN (Dip) NEGATIVE (NEGATIVE); UR BLOOD (Dip) NEGATIVE (NEGATIVE); UR CLARITY CLOUDY (CLEAR); UR COLOR AMBER (YELLOW); UR GLUCOSE (Dip) NEGATIVE (NEGATIVE); UR KETONES (Dip) NEGATIVE (NEGATIVE); UR LEUKOCYTE ESTERASE (Dip) 1+ Leu/ul (NEGATIVE); UR NITRITE (Dip) NEGATIVE (NEGATIVE); UR RBC 4 /HPF (0-5); UR SPECIFIC GRAVITY (Dip) 1.017 (1.003-1.030); UR TOTAL PROTEIN (Dip) 1+ mg/dl (NEGATIVE); UR UROBILINOGEN (Dip) NEGATIVE (NEGATIVE); UR WBC 51 /HPF (0-5)
[2019-01-25 14:02] LABS: SODIUM,URINE RANDOM 29 mmol/L (30-90)
[2019-01-25 14:02] LABS: CREATININE,URINE RANDOM 138.07 mg/dl (20-370)
[2019-01-25] MEDS ORDERED: GENTAMICIN 80 MG/NS (PMX) 50 ML IVPB (17:00)
[2019-01-25] MEDS: ATORVASTATIN 40 MG TAB PO (21:37)
[2019-01-26] MEDS: ACCU-CHEK XX (02:00)
[2019-01-26] MEDS: PANTOPRAZOLE (EC) 40 MG TAB PO ×2 (05:55→17:10)
[2019-01-26] MEDS: morphine 2 MG INJ IV ×3 (06:05→17:56)
[2019-01-26 07:16] LABS: ADD MAN DIFF? NO
[2019-01-26 07:47] LABS: ANION GAP 17 (5-13); BLOOD UREA NITROGEN 65 mg/dl (7-20); CALCIUM 8.3 mg/dl (8.4-10.2); CARBON DIOXIDE 19 mmol/L (21-31); CHLORIDE 105 mmol/L (97-110); CREATININE 4.97 mg/dl (0.61-1.24); Estimated GFR 14 mL/min (>60); GLUCOSE 84 mg/dl (70-220); POTASSIUM 4.6 mmol/L (3.5-5.1); SODIUM 141 mmol/L (135-144)
[2019-01-26 07:53] LABS: MAGNESIUM 1.9 mg/dl (1.7-2.5)
[2019-01-26 07:53] LABS: PHOSPHORUS 6.1 mg/dl (2.5-4.9)
[2019-01-26] MEDS: INSULIN ASPART [NOVOLOG] 3 ML PEN SC ×4 (07:53→20:57)
[2019-01-26] MEDS: FINASTERIDE 5 MG TAB PO (08:22)
[2019-01-26] MEDS: ZYVOX 600 MG TAB PO ×2 (08:22→20:55)
[2019-01-26] MEDS: FOLIC ACID 1 MG TAB PO (08:23)
[2019-01-26] MEDS: MULTIVIT/CA CARB/B CMPLX/FA TAB PO (08:23)
[2019-01-26] MEDS: RANOLAZINE (SR) 500 MG TAB PO ×2 (08:23→20:55)
[2019-01-26] MEDS: FERROUS FUMARATE (SR) TAB PO (08:23)
[2019-01-26] MEDS: ASPIRIN (EC) 81 MG TAB PO (08:23)
[2019-01-26] MEDS: TICAGRELOR 90 MG TABLET PO ×2 (08:43→21:00)
[2019-01-26] MEDS: SOTALOL 80 MG TAB PO ×2 (09:00→20:56)
[2019-01-26 09:07] LABS: IRON 13 ug/dl (35-150)
[2019-01-26 09:16] LABS: % IRON SATURATION 7 % SAT (22-52); TOTAL IRON BINDING CAPACITY 179 ug/dl (241-421)
[2019-01-26] MEDS: MEROPENEM 500MG/50 ML (PMX) 50 ML IVPB ×2 (09:22→20:55)
[2019-01-26] MEDS: BALSAM PERU/CASTOR OIL 60 GM TUBE TOP (09:22)
[2019-01-26] MEDS: SOD CHLORIDE 0.9% 1,000 ML IV (09:31)
[2019-01-26 11:03] LABS: ABNORMAL IP MESSAGE 1; BASOPHILS % 0.2 % (0.0-2.0); EOSINOPHILS # 0.1 10^3/ul (0.0-0.5); EOSINOPHILS % 0.9 % (0.0-7.0); HEMATOCRIT 21.6 % (42.0-52.0); LYMPHOCYTES # 0.9 10^3/ul (0.8-2.9); LYMPHOCYTES % 7.7 % (15.0-51.0); MEAN CORPUSCULAR HEMOGLOBIN 23.7 pg (29.0-33.0); MEAN CORPUSCULAR HGB CONC 30.1 g/dl (32.0-37.0); MEAN CORPUSCULAR VOLUME 78.8 fl (82.0-101.0); MEAN PLATELET VOLUME 10.8 fl (7.4-10.4); MONOCYTE # 0.7 10^3/ul (0.3-0.9); MONOCYTES % 5.9 % (0.0-11.0); NEUTROPHIL # 9.5 10^3/ul (1.6-7.5); NEUTROPHILS % 84.8 % (39.0-77.0); PLATELET COUNT 405 10^3/UL (140-415); POSITIVE DIFF @See below; RED BLOOD COUNT 2.74 10^6/ul (4.70-6.10); RED CELL DISTRIBUTION WIDTH 23.4 % (11.5-14.5)
[2019-01-26 11:03] LABS: WHITE BLOOD COUNT 11.2 10^3/ul (4.8-10.8)
[2019-01-26 11:06] LABS: HEMOGLOBIN 6.5 g/dl (14.0-18.0)
[2019-01-26 11:07] LABS: PATH REVIEW? NO
[2019-01-26] MEDS: EPOETIN ALFA-EPBX (NON-ESRD 10,000 UNIT/ML VIAL SC (11:18)
[2019-01-26] MEDS: SOD FERRIC GLUC COMPLX 125 MG in SOD CHLORIDE 0.9% 100 ML IVPB (13:34)
[2019-01-26 15:22] LABS: CREATININE, RANDOM URINE 134 mg/dL (20-320); MICROALBUMIN/CREATININE RATIO 52 (<30)
[2019-01-26 16:06] LABS: ANTI-DNA (DOUBLE STRANDED) <95 U/mL (< 301)
[2019-01-26] MEDS: ATORVASTATIN 40 MG TAB PO (20:55)
[2019-01-27] MEDS: morphine 2 MG INJ IV ×4 (00:54→21:33)
[2019-01-27] MEDS: ACCU-CHEK XX (00:59)
[2019-01-27] MEDS: SOD CHLORIDE 0.9% 1,000 ML IV ×3 (04:30→23:50)
[2019-01-27] MEDS: SOD CHLORIDE 0.9% 250 ML IV* (04:34)
[2019-01-27] MEDS: PANTOPRAZOLE (EC) 40 MG TAB PO ×2 (06:08→17:23)
[2019-01-27] MEDS: DEXTROSE 50% 50 ML SYRINGE IV (07:43)
[2019-01-27] MEDS: INSULIN ASPART [NOVOLOG] 3 ML PEN SC ×4 (07:43→20:49)
[2019-01-27] MEDS: MEROPENEM 500MG/50 ML (PMX) 50 ML IVPB ×2 (08:00→20:43)
[2019-01-27] MEDS: RANOLAZINE (SR) 500 MG TAB PO ×2 (08:11→20:42)
[2019-01-27] MEDS: SOTALOL 80 MG TAB PO ×2 (08:12→20:45)
[2019-01-27] MEDS: MULTIVIT/CA CARB/B CMPLX/FA TAB PO (08:12)
[2019-01-27] MEDS: FERROUS FUMARATE (SR) TAB PO (08:12)
[2019-01-27] MEDS: ASPIRIN (EC) 81 MG TAB PO (08:12)
[2019-01-27] MEDS: ZYVOX 600 MG TAB PO ×2 (08:12→20:43)
[2019-01-27] MEDS: FOLIC ACID 1 MG TAB PO (08:12)
[2019-01-27] MEDS: BALSAM PERU/CASTOR OIL 60 GM TUBE TOP (08:13)
[2019-01-27] MEDS: FINASTERIDE 5 MG TAB PO (08:13)
[2019-01-27] MEDS: TICAGRELOR 90 MG TABLET PO ×2 (08:22→20:50)
[2019-01-27] MEDS: SOD FERRIC GLUC COMPLX 125 MG in SOD CHLORIDE 0.9% 100 ML IVPB (12:27)
[2019-01-27 18:39] LABS: AHG CROSSMATCH 1 2
[2019-01-27] MEDS: ATORVASTATIN 40 MG TAB PO (20:49)
[2019-01-28] MEDS: SOD CHLORIDE 0.9% 1,000 ML IV ×2 (00:54→12:42)
[2019-01-28] MEDS: ACCU-CHEK XX (01:14)
[2019-01-28] MEDS: morphine 2 MG INJ IV ×3 (03:24→20:56)
[2019-01-28] MEDS: PANTOPRAZOLE (EC) 40 MG TAB PO ×2 (05:05→17:06)
[2019-01-28] MEDS: INSULIN ASPART [NOVOLOG] 3 ML PEN SC ×4 (07:34→20:50)
[2019-01-28 08:17] LABS: ADD MAN DIFF? NO
[2019-01-28] MEDS: RANOLAZINE (SR) 500 MG TAB PO ×2 (08:42→20:50)
[2019-01-28] MEDS: ZYVOX 600 MG TAB PO ×2 (08:42→20:50)
[2019-01-28] MEDS: ASPIRIN (EC) 81 MG TAB PO (08:42)
[2019-01-28] MEDS: FOLIC ACID 1 MG TAB PO (08:42)
[2019-01-28] MEDS: FINASTERIDE 5 MG TAB PO (08:42)
[2019-01-28] MEDS: MULTIVIT/CA CARB/B CMPLX/FA TAB PO (08:42)
[2019-01-28] MEDS: FERROUS FUMARATE (SR) TAB PO (08:42)
[2019-01-28] MEDS: SOTALOL 80 MG TAB PO ×2 (08:42→20:49)
[2019-01-28 08:44] LABS: WHITE BLOOD COUNT 11.4 10^3/ul (4.8-10.8)
[2019-01-28 08:44] LABS: ABNORMAL IP MESSAGE 1; BASOPHILS % 0.2 % (0.0-2.0); EOSINOPHILS # 0.1 10^3/ul (0.0-0.5); EOSINOPHILS % 1.1 % (0.0-7.0); HEMATOCRIT 27.4 % (42.0-52.0); HEMOGLOBIN 8.6 g/dl (14.0-18.0); LYMPHOCYTES # 0.8 10^3/ul (0.8-2.9); LYMPHOCYTES % 7.2 % (15.0-51.0); MEAN CORPUSCULAR HEMOGLOBIN 24.9 pg (29.0-33.0); MEAN CORPUSCULAR HGB CONC 31.4 g/dl (32.0-37.0); MEAN CORPUSCULAR VOLUME 79.4 fl (82.0-101.0); MEAN PLATELET VOLUME 10.1 fl (7.4-10.4); MONOCYTE # 0.8 10^3/ul (0.3-0.9); MONOCYTES % 6.6 % (0.0-11.0); NEUTROPHIL # 9.6 10^3/ul (1.6-7.5); NEUTROPHILS % 84.3 % (39.0-77.0); PLATELET COUNT 355 10^3/UL (140-415); POSITIVE DIFF @See below; RED BLOOD COUNT 3.45 10^6/ul (4.70-6.10); RED CELL DISTRIBUTION WIDTH 22.1 % (11.5-14.5)
[2019-01-28 08:53] LABS: ANION GAP 16 (5-13); BLOOD UREA NITROGEN 64 mg/dl (7-20); CALCIUM 8.3 mg/dl (8.4-10.2); CARBON DIOXIDE 17 mmol/L (21-31); CHLORIDE 106 mmol/L (97-110); CREATININE 5.61 mg/dl (0.61-1.24); Estimated GFR 12 mL/min (>60); GLUCOSE 70 mg/dl (70-220); POTASSIUM 4.6 mmol/L (3.5-5.1); SODIUM 139 mmol/L (135-144)
[2019-01-28] MEDS: TICAGRELOR 90 MG TABLET PO ×2 (08:54→21:20)
[2019-01-28] MEDS: BALSAM PERU/CASTOR OIL 60 GM TUBE TOP (08:57)
[2019-01-28] MEDS: MEROPENEM 500MG/50 ML (PMX) 50 ML IVPB ×2 (08:57→20:50)
[2019-01-28 11:39] LABS: ANISOCYTOSIS 2+ (0-0); BURR CELLS 1+ (0-0); EOSINOPHILS % (M) 1 % (0-7); GIANT THROMBO% (M) 1 % (0-0); LYMPHOCYTES #M 0.6 10^3/ul (0.8-2.9); LYMPHOCYTES % (M) 6 % (15-51); MONOCYTE #M 0.5 10^3/ul (0.3-0.9); MONOCYTES % (M) 5 % (0-11); PLATELET ESTIMATE NORMAL; POIKILOCYTOSIS 1+ (0-0); POLYCHROMASIA 3+ (0-0); SEGMENTED NEUTROPHILS (M) % 88 % (39-77); SMUDGE%M 6 % (0-0); TARGET CELLS 1+ (0-0)
[2019-01-28] MEDS: DEXTROSE 50% 50 ML SYRINGE IV (12:18)
[2019-01-28] MEDS: ATORVASTATIN 40 MG TAB PO (20:50)
[2019-01-29] MEDS: ACCU-CHEK XX (02:00)
[2019-01-29] MEDS: morphine 2 MG INJ IV ×2 (03:00→09:17)
[2019-01-29] MEDS: PANTOPRAZOLE (EC) 40 MG TAB PO ×2 (05:18→17:27)
[2019-01-29 06:43] LABS: ADD MAN DIFF? NO
[2019-01-29 06:52] LABS: ABNORMAL IP MESSAGE 1; BASOPHILS % 0.2 % (0.0-2.0); EOSINOPHILS # 0.2 10^3/ul (0.0-0.5); EOSINOPHILS % 1.5 % (0.0-7.0); HEMOGLOBIN 8.1 g/dl (14.0-18.0); LYMPHOCYTES # 0.9 10^3/ul (0.8-2.9); LYMPHOCYTES % 8.2 % (15.0-51.0); MEAN CORPUSCULAR HGB CONC 31.2 g/dl (32.0-37.0); MEAN CORPUSCULAR VOLUME 80.2 fl (82.0-101.0); MEAN PLATELET VOLUME 10.3 fl (7.4-10.4); MONOCYTE # 0.7 10^3/ul (0.3-0.9); MONOCYTES % 6.8 % (0.0-11.0); NEUTROPHIL # 8.7 10^3/ul (1.6-7.5); NEUTROPHILS % 82.6 % (39.0-77.0); PLATELET COUNT 379 10^3/UL (140-415); POSITIVE DIFF @See below; RED BLOOD COUNT 3.24 10^6/ul (4.70-6.10); RED CELL DISTRIBUTION WIDTH 22.7 % (11.5-14.5)
[2019-01-29 06:52] LABS: WHITE BLOOD COUNT 10.5 10^3/ul (4.8-10.8)
[2019-01-29 07:13] LABS: ANION GAP 16 (5-13); BLOOD UREA NITROGEN 70 mg/dl (7-20); CALCIUM 8.5 mg/dl (8.4-10.2); CARBON DIOXIDE 18 mmol/L (21-31); CHLORIDE 105 mmol/L (97-110); CREATININE 5.88 mg/dl (0.61-1.24); Estimated GFR 12 mL/min (>60); GLUCOSE 77 mg/dl (70-220); POTASSIUM 4.7 mmol/L (3.5-5.1); SODIUM 139 mmol/L (135-144)
[2019-01-29] MEDS: INSULIN ASPART [NOVOLOG] 3 ML PEN SC ×4 (07:49→20:21)
[2019-01-29] MEDS: BALSAM PERU/CASTOR OIL 60 GM TUBE TOP (09:00)
[2019-01-29] MEDS: FINASTERIDE 5 MG TAB PO (09:00)
[2019-01-29] MEDS: ZYVOX 600 MG TAB PO ×2 (09:02→20:07)
[2019-01-29] MEDS: MULTIVIT/CA CARB/B CMPLX/FA TAB PO (09:02)
[2019-01-29] MEDS: FOLIC ACID 1 MG TAB PO (09:03)
[2019-01-29] MEDS: RANOLAZINE (SR) 500 MG TAB PO ×2 (09:03→20:06)
[2019-01-29] MEDS: FERROUS FUMARATE (SR) TAB PO (09:03)
[2019-01-29] MEDS: SOTALOL 80 MG TAB PO ×2 (09:03→21:00)
[2019-01-29] MEDS: MEROPENEM 500MG/50 ML (PMX) 50 ML IVPB ×2 (09:16→20:06)
[2019-01-29] MEDS: ASPIRIN (EC) 81 MG TAB PO (09:37)
[2019-01-29] MEDS: TICAGRELOR 90 MG TABLET PO ×2 (09:44→20:08)
[2019-01-29] MEDS: ATORVASTATIN 40 MG TAB PO (20:06)
[2019-01-30] MEDS: ACCU-CHEK XX (02:00)
[2019-01-30] MEDS: PANTOPRAZOLE (EC) 40 MG TAB PO ×2 (05:51→18:00)
[2019-01-30 07:18] LABS: ADD MAN DIFF? NO
[2019-01-30 07:21] LABS: WHITE BLOOD COUNT 10.1 10^3/ul (4.8-10.8)
[2019-01-30 07:21] LABS: ABNORMAL IP MESSAGE 1; BASOPHILS % 0.2 % (0.0-2.0); EOSINOPHILS # 0.1 10^3/ul (0.0-0.5); HEMATOCRIT 28.1 % (42.0-52.0); HEMOGLOBIN 8.6 g/dl (14.0-18.0); LYMPHOCYTES # 0.7 10^3/ul (0.8-2.9); LYMPHOCYTES % 7.1 % (15.0-51.0); MEAN CORPUSCULAR HEMOGLOBIN 24.8 pg (29.0-33.0); MEAN CORPUSCULAR HGB CONC 30.6 g/dl (32.0-37.0); MEAN PLATELET VOLUME 10.5 fl (7.4-10.4); MONOCYTE # 0.5 10^3/ul (0.3-0.9); MONOCYTES % 4.6 % (0.0-11.0); NEUTROPHIL # 8.7 10^3/ul (1.6-7.5); NEUTROPHILS % 86.4 % (39.0-77.0); PLATELET COUNT 387 10^3/UL (140-415); POSITIVE DIFF @See below; RED BLOOD COUNT 3.47 10^6/ul (4.70-6.10); RED CELL DISTRIBUTION WIDTH 23.1 % (11.5-14.5)
[2019-01-30] MEDS: INSULIN ASPART [NOVOLOG] 3 ML PEN SC ×4 (07:43→21:00)
[2019-01-30 07:46] LABS: MAGNESIUM 1.8 mg/dl (1.7-2.5)
[2019-01-30 07:46] LABS: PHOSPHORUS 7.4 mg/dl (2.5-4.9)
[2019-01-30 07:50] LABS: ANION GAP 17 (5-13); BLOOD UREA NITROGEN 75 mg/dl (7-20); CALCIUM 8.6 mg/dl (8.4-10.2); CARBON DIOXIDE 17 mmol/L (21-31); CHLORIDE 106 mmol/L (97-110); CREATININE 6.05 mg/dl (0.61-1.24); Estimated GFR 11 mL/min (>60); GLUCOSE 67 mg/dl (70-220); SODIUM 140 mmol/L (135-144)
[2019-01-30] MEDS: RANOLAZINE (SR) 500 MG TAB PO ×2 (08:59→20:58)
[2019-01-30] MEDS: SOTALOL 80 MG TAB PO ×2 (09:00→21:00)
[2019-01-30] MEDS: ZYVOX 600 MG TAB PO (09:00)
[2019-01-30] MEDS: BALSAM PERU/CASTOR OIL 60 GM TUBE TOP (09:00)
[2019-01-30] MEDS: ASPIRIN (EC) 81 MG TAB PO (09:00)
[2019-01-30] MEDS: FINASTERIDE 5 MG TAB PO (09:00)
[2019-01-30] MEDS: FOLIC ACID 1 MG TAB PO (09:00)
[2019-01-30] MEDS: MULTIVIT/CA CARB/B CMPLX/FA TAB PO (09:00)
[2019-01-30] MEDS: FERROUS FUMARATE (SR) TAB PO (09:00)
[2019-01-30] MEDS: TICAGRELOR 90 MG TABLET PO ×2 (09:45→21:13)
[2019-01-30] MEDS: MEROPENEM 500MG/50 ML (PMX) 50 ML IVPB ×2 (09:55→20:58)
[2019-01-30] MEDS: ATORVASTATIN 40 MG TAB PO (20:58)
[2019-01-31] MEDS: ACCU-CHEK XX (02:00)
[2019-01-31] MEDS: PANTOPRAZOLE (EC) 40 MG TAB PO ×2 (06:05→17:19)
[2019-01-31 06:46] LABS: ADD MAN DIFF? NO
[2019-01-31 06:54] LABS: ABNORMAL IP MESSAGE 1; BASOPHILS % 0.4 % (0.0-2.0); EOSINOPHILS # 0.1 10^3/ul (0.0-0.5); HEMATOCRIT 26.2 % (42.0-52.0); HEMOGLOBIN 7.8 g/dl (14.0-18.0); LYMPHOCYTES # 0.9 10^3/ul (0.8-2.9); LYMPHOCYTES % 9.7 % (15.0-51.0); MEAN CORPUSCULAR HEMOGLOBIN 24.5 pg (29.0-33.0); MEAN CORPUSCULAR HGB CONC 29.8 g/dl (32.0-37.0); MEAN CORPUSCULAR VOLUME 82.1 fl (82.0-101.0); MEAN PLATELET VOLUME 10.1 fl (7.4-10.4); MONOCYTE # 0.7 10^3/ul (0.3-0.9); MONOCYTES % 6.7 % (0.0-11.0); NEUTROPHILS % 81.8 % (39.0-77.0); PLATELET COUNT 320 10^3/UL (140-415); POSITIVE DIFF @See below; RED BLOOD COUNT 3.19 10^6/ul (4.70-6.10); RED CELL DISTRIBUTION WIDTH 23.8 % (11.5-14.5)
[2019-01-31 06:54] LABS: WHITE BLOOD COUNT 9.7 10^3/ul (4.8-10.8)
[2019-01-31 07:13] LABS: ANION GAP 17 (5-13); BLOOD UREA NITROGEN 77 mg/dl (7-20); CALCIUM 8.5 mg/dl (8.4-10.2); CARBON DIOXIDE 16 mmol/L (21-31); CHLORIDE 107 mmol/L (97-110); CREATININE 6.09 mg/dl (0.61-1.24); Estimated GFR 11 mL/min (>60); GLUCOSE 67 mg/dl (70-220); POTASSIUM 4.9 mmol/L (3.5-5.1); SODIUM 140 mmol/L (135-144)
[2019-01-31] MEDS: INSULIN ASPART [NOVOLOG] 3 ML PEN SC ×4 (07:55→21:00)
[2019-01-31] MEDS: ASPIRIN (EC) 81 MG TAB PO (08:20)
[2019-01-31] MEDS: FERROUS FUMARATE (SR) TAB PO (08:20)
[2019-01-31] MEDS: RANOLAZINE (SR) 500 MG TAB PO ×2 (08:20→21:33)
[2019-01-31] MEDS: TICAGRELOR 90 MG TABLET PO ×2 (08:21→21:49)
[2019-01-31] MEDS: SOTALOL 80 MG TAB PO ×2 (08:21→21:34)
[2019-01-31] MEDS: MULTIVIT/CA CARB/B CMPLX/FA TAB PO (08:21)
[2019-01-31] MEDS: FOLIC ACID 1 MG TAB PO (08:21)
[2019-01-31] MEDS: BALSAM PERU/CASTOR OIL 60 GM TUBE TOP (08:22)
[2019-01-31] MEDS: FINASTERIDE 5 MG TAB PO (08:22)
[2019-01-31] MEDS: MEROPENEM 500MG/50 ML (PMX) 50 ML IVPB ×2 (08:37→21:41)
[2019-01-31] MEDS: DEXTROSE 50% 50 ML SYRINGE IV (11:50)
[2019-01-31] MEDS: ATORVASTATIN 40 MG TAB PO (21:33)
[2019-02-01] MEDS: ACCU-CHEK XX (02:00)
[2019-02-01 06:15] LABS: ADD MAN DIFF? NO
[2019-02-01 06:26] LABS: WHITE BLOOD COUNT 8.5 10^3/ul (4.8-10.8)
[2019-02-01 06:26] LABS: ABNORMAL IP MESSAGE 1; BASOPHILS % 0.4 % (0.0-2.0); EOSINOPHILS # 0.1 10^3/ul (0.0-0.5); EOSINOPHILS % 1.3 % (0.0-7.0); HEMATOCRIT 24.6 % (42.0-52.0); HEMOGLOBIN 7.6 g/dl (14.0-18.0); LYMPHOCYTES # 0.9 10^3/ul (0.8-2.9); LYMPHOCYTES % 10.2 % (15.0-51.0); MEAN CORPUSCULAR HEMOGLOBIN 24.6 pg (29.0-33.0); MEAN CORPUSCULAR HGB CONC 30.9 g/dl (32.0-37.0); MEAN CORPUSCULAR VOLUME 79.6 fl (82.0-101.0); MEAN PLATELET VOLUME 10.2 fl (7.4-10.4); MONOCYTE # 0.6 10^3/ul (0.3-0.9); MONOCYTES % 7.3 % (0.0-11.0); NEUTROPHIL # 6.8 10^3/ul (1.6-7.5); NEUTROPHILS % 80.3 % (39.0-77.0); PLATELET COUNT 292 10^3/UL (140-415); POSITIVE DIFF @See below; RED BLOOD COUNT 3.09 10^6/ul (4.70-6.10); RED CELL DISTRIBUTION WIDTH 23.5 % (11.5-14.5)
[2019-02-01] MEDS: PANTOPRAZOLE (EC) 40 MG TAB PO ×2 (06:41→19:46)
[2019-02-01 06:49] LABS: ANION GAP 15 (5-13); BLOOD UREA NITROGEN 77 mg/dl (7-20); CALCIUM 8.6 mg/dl (8.4-10.2); CARBON DIOXIDE 18 mmol/L (21-31); CHLORIDE 108 mmol/L (97-110); CREATININE 6.11 mg/dl (0.61-1.24); Estimated GFR 11 mL/min (>60); GLUCOSE 82 mg/dl (70-220); POTASSIUM 4.9 mmol/L (3.5-5.1); SODIUM 141 mmol/L (135-144)
[2019-02-01] MEDS: INSULIN ASPART [NOVOLOG] 3 ML PEN SC ×4 (07:55→20:35)
[2019-02-01] MEDS: FERROUS FUMARATE (SR) TAB PO (08:53)
[2019-02-01] MEDS: ASPIRIN (EC) 81 MG TAB PO (08:53)
[2019-02-01] MEDS: FINASTERIDE 5 MG TAB PO (08:53)
[2019-02-01] MEDS: FOLIC ACID 1 MG TAB PO (08:53)
[2019-02-01] MEDS: MULTIVIT/CA CARB/B CMPLX/FA TAB PO (08:53)
[2019-02-01] MEDS: MEROPENEM 500MG/50 ML (PMX) 50 ML IVPB ×2 (08:53→20:14)
[2019-02-01] MEDS: SOTALOL 80 MG TAB PO ×2 (08:54→20:14)
[2019-02-01] MEDS: RANOLAZINE (SR) 500 MG TAB PO ×2 (08:54→20:13)
[2019-02-01] MEDS: BALSAM PERU/CASTOR OIL 60 GM TUBE TOP (09:00)
[2019-02-01] MEDS: TICAGRELOR 90 MG TABLET PO ×2 (10:22→20:34)
[2019-02-01] MEDS: ATORVASTATIN 40 MG TAB PO (20:14)
[2019-02-02] MEDS: ACCU-CHEK XX (01:10)
[2019-02-02] MEDS: PANTOPRAZOLE (EC) 40 MG TAB PO ×2 (05:38→17:26)
[2019-02-02] MEDS: INSULIN ASPART [NOVOLOG] 3 ML PEN SC ×4 (07:55→20:07)
[2019-02-02] MEDS: BALSAM PERU/CASTOR OIL 60 GM TUBE TOP (09:00)
[2019-02-02] MEDS: FINASTERIDE 5 MG TAB PO (09:36)
[2019-02-02] MEDS: ASPIRIN (EC) 81 MG TAB PO (09:36)
[2019-02-02] MEDS: SOTALOL 80 MG TAB PO ×2 (09:36→20:08)
[2019-02-02] MEDS: RANOLAZINE (SR) 500 MG TAB PO ×2 (09:36→20:07)
[2019-02-02] MEDS: MULTIVIT/CA CARB/B CMPLX/FA TAB PO (09:36)
[2019-02-02] MEDS: FOLIC ACID 1 MG TAB PO (09:36)
[2019-02-02] MEDS: FERROUS FUMARATE (SR) TAB PO (09:36)
[2019-02-02] MEDS: MEROPENEM 500MG/50 ML (PMX) 50 ML IVPB ×2 (09:50→20:08)
[2019-02-02] MEDS: TICAGRELOR 90 MG TABLET PO ×2 (10:05→20:30)
[2019-02-02 15:41] LABS: ANION GAP 12 (5-13); BLOOD UREA NITROGEN 59 mg/dl (7-20); CALCIUM 8.6 mg/dl (8.4-10.2); CARBON DIOXIDE 21 mmol/L (21-31); CHLORIDE 107 mmol/L (97-110); CREATININE 4.19 mg/dl (0.61-1.24); Estimated GFR 17 mL/min (>60); GLUCOSE 88 mg/dl (70-220); POTASSIUM 4.8 mmol/L (3.5-5.1); SODIUM 140 mmol/L (135-144)
[2019-02-02] MEDS: ATORVASTATIN 40 MG TAB PO (20:08)
[2019-02-02] MEDS: HEPARIN 5,000 UNIT/1 ML VIAL SC (20:31)
[2019-02-03] MEDS: ACCU-CHEK XX (01:10)
[2019-02-03] MEDS: PANTOPRAZOLE (EC) 40 MG TAB PO ×2 (05:07→17:55)
[2019-02-03] MEDS: INSULIN ASPART [NOVOLOG] 3 ML PEN SC ×4 (07:55→21:00)
[2019-02-03 08:13] LABS: ADD MAN DIFF? NO
[2019-02-03 08:17] LABS: WHITE BLOOD COUNT 11.7 10^3/ul (4.8-10.8)
[2019-02-03 08:17] LABS: ABNORMAL IP MESSAGE 1; BASOPHILS % 0.3 % (0.0-2.0); EOSINOPHILS # 0.1 10^3/ul (0.0-0.5); EOSINOPHILS % 0.4 % (0.0-7.0); HEMATOCRIT 22.3 % (42.0-52.0); LYMPHOCYTES # 0.8 10^3/ul (0.8-2.9); LYMPHOCYTES % 6.9 % (15.0-51.0); MEAN CORPUSCULAR HEMOGLOBIN 25.2 pg (29.0-33.0); MEAN CORPUSCULAR HGB CONC 31.4 g/dl (32.0-37.0); MEAN CORPUSCULAR VOLUME 80.2 fl (82.0-101.0); MEAN PLATELET VOLUME 10.5 fl (7.4-10.4); MONOCYTE # 0.8 10^3/ul (0.3-0.9); MONOCYTES % 6.6 % (0.0-11.0); NEUTROPHILS % 85.2 % (39.0-77.0); NUCLEATED RED BLOOD CELLS% 0.3 /100WBC (0.0-0.0); PLATELET COUNT 201 10^3/UL (140-415); POSITIVE DIFF @See below; RED BLOOD COUNT 2.78 10^6/ul (4.70-6.10); RED CELL DISTRIBUTION WIDTH 23.2 % (11.5-14.5)
[2019-02-03 08:47] LABS: ANION GAP 12 (5-13); BLOOD UREA NITROGEN 59 mg/dl (7-20); CALCIUM 8.5 mg/dl (8.4-10.2); CARBON DIOXIDE 21 mmol/L (21-31); CHLORIDE 107 mmol/L (97-110); CREATININE 4.38 mg/dl (0.61-1.24); Estimated GFR 17 mL/min (>60); GLUCOSE 89 mg/dl (70-220); MAGNESIUM 1.8 mg/dl (1.7-2.5); PHOSPHORUS 4.8 mg/dl (2.5-4.9); POTASSIUM 4.3 mmol/L (3.5-5.1); SODIUM 140 mmol/L (135-144)
[2019-02-03] MEDS: HEPARIN 5,000 UNIT/1 ML VIAL SC ×2 (09:00→21:00)
[2019-02-03] MEDS: BALSAM PERU/CASTOR OIL 60 GM TUBE TOP (09:51)
[2019-02-03] MEDS: HEPARIN 1000 UNITS/ML 10 ML INJ CATHETER (12:30)
[2019-02-03] MEDS: HEPARIN 1000 UNITS/ML 10 ML INJ (12:32)
[2019-02-03] MEDS: MULTIVIT/CA CARB/B CMPLX/FA TAB PO (14:39)
[2019-02-03] MEDS: FINASTERIDE 5 MG TAB PO (14:40)
[2019-02-03] MEDS: ASPIRIN (EC) 81 MG TAB PO (14:40)
[2019-02-03] MEDS: FERROUS FUMARATE (SR) TAB PO (14:40)
[2019-02-03] MEDS: FOLIC ACID 1 MG TAB PO (14:40)
[2019-02-03] MEDS: RANOLAZINE (SR) 500 MG TAB PO ×2 (14:40→21:20)
[2019-02-03] MEDS: MEROPENEM 500MG/50 ML (PMX) 50 ML IVPB ×2 (14:40→21:18)
[2019-02-03] MEDS: SOTALOL 80 MG TAB PO ×2 (14:48→21:20)
[2019-02-03] MEDS: TICAGRELOR 90 MG TABLET PO ×2 (14:54→21:26)
[2019-02-03] MEDS: ATORVASTATIN 40 MG TAB PO (21:20)
[2019-02-04] MEDS: ACCU-CHEK XX (02:00)
[2019-02-04] MEDS: PANTOPRAZOLE (EC) 40 MG TAB PO ×2 (05:20→18:05)
[2019-02-04 07:09] LABS: ANION GAP 12 (5-13); BLOOD UREA NITROGEN 44 mg/dl (7-20); CALCIUM 8.6 mg/dl (8.4-10.2); CARBON DIOXIDE 22 mmol/L (21-31); CHLORIDE 106 mmol/L (97-110); CREATININE 3.48 mg/dl (0.61-1.24); Estimated GFR 22 mL/min (>60); GLUCOSE 91 mg/dl (70-220); MAGNESIUM 1.7 mg/dl (1.7-2.5); PHOSPHORUS 4.3 mg/dl (2.5-4.9); POTASSIUM 3.8 mmol/L (3.5-5.1); SODIUM 140 mmol/L (135-144)
[2019-02-04] MEDS: INSULIN ASPART [NOVOLOG] 3 ML PEN SC ×4 (07:55→20:47)
[2019-02-04] MEDS: HEPARIN 5,000 UNIT/1 ML VIAL SC ×2 (09:00→20:46)
[2019-02-04] MEDS: FINASTERIDE 5 MG TAB PO (09:16)
[2019-02-04] MEDS: RANOLAZINE (SR) 500 MG TAB PO ×2 (09:17→20:45)
[2019-02-04] MEDS: MULTIVIT/CA CARB/B CMPLX/FA TAB PO (09:17)
[2019-02-04] MEDS: FOLIC ACID 1 MG TAB PO (09:17)
[2019-02-04] MEDS: ASPIRIN (EC) 81 MG TAB PO (09:17)
[2019-02-04] MEDS: SOTALOL 80 MG TAB PO ×2 (09:17→20:46)
[2019-02-04] MEDS: FERROUS FUMARATE (SR) TAB PO (09:17)
[2019-02-04] MEDS: MEROPENEM 500MG/50 ML (PMX) 50 ML IVPB ×2 (09:18→20:47)
[2019-02-04] MEDS: TICAGRELOR 90 MG TABLET PO ×2 (09:22→20:50)
[2019-02-04] MEDS: BALSAM PERU/CASTOR OIL 60 GM TUBE TOP (09:33)
[2019-02-04] MEDS: ATORVASTATIN 40 MG TAB PO (20:45)
[2019-02-05] MEDS: HEPARIN 1000 UNITS/ML 10 ML INJ CATHETER (01:09)
[2019-02-05] MEDS: ACCU-CHEK XX ×2 (02:00→22:18)
[2019-02-05] MEDS: PANTOPRAZOLE (EC) 40 MG TAB PO ×2 (05:36→16:59)
[2019-02-05 06:06] LABS: ADD MAN DIFF? NO
[2019-02-05 06:33] LABS: ANION GAP 12 (5-13); BLOOD UREA NITROGEN 26 mg/dl (7-20); CALCIUM 8.3 mg/dl (8.4-10.2); CARBON DIOXIDE 25 mmol/L (21-31); CHLORIDE 104 mmol/L (97-110); CREATININE 2.17 mg/dl (0.61-1.24); Estimated GFR 37 mL/min (>60); GLUCOSE 76 mg/dl (70-220); MAGNESIUM 1.7 mg/dl (1.7-2.5); PHOSPHORUS 2.9 mg/dl (2.5-4.9); POTASSIUM 3.5 mmol/L (3.5-5.1); SODIUM 141 mmol/L (135-144)
[2019-02-05 06:49] LABS: ABNORMAL IP MESSAGE 1; BASOPHILS % 0.2 % (0.0-2.0); EOSINOPHILS # 0.1 10^3/ul (0.0-0.5); EOSINOPHILS % 0.8 % (0.0-7.0); HEMATOCRIT 20.8 % (42.0-52.0); LYMPHOCYTES % 7.8 % (15.0-51.0); MEAN CORPUSCULAR HEMOGLOBIN 24.9 pg (29.0-33.0); MEAN CORPUSCULAR HGB CONC 30.8 g/dl (32.0-37.0); MEAN CORPUSCULAR VOLUME 80.9 fl (82.0-101.0); MEAN PLATELET VOLUME 10.9 fl (7.4-10.4); MONOCYTE # 1.1 10^3/ul (0.3-0.9); MONOCYTES % 9.1 % (0.0-11.0); NEUTROPHIL # 10.1 10^3/ul (1.6-7.5); NEUTROPHILS % 81.5 % (39.0-77.0); NUCLEATED RED BLOOD CELLS% 0.2 /100WBC (0.0-0.0); PLATELET COUNT 166 10^3/UL (140-415); POSITIVE DIFF @See below; RED BLOOD COUNT 2.57 10^6/ul (4.70-6.10); RED CELL DISTRIBUTION WIDTH 23.6 % (11.5-14.5)
[2019-02-05 06:49] LABS: WHITE BLOOD COUNT 12.3 10^3/ul (4.8-10.8)
[2019-02-05] MEDS: LIDOCAINE 1% (MPF) 5 ML VIAL (07:18)
[2019-02-05 07:36] LABS: HEMOGLOBIN 6.4 g/dl (14.0-18.0)
[2019-02-05] MEDS: INSULIN ASPART [NOVOLOG] 3 ML PEN SC ×4 (07:55→22:18)
[2019-02-05] MEDS: MEROPENEM 500MG/50 ML (PMX) 50 ML IVPB ×2 (07:57→20:37)
[2019-02-05] MEDS: RANOLAZINE (SR) 500 MG TAB PO ×2 (07:58→20:37)
[2019-02-05] MEDS: MULTIVIT/CA CARB/B CMPLX/FA TAB PO (07:59)
[2019-02-05] MEDS: FOLIC ACID 1 MG TAB PO (07:59)
[2019-02-05] MEDS: ASPIRIN (EC) 81 MG TAB PO (07:59)
[2019-02-05] MEDS: FERROUS FUMARATE (SR) TAB PO (07:59)
[2019-02-05] MEDS: FINASTERIDE 5 MG TAB PO (07:59)
[2019-02-05] MEDS: SOTALOL 80 MG TAB PO ×2 (07:59→20:38)
[2019-02-05] MEDS: HEPARIN 5,000 UNIT/1 ML VIAL SC ×2 (08:00→20:31)
[2019-02-05] MEDS: BALSAM PERU/CASTOR OIL 60 GM TUBE TOP (08:00)
[2019-02-05] MEDS: TICAGRELOR 90 MG TABLET PO ×2 (08:04→20:46)
[2019-02-05 08:50] LABS: IRON 19 ug/dl (35-150)
[2019-02-05 09:00] LABS: % IRON SATURATION 10 % SAT (22-52); TOTAL IRON BINDING CAPACITY 200 ug/dl (241-421)
[2019-02-05] MEDS: EPOETIN ALFA-EPBX (NON-ESRD 10,000 UNIT/ML VIAL SC (09:34)
[2019-02-05 14:54] LABS: AHG CROSSMATCH 1 1
[2019-02-05] MEDS: ATORVASTATIN 40 MG TAB PO (20:37)
[2019-02-06] MEDS: PANTOPRAZOLE (EC) 40 MG TAB PO ×2 (05:47→17:00)
[2019-02-06 06:35] LABS: ADD MAN DIFF? NO
[2019-02-06 06:42] LABS: WHITE BLOOD COUNT 11.4 10^3/ul (4.8-10.8)
[2019-02-06 06:42] LABS: ABNORMAL IP MESSAGE 1; BASOPHILS % 0.2 % (0.0-2.0); EOSINOPHILS # 0.1 10^3/ul (0.0-0.5); EOSINOPHILS % 1.2 % (0.0-7.0); HEMATOCRIT 22.6 % (42.0-52.0); HEMOGLOBIN 7.2 g/dl (14.0-18.0); LYMPHOCYTES # 1.1 10^3/ul (0.8-2.9); LYMPHOCYTES % 9.9 % (15.0-51.0); MEAN CORPUSCULAR HEMOGLOBIN 25.6 pg (29.0-33.0); MEAN CORPUSCULAR HGB CONC 31.9 g/dl (32.0-37.0); MEAN CORPUSCULAR VOLUME 80.4 fl (82.0-101.0); MEAN PLATELET VOLUME 12.2 fl (7.4-10.4); MONOCYTE # 0.9 10^3/ul (0.3-0.9); MONOCYTES % 7.8 % (0.0-11.0); NEUTROPHIL # 9.1 10^3/ul (1.6-7.5); NEUTROPHILS % 80.2 % (39.0-77.0); NUCLEATED RED BLOOD CELLS% 0.2 /100WBC (0.0-0.0); PLATELET COUNT 180 10^3/UL (140-415); POSITIVE DIFF @See below; RED BLOOD COUNT 2.81 10^6/ul (4.70-6.10); RED CELL DISTRIBUTION WIDTH 22.5 % (11.5-14.5)
[2019-02-06] MEDS: HEPARIN 5,000 UNIT/1 ML VIAL SC ×2 (07:11→20:58)
[2019-02-06 07:18] LABS: ANION GAP 10 (5-13); BLOOD UREA NITROGEN 30 mg/dl (7-20); CALCIUM 7.8 mg/dl (8.4-10.2); CARBON DIOXIDE 26 mmol/L (21-31); CHLORIDE 104 mmol/L (97-110); CREATININE 2.47 mg/dl (0.61-1.24); Estimated GFR 32 mL/min (>60); GLUCOSE 106 mg/dl (70-220); MAGNESIUM 1.6 mg/dl (1.7-2.5); PHOSPHORUS 3.1 mg/dl (2.5-4.9); POTASSIUM 3.2 mmol/L (3.5-5.1); SODIUM 140 mmol/L (135-144)
[2019-02-06] MEDS: INSULIN ASPART [NOVOLOG] 3 ML PEN SC ×4 (07:55→20:59)
[2019-02-06] MEDS: MEROPENEM 500MG/50 ML (PMX) 50 ML IVPB ×2 (08:26→20:49)
[2019-02-06] MEDS: RANOLAZINE (SR) 500 MG TAB PO ×2 (08:29→20:50)
[2019-02-06] MEDS: MULTIVIT/CA CARB/B CMPLX/FA TAB PO (08:29)
[2019-02-06] MEDS: FOLIC ACID 1 MG TAB PO (08:29)
[2019-02-06] MEDS: FINASTERIDE 5 MG TAB PO (08:29)
[2019-02-06] MEDS: POTASSIUM CHLORIDE (SR) 20 MEQ TAB PO (08:29)
[2019-02-06] MEDS: FERROUS FUMARATE (SR) TAB PO (08:29)
[2019-02-06] MEDS: SOTALOL 80 MG TAB PO ×2 (08:29→20:51)
[2019-02-06] MEDS: ASPIRIN (EC) 81 MG TAB PO (08:29)
[2019-02-06] MEDS: BALSAM PERU/CASTOR OIL 60 GM TUBE TOP (08:30)
[2019-02-06] MEDS: TICAGRELOR 90 MG TABLET PO ×2 (08:56→20:55)
[2019-02-06] MEDS: MAGNESIUM SULFATE 2 GM/50 ML 50 ML IVPB (09:15)
[2019-02-06] MEDS: SOD FERRIC GLUC COMPLX 125 MG in SOD CHLORIDE 0.9% 100 ML IVPB (14:15)
[2019-02-06] MEDS: EPOETIN ALFA-EPBX (NON-ESRD 10,000 UNIT/ML VIAL SC (17:01)
[2019-02-06] MEDS: ATORVASTATIN 40 MG TAB PO (20:50)
[2019-02-07] MEDS: ACCU-CHEK XX (01:32)
[2019-02-07] MEDS: PANTOPRAZOLE (EC) 40 MG TAB PO ×2 (06:00→18:03)
[2019-02-07 06:56] LABS: ADD MAN DIFF? NO
[2019-02-07 07:01] LABS: WHITE BLOOD COUNT 13.1 10^3/ul (4.8-10.8)
[2019-02-07 07:01] LABS: ABNORMAL IP MESSAGE 1; BASOPHILS % 0.2 % (0.0-2.0); EOSINOPHILS # 0.1 10^3/ul (0.0-0.5); EOSINOPHILS % 0.7 % (0.0-7.0); HEMATOCRIT 22.7 % (42.0-52.0); LYMPHOCYTES # 0.7 10^3/ul (0.8-2.9); LYMPHOCYTES % 5.3 % (15.0-51.0); MEAN CORPUSCULAR HEMOGLOBIN 25.3 pg (29.0-33.0); MEAN CORPUSCULAR HGB CONC 30.8 g/dl (32.0-37.0); MEAN CORPUSCULAR VOLUME 81.9 fl (82.0-101.0); MEAN PLATELET VOLUME 11.5 fl (7.4-10.4); MONOCYTE # 0.7 10^3/ul (0.3-0.9); NEUTROPHIL # 11.6 10^3/ul (1.6-7.5); NEUTROPHILS % 88.1 % (39.0-77.0); NUCLEATED RED BLOOD CELLS% 0.2 /100WBC (0.0-0.0); PLATELET COUNT 193 10^3/UL (140-415); POSITIVE DIFF @See below; RED BLOOD COUNT 2.77 10^6/ul (4.70-6.10)
[2019-02-07 07:21] LABS: ANION GAP 9 (5-13); BLOOD UREA NITROGEN 31 mg/dl (7-20); CALCIUM 8.1 mg/dl (8.4-10.2); CARBON DIOXIDE 26 mmol/L (21-31); CHLORIDE 105 mmol/L (97-110); CREATININE 2.83 mg/dl (0.61-1.24); Estimated GFR 27 mL/min (>60); GLUCOSE 111 mg/dl (70-220); MAGNESIUM 1.8 mg/dl (1.7-2.5); PHOSPHORUS 3.1 mg/dl (2.5-4.9); POTASSIUM 3.6 mmol/L (3.5-5.1); SODIUM 140 mmol/L (135-144)
[2019-02-07] MEDS: INSULIN ASPART [NOVOLOG] 3 ML PEN SC ×4 (07:55→21:00)
[2019-02-07] MEDS: RANOLAZINE (SR) 500 MG TAB PO ×2 (08:59→21:05)
[2019-02-07] MEDS: FERROUS FUMARATE (SR) TAB PO (08:59)
[2019-02-07] MEDS: MULTIVIT/CA CARB/B CMPLX/FA TAB PO (08:59)
[2019-02-07] MEDS: FOLIC ACID 1 MG TAB PO (08:59)
[2019-02-07] MEDS: ASPIRIN (EC) 81 MG TAB PO (08:59)
[2019-02-07] MEDS: FINASTERIDE 5 MG TAB PO (08:59)
[2019-02-07] MEDS: HEPARIN 5,000 UNIT/1 ML VIAL SC ×2 (09:00→21:00)
[2019-02-07] MEDS: SOTALOL 80 MG TAB PO ×2 (09:00→21:07)
[2019-02-07] MEDS: MEROPENEM 500MG/50 ML (PMX) 50 ML IVPB ×2 (09:01→21:05)
[2019-02-07] MEDS: BALSAM PERU/CASTOR OIL 60 GM TUBE TOP (09:01)
[2019-02-07] MEDS: TICAGRELOR 90 MG TABLET PO ×2 (09:08→21:14)
[2019-02-07] MEDS: HEPARIN 1000 UNITS/ML 10 ML INJ CATHETER (15:37)
[2019-02-07] MEDS: SOD FERRIC GLUC COMPLX 125 MG in SOD CHLORIDE 0.9% 100 ML IVPB (15:57)
[2019-02-07] MEDS: ATORVASTATIN 40 MG TAB PO (21:07)
[2019-02-08] MEDS: ACCU-CHEK XX (02:00)
[2019-02-08] MEDS: PANTOPRAZOLE (EC) 40 MG TAB PO ×2 (05:54→17:10)
[2019-02-08] MEDS: INSULIN ASPART [NOVOLOG] 3 ML PEN SC ×4 (07:55→21:00)
[2019-02-08] MEDS: FINASTERIDE 5 MG TAB PO (09:00)
[2019-02-08] MEDS: HEPARIN 5,000 UNIT/1 ML VIAL SC ×2 (09:00→21:00)
[2019-02-08] MEDS: MEROPENEM 500MG/50 ML (PMX) 50 ML IVPB ×2 (09:20→21:16)
[2019-02-08] MEDS: ASPIRIN (EC) 81 MG TAB PO (09:20)
[2019-02-08] MEDS: FERROUS FUMARATE (SR) TAB PO (09:21)
[2019-02-08] MEDS: FOLIC ACID 1 MG TAB PO (09:21)
[2019-02-08] MEDS: MULTIVIT/CA CARB/B CMPLX/FA TAB PO (09:22)
[2019-02-08] MEDS: SOTALOL 80 MG TAB PO ×2 (09:22→21:16)
[2019-02-08] MEDS: RANOLAZINE (SR) 500 MG TAB PO ×2 (09:23→21:16)
[2019-02-08] MEDS ORDERED: VANCOMYCIN IV PER PHARMACY XX (09:30)
[2019-02-08] MEDS: TICAGRELOR 90 MG TABLET PO ×2 (09:34→21:23)
[2019-02-08 10:18] LABS: ADD MAN DIFF? NO
[2019-02-08 10:25] LABS: WHITE BLOOD COUNT 13.8 10^3/ul (4.8-10.8)
[2019-02-08 10:25] LABS: ABNORMAL IP MESSAGE 1; BASOPHILS % 0.1 % (0.0-2.0); EOSINOPHILS # 0.1 10^3/ul (0.0-0.5); HEMATOCRIT 24.8 % (42.0-52.0); HEMOGLOBIN 7.6 g/dl (14.0-18.0); LYMPHOCYTES # 0.6 10^3/ul (0.8-2.9); LYMPHOCYTES % 4.1 % (15.0-51.0); MEAN CORPUSCULAR HEMOGLOBIN 25.2 pg (29.0-33.0); MEAN CORPUSCULAR HGB CONC 30.6 g/dl (32.0-37.0); MEAN CORPUSCULAR VOLUME 82.4 fl (82.0-101.0); MEAN PLATELET VOLUME 12.4 fl (7.4-10.4); MONOCYTE # 0.5 10^3/ul (0.3-0.9); MONOCYTES % 3.8 % (0.0-11.0); NEUTROPHIL # 12.5 10^3/ul (1.6-7.5); NEUTROPHILS % 90.3 % (39.0-77.0); NUCLEATED RED BLOOD CELLS% 0.2 /100WBC (0.0-0.0); PLATELET COUNT 244 10^3/UL (140-415); POSITIVE DIFF @See below; RED BLOOD COUNT 3.01 10^6/ul (4.70-6.10); RED CELL DISTRIBUTION WIDTH 23.4 % (11.5-14.5)
[2019-02-08] MEDS: VANCOMYCIN HCL 1.75 GM in SOD CHLORIDE 0.9% 500 ML IVPB (10:30)
[2019-02-08 10:52] LABS: ANION GAP 11 (5-13); BLOOD UREA NITROGEN 20 mg/dl (7-20); CALCIUM 7.9 mg/dl (8.4-10.2); CARBON DIOXIDE 26 mmol/L (21-31); CHLORIDE 104 mmol/L (97-110); CREATININE 2.13 mg/dl (0.61-1.24); Estimated GFR 38 mL/min (>60); GLUCOSE 127 mg/dl (70-220); MAGNESIUM 1.6 mg/dl (1.7-2.5); PHOSPHORUS 2.9 mg/dl (2.5-4.9); POTASSIUM 3.6 mmol/L (3.5-5.1); SODIUM 141 mmol/L (135-144)
[2019-02-08] MEDS: ZYVOX 600 MG TAB PO ×2 (11:57→21:16)
[2019-02-08] MEDS: BALSAM PERU/CASTOR OIL 60 GM TUBE TOP (12:00)
[2019-02-08] MEDS: SOD FERRIC GLUC COMPLX 125 MG in SOD CHLORIDE 0.9% 100 ML IVPB (13:51)
[2019-02-08] MEDS: EPOETIN ALFA-EPBX (NON-ESRD 10,000 UNIT/ML VIAL SC (17:12)
[2019-02-08] MEDS: ATORVASTATIN 40 MG TAB PO (21:16)
[2019-02-09] MEDS: ACCU-CHEK XX (02:00)
[2019-02-09] MEDS: PANTOPRAZOLE (EC) 40 MG TAB PO ×2 (05:43→17:59)
[2019-02-09 06:56] LABS: ANION GAP 10 (5-13); BLOOD UREA NITROGEN 23 mg/dl (7-20); CALCIUM 7.8 mg/dl (8.4-10.2); CARBON DIOXIDE 26 mmol/L (21-31); CHLORIDE 105 mmol/L (97-110); CREATININE 2.38 mg/dl (0.61-1.24); Estimated GFR 33 mL/min (>60); GLUCOSE 90 mg/dl (70-220); MAGNESIUM 1.6 mg/dl (1.7-2.5); PHOSPHORUS 3.6 mg/dl (2.5-4.9); POTASSIUM 3.5 mmol/L (3.5-5.1); SODIUM 141 mmol/L (135-144)
[2019-02-09] MEDS: INSULIN ASPART [NOVOLOG] 3 ML PEN SC ×4 (07:55→21:00)
[2019-02-09] MEDS: FOLIC ACID 1 MG TAB PO (09:09)
[2019-02-09] MEDS: MAGNESIUM SULFATE 2 GM/50 ML 50 ML IVPB (09:09)
[2019-02-09] MEDS: ASPIRIN (EC) 81 MG TAB PO (09:09)
[2019-02-09] MEDS: MULTIVIT/CA CARB/B CMPLX/FA TAB PO (09:09)
[2019-02-09] MEDS: FINASTERIDE 5 MG TAB PO (09:09)
[2019-02-09] MEDS: MEROPENEM 500MG/50 ML (PMX) 50 ML IVPB ×2 (09:09→21:12)
[2019-02-09] MEDS: FERROUS FUMARATE (SR) TAB PO (09:09)
[2019-02-09] MEDS: RANOLAZINE (SR) 500 MG TAB PO ×2 (09:09→21:11)
[2019-02-09] MEDS: ZYVOX 600 MG TAB PO ×2 (09:09→21:11)
[2019-02-09] MEDS: SOTALOL 80 MG TAB PO ×2 (09:10→21:12)
[2019-02-09] MEDS: BALSAM PERU/CASTOR OIL 60 GM TUBE TOP (09:11)
[2019-02-09] MEDS: HEPARIN 5,000 UNIT/1 ML VIAL SC ×2 (09:22→21:00)
[2019-02-09] MEDS: TICAGRELOR 90 MG TABLET PO ×2 (09:22→21:16)
[2019-02-09] MEDS: SOD FERRIC GLUC COMPLX 125 MG in SOD CHLORIDE 0.9% 100 ML IVPB (14:22)
[2019-02-09] MEDS: ATORVASTATIN 40 MG TAB PO (21:11)
[2019-02-10] MEDS: ACCU-CHEK XX (02:00)
[2019-02-10] MEDS: PANTOPRAZOLE (EC) 40 MG TAB PO ×2 (05:48→17:49)
[2019-02-10 06:18] LABS: ADD MAN DIFF? NO
[2019-02-10 06:21] LABS: ABNORMAL IP MESSAGE 1; BASOPHILS % 0.2 % (0.0-2.0); EOSINOPHILS # 0.2 10^3/ul (0.0-0.5); EOSINOPHILS % 2.3 % (0.0-7.0); HEMATOCRIT 22.8 % (42.0-52.0); LYMPHOCYTES # 0.9 10^3/ul (0.8-2.9); LYMPHOCYTES % 9.3 % (15.0-51.0); MEAN CORPUSCULAR HEMOGLOBIN 25.5 pg (29.0-33.0); MEAN CORPUSCULAR HGB CONC 30.7 g/dl (32.0-37.0); MEAN CORPUSCULAR VOLUME 83.2 fl (82.0-101.0); MEAN PLATELET VOLUME 10.9 fl (7.4-10.4); MONOCYTE # 0.6 10^3/ul (0.3-0.9); MONOCYTES % 6.6 % (0.0-11.0); NEUTROPHIL # 7.5 10^3/ul (1.6-7.5); NEUTROPHILS % 80.9 % (39.0-77.0); NUCLEATED RED BLOOD CELLS% 0.2 /100WBC (0.0-0.0); PLATELET COUNT 237 10^3/UL (140-415); POSITIVE DIFF @See below; RED BLOOD COUNT 2.74 10^6/ul (4.70-6.10); RED CELL DISTRIBUTION WIDTH 23.5 % (11.5-14.5)
[2019-02-10 06:21] LABS: WHITE BLOOD COUNT 9.2 10^3/ul (4.8-10.8)
[2019-02-10 06:46] LABS: ANION GAP 11 (5-13); BLOOD UREA NITROGEN 25 mg/dl (7-20); CALCIUM 7.7 mg/dl (8.4-10.2); CARBON DIOXIDE 25 mmol/L (21-31); CHLORIDE 105 mmol/L (97-110); CREATININE 2.28 mg/dl (0.61-1.24); Estimated GFR 35 mL/min (>60); GLUCOSE 90 mg/dl (70-220); MAGNESIUM 1.8 mg/dl (1.7-2.5); PHOSPHORUS 3.7 mg/dl (2.5-4.9); POTASSIUM 3.5 mmol/L (3.5-5.1); SODIUM 141 mmol/L (135-144)
[2019-02-10] MEDS: INSULIN ASPART [NOVOLOG] 3 ML PEN SC ×4 (07:55→21:00)
[2019-02-10] MEDS: HEPARIN 5,000 UNIT/1 ML VIAL SC ×2 (09:00→21:00)
[2019-02-10] MEDS: FINASTERIDE 5 MG TAB PO (09:05)
[2019-02-10] MEDS: FERROUS FUMARATE (SR) TAB PO (09:05)
[2019-02-10] MEDS: RANOLAZINE (SR) 500 MG TAB PO ×2 (09:05→21:33)
[2019-02-10] MEDS: MULTIVIT/CA CARB/B CMPLX/FA TAB PO (09:05)
[2019-02-10] MEDS: FOLIC ACID 1 MG TAB PO (09:05)
[2019-02-10] MEDS: ZYVOX 600 MG TAB PO ×2 (09:05→21:35)
[2019-02-10] MEDS: ASPIRIN (EC) 81 MG TAB PO (09:05)
[2019-02-10] MEDS: MEROPENEM 500MG/50 ML (PMX) 50 ML IVPB ×2 (09:05→21:31)
[2019-02-10] MEDS: SOTALOL 80 MG TAB PO ×2 (09:06→21:33)
[2019-02-10] MEDS: BALSAM PERU/CASTOR OIL 60 GM TUBE TOP (09:07)
[2019-02-10] MEDS: TICAGRELOR 90 MG TABLET PO ×2 (09:09→21:38)
[2019-02-10] MEDS: SOD FERRIC GLUC COMPLX 125 MG in SOD CHLORIDE 0.9% 100 ML IVPB (12:48)
[2019-02-10] MEDS: EPOETIN ALFA-EPBX (NON-ESRD 10,000 UNIT/ML VIAL SC ×2 (17:00→17:50)
[2019-02-10] MEDS: ATORVASTATIN 40 MG TAB PO (21:33)
[2019-02-11] MEDS: ACCU-CHEK XX (02:00)
[2019-02-11] MEDS: PANTOPRAZOLE (EC) 40 MG TAB PO ×2 (05:45→17:35)
[2019-02-11 06:53] LABS: ANION GAP 10 (5-13); BLOOD UREA NITROGEN 27 mg/dl (7-20); CALCIUM 7.8 mg/dl (8.4-10.2); CARBON DIOXIDE 24 mmol/L (21-31); CHLORIDE 105 mmol/L (97-110); CREATININE 2.18 mg/dl (0.61-1.24); Estimated GFR 37 mL/min (>60); GLUCOSE 94 mg/dl (70-220); MAGNESIUM 1.8 mg/dl (1.7-2.5); PHOSPHORUS 3.9 mg/dl (2.5-4.9); POTASSIUM 3.5 mmol/L (3.5-5.1); SODIUM 139 mmol/L (135-144)
[2019-02-11] MEDS: HEPARIN 5,000 UNIT/1 ML VIAL SC ×2 (09:00→20:52)
[2019-02-11] MEDS: INSULIN ASPART [NOVOLOG] 3 ML PEN SC ×4 (09:03→21:00)
[2019-02-11] MEDS: MULTIVIT/CA CARB/B CMPLX/FA TAB PO (09:04)
[2019-02-11] MEDS: ASPIRIN (EC) 81 MG TAB PO (09:04)
[2019-02-11] MEDS: FOLIC ACID 1 MG TAB PO (09:04)
[2019-02-11] MEDS: RANOLAZINE (SR) 500 MG TAB PO ×2 (09:04→20:34)
[2019-02-11] MEDS: FINASTERIDE 5 MG TAB PO (09:04)
[2019-02-11] MEDS: MEROPENEM 500MG/50 ML (PMX) 50 ML IVPB ×2 (09:04→20:35)
[2019-02-11] MEDS: FERROUS FUMARATE (SR) TAB PO (09:04)
[2019-02-11] MEDS: ZYVOX 600 MG TAB PO ×2 (09:04→20:34)
[2019-02-11] MEDS: BALSAM PERU/CASTOR OIL 60 GM TUBE TOP (09:05)
[2019-02-11] MEDS: TICAGRELOR 90 MG TABLET PO ×2 (09:06→20:49)
[2019-02-11] MEDS: SOTALOL 80 MG TAB PO ×2 (10:28→20:34)
[2019-02-11] MEDS: EPOETIN ALFA-EPBX (NON-ESRD 10,000 UNIT/ML VIAL SC (10:29)
[2019-02-11] MEDS: ATORVASTATIN 40 MG TAB PO (20:34)
[2019-02-11] MEDS: ONDANSETRON 4 MG INJ IV (21:25)
[2019-02-12] MEDS: ACCU-CHEK XX (01:18)
[2019-02-12] MEDS: PANTOPRAZOLE (EC) 40 MG TAB PO ×2 (05:09→17:38)
[2019-02-12] MEDS: INSULIN ASPART [NOVOLOG] 3 ML PEN SC ×4 (07:44→20:23)
[2019-02-12] MEDS: FERROUS FUMARATE (SR) TAB PO ×2 (08:09→09:00)
[2019-02-12] MEDS: MULTIVIT/CA CARB/B CMPLX/FA TAB PO ×2 (08:09→09:00)
[2019-02-12] MEDS: FINASTERIDE 5 MG TAB PO ×2 (08:09→09:00)
[2019-02-12] MEDS: MEROPENEM 500MG/50 ML (PMX) 50 ML IVPB ×2 (08:09→20:22)
[2019-02-12] MEDS: FOLIC ACID 1 MG TAB PO ×2 (08:09→09:00)
[2019-02-12] MEDS: ASPIRIN (EC) 81 MG TAB PO ×2 (08:09→09:00)
[2019-02-12] MEDS: ZYVOX 600 MG TAB PO ×3 (08:10→21:44)
[2019-02-12] MEDS: RANOLAZINE (SR) 500 MG TAB PO ×3 (08:10→20:22)
[2019-02-12] MEDS: SOTALOL 80 MG TAB PO ×3 (08:11→20:25)
[2019-02-12] MEDS: TICAGRELOR 90 MG TABLET PO ×3 (08:20→20:35)
[2019-02-12] MEDS: BALSAM PERU/CASTOR OIL 60 GM TUBE TOP (08:21)
[2019-02-12] MEDS: HEPARIN 5,000 UNIT/1 ML VIAL SC ×2 (08:21→20:26)
[2019-02-12 08:29] LABS: ANION GAP 11 (5-13); BLOOD UREA NITROGEN 27 mg/dl (7-20); CALCIUM 7.9 mg/dl (8.4-10.2); CARBON DIOXIDE 24 mmol/L (21-31); CHLORIDE 106 mmol/L (97-110); CREATININE 2.26 mg/dl (0.61-1.24); Estimated GFR 36 mL/min (>60); GLUCOSE 70 mg/dl (70-220); MAGNESIUM 1.6 mg/dl (1.7-2.5); PHOSPHORUS 4.4 mg/dl (2.5-4.9); POTASSIUM 3.7 mmol/L (3.5-5.1); SODIUM 141 mmol/L (135-144)
[2019-02-12] MEDS: ATORVASTATIN 40 MG TAB PO (21:44)
[2019-02-13] MEDS: ACCU-CHEK XX (02:00)
[2019-02-13] MEDS: PANTOPRAZOLE (EC) 40 MG TAB PO ×2 (05:28→18:00)
[2019-02-13 07:00] LABS: ANION GAP 9 (5-13); BLOOD UREA NITROGEN 31 mg/dl (7-20); CALCIUM 7.9 mg/dl (8.4-10.2); CARBON DIOXIDE 24 mmol/L (21-31); CHLORIDE 107 mmol/L (97-110); CREATININE 2.45 mg/dl (0.61-1.24); Estimated GFR 32 mL/min (>60); GLUCOSE 87 mg/dl (70-220); MAGNESIUM 1.6 mg/dl (1.7-2.5); PHOSPHORUS 4.3 mg/dl (2.5-4.9); POTASSIUM 3.8 mmol/L (3.5-5.1); SODIUM 140 mmol/L (135-144)
[2019-02-13] MEDS: INSULIN ASPART [NOVOLOG] 3 ML PEN SC ×4 (07:55→21:00)
[2019-02-13] MEDS: HEPARIN 5,000 UNIT/1 ML VIAL SC ×2 (09:00→21:00)
[2019-02-13] MEDS: ASPIRIN (EC) 81 MG TAB PO (09:05)
[2019-02-13] MEDS: FOLIC ACID 1 MG TAB PO (09:05)
[2019-02-13] MEDS: RANOLAZINE (SR) 500 MG TAB PO ×2 (09:05→21:43)
[2019-02-13] MEDS: ZYVOX 600 MG TAB PO (09:05)
[2019-02-13] MEDS: SOTALOL 80 MG TAB PO ×2 (09:05→21:43)
[2019-02-13] MEDS: FERROUS FUMARATE (SR) TAB PO (09:05)
[2019-02-13] MEDS: MULTIVIT/CA CARB/B CMPLX/FA TAB PO (09:06)
[2019-02-13] MEDS: MEROPENEM 500MG/50 ML (PMX) 50 ML IVPB ×2 (09:06→21:42)
[2019-02-13] MEDS: FINASTERIDE 5 MG TAB PO (09:06)
[2019-02-13] MEDS: BALSAM PERU/CASTOR OIL 60 GM TUBE TOP (09:06)
[2019-02-13] MEDS: TICAGRELOR 90 MG TABLET PO ×2 (09:11→21:57)
[2019-02-13] MEDS: EPOETIN ALFA-EPBX (NON-ESRD 10,000 UNIT/ML VIAL SC (17:00)
[2019-02-13] MEDS: ATORVASTATIN 40 MG TAB PO (21:43)
[2019-02-14] MEDS: PANTOPRAZOLE (EC) 40 MG TAB PO ×2 (05:41→17:38)
[2019-02-14 06:27] LABS: HEMOGLOBIN 6.7 g/dl (14.0-18.0)
[2019-02-14 06:53] LABS: ANION GAP 8 (5-13); BLOOD UREA NITROGEN 31 mg/dl (7-20); CALCIUM 7.9 mg/dl (8.4-10.2); CARBON DIOXIDE 24 mmol/L (21-31); CHLORIDE 107 mmol/L (97-110); CREATININE 2.11 mg/dl (0.61-1.24); Estimated GFR 38 mL/min (>60); GLUCOSE 74 mg/dl (70-220); MAGNESIUM 1.5 mg/dl (1.7-2.5); PHOSPHORUS 4.2 mg/dl (2.5-4.9); POTASSIUM 3.9 mmol/L (3.5-5.1); SODIUM 139 mmol/L (135-144)
[2019-02-14] MEDS: INSULIN ASPART [NOVOLOG] 3 ML PEN SC ×4 (07:55→20:11)
[2019-02-14] MEDS: RANOLAZINE (SR) 500 MG TAB PO ×2 (08:47→20:03)
[2019-02-14] MEDS: SOTALOL 80 MG TAB PO ×2 (08:47→20:02)
[2019-02-14] MEDS: MEROPENEM 500MG/50 ML (PMX) 50 ML IVPB ×2 (08:47→20:02)
[2019-02-14] MEDS: ASPIRIN (EC) 81 MG TAB PO (08:47)
[2019-02-14] MEDS: MULTIVIT/CA CARB/B CMPLX/FA TAB PO (08:47)
[2019-02-14] MEDS: BALSAM PERU/CASTOR OIL 60 GM TUBE TOP (08:49)
[2019-02-14] MEDS: HEPARIN 5,000 UNIT/1 ML VIAL SC ×2 (08:50→20:03)
[2019-02-14] MEDS: TICAGRELOR 90 MG TABLET PO ×2 (08:53→20:09)
[2019-02-14] MEDS: FINASTERIDE 5 MG TAB PO (08:54)
[2019-02-14] MEDS: ATORVASTATIN 40 MG TAB PO (20:03)
[2019-02-15] MEDS: PANTOPRAZOLE (EC) 40 MG TAB PO ×2 (06:18→17:27)
[2019-02-15] MEDS: INSULIN ASPART [NOVOLOG] 3 ML PEN SC ×4 (07:55→21:00)
[2019-02-15 08:22] LABS: ADD MAN DIFF? NO
[2019-02-15 08:26] LABS: WHITE BLOOD COUNT 7.7 10^3/ul (4.8-10.8)
[2019-02-15 08:26] LABS: ABNORMAL IP MESSAGE 1; BASOPHILS % 0.4 % (0.0-2.0); EOSINOPHILS # 0.1 10^3/ul (0.0-0.5); HEMATOCRIT 22.3 % (42.0-52.0); LYMPHOCYTES % 12.4 % (15.0-51.0); MEAN CORPUSCULAR HEMOGLOBIN 25.1 pg (29.0-33.0); MEAN CORPUSCULAR VOLUME 83.5 fl (82.0-101.0); MEAN PLATELET VOLUME 10.8 fl (7.4-10.4); MONOCYTE # 0.5 10^3/ul (0.3-0.9); MONOCYTES % 6.7 % (0.0-11.0); NEUTROPHIL # 6.1 10^3/ul (1.6-7.5); NEUTROPHILS % 79.1 % (39.0-77.0); PLATELET COUNT 276 10^3/UL (140-415); POSITIVE DIFF @See below; RED BLOOD COUNT 2.67 10^6/ul (4.70-6.10); RED CELL DISTRIBUTION WIDTH 23.8 % (11.5-14.5)
[2019-02-15 08:31] LABS: HEMOGLOBIN 6.7 g/dl (14.0-18.0); PATH REVIEW? YES
[2019-02-15 08:58] LABS: ANION GAP 9 (5-13); BLOOD UREA NITROGEN 29 mg/dl (7-20); CALCIUM 7.9 mg/dl (8.4-10.2); CARBON DIOXIDE 24 mmol/L (21-31); CHLORIDE 107 mmol/L (97-110); CREATININE 2.01 mg/dl (0.61-1.24); Estimated GFR 41 mL/min (>60); GLUCOSE 85 mg/dl (70-220); MAGNESIUM 1.5 mg/dl (1.7-2.5); PHOSPHORUS 3.8 mg/dl (2.5-4.9); SODIUM 140 mmol/L (135-144)
[2019-02-15] MEDS: SOTALOL 80 MG TAB PO ×2 (09:00→20:35)
[2019-02-15] MEDS: FINASTERIDE 5 MG TAB PO (09:00)
[2019-02-15] MEDS: HEPARIN 5,000 UNIT/1 ML VIAL SC ×2 (09:00→20:34)
[2019-02-15] MEDS: MULTIVIT/CA CARB/B CMPLX/FA TAB PO (09:54)
[2019-02-15] MEDS: ASPIRIN (EC) 81 MG TAB PO (09:54)
[2019-02-15] MEDS: RANOLAZINE (SR) 500 MG TAB PO ×2 (09:54→20:34)
[2019-02-15] MEDS: BALSAM PERU/CASTOR OIL 60 GM TUBE TOP (09:55)
[2019-02-15] MEDS: MEROPENEM 500MG/50 ML (PMX) 50 ML IVPB ×2 (09:55→20:33)
[2019-02-15] MEDS: TICAGRELOR 90 MG TABLET PO ×2 (10:07→20:46)
[2019-02-15 11:27] LABS: AHG CROSSMATCH 1 1
[2019-02-15] MEDS: EPOETIN ALFA-EPBX (NON-ESRD 10,000 UNIT/ML VIAL SC (17:30)
[2019-02-15] MEDS: MAGNESIUM SULFATE 2 GM/50 ML 50 ML IVPB (19:00)
[2019-02-15] MEDS: ATORVASTATIN 40 MG TAB PO (20:34)
[2019-02-16] MEDS: PANTOPRAZOLE (EC) 40 MG TAB PO ×2 (05:43→17:00)
[2019-02-16 06:48] LABS: ADD MAN DIFF? NO
[2019-02-16 06:54] LABS: ABNORMAL IP MESSAGE 1; BASOPHILS % 0.5 % (0.0-2.0); EOSINOPHILS # 0.1 10^3/ul (0.0-0.5); EOSINOPHILS % 1.4 % (0.0-7.0); HEMATOCRIT 25.2 % (42.0-52.0); HEMOGLOBIN 7.9 g/dl (14.0-18.0); LYMPHOCYTES # 1.1 10^3/ul (0.8-2.9); LYMPHOCYTES % 16.2 % (15.0-51.0); MEAN CORPUSCULAR HEMOGLOBIN 25.9 pg (29.0-33.0); MEAN CORPUSCULAR HGB CONC 31.3 g/dl (32.0-37.0); MEAN CORPUSCULAR VOLUME 82.6 fl (82.0-101.0); MEAN PLATELET VOLUME 10.5 fl (7.4-10.4); MONOCYTE # 0.4 10^3/ul (0.3-0.9); MONOCYTES % 6.5 % (0.0-11.0); NEUTROPHILS % 75.1 % (39.0-77.0); NUCLEATED RED BLOOD CELLS% 0.5 /100WBC (0.0-0.0); PLATELET COUNT 260 10^3/UL (140-415); POSITIVE DIFF @See below; RED BLOOD COUNT 3.05 10^6/ul (4.70-6.10); RED CELL DISTRIBUTION WIDTH 22.5 % (11.5-14.5)
[2019-02-16 06:54] LABS: WHITE BLOOD COUNT 6.6 10^3/ul (4.8-10.8)
[2019-02-16 07:11] LABS: ANION GAP 10 (5-13); BLOOD UREA NITROGEN 30 mg/dl (7-20); CALCIUM 8.1 mg/dl (8.4-10.2); CARBON DIOXIDE 23 mmol/L (21-31); CHLORIDE 108 mmol/L (97-110); CREATININE 1.94 mg/dl (0.61-1.24); Estimated GFR 42 mL/min (>60); GLUCOSE 81 mg/dl (70-220); MAGNESIUM 1.7 mg/dl (1.7-2.5); PHOSPHORUS 3.8 mg/dl (2.5-4.9); POTASSIUM 3.8 mmol/L (3.5-5.1); SODIUM 141 mmol/L (135-144)
[2019-02-16] MEDS: INSULIN ASPART [NOVOLOG] 3 ML PEN SC ×4 (07:44→21:00)
[2019-02-16] MEDS: HEPARIN 5,000 UNIT/1 ML VIAL SC ×2 (09:00→21:00)
[2019-02-16] MEDS: ASPIRIN (EC) 81 MG TAB PO (09:13)
[2019-02-16] MEDS: SOTALOL 80 MG TAB PO ×2 (09:13→21:00)
[2019-02-16] MEDS: MULTIVIT/CA CARB/B CMPLX/FA TAB PO (09:13)
[2019-02-16] MEDS: RANOLAZINE (SR) 500 MG TAB PO ×2 (09:13→21:02)
[2019-02-16] MEDS: BALSAM PERU/CASTOR OIL 60 GM TUBE TOP (09:14)
[2019-02-16] MEDS: FINASTERIDE 5 MG TAB PO (09:14)
[2019-02-16] MEDS: MEROPENEM 500MG/50 ML (PMX) 50 ML IVPB ×2 (09:14→21:00)
[2019-02-16] MEDS ORDERED: (Nursing Note) XX (09:30)
[2019-02-16] MEDS: TICAGRELOR 90 MG TABLET PO ×2 (09:31→21:07)
[2019-02-16] MEDS: ATORVASTATIN 40 MG TAB PO (21:01)
[2019-02-17] MEDS: PANTOPRAZOLE (EC) 40 MG TAB PO ×2 (05:00→18:00)
[2019-02-17] MEDS: INSULIN ASPART [NOVOLOG] 3 ML PEN SC ×4 (07:55→21:00)
[2019-02-17 08:13] LABS: ANION GAP 11 (5-13); BLOOD UREA NITROGEN 32 mg/dl (7-20); CALCIUM 8.3 mg/dl (8.4-10.2); CARBON DIOXIDE 20 mmol/L (21-31); CHLORIDE 110 mmol/L (97-110); CREATININE 1.81 mg/dl (0.61-1.24); Estimated GFR 46 mL/min (>60); GLUCOSE 83 mg/dl (70-220); MAGNESIUM 1.8 mg/dl (1.7-2.5); PHOSPHORUS 3.7 mg/dl (2.5-4.9); POTASSIUM 4.1 mmol/L (3.5-5.1); SODIUM 141 mmol/L (135-144)
[2019-02-17] MEDS: BALSAM PERU/CASTOR OIL 60 GM TUBE TOP (09:00)
[2019-02-17] MEDS: HEPARIN 5,000 UNIT/1 ML VIAL SC ×2 (09:00→21:00)
[2019-02-17] MEDS: MEROPENEM 500MG/50 ML (PMX) 50 ML IVPB ×2 (09:46→21:08)
[2019-02-17] MEDS: MULTIVIT/CA CARB/B CMPLX/FA TAB PO (09:47)
[2019-02-17] MEDS: RANOLAZINE (SR) 500 MG TAB PO ×2 (09:47→21:10)
[2019-02-17] MEDS: FINASTERIDE 5 MG TAB PO (09:47)
[2019-02-17] MEDS: ASPIRIN (EC) 81 MG TAB PO (09:47)
[2019-02-17] MEDS: SOTALOL 80 MG TAB PO ×2 (09:48→21:09)
[2019-02-17] MEDS: TICAGRELOR 90 MG TABLET PO ×2 (09:51→21:33)
[2019-02-17] MEDS: EPOETIN ALFA-EPBX (NON-ESRD 10,000 UNIT/ML VIAL SC (17:00)
[2019-02-17] MEDS: ACETAMINOPHEN 325 MG TAB PO (21:09)
[2019-02-17] MEDS: ATORVASTATIN 40 MG TAB PO (21:10)
[2019-02-17] MEDS: GABAPENTIN 100 MG CAP PO (22:39)
[2019-02-18] MEDS: ACETAMINOPHEN 325 MG TAB PO (00:53)
[2019-02-18] MEDS: BALSAM PERU/CASTOR OIL 60 GM TUBE TOP (10:07)
[2019-02-18] MEDS: MEROPENEM 500MG/50 ML (PMX) 50 ML IVPB ×2 (10:08→20:50)
[2019-02-18] MEDS: HEPARIN 5,000 UNIT/1 ML VIAL SC ×2 (10:08→21:00)
[2019-02-18] MEDS: MULTIVIT/CA CARB/B CMPLX/FA TAB PO (10:08)
[2019-02-18 13:35] LABS: ANION GAP 13 (5-13); BLOOD UREA NITROGEN 38 mg/dl (7-20); CALCIUM 8.4 mg/dl (8.4-10.2); CARBON DIOXIDE 20 mmol/L (21-31); CHLORIDE 110 mmol/L (97-110); Estimated GFR 43 mL/min (>60); GLUCOSE 121 mg/dl (70-220); POTASSIUM 4.8 mmol/L (3.5-5.1); SODIUM 143 mmol/L (135-144)
[2019-02-19] MEDS: GABAPENTIN 100 MG CAP PO (00:12)
[2019-02-19 07:15] LABS: ANION GAP 11 (5-13); BLOOD UREA NITROGEN 41 mg/dl (7-20); CALCIUM 8.2 mg/dl (8.4-10.2); CARBON DIOXIDE 23 mmol/L (21-31); CHLORIDE 109 mmol/L (97-110); CREATININE 1.95 mg/dl (0.61-1.24); Estimated GFR 42 mL/min (>60); GLUCOSE 111 mg/dl (70-220); MAGNESIUM 1.5 mg/dl (1.7-2.5); PHOSPHORUS 3.9 mg/dl (2.5-4.9); SODIUM 143 mmol/L (135-144)
[2019-02-19] MEDS: HEPARIN 5,000 UNIT/1 ML VIAL SC ×2 (09:00→21:00)
[2019-02-19] MEDS: MULTIVIT/CA CARB/B CMPLX/FA TAB PO (09:23)
[2019-02-19] MEDS: MEROPENEM 500MG/50 ML (PMX) 50 ML IVPB ×2 (09:23→21:10)
[2019-02-19] MEDS: ACETAMINOPHEN 325 MG TAB PO ×2 (09:31→23:18)
[2019-02-19] MEDS: SOTALOL 80 MG TAB PO ×2 (10:30→21:11)
[2019-02-19] MEDS: RANOLAZINE (SR) 500 MG TAB PO ×2 (11:11→21:11)
[2019-02-19] MEDS: TICAGRELOR 90 MG TABLET PO ×2 (11:15→21:16)
[2019-02-19] MEDS: MAGNESIUM SULFATE 2 GM/50 ML 50 ML IVPB (13:44)
[2019-02-19] MEDS: ASPIRIN 81 MG TAB PO (13:45)
[2019-02-19] MEDS: ATORVASTATIN 40 MG TAB PO (21:10)
[2019-02-20] MEDS: HEPARIN 5,000 UNIT/1 ML VIAL SC ×2 (09:00→20:17)
[2019-02-20] MEDS: SOTALOL 80 MG TAB PO ×2 (09:43→20:21)
[2019-02-20] MEDS: RANOLAZINE (SR) 500 MG TAB PO ×2 (09:43→20:18)
[2019-02-20] MEDS: MEROPENEM 500MG/50 ML (PMX) 50 ML IVPB ×2 (09:43→20:19)
[2019-02-20] MEDS: ASPIRIN 81 MG TAB PO (09:43)
[2019-02-20 09:55] LABS: HEMOGLOBIN 7.8 g/dl (14.0-18.0)
[2019-02-20] MEDS: TICAGRELOR 90 MG TABLET PO ×2 (09:56→20:34)
[2019-02-20] MEDS: EPOETIN ALFA-EPBX (NON-ESRD 10,000 UNIT/ML VIAL SC (18:48)
[2019-02-20] MEDS: ATORVASTATIN 40 MG TAB PO (20:19)
[2019-02-20] MEDS: ACETAMINOPHEN 325 MG TAB PO (20:19)
[2019-02-21] MEDS: ACETAMINOPHEN 325 MG TAB PO ×2 (03:57→20:08)
[2019-02-21 06:21] LABS: ADD MAN DIFF? NO
[2019-02-21 06:24] LABS: WHITE BLOOD COUNT 8.4 10^3/ul (4.8-10.8)
[2019-02-21 06:24] LABS: ABNORMAL IP MESSAGE 1; BASOPHILS % 0.4 % (0.0-2.0); EOSINOPHILS # 0.1 10^3/ul (0.0-0.5); EOSINOPHILS % 1.3 % (0.0-7.0); HEMATOCRIT 25.2 % (42.0-52.0); HEMOGLOBIN 7.7 g/dl (14.0-18.0); LYMPHOCYTES # 1.4 10^3/ul (0.8-2.9); LYMPHOCYTES % 17.1 % (15.0-51.0); MEAN CORPUSCULAR HEMOGLOBIN 26.3 pg (29.0-33.0); MEAN CORPUSCULAR HGB CONC 30.6 g/dl (32.0-37.0); MEAN PLATELET VOLUME 11.1 fl (7.4-10.4); MONOCYTE # 0.8 10^3/ul (0.3-0.9); NEUTROPHILS % 71.3 % (39.0-77.0); NUCLEATED RED BLOOD CELLS # 0.4 10^3/ul (0.0-0.0); NUCLEATED RED BLOOD CELLS% 5.1 /100WBC (0.0-0.0); PLATELET COUNT 248 10^3/UL (140-415); POSITIVE DIFF @See below; RED BLOOD COUNT 2.93 10^6/ul (4.70-6.10); RED CELL DISTRIBUTION WIDTH 23.6 % (11.5-14.5)
[2019-02-21 06:51] LABS: ANION GAP 11 (5-13); BLOOD UREA NITROGEN 39 mg/dl (7-20); CALCIUM 8.2 mg/dl (8.4-10.2); CARBON DIOXIDE 22 mmol/L (21-31); CHLORIDE 110 mmol/L (97-110); CREATININE 1.77 mg/dl (0.61-1.24); Estimated GFR 47 mL/min (>60); GLUCOSE 118 mg/dl (70-220); MAGNESIUM 1.6 mg/dl (1.7-2.5); PHOSPHORUS 3.8 mg/dl (2.5-4.9); POTASSIUM 4.1 mmol/L (3.5-5.1); SODIUM 143 mmol/L (135-144)
[2019-02-21] MEDS: MAGNESIUM SULFATE 2 GM/50 ML 50 ML IVPB (08:57)
[2019-02-21] MEDS: ASPIRIN 81 MG TAB PO (08:59)
[2019-02-21] MEDS: RANOLAZINE (SR) 500 MG TAB PO ×2 (08:59→20:08)
[2019-02-21] MEDS: HEPARIN 5,000 UNIT/1 ML VIAL SC ×2 (09:00→20:19)
[2019-02-21] MEDS: SOTALOL 80 MG TAB PO ×2 (09:00→20:08)
[2019-02-21] MEDS: TICAGRELOR 90 MG TABLET PO ×2 (09:18→20:19)
[2019-02-21] MEDS: MEROPENEM 500MG/50 ML (PMX) 50 ML IVPB ×2 (10:19→20:09)
[2019-02-21] MEDS ORDERED: DEXTROSE 50% 50 ML SYRINGE IV ×2 (11:00)
[2019-02-21] MEDS ORDERED: GLUCAGON 1 MG INJ IM (11:00)
[2019-02-21] MEDS ORDERED: GLUCOSE GEL 15 GRAM TUBE BUCCAL (11:00)
[2019-02-21] MEDS ORDERED: GLUCOSE GEL 15 GRAM TUBE PO ×2 (11:00)
[2019-02-21] MEDS: INSULIN ASPART [NOVOLOG] 3 ML PEN SC ×3 (11:50→20:19)
[2019-02-21] MEDS: ATORVASTATIN 40 MG TAB PO (20:08)
[2019-02-22 06:41] LABS: ADD MAN DIFF? NO
[2019-02-22 06:51] LABS: WHITE BLOOD COUNT 7.1 10^3/ul (4.8-10.8)
[2019-02-22 06:51] LABS: ABNORMAL IP MESSAGE 1; BASOPHILS % 0.3 % (0.0-2.0); EOSINOPHILS # 0.1 10^3/ul (0.0-0.5); EOSINOPHILS % 0.7 % (0.0-7.0); HEMATOCRIT 23.7 % (42.0-52.0); HEMOGLOBIN 7.4 g/dl (14.0-18.0); LYMPHOCYTES # 1.2 10^3/ul (0.8-2.9); LYMPHOCYTES % 16.5 % (15.0-51.0); MEAN CORPUSCULAR HEMOGLOBIN 26.9 pg (29.0-33.0); MEAN CORPUSCULAR HGB CONC 31.2 g/dl (32.0-37.0); MEAN CORPUSCULAR VOLUME 86.2 fl (82.0-101.0); MEAN PLATELET VOLUME 11.2 fl (7.4-10.4); MONOCYTE # 0.6 10^3/ul (0.3-0.9); MONOCYTES % 8.2 % (0.0-11.0); NEUTROPHIL # 5.2 10^3/ul (1.6-7.5); NEUTROPHILS % 73.6 % (39.0-77.0); NUCLEATED RED BLOOD CELLS # 0.4 10^3/ul (0.0-0.0); NUCLEATED RED BLOOD CELLS% 6.2 /100WBC (0.0-0.0); PLATELET COUNT 241 10^3/UL (140-415); POSITIVE DIFF @See below; RED BLOOD COUNT 2.75 10^6/ul (4.70-6.10); RED CELL DISTRIBUTION WIDTH 24.2 % (11.5-14.5)
[2019-02-22 07:10] LABS: MAGNESIUM 1.9 mg/dl (1.7-2.5)
[2019-02-22 07:10] LABS: PHOSPHORUS 4.4 mg/dl (2.5-4.9)
[2019-02-22 07:24] LABS: ANION GAP 10 (5-13); BLOOD UREA NITROGEN 40 mg/dl (7-20); CALCIUM 8.2 mg/dl (8.4-10.2); CARBON DIOXIDE 21 mmol/L (21-31); CHLORIDE 110 mmol/L (97-110); CREATININE 1.65 mg/dl (0.61-1.24); Estimated GFR 51 mL/min (>60); GLUCOSE 100 mg/dl (70-220); POTASSIUM 4.3 mmol/L (3.5-5.1); SODIUM 141 mmol/L (135-144)
[2019-02-22] MEDS: INSULIN ASPART [NOVOLOG] 3 ML PEN SC ×4 (09:06→20:42)
[2019-02-22] MEDS: MEROPENEM 500MG/50 ML (PMX) 50 ML IVPB ×2 (09:06→20:35)
[2019-02-22] MEDS: SOTALOL 80 MG TAB PO ×2 (09:07→20:34)
[2019-02-22] MEDS: RANOLAZINE (SR) 500 MG TAB PO ×2 (09:07→20:34)
[2019-02-22] MEDS: ASPIRIN 81 MG TAB PO (09:08)
[2019-02-22] MEDS: FERROUS FUMARATE (SR) TAB PO ×2 (09:08→20:34)
[2019-02-22] MEDS: HEPARIN 5,000 UNIT/1 ML VIAL SC ×2 (09:10→20:42)
[2019-02-22] MEDS: TICAGRELOR 90 MG TABLET PO ×2 (09:10→20:40)
[2019-02-22 10:57] LABS: HEMOGLOBIN A1C 6.3 % (0-5.9)
[2019-02-22] MEDS: EPOETIN ALFA-EPBX (NON-ESRD 10,000 UNIT/ML VIAL SC (17:53)
[2019-02-22] MEDS: ACETAMINOPHEN 325 MG TAB PO (19:49)
[2019-02-22] MEDS: ATORVASTATIN 40 MG TAB PO (20:34)
[2019-02-23] MEDS: ONDANSETRON 4 MG INJ IV (00:01)
[2019-02-23] MEDS: ACETAMINOPHEN 325 MG TAB PO ×2 (03:07→20:47)
[2019-02-23] MEDS: INSULIN ASPART [NOVOLOG] 3 ML PEN SC ×4 (07:45→20:41)
[2019-02-23] MEDS: FERROUS FUMARATE (SR) TAB PO ×2 (08:28→20:35)
[2019-02-23] MEDS: RANOLAZINE (SR) 500 MG TAB PO ×2 (08:28→20:35)
[2019-02-23] MEDS: ASPIRIN 81 MG TAB PO (08:28)
[2019-02-23] MEDS: MEROPENEM 500MG/50 ML (PMX) 50 ML IVPB ×3 (08:28→20:36)
[2019-02-23] MEDS: TICAGRELOR 90 MG TABLET PO ×2 (08:31→20:40)
[2019-02-23] MEDS: SOTALOL 80 MG TAB PO ×2 (08:52→20:36)
[2019-02-23] MEDS: HEPARIN 5,000 UNIT/1 ML VIAL SC ×2 (08:58→20:41)
[2019-02-23 09:26] LABS: ADD MAN DIFF? NO
[2019-02-23 09:28] LABS: WHITE BLOOD COUNT 6.9 10^3/ul (4.8-10.8)
[2019-02-23 09:28] LABS: ABNORMAL IP MESSAGE 1; BASOPHILS % 0.1 % (0.0-2.0); EOSINOPHILS % 0.4 % (0.0-7.0); HEMOGLOBIN 8.1 g/dl (14.0-18.0); LYMPHOCYTES # 1.2 10^3/ul (0.8-2.9); LYMPHOCYTES % 16.6 % (15.0-51.0); MEAN CORPUSCULAR VOLUME 86.5 fl (82.0-101.0); MEAN PLATELET VOLUME 11.4 fl (7.4-10.4); MONOCYTE # 0.6 10^3/ul (0.3-0.9); MONOCYTES % 8.4 % (0.0-11.0); NEUTROPHIL # 5.1 10^3/ul (1.6-7.5); NEUTROPHILS % 73.9 % (39.0-77.0); NUCLEATED RED BLOOD CELLS # 0.4 10^3/ul (0.0-0.0); NUCLEATED RED BLOOD CELLS% 5.3 /100WBC (0.0-0.0); PLATELET COUNT 239 10^3/UL (140-415); POSITIVE DIFF @See below; RED BLOOD COUNT 3.12 10^6/ul (4.70-6.10)
[2019-02-23 09:58] LABS: PHOSPHORUS 5.2 mg/dl (2.5-4.9)
[2019-02-23 09:58] LABS: MAGNESIUM 1.8 mg/dl (1.7-2.5)
[2019-02-23 10:22] LABS: ANION GAP 15 (5-13); BLOOD UREA NITROGEN 43 mg/dl (7-20); CALCIUM 8.5 mg/dl (8.4-10.2); CARBON DIOXIDE 19 mmol/L (21-31); CHLORIDE 109 mmol/L (97-110); Estimated GFR 49 mL/min (>60); GLUCOSE 114 mg/dl (70-220); POTASSIUM 4.9 mmol/L (3.5-5.1); SODIUM 143 mmol/L (135-144)
[2019-02-23] MEDS: ATORVASTATIN 40 MG TAB PO (20:35)
[2019-02-24] MEDS: ACETAMINOPHEN 325 MG TAB PO ×3 (04:13→21:08)
[2019-02-24] MEDS: INSULIN ASPART [NOVOLOG] 3 ML PEN SC ×4 (07:55→21:00)
[2019-02-24] MEDS: HEPARIN 5,000 UNIT/1 ML VIAL SC ×2 (09:00→21:00)
[2019-02-24] MEDS: RANOLAZINE (SR) 500 MG TAB PO ×2 (09:38→20:59)
[2019-02-24] MEDS: ASPIRIN 81 MG TAB PO (09:38)
[2019-02-24] MEDS: FERROUS FUMARATE (SR) TAB PO ×2 (09:38→20:59)
[2019-02-24] MEDS: SOTALOL 80 MG TAB PO ×2 (09:41→21:00)
[2019-02-24] MEDS: TICAGRELOR 90 MG TABLET PO ×2 (09:46→21:04)
[2019-02-24] MEDS: FUROSEMIDE 20 MG INJ IV (15:30)
[2019-02-24] MEDS: EPOETIN ALFA-EPBX (NON-ESRD 10,000 UNIT/ML VIAL SC (17:11)
[2019-02-24] MEDS: ATORVASTATIN 40 MG TAB PO (20:59)
[2019-02-25] MEDS: ACETAMINOPHEN 325 MG TAB PO ×2 (03:00→21:09)
[2019-02-25 06:24] LABS: ADD MAN DIFF? NO
[2019-02-25 06:38] LABS: ABNORMAL IP MESSAGE 1; BASOPHILS % 0.3 % (0.0-2.0); EOSINOPHILS % 0.5 % (0.0-7.0); HEMATOCRIT 26.4 % (42.0-52.0); LYMPHOCYTES # 0.9 10^3/ul (0.8-2.9); LYMPHOCYTES % 11.1 % (15.0-51.0); MEAN CORPUSCULAR HGB CONC 30.3 g/dl (32.0-37.0); MEAN CORPUSCULAR VOLUME 85.7 fl (82.0-101.0); MEAN PLATELET VOLUME 11.6 fl (7.4-10.4); MONOCYTE # 0.5 10^3/ul (0.3-0.9); MONOCYTES % 6.9 % (0.0-11.0); NEUTROPHIL # 6.3 10^3/ul (1.6-7.5); NEUTROPHILS % 80.7 % (39.0-77.0); NUCLEATED RED BLOOD CELLS # 0.6 10^3/ul (0.0-0.0); PLATELET COUNT 232 10^3/UL (140-415); POSITIVE DIFF @See below; RED BLOOD COUNT 3.08 10^6/ul (4.70-6.10); RED CELL DISTRIBUTION WIDTH 25.2 % (11.5-14.5)
[2019-02-25 06:38] LABS: WHITE BLOOD COUNT 7.8 10^3/ul (4.8-10.8)
[2019-02-25 07:24] LABS: ANION GAP 10 (5-13); BLOOD UREA NITROGEN 51 mg/dl (7-20); CARBON DIOXIDE 22 mmol/L (21-31); CHLORIDE 108 mmol/L (97-110); CREATININE 2.13 mg/dl (0.61-1.24); GLUCOSE 96 mg/dl (70-220); POTASSIUM 4.9 mmol/L (3.5-5.1); SODIUM 140 mmol/L (135-144)
[2019-02-25 07:25] LABS: CALCIUM 8.5 mg/dl (8.4-10.2); Estimated GFR 38 mL/min (>60)
[2019-02-25] MEDS: INSULIN ASPART [NOVOLOG] 3 ML PEN SC ×4 (07:33→21:00)
[2019-02-25] MEDS: HEPARIN 5,000 UNIT/1 ML VIAL SC ×2 (09:00→20:57)
[2019-02-25] MEDS: FUROSEMIDE 20 MG INJ IV (09:44)
[2019-02-25] MEDS: FERROUS FUMARATE (SR) TAB PO (09:44)
[2019-02-25] MEDS: RANOLAZINE (SR) 500 MG TAB PO ×2 (09:44→21:08)
[2019-02-25] MEDS: ASPIRIN 81 MG TAB PO (09:44)
[2019-02-25] MEDS: SOTALOL 80 MG TAB PO ×2 (09:44→21:09)
[2019-02-25] MEDS: TICAGRELOR 90 MG TABLET PO ×2 (09:52→21:21)
[2019-02-25] MEDS: LACTOBACILLUS RHAMNOSUS CAP PO (21:07)
[2019-02-25] MEDS: ATORVASTATIN 40 MG TAB PO (21:08)
[2019-02-25] MEDS: GABAPENTIN 100 MG CAP PO (21:08)
[2019-02-26] MEDS: INSULIN ASPART [NOVOLOG] 3 ML PEN SC ×4 (07:55→21:00)
[2019-02-26 08:58] LABS: INR 1.47; PROTIME 17.9 Sec (11.9-14.9); PT RATIO 1.4
[2019-02-26] MEDS: HEPARIN 5,000 UNIT/1 ML VIAL SC ×2 (09:00→21:00)
[2019-02-26] MEDS: SOTALOL 80 MG TAB PO ×2 (09:00→21:51)
[2019-02-26] MEDS: RANOLAZINE (SR) 500 MG TAB PO ×2 (09:00→21:50)
[2019-02-26 09:03] LABS: ANION GAP 12 (5-13); BLOOD UREA NITROGEN 53 mg/dl (7-20); CALCIUM 8.2 mg/dl (8.4-10.2); CARBON DIOXIDE 20 mmol/L (21-31); CHLORIDE 109 mmol/L (97-110); CREATININE 2.13 mg/dl (0.61-1.24); Estimated GFR 38 mL/min (>60); GLUCOSE 102 mg/dl (70-220); MAGNESIUM 1.6 mg/dl (1.7-2.5); PHOSPHORUS 4.8 mg/dl (2.5-4.9); POTASSIUM 4.8 mmol/L (3.5-5.1); SODIUM 141 mmol/L (135-144)
[2019-02-26] MEDS: ASPIRIN (EC) 81 MG TAB PO (09:35)
[2019-02-26] MEDS: GABAPENTIN 100 MG CAP PO ×3 (09:36→21:50)
[2019-02-26] MEDS: LACTOBACILLUS RHAMNOSUS CAP PO (09:37)
[2019-02-26] MEDS: FUROSEMIDE 20 MG TAB PO (09:37)
[2019-02-26] MEDS: TICAGRELOR 90 MG TABLET PO ×2 (09:49→22:08)
[2019-02-26] MEDS: ONDANSETRON 4 MG INJ IV (15:17)
[2019-02-26] MEDS: ATORVASTATIN 40 MG TAB PO (21:50)
[2019-02-26] MEDS: ACETAMINOPHEN 325 MG TAB PO (21:50)
[2019-02-27 07:12] LABS: ANION GAP 11 (5-13); BLOOD UREA NITROGEN 55 mg/dl (7-20); CALCIUM 7.9 mg/dl (8.4-10.2); CARBON DIOXIDE 20 mmol/L (21-31); CHLORIDE 112 mmol/L (97-110); Estimated GFR 37 mL/min (>60); GLUCOSE 114 mg/dl (70-220); MAGNESIUM 1.6 mg/dl (1.7-2.5); POTASSIUM 4.5 mmol/L (3.5-5.1); SODIUM 143 mmol/L (135-144)
[2019-02-27] MEDS: INSULIN ASPART [NOVOLOG] 3 ML PEN SC ×4 (07:52→20:18)
[2019-02-27] MEDS: SOTALOL 80 MG TAB PO ×2 (09:00→20:17)
[2019-02-27] MEDS: FUROSEMIDE 20 MG TAB PO (09:00)
[2019-02-27] MEDS: HEPARIN 5,000 UNIT/1 ML VIAL SC ×2 (09:00→20:27)
[2019-02-27] MEDS: ASPIRIN (EC) 81 MG TAB PO (10:18)
[2019-02-27] MEDS: GABAPENTIN 100 MG CAP PO ×3 (10:18→20:19)
[2019-02-27] MEDS: FERROUS FUMARATE (SR) TAB PO ×2 (10:18→20:19)
[2019-02-27] MEDS: RANOLAZINE (SR) 500 MG TAB PO ×2 (10:19→20:19)
[2019-02-27] MEDS: MAGNESIUM SULFATE 2 GM/50 ML 50 ML IVPB (10:19)
[2019-02-27] MEDS: TICAGRELOR 90 MG TABLET PO ×2 (10:29→20:26)
[2019-02-27] MEDS: SEVELAMER CARBONATE 800 MG TABLET PO ×2 (12:54→17:22)
[2019-02-27] MEDS: EPOETIN ALFA-EPBX (NON-ESRD 10,000 UNIT/ML VIAL SC (17:24)
[2019-02-27] MEDS: ATORVASTATIN 40 MG TAB PO (20:19)
[2019-02-28] MEDS: ACETAMINOPHEN 325 MG TAB PO ×2 (00:53→22:42)
[2019-02-28] MEDS: INSULIN ASPART [NOVOLOG] 3 ML PEN SC ×4 (07:55→21:16)
[2019-02-28 08:45] LABS: HEMOGLOBIN 8.3 g/dl (14.0-18.0)
[2019-02-28] MEDS: SOTALOL 80 MG TAB PO ×2 (09:00→20:52)
[2019-02-28] MEDS: HEPARIN 5,000 UNIT/1 ML VIAL SC ×2 (09:00→20:52)
[2019-02-28] MEDS: FUROSEMIDE 20 MG TAB PO (09:00)
[2019-02-28 09:12] LABS: ANION GAP 10 (5-13); BLOOD UREA NITROGEN 55 mg/dl (7-20); CARBON DIOXIDE 22 mmol/L (21-31); CHLORIDE 110 mmol/L (97-110); CREATININE 2.27 mg/dl (0.61-1.24); Estimated GFR 35 mL/min (>60); GLUCOSE 100 mg/dl (70-220); PHOSPHORUS 4.9 mg/dl (2.5-4.9); POTASSIUM 4.4 mmol/L (3.5-5.1); SODIUM 142 mmol/L (135-144)
[2019-02-28] MEDS: ASPIRIN (EC) 81 MG TAB PO (09:22)
[2019-02-28] MEDS: SEVELAMER CARBONATE 800 MG TABLET PO ×3 (09:23→17:31)
[2019-02-28] MEDS: GABAPENTIN 100 MG CAP PO ×3 (09:23→21:11)
[2019-02-28] MEDS: RANOLAZINE (SR) 500 MG TAB PO ×2 (09:23→21:11)
[2019-02-28] MEDS: FERROUS FUMARATE (SR) TAB PO ×2 (09:23→21:11)
[2019-02-28] MEDS: TICAGRELOR 90 MG TABLET PO ×2 (09:34→21:17)
[2019-02-28] MEDS: ATORVASTATIN 40 MG TAB PO (21:11)
[2019-03-01] MEDS: INSULIN ASPART [NOVOLOG] 3 ML PEN SC ×4 (07:55→20:59)
[2019-03-01] MEDS: HEPARIN 5,000 UNIT/1 ML VIAL SC ×2 (09:00→20:59)
[2019-03-01] MEDS: SOTALOL 80 MG TAB PO ×2 (09:00→20:55)
[2019-03-01] MEDS: FUROSEMIDE 20 MG TAB PO (09:38)
[2019-03-01] MEDS: SEVELAMER CARBONATE 800 MG TABLET PO ×3 (09:38→17:22)
[2019-03-01] MEDS: RANOLAZINE (SR) 500 MG TAB PO ×2 (09:38→21:03)
[2019-03-01] MEDS: ASPIRIN (EC) 81 MG TAB PO (09:38)
[2019-03-01] MEDS: GABAPENTIN 100 MG CAP PO ×3 (09:39→20:54)
[2019-03-01] MEDS: FERROUS FUMARATE (SR) TAB PO ×2 (09:39→20:54)
[2019-03-01] MEDS: TICAGRELOR 90 MG TABLET PO ×2 (09:47→21:00)
[2019-03-01] MEDS: EPOETIN ALFA-EPBX (NON-ESRD 10,000 UNIT/ML VIAL SC (17:24)
[2019-03-01 19:55] LABS: ANION GAP 11 (5-13); BLOOD UREA NITROGEN 62 mg/dl (7-20); CALCIUM 7.4 mg/dl (8.4-10.2); CARBON DIOXIDE 22 mmol/L (21-31); CHLORIDE 106 mmol/L (97-110); CREATININE 2.57 mg/dl (0.61-1.24); Estimated GFR 31 mL/min (>60); GLUCOSE 178 mg/dl (70-220); POTASSIUM 4.6 mmol/L (3.5-5.1); SODIUM 139 mmol/L (135-144)
[2019-03-01] MEDS: ATORVASTATIN 40 MG TAB PO (20:54)
[2019-03-02 07:13] LABS: ANION GAP 10 (5-13); BLOOD UREA NITROGEN 63 mg/dl (7-20); CALCIUM 7.5 mg/dl (8.4-10.2); CARBON DIOXIDE 21 mmol/L (21-31); CHLORIDE 109 mmol/L (97-110); Estimated GFR 29 mL/min (>60); GLUCOSE 100 mg/dl (70-220); MAGNESIUM 1.9 mg/dl (1.7-2.5); PHOSPHORUS 5.1 mg/dl (2.5-4.9); POTASSIUM 4.6 mmol/L (3.5-5.1); SODIUM 140 mmol/L (135-144)
[2019-03-02] MEDS: INSULIN ASPART [NOVOLOG] 3 ML PEN SC ×3 (07:55→17:37)
[2019-03-02] MEDS: HEPARIN 5,000 UNIT/1 ML VIAL SC (09:00)
[2019-03-02] MEDS: GABAPENTIN 100 MG CAP PO ×2 (09:09→12:14)
[2019-03-02] MEDS: RANOLAZINE (SR) 500 MG TAB PO (09:09)
[2019-03-02] MEDS: ASPIRIN (EC) 81 MG TAB PO (09:09)
[2019-03-02] MEDS: FERROUS FUMARATE (SR) TAB PO (09:09)
[2019-03-02] MEDS: SEVELAMER CARBONATE 800 MG TABLET PO ×3 (09:10→17:33)
[2019-03-02] MEDS: SOTALOL 80 MG TAB PO (09:10)
[2019-03-02] MEDS: TICAGRELOR 90 MG TABLET PO (09:16)
[2019-03-02 15:26] LABS: ADD UMIC YES; UR ASCORBIC ACID NEGATIVE (NEGATIVE); UR BILIRUBIN (Dip) NEGATIVE (NEGATIVE); UR BLOOD (Dip) 1+ mg/dL (NEGATIVE); UR BUDDING YEAST MANY /HPF (NONE SEEN); UR CLARITY TURBID (CLEAR); UR COLOR AMBER (YELLOW); UR GLUCOSE (Dip) NEGATIVE (NEGATIVE); UR KETONES (Dip) NEGATIVE (NEGATIVE); UR LEUKOCYTE ESTERASE (Dip) 3+ Leu/ul (NEGATIVE); UR NITRITE (Dip) NEGATIVE (NEGATIVE); UR RBC 65 /HPF (0-5); UR SPECIFIC GRAVITY (Dip) 1.016 (1.003-1.030); UR TOTAL PROTEIN (Dip) 1+ mg/dl (NEGATIVE); UR UROBILINOGEN (Dip) 1+ mg/dL (NEGATIVE); UR WBC > 182 /HPF (0-5)
[2019-03-02 15:39] LABS: SODIUM,URINE RANDOM 22 mmol/L (30-90)
[2019-03-02 15:39] LABS: CREATININE,URINE RANDOM 103.15 mg/dl (20-370)
[2019-03-05 14:01] LABS: CREATININE, RANDOM URINE 103 mg/dL (20-320); MICROALBUMIN 12.8 mg/dL; MICROALBUMIN/CREATININE RATIO 124 (<30)
== END 2019-03-02 20:51 | DRG 314 ==
LOC: TEL 01:00
PROVIDERS: Internal Medicine
PROC: 30233N1 Transfusion of Nonautologous Red Blood Cells into Peripheral Vein, Percutaneous Approach (ICD-10-PCS; 2019-01-19)
PROC: 06H033Z Insertion of Infusion Device into Inferior Vena Cava, Percutaneous Approach (ICD-10-PCS; principal; 2019-02-01)
PROC: B519ZZA Fluoroscopy of Inferior Vena Cava, Guidance (ICD-10-PCS; 2019-02-01)
DX: T82.7XXA Infection and inflammatory reaction due to other cardiac and vascular devices, implants and grafts, initial encounter (principal); A41.9 Sepsis, unspecified organism; I33.0 Acute and subacute infective endocarditis; L89.323 Pressure ulcer of left buttock, stage 3; I50.23 Acute on chronic systolic (congestive) heart failure; N17.0 Acute kidney failure with tubular necrosis; J18.9 Pneumonia, unspecified organism; N13.30 Unspecified hydronephrosis; I42.9 Cardiomyopathy, unspecified; I13.0 Hypertensive heart and chronic kidney disease with heart failure and stage 1 through stage 4 chronic kidney disease, or unspecified chronic kidney disease; G47.33 Obstructive sleep apnea (adult) (pediatric); B96.89 Other specified bacterial agents as the cause of diseases classified elsewhere; I25.10 Atherosclerotic heart disease of native coronary artery without angina pectoris; I48.91 Unspecified atrial fibrillation; K21.9 Gastro-esophageal reflux disease without esophagitis; N18.9 Chronic kidney disease, unspecified; I45.9 Conduction disorder, unspecified; E78.5 Hyperlipidemia, unspecified; R62.7 Adult failure to thrive; Z68.26 Body mass index [BMI] 26.0-26.9, adult; Y83.8 Other surgical procedures as the cause of abnormal reaction of the patient, or of later complication, without mention of misadventure at the time of the procedure; E11.22 Type 2 diabetes mellitus with diabetic chronic kidney disease; E83.9 Disorder of mineral metabolism, unspecified; N20.0 Calculus of kidney; E11.622 Type 2 diabetes mellitus with other skin ulcer; Y95 Nosocomial condition; F11.90 Opioid use, unspecified, uncomplicated; E87.6 Hypokalemia; B35.1 Tinea unguium; E83.42 Hypomagnesemia; I95.9 Hypotension, unspecified; D63.8 Anemia in other chronic diseases classified elsewhere; F43.20 Adjustment disorder, unspecified; R33.9 Retention of urine, unspecified; M19.91 Primary osteoarthritis, unspecified site; Z95.0 Presence of cardiac pacemaker; Z95.1 Presence of aortocoronary bypass graft; Z86.73 Personal history of transient ischemic attack (TIA), and cerebral infarction without residual deficits
CPT/HCPCS: 36430; 36556; 71045; 76775; 76942; 80048; 80053; 80170; 80202; 81001; 81003; 82043; 82595; 82728; 82962; 83036; 83540; 83735; 84100; 84155; 84300; 84443; 85014; 85018; 85025; 85610; 86021; 86038; 86160; 86226; 86430; 86704; 86709; 86803; 86850; 86870; 86880; 86900; 86901; 86906; 86920; 86971; 87040-91; 87081; 87086; 87340; 90935; 93005; 97110; 97116; 97162; 97530

== ENCOUNTER 2019-03-27 14:48 | Inpatient (IN) | payer MEDICARE, OTHER ==
[2019-03-27] MEDS: ISOSORBIDE DINITRATE 5 MG TAB PO (09:00)
[2019-03-27] MEDS: DOCUSATE SODIUM 100 MG CAP PO (09:00)
[2019-03-27] MEDS: LUBIPROSTONE 24 MCG CAP PO (09:00)
[2019-03-27 15:55] LABS: ADD MAN DIFF? NO
[2019-03-27 15:56] LABS: BASOPHILS % 0.5 % (0.0-2.0); EOSINOPHILS % 0.5 % (0.0-7.0); HEMATOCRIT 30.5 % (42.0-52.0); HEMOGLOBIN 9.4 g/dl (14.0-18.0); LYMPHOCYTES # 1.7 10^3/ul (0.8-2.9); LYMPHOCYTES % 26.7 % (15.0-51.0); MEAN CORPUSCULAR HEMOGLOBIN 27.4 pg (29.0-33.0); MEAN CORPUSCULAR HGB CONC 30.8 g/dl (32.0-37.0); MEAN CORPUSCULAR VOLUME 88.9 fl (82.0-101.0); MEAN PLATELET VOLUME 10.7 fl (7.4-10.4); MONOCYTE # 0.6 10^3/ul (0.3-0.9); MONOCYTES % 9.2 % (0.0-11.0); NEUTROPHILS % 62.8 % (39.0-77.0); NUCLEATED RED BLOOD CELLS% 0.3 /100WBC (0.0-0.0); PLATELET COUNT 266 10^3/UL (140-415); RED BLOOD COUNT 3.43 10^6/ul (4.70-6.10); RED CELL DISTRIBUTION WIDTH 21.9 % (11.5-14.5)
[2019-03-27 15:56] LABS: WHITE BLOOD COUNT 6.4 10^3/ul (4.8-10.8)
[2019-03-27] MEDS: ASPIRIN 81 MG TAB PO (16:00)
[2019-03-27 16:15] LABS: ANION GAP 11 (5-13); BLOOD UREA NITROGEN 44 mg/dl (7-20); CALCIUM 8.7 mg/dl (8.4-10.2); CARBON DIOXIDE 29 mmol/L (21-31); CHLORIDE 104 mmol/L (97-110); CREATININE 1.56 mg/dl (0.61-1.24); Estimated GFR 54 mL/min (>60); GLUCOSE 115 mg/dl (70-220); POTASSIUM 3.8 mmol/L (3.5-5.1); SODIUM 144 mmol/L (135-144)
[2019-03-27 16:24] LABS: B-TYPE NATRIURETIC PEPTIDE 21100 PG/ML (0-125)
[2019-03-27 16:28] LABS: TROPONIN-I 0.044 ng/ml (0.000-0.120)
[2019-03-27] MEDS: MINERAL OIL 133 ML ENEMA PR (18:30)
[2019-03-27 19:50] LABS: TROPONIN-I 0.053 ng/ml (0.000-0.120)
[2019-03-27] MEDS ORDERED: ACETAMINOPHEN 500 MG TAB PO (21:00)
[2019-03-27] MEDS ORDERED: NITROGLYCERIN (SL) 0.4 MG TAB SL (21:00)
[2019-03-27] MEDS ORDERED: DOCUSATE SODIUM 100 MG CAP PO (21:00)
[2019-03-27] MEDS ORDERED: NACL 0.9% 3 ML SYG IV (21:00)
[2019-03-27] MEDS ORDERED: BISACODYL 10 MG SUPP PR (21:00)
[2019-03-27] MEDS ORDERED: AL HYDROX/MG HYDROX/SIMETH 30 ML CUP PO (21:00)
[2019-03-27] MEDS ORDERED: HYDROCODONE/APAP (5/325) TAB PO (21:00)
[2019-03-27] MEDS ORDERED: TUBERCULIN PURIF PROT DERIV ID (21:00)
[2019-03-27] MEDS ORDERED: ONDANSETRON 4 MG INJ IV (21:00)
[2019-03-27] MEDS ORDERED: BISACODYL (EC) 5 MG TAB PO (21:00)
[2019-03-28 02:16] LABS: CREATINE KINASE 568 IU/L (23-200)
[2019-03-28 02:29] LABS: CK INDEX 0.6; CK-MB 3.62 ng/ml (0.0-2.4); TROPONIN-I 0.064 ng/ml (0.000-0.120)
[2019-03-28] MEDS: HYDROCODONE/APAP (10/325) TAB PO (02:40)
[2019-03-28] MEDS: ATORVASTATIN 80 MG TAB PO ×2 (02:40→21:16)
[2019-03-28 05:52] LABS: ADD MAN DIFF? NO
[2019-03-28 05:55] LABS: WHITE BLOOD COUNT 6.4 10^3/ul (4.8-10.8)
[2019-03-28 05:55] LABS: ABNORMAL IP MESSAGE 1; BASOPHILS % 0.2 % (0.0-2.0); EOSINOPHILS # 0.1 10^3/ul (0.0-0.5); EOSINOPHILS % 0.8 % (0.0-7.0); HEMATOCRIT 28.8 % (42.0-52.0); HEMOGLOBIN 8.9 g/dl (14.0-18.0); LYMPHOCYTES # 1.2 10^3/ul (0.8-2.9); LYMPHOCYTES % 19.3 % (15.0-51.0); MEAN CORPUSCULAR HGB CONC 30.9 g/dl (32.0-37.0); MEAN CORPUSCULAR VOLUME 87.3 fl (82.0-101.0); MONOCYTE # 0.6 10^3/ul (0.3-0.9); MONOCYTES % 8.9 % (0.0-11.0); NEUTROPHIL # 4.5 10^3/ul (1.6-7.5); NEUTROPHILS % 70.3 % (39.0-77.0); PLATELET COUNT 241 10^3/UL (140-415); POSITIVE DIFF @See below; RED CELL DISTRIBUTION WIDTH 22.1 % (11.5-14.5)
[2019-03-28 06:16] LABS: CREATINE KINASE 559 IU/L (23-200)
[2019-03-28 06:27] LABS: CK INDEX 0.7; TROPONIN-I 0.063 ng/ml (0.000-0.120)
[2019-03-28 06:28] LABS: CK-MB 4.02 ng/ml (0.0-2.4)
[2019-03-28 06:58] LABS: HEMOGLOBIN A1C 5.5 % (0-5.9)
[2019-03-28] MEDS: ISOSORBIDE DINITRATE 5 MG TAB PO ×2 (09:00→21:00)
[2019-03-28] MEDS: FUROSEMIDE 40 MG TAB PO ×2 (09:00→18:00)
[2019-03-28] MEDS: morphine 2 MG INJ IV (09:07)
[2019-03-28] MEDS: PETROLATUM 28.35 GM JELLY TOP ×2 (09:58→21:17)
[2019-03-28] MEDS: POLYETHYLENE GLYCOL 17 GM PACKET PO (09:58)
[2019-03-28] MEDS: METOLAZONE 2.5 MG TAB PO (09:58)
[2019-03-28] MEDS: LUBIPROSTONE 24 MCG CAP PO ×2 (09:59→21:15)
[2019-03-28] MEDS: PANTOPRAZOLE (EC) 40 MG TAB PO (10:00)
[2019-03-28] MEDS: ASPIRIN (EC) 81 MG TAB PO (10:00)
[2019-03-28] MEDS: DOCUSATE SODIUM 100 MG CAP PO ×2 (10:00→21:15)
[2019-03-28] MEDS ORDERED: traMADol 50 MG TAB GTB (17:00)
[2019-03-28 17:49] LABS: ALANINE AMINOTRANSFERASE 48 IU/L (13-69); ALBUMIN 3.5 g/dl (3.3-4.9); ALBUMIN/GLOBULIN RATIO 0.81; ALKALINE PHOSPHATASE 99 IU/L (42-121); ANION GAP 14 (5-13); ASPARTATE AMINO TRANSFERASE 86 IU/L (15-46); BILIRUBIN,INDIRECT 0.4 mg/dl (0-1.1); BILIRUBIN,TOTAL 0.4 mg/dl (0.2-1.3); BLOOD UREA NITROGEN 44 mg/dl (7-20); CALCIUM 8.7 mg/dl (8.4-10.2); CARBON DIOXIDE 25 mmol/L (21-31); CHLORIDE 107 mmol/L (97-110); CHOL/HDL RATIO 3.7 RATIO; CHOLESTEROL 98 mg/dl (100-200); CREATININE 1.53 mg/dl (0.61-1.24); Estimated GFR 56 mL/min (>60); GLUCOSE 71 mg/dl (70-220); HDL CHOLESTEROL 26 mg/dl (30-78); LDL CHOLESTEROL,CALCULATED 53 mg/dl; MAGNESIUM 1.7 mg/dl (1.7-2.5); POTASSIUM 3.5 mmol/L (3.5-5.1); SODIUM 146 mmol/L (135-144); TOTAL PROTEIN 7.8 g/dl (6.1-8.1); TRIGLYCERIDES 95 mg/dl (0-149)
[2019-03-28] MEDS: ACETAMINOPHEN 325 MG TAB PO (22:20)
[2019-03-29] MEDS: FUROSEMIDE 40 MG TAB PO ×2 (06:00→18:00)
[2019-03-29] MEDS: PANTOPRAZOLE (EC) 40 MG TAB PO (06:20)
[2019-03-29] MEDS: ASPIRIN (EC) 81 MG TAB PO (08:49)
[2019-03-29] MEDS: LUBIPROSTONE 24 MCG CAP PO ×2 (08:49→22:09)
[2019-03-29] MEDS: DOCUSATE SODIUM 100 MG CAP PO ×2 (08:50→21:00)
[2019-03-29] MEDS: METOLAZONE 2.5 MG TAB PO (09:00)
[2019-03-29] MEDS: POLYETHYLENE GLYCOL 17 GM PACKET PO ×3 (09:00→21:00)
[2019-03-29] MEDS: PETROLATUM 28.35 GM JELLY TOP ×2 (09:00→21:00)
[2019-03-29] MEDS: ISOSORBIDE DINITRATE 5 MG TAB PO ×2 (09:00→21:00)
[2019-03-29] MEDS: HYDROCODONE/APAP (10/325) TAB PO (12:42)
[2019-03-29] MEDS: ACETAMINOPHEN 325 MG TAB PO ×2 (15:16→23:25)
[2019-03-29] MEDS: NA PHOSPHATE/BIPHOS 133 ML ENEMA PR (17:30)
[2019-03-29] MEDS: ATORVASTATIN 80 MG TAB PO (22:09)
[2019-03-30] MEDS: ACETAMINOPHEN 325 MG TAB PO (05:46)
[2019-03-30] MEDS: FUROSEMIDE 40 MG TAB PO ×2 (05:47→17:26)
[2019-03-30] MEDS: ISOSORBIDE DINITRATE 5 MG TAB PO ×2 (08:55→21:00)
[2019-03-30] MEDS: METOLAZONE 2.5 MG TAB PO (09:00)
[2019-03-30] MEDS: POLYETHYLENE GLYCOL 17 GM PACKET PO ×2 (09:09→21:00)
[2019-03-30] MEDS: PANTOPRAZOLE (EC) 40 MG TAB PO (09:09)
[2019-03-30] MEDS: ASPIRIN (EC) 81 MG TAB PO (09:09)
[2019-03-30] MEDS: LUBIPROSTONE 24 MCG CAP PO ×2 (09:09→22:29)
[2019-03-30] MEDS: MUPIROCIN 2% 22 GM OINT TOP ×2 (09:10→22:31)
[2019-03-30] MEDS: DOCUSATE SODIUM 100 MG CAP PO ×2 (09:10→22:30)
[2019-03-30] MEDS: PETROLATUM 28.35 GM JELLY TOP ×2 (09:14→21:00)
[2019-03-30] MEDS: LACTULOSE 30ML CUP PO ×2 (16:30→22:00)
[2019-03-30] MEDS ORDERED: HYDROCODONE/APAP (10/325) TAB PO (21:00)
[2019-03-30] MEDS: ATORVASTATIN 80 MG TAB PO (22:30)
[2019-03-31] MEDS: FUROSEMIDE 40 MG TAB PO (06:00)
[2019-03-31] MEDS: LACTULOSE 30ML CUP PO ×2 (06:00→13:56)
[2019-03-31] MEDS: PANTOPRAZOLE (EC) 40 MG TAB PO (06:02)
[2019-03-31] MEDS: ISOSORBIDE DINITRATE 5 MG TAB PO (08:24)
[2019-03-31] MEDS: POLYETHYLENE GLYCOL 17 GM PACKET PO (08:29)
[2019-03-31] MEDS: LUBIPROSTONE 24 MCG CAP PO (08:29)
[2019-03-31] MEDS: METOLAZONE 2.5 MG TAB PO (08:30)
[2019-03-31] MEDS: PETROLATUM 28.35 GM JELLY TOP (08:33)
[2019-03-31] MEDS: ACETAMINOPHEN 325 MG TAB PO (08:33)
[2019-03-31] MEDS: MUPIROCIN 2% 22 GM OINT TOP (08:33)
[2019-03-31] MEDS: ASPIRIN (EC) 81 MG TAB PO (08:33)
[2019-03-31] MEDS: DOCUSATE SODIUM 100 MG CAP PO (08:33)
== END 2019-03-31 17:10 | disposition home or self-care (01) | DRG 313 ==
LOC: TEL 03-28 07:33 → E/R 14:48 → TEL 20:43
DX: R07.9 Chest pain, unspecified (principal); I42.9 Cardiomyopathy, unspecified; N17.9 Acute kidney failure, unspecified; I13.0 Hypertensive heart and chronic kidney disease with heart failure and stage 1 through stage 4 chronic kidney disease, or unspecified chronic kidney disease; I50.20 Unspecified systolic (congestive) heart failure; Z91.19 Patient's noncompliance with other medical treatment and regimen; D64.9 Anemia, unspecified; E11.9 Type 2 diabetes mellitus without complications; G47.33 Obstructive sleep apnea (adult) (pediatric); Z95.1 Presence of aortocoronary bypass graft; K21.9 Gastro-esophageal reflux disease without esophagitis; K59.00 Constipation, unspecified; Z95.0 Presence of cardiac pacemaker; N18.3 Chronic kidney disease, stage 3 (moderate); E11.22 Type 2 diabetes mellitus with diabetic chronic kidney disease
CPT/HCPCS: 71045; 80048; 80053; 80061; 82550; 82553; 83036; 83735; 83880; 84443; 84484; 85025; 87081; 93005; 99285-25; G0378

== ENCOUNTER 2019-03-31 19:06 | Inpatient (IN) | payer MEDICARE, OTHER ==
[2019-03-31] MEDS ORDERED: ONDANSETRON 4 MG INJ IV (21:00)
[2019-03-31] MEDS ORDERED: ACETAMINOPHEN 325 MG TAB PO (21:00)
[2019-03-31] MEDS: ACETAMINOPHEN 325 MG TAB PO (21:33)
[2019-03-31] MEDS ORDERED: NITROGLYCERIN (SL) 0.4 MG TAB SL (22:00)
[2019-03-31] MEDS ORDERED: NACL 0.9% 3 ML SYG IV (22:00)
[2019-03-31] MEDS: DOCUSATE SODIUM 100 MG CAP PO (23:58)
[2019-04-01 06:57] LABS: ADD MAN DIFF? NO
[2019-04-01 07:06] LABS: WHITE BLOOD COUNT 7.6 10^3/ul (4.8-10.8)
[2019-04-01 07:06] LABS: BASOPHILS % 0.4 % (0.0-2.0); EOSINOPHILS # 0.1 10^3/ul (0.0-0.5); EOSINOPHILS % 1.5 % (0.0-7.0); HEMATOCRIT 29.2 % (42.0-52.0); HEMOGLOBIN 8.8 g/dl (14.0-18.0); LYMPHOCYTES # 1.5 10^3/ul (0.8-2.9); MEAN CORPUSCULAR HGB CONC 30.1 g/dl (32.0-37.0); MEAN CORPUSCULAR VOLUME 89.6 fl (82.0-101.0); MEAN PLATELET VOLUME 12.2 fl (7.4-10.4); MONOCYTE # 0.6 10^3/ul (0.3-0.9); MONOCYTES % 8.1 % (0.0-11.0); NEUTROPHIL # 5.3 10^3/ul (1.6-7.5); NEUTROPHILS % 69.7 % (39.0-77.0); PLATELET COUNT 248 10^3/UL (140-415); RED BLOOD COUNT 3.26 10^6/ul (4.70-6.10); RED CELL DISTRIBUTION WIDTH 21.3 % (11.5-14.5)
[2019-04-01 07:28] LABS: ALANINE AMINOTRANSFERASE 48 IU/L (13-69); ALBUMIN 3.2 g/dl (3.3-4.9); ALBUMIN/GLOBULIN RATIO 0.86; ALKALINE PHOSPHATASE 85 IU/L (42-121); ANION GAP 12 (5-13); ASPARTATE AMINO TRANSFERASE 71 IU/L (15-46); BILIRUBIN,INDIRECT 0.5 mg/dl (0-1.1); BILIRUBIN,TOTAL 0.5 mg/dl (0.2-1.3); BLOOD UREA NITROGEN 40 mg/dl (7-20); CALCIUM 8.7 mg/dl (8.4-10.2); CARBON DIOXIDE 28 mmol/L (21-31); CHLORIDE 104 mmol/L (97-110); CREATININE 1.45 mg/dl (0.61-1.24); Estimated GFR 59 mL/min (>60); GLUCOSE 78 mg/dl (70-220); POTASSIUM 3.5 mmol/L (3.5-5.1); SODIUM 144 mmol/L (135-144); TOTAL PROTEIN 6.9 g/dl (6.1-8.1)
[2019-04-01] MEDS: LACTULOSE 30ML CUP PO ×3 (07:30→22:00)
[2019-04-01 07:52] LABS: CREATINE KINASE 483 IU/L (23-200)
[2019-04-01 08:05] LABS: CK INDEX 0.5; TROPONIN-I 0.051 ng/ml (0.000-0.120)
[2019-04-01 08:07] LABS: CK-MB 2.45 ng/ml (0.0-2.4)
[2019-04-01] MEDS: DOCUSATE SODIUM 100 MG CAP PO ×2 (08:34→20:38)
[2019-04-01] MEDS: POLYETHYLENE GLYCOL 17 GM PACKET PO ×2 (08:34→20:39)
[2019-04-01] MEDS: ASPIRIN (EC) 81 MG TAB PO (09:05)
[2019-04-01] MEDS: PANTOPRAZOLE (EC) 40 MG TAB PO (09:06)
[2019-04-01] MEDS: ISOSORBIDE DINITRATE 5 MG TAB PO ×2 (09:06→21:00)
[2019-04-01] MEDS: METOLAZONE 2.5 MG TAB PO (09:06)
[2019-04-01 13:55] LABS: CREATINE KINASE 419 IU/L (23-200)
[2019-04-01 14:07] LABS: CK INDEX 0.5; CK-MB 2.13 ng/ml (0.0-2.4); TROPONIN-I 0.041 ng/ml (0.000-0.120)
[2019-04-01] MEDS: ACETAMINOPHEN 325 MG TAB PO ×2 (15:29→21:34)
[2019-04-01] MEDS: ATORVASTATIN 80 MG TAB PO (20:37)
[2019-04-02] MEDS: LACTULOSE 30ML CUP PO ×3 (06:00→21:57)
[2019-04-02] MEDS: PANTOPRAZOLE (EC) 40 MG TAB PO (06:11)
[2019-04-02] MEDS: ASPIRIN (EC) 81 MG TAB PO (08:28)
[2019-04-02] MEDS: DOCUSATE SODIUM 100 MG CAP PO ×2 (08:29→20:51)
[2019-04-02] MEDS: ISOSORBIDE DINITRATE 5 MG TAB PO ×2 (08:29→21:00)
[2019-04-02] MEDS: METOLAZONE 2.5 MG TAB PO (08:29)
[2019-04-02] MEDS: FUROSEMIDE 20 MG INJ IV (08:29)
[2019-04-02] MEDS: POLYETHYLENE GLYCOL 17 GM PACKET PO ×2 (08:29→20:51)
[2019-04-02] MEDS: ATORVASTATIN 80 MG TAB PO (20:52)
[2019-04-02] MEDS: ACETAMINOPHEN 325 MG TAB PO (22:01)
[2019-04-03] MEDS: LACTULOSE 30ML CUP PO ×3 (06:00→22:00)
[2019-04-03] MEDS: ACETAMINOPHEN 325 MG TAB PO ×2 (06:40→22:55)
[2019-04-03] MEDS: PANTOPRAZOLE (EC) 40 MG TAB PO (06:40)
[2019-04-03] MEDS: FUROSEMIDE 20 MG INJ IV (09:00)
[2019-04-03] MEDS: METOLAZONE 2.5 MG TAB PO (09:00)
[2019-04-03] MEDS: ISOSORBIDE DINITRATE 5 MG TAB PO ×2 (09:00→21:00)
[2019-04-03] MEDS: POLYETHYLENE GLYCOL 17 GM PACKET PO ×2 (09:00→21:00)
[2019-04-03] MEDS: DOCUSATE SODIUM 100 MG CAP PO ×2 (09:00→22:42)
[2019-04-03] MEDS: ASPIRIN (EC) 81 MG TAB PO (09:48)
[2019-04-03] MEDS: ATORVASTATIN 80 MG TAB PO (22:43)
[2019-04-04] MEDS: LACTULOSE 30ML CUP PO ×3 (05:53→20:17)
[2019-04-04] MEDS: PANTOPRAZOLE (EC) 40 MG TAB PO (08:53)
[2019-04-04] MEDS: POLYETHYLENE GLYCOL 17 GM PACKET PO ×2 (08:54→20:16)
[2019-04-04] MEDS: ASPIRIN (EC) 81 MG TAB PO (08:54)
[2019-04-04] MEDS: DOCUSATE SODIUM 100 MG CAP PO ×2 (08:54→20:15)
[2019-04-04] MEDS: ISOSORBIDE DINITRATE 5 MG TAB PO ×2 (09:00→20:16)
[2019-04-04] MEDS: FUROSEMIDE 20 MG INJ IV (09:00)
[2019-04-04] MEDS: METOLAZONE 2.5 MG TAB PO (09:00)
[2019-04-04] MEDS: ATORVASTATIN 80 MG TAB PO (20:15)
[2019-04-04] MEDS: ACETAMINOPHEN 325 MG TAB PO (20:15)
[2019-04-05] MEDS: LACTULOSE 30ML CUP PO ×4 (04:08→21:47)
[2019-04-05] MEDS: PANTOPRAZOLE (EC) 40 MG TAB PO (07:25)
[2019-04-05] MEDS: ISOSORBIDE DINITRATE 5 MG TAB PO ×2 (09:00→21:40)
[2019-04-05] MEDS: FUROSEMIDE 20 MG INJ IV (09:00)
[2019-04-05] MEDS: DOCUSATE SODIUM 100 MG CAP PO ×2 (09:00→21:40)
[2019-04-05] MEDS: METOLAZONE 2.5 MG TAB PO (09:00)
[2019-04-05] MEDS: POLYETHYLENE GLYCOL 17 GM PACKET PO ×3 (09:00→21:47)
[2019-04-05] MEDS: ASPIRIN (EC) 81 MG TAB PO (12:12)
[2019-04-05] MEDS: ACETAMINOPHEN 325 MG TAB PO (21:39)
[2019-04-05] MEDS: ATORVASTATIN 80 MG TAB PO (21:39)
[2019-04-06] MEDS: PANTOPRAZOLE (EC) 40 MG TAB PO (07:25)
[2019-04-06] MEDS: DOCUSATE SODIUM 100 MG CAP PO ×2 (08:13→21:00)
[2019-04-06] MEDS: FUROSEMIDE 20 MG INJ IV (08:13)
[2019-04-06] MEDS: METOLAZONE 2.5 MG TAB PO (09:00)
[2019-04-06] MEDS: ISOSORBIDE DINITRATE 5 MG TAB PO ×2 (09:00→21:00)
[2019-04-06] MEDS: ASPIRIN (EC) 81 MG TAB PO (09:31)
[2019-04-06] MEDS: ENOXAPARIN 40 MG/0.4 ML SYG SC (09:37)
[2019-04-06] MEDS: LACTULOSE 30ML CUP PO ×2 (13:01→22:00)
[2019-04-06] MEDS ORDERED: morphine 2 MG INJ IV (15:00)
[2019-04-06] MEDS: POLYETHYLENE GLYCOL 17 GM PACKET PO (21:00)
[2019-04-06] MEDS: ATORVASTATIN 80 MG TAB PO (21:01)
[2019-04-06] MEDS: HYDROCODONE/APAP (5/325) TAB PO (21:01)
[2019-04-07] MEDS: LACTULOSE 30ML CUP PO ×3 (06:00→21:50)
[2019-04-07] MEDS: PANTOPRAZOLE (EC) 40 MG TAB PO (07:47)
[2019-04-07] MEDS: ISOSORBIDE DINITRATE 5 MG TAB PO ×2 (08:04→21:00)
[2019-04-07] MEDS: FUROSEMIDE 20 MG INJ IV (08:04)
[2019-04-07] MEDS: METOLAZONE 2.5 MG TAB PO (09:00)
[2019-04-07] MEDS: POLYETHYLENE GLYCOL 17 GM PACKET PO ×2 (09:00→21:00)
[2019-04-07] MEDS: DOCUSATE SODIUM 100 MG CAP PO ×2 (09:00→21:00)
[2019-04-07] MEDS: ASPIRIN (EC) 81 MG TAB PO (09:51)
[2019-04-07] MEDS: ENOXAPARIN 40 MG/0.4 ML SYG SC (09:54)
[2019-04-07] MEDS: morphine 2 MG INJ IV ×2 (11:10→17:56)
[2019-04-07] MEDS: ATORVASTATIN 80 MG TAB PO (21:00)
[2019-04-08] MEDS: LACTULOSE 30ML CUP PO ×3 (06:00→21:39)
[2019-04-08] MEDS: morphine 2 MG INJ IV ×4 (06:07→21:30)
[2019-04-08] MEDS: PANTOPRAZOLE (EC) 40 MG TAB PO ×2 (06:30→07:29)
[2019-04-08] MEDS: DOCUSATE SODIUM 100 MG CAP PO ×2 (08:27→21:00)
[2019-04-08] MEDS: POLYETHYLENE GLYCOL 17 GM PACKET PO ×2 (08:27→21:00)
[2019-04-08] MEDS: ASPIRIN (EC) 81 MG TAB PO (08:35)
[2019-04-08] MEDS: FUROSEMIDE 20 MG INJ IV (08:36)
[2019-04-08] MEDS: ENOXAPARIN 40 MG/0.4 ML SYG SC (08:36)
[2019-04-08] MEDS: ISOSORBIDE DINITRATE 5 MG TAB PO ×2 (08:37→21:00)
[2019-04-08] MEDS: METOLAZONE 2.5 MG TAB PO (08:37)
[2019-04-08] MEDS: ATORVASTATIN 80 MG TAB PO (21:24)
[2019-04-09] MEDS: morphine 2 MG INJ IV ×3 (04:31→20:29)
[2019-04-09] MEDS: LACTULOSE 30ML CUP PO ×3 (05:59→21:58)
[2019-04-09] MEDS: PANTOPRAZOLE (EC) 40 MG TAB PO (06:36)
[2019-04-09] MEDS: FUROSEMIDE 20 MG INJ IV (08:20)
[2019-04-09] MEDS: DOCUSATE SODIUM 100 MG CAP PO ×2 (08:20→21:00)
[2019-04-09] MEDS: POLYETHYLENE GLYCOL 17 GM PACKET PO ×2 (08:21→20:59)
[2019-04-09] MEDS: METOLAZONE 2.5 MG TAB PO (08:21)
[2019-04-09] MEDS: ISOSORBIDE DINITRATE 5 MG TAB PO ×2 (08:21→20:59)
[2019-04-09] MEDS: ASPIRIN (EC) 81 MG TAB PO (08:22)
[2019-04-09] MEDS: ENOXAPARIN 40 MG/0.4 ML SYG SC (08:22)
[2019-04-09 08:23] LABS: ADD MAN DIFF? NO
[2019-04-09 08:43] LABS: WHITE BLOOD COUNT 7.5 10^3/ul (4.8-10.8)
[2019-04-09 08:43] LABS: BASOPHIL # 0.1 10^3/ul (0.0-0.1); BASOPHILS % 0.7 % (0.0-2.0); EOSINOPHILS # 0.1 10^3/ul (0.0-0.5); EOSINOPHILS % 1.9 % (0.0-7.0); HEMATOCRIT 31.7 % (42.0-52.0); HEMOGLOBIN 9.6 g/dl (14.0-18.0); LYMPHOCYTES # 1.8 10^3/ul (0.8-2.9); LYMPHOCYTES % 23.5 % (15.0-51.0); MEAN CORPUSCULAR HGB CONC 30.3 g/dl (32.0-37.0); MEAN CORPUSCULAR VOLUME 89.3 fl (82.0-101.0); MONOCYTE # 0.4 10^3/ul (0.3-0.9); MONOCYTES % 5.7 % (0.0-11.0); NEUTROPHIL # 5.1 10^3/ul (1.6-7.5); NEUTROPHILS % 67.8 % (39.0-77.0); PLATELET COUNT 232 10^3/UL (140-415); RED BLOOD COUNT 3.55 10^6/ul (4.70-6.10); RED CELL DISTRIBUTION WIDTH 19.9 % (11.5-14.5)
[2019-04-09 08:47] LABS: ANION GAP 9 (5-13); BLOOD UREA NITROGEN 32 mg/dl (7-20); CALCIUM 8.8 mg/dl (8.4-10.2); CARBON DIOXIDE 28 mmol/L (21-31); CHLORIDE 103 mmol/L (97-110); CREATININE 1.04 mg/dl (0.61-1.24); Estimated GFR > 60 mL/min (>60); GLUCOSE 104 mg/dl (70-220); POTASSIUM 3.7 mmol/L (3.5-5.1); SODIUM 140 mmol/L (135-144)
[2019-04-09 08:59] LABS: INR 1.11; PROTIME 14.4 Sec (11.9-14.9); PT RATIO 1.1
[2019-04-09] MEDS ORDERED: LIDOCAINE 1%/EPI (1:100,000) (MDV) 20 ML (12:07)
[2019-04-09] MEDS ORDERED: POLYMYXIN/BACITRACIN 1L IRRIG (12:08)
[2019-04-09] MEDS: CLINDAMYCIN 600 MG/D5W (PMX) 50 ML IVPB (14:00)
[2019-04-09] MEDS ORDERED: SOD CHLORIDE 0.9% 500 ML (15:54)
[2019-04-09] MEDS: ATORVASTATIN 80 MG TAB PO (20:29)
[2019-04-10] MEDS: LACTULOSE 30ML CUP PO ×3 (06:00→21:58)
[2019-04-10] MEDS: PANTOPRAZOLE (EC) 40 MG TAB PO (06:52)
[2019-04-10] MEDS: morphine 2 MG INJ IV ×2 (07:07→11:54)
[2019-04-10] MEDS: DOCUSATE SODIUM 100 MG CAP PO ×2 (09:00→21:00)
[2019-04-10] MEDS: ISOSORBIDE DINITRATE 5 MG TAB PO ×2 (09:00→21:00)
[2019-04-10] MEDS: METOLAZONE 2.5 MG TAB PO (09:00)
[2019-04-10] MEDS: FUROSEMIDE 20 MG INJ IV (09:00)
[2019-04-10] MEDS: POLYETHYLENE GLYCOL 17 GM PACKET PO ×2 (09:00→21:00)
[2019-04-10] MEDS: ENOXAPARIN 40 MG/0.4 ML SYG SC (09:00)
[2019-04-10] MEDS: ASPIRIN (EC) 81 MG TAB PO (09:36)
[2019-04-10] MEDS: HYDROCODONE/APAP (5/325) TAB PO (16:35)
[2019-04-10] MEDS: ATORVASTATIN 80 MG TAB PO (22:00)
[2019-04-11] MEDS: morphine 2 MG INJ IV ×2 (00:16→12:08)
[2019-04-11] MEDS: LACTULOSE 30ML CUP PO ×3 (05:52→22:00)
[2019-04-11] MEDS: POLYETHYLENE GLYCOL 17 GM PACKET PO ×2 (09:00→20:24)
[2019-04-11] MEDS: ISOSORBIDE DINITRATE 5 MG TAB PO ×2 (09:00→20:24)
[2019-04-11] MEDS: DOCUSATE SODIUM 100 MG CAP PO ×2 (09:00→20:23)
[2019-04-11] MEDS: METOLAZONE 2.5 MG TAB PO (09:00)
[2019-04-11] MEDS: FUROSEMIDE 20 MG INJ IV (09:00)
[2019-04-11] MEDS: ASPIRIN (EC) 81 MG TAB PO (09:05)
[2019-04-11] MEDS: PANTOPRAZOLE (EC) 40 MG TAB PO (09:05)
[2019-04-11] MEDS: ENOXAPARIN 40 MG/0.4 ML SYG SC (09:09)
[2019-04-11] MEDS: ATORVASTATIN 80 MG TAB PO (20:24)
[2019-04-12] MEDS: morphine 2 MG INJ IV ×3 (00:06→23:59)
[2019-04-12] MEDS: LACTULOSE 30ML CUP PO ×3 (06:00→21:41)
[2019-04-12] MEDS: PANTOPRAZOLE (EC) 40 MG TAB PO (06:41)
[2019-04-12] MEDS: DOCUSATE SODIUM 100 MG CAP PO ×2 (08:42→21:00)
[2019-04-12] MEDS: ASPIRIN (EC) 81 MG TAB PO (08:42)
[2019-04-12] MEDS: ENOXAPARIN 40 MG/0.4 ML SYG SC (08:44)
[2019-04-12] MEDS: ISOSORBIDE DINITRATE 5 MG TAB PO ×2 (08:45→21:00)
[2019-04-12] MEDS: FUROSEMIDE 20 MG TAB PO (08:45)
[2019-04-12] MEDS: POLYETHYLENE GLYCOL 17 GM PACKET PO ×2 (08:46→21:00)
[2019-04-12] MEDS: METOLAZONE 2.5 MG TAB PO (08:46)
[2019-04-12] MEDS: ATORVASTATIN 80 MG TAB PO (21:00)
[2019-04-13] MEDS: LACTULOSE 30ML CUP PO ×3 (06:00→21:00)
[2019-04-13] MEDS: PANTOPRAZOLE (EC) 40 MG TAB PO (07:34)
[2019-04-13] MEDS: ASPIRIN (EC) 81 MG TAB PO (08:30)
[2019-04-13] MEDS: ENOXAPARIN 40 MG/0.4 ML SYG SC (08:34)
[2019-04-13] MEDS: DOCUSATE SODIUM 100 MG CAP PO ×2 (08:36→21:09)
[2019-04-13] MEDS: FUROSEMIDE 20 MG TAB PO (08:37)
[2019-04-13] MEDS: METOLAZONE 2.5 MG TAB PO (08:37)
[2019-04-13] MEDS: ISOSORBIDE DINITRATE 5 MG TAB PO ×2 (08:37→21:00)
[2019-04-13] MEDS: POLYETHYLENE GLYCOL 17 GM PACKET PO ×2 (08:37→21:00)
[2019-04-13] MEDS: morphine 2 MG INJ IV ×2 (12:03→23:58)
[2019-04-13] MEDS: ATORVASTATIN 80 MG TAB PO (21:00)
[2019-04-13] MEDS: LACTOBACILLUS RHAMNOSUS CAP PO (21:09)
[2019-04-14] MEDS: ZOLPIDEM 5 MG TAB PO (01:39)
[2019-04-14 07:15] LABS: ANION GAP 10 (5-13); BLOOD UREA NITROGEN 32 mg/dl (7-20); CALCIUM 8.9 mg/dl (8.4-10.2); CARBON DIOXIDE 26 mmol/L (21-31); CHLORIDE 106 mmol/L (97-110); CREATININE 1.12 mg/dl (0.61-1.24); Estimated GFR > 60 mL/min (>60); GLUCOSE 115 mg/dl (70-220); POTASSIUM 4.1 mmol/L (3.5-5.1); SODIUM 142 mmol/L (135-144)
[2019-04-14 07:21] LABS: MAGNESIUM 1.5 mg/dl (1.7-2.5)
[2019-04-14] MEDS: LACTULOSE 30ML CUP PO ×2 (09:00→20:53)
[2019-04-14] MEDS: FUROSEMIDE 20 MG TAB PO (09:00)
[2019-04-14] MEDS: ISOSORBIDE DINITRATE 5 MG TAB PO ×2 (09:00→20:53)
[2019-04-14] MEDS: METOLAZONE 2.5 MG TAB PO (09:00)
[2019-04-14] MEDS: DOCUSATE SODIUM 100 MG CAP PO ×2 (09:00→20:52)
[2019-04-14] MEDS: POLYETHYLENE GLYCOL 17 GM PACKET PO ×2 (09:00→20:53)
[2019-04-14] MEDS: LACTOBACILLUS RHAMNOSUS CAP PO ×2 (09:00→20:53)
[2019-04-14] MEDS: PANTOPRAZOLE (EC) 40 MG TAB PO (09:58)
[2019-04-14] MEDS: ASPIRIN (EC) 81 MG TAB PO (09:59)
[2019-04-14] MEDS: ENOXAPARIN 40 MG/0.4 ML SYG SC (10:30)
[2019-04-14] MEDS: morphine 2 MG INJ IV (12:10)
[2019-04-14] MEDS: HYDROCODONE/APAP (5/325) TAB PO (19:49)
[2019-04-14] MEDS: ATORVASTATIN 80 MG TAB PO (20:53)
[2019-04-15] MEDS: morphine 2 MG INJ IV ×3 (00:14→23:56)
[2019-04-15] MEDS: PANTOPRAZOLE (EC) 40 MG TAB PO (05:09)
[2019-04-15] MEDS: POLYETHYLENE GLYCOL 17 GM PACKET PO ×2 (09:00→21:00)
[2019-04-15] MEDS: LACTULOSE 30ML CUP PO (09:00)
[2019-04-15] MEDS: ASPIRIN (EC) 81 MG TAB PO (09:06)
[2019-04-15] MEDS: ENOXAPARIN 40 MG/0.4 ML SYG SC (09:09)
[2019-04-15] MEDS: LACTOBACILLUS RHAMNOSUS CAP PO ×2 (12:14→21:00)
[2019-04-15] MEDS: METOLAZONE 2.5 MG TAB PO (12:15)
[2019-04-15] MEDS: ISOSORBIDE DINITRATE 5 MG TAB PO ×2 (13:43→21:57)
[2019-04-15] MEDS: DOCUSATE SODIUM 100 MG CAP PO (13:50)
[2019-04-15] MEDS: FUROSEMIDE 20 MG TAB PO (13:52)
[2019-04-15] MEDS: MAGNESIUM OXIDE 400 MG TAB PO ×2 (14:32→21:00)
[2019-04-15] MEDS: HYDROCODONE/APAP (5/325) TAB PO (18:02)
[2019-04-15] MEDS: ATORVASTATIN 80 MG TAB PO (21:58)
[2019-04-16] MEDS: HYDROCODONE/APAP (5/325) TAB PO ×2 (03:39→16:11)
[2019-04-16 06:40] LABS: ADD MAN DIFF? NO
[2019-04-16] MEDS: PANTOPRAZOLE (EC) 40 MG TAB PO (06:41)
[2019-04-16 06:47] LABS: BASOPHILS % 0.6 % (0.0-2.0); EOSINOPHILS # 0.2 10^3/ul (0.0-0.5); EOSINOPHILS % 3.8 % (0.0-7.0); HEMATOCRIT 31.2 % (42.0-52.0); HEMOGLOBIN 9.5 g/dl (14.0-18.0); LYMPHOCYTES # 1.2 10^3/ul (0.8-2.9); LYMPHOCYTES % 23.3 % (15.0-51.0); MEAN CORPUSCULAR HEMOGLOBIN 27.5 pg (29.0-33.0); MEAN CORPUSCULAR HGB CONC 30.4 g/dl (32.0-37.0); MEAN CORPUSCULAR VOLUME 90.4 fl (82.0-101.0); MEAN PLATELET VOLUME 10.7 fl (7.4-10.4); MONOCYTE # 0.4 10^3/ul (0.3-0.9); MONOCYTES % 6.7 % (0.0-11.0); NEUTROPHIL # 3.4 10^3/ul (1.6-7.5); NEUTROPHILS % 65.4 % (39.0-77.0); PLATELET COUNT 227 10^3/UL (140-415); RED BLOOD COUNT 3.45 10^6/ul (4.70-6.10); RED CELL DISTRIBUTION WIDTH 19.9 % (11.5-14.5)
[2019-04-16 06:47] LABS: WHITE BLOOD COUNT 5.2 10^3/ul (4.8-10.8)
[2019-04-16 07:06] LABS: PROTIME 14.3 Sec (11.9-14.9); PT RATIO 1.1
[2019-04-16 07:21] LABS: PHOSPHORUS 4.2 mg/dl (2.5-4.9)
[2019-04-16 07:21] LABS: ANION GAP 9 (5-13); BLOOD UREA NITROGEN 30 mg/dl (7-20); CALCIUM 8.5 mg/dl (8.4-10.2); CARBON DIOXIDE 27 mmol/L (21-31); CHLORIDE 110 mmol/L (97-110); CREATININE 1.05 mg/dl (0.61-1.24); Estimated GFR > 60 mL/min (>60); GLUCOSE 114 mg/dl (70-220); MAGNESIUM 1.5 mg/dl (1.7-2.5); POTASSIUM 3.9 mmol/L (3.5-5.1); SODIUM 146 mmol/L (135-144)
[2019-04-16] MEDS: ISOSORBIDE DINITRATE 5 MG TAB PO ×2 (09:00→21:10)
[2019-04-16] MEDS: POLYETHYLENE GLYCOL 17 GM PACKET PO (09:00)
[2019-04-16] MEDS: LACTULOSE 30ML CUP PO (09:00)
[2019-04-16] MEDS: FUROSEMIDE 20 MG TAB PO (09:00)
[2019-04-16] MEDS: METOLAZONE 2.5 MG TAB PO (09:00)
[2019-04-16] MEDS: DOCUSATE SODIUM 100 MG CAP PO (09:05)
[2019-04-16] MEDS: MAGNESIUM OXIDE 400 MG TAB PO ×2 (09:05→21:00)
[2019-04-16] MEDS: LACTOBACILLUS RHAMNOSUS CAP PO ×2 (09:05→21:00)
[2019-04-16] MEDS: ASPIRIN (EC) 81 MG TAB PO (09:06)
[2019-04-16] MEDS: THIAMINE 100 MG TAB PO (09:06)
[2019-04-16] MEDS: ENOXAPARIN 40 MG/0.4 ML SYG SC (09:14)
[2019-04-16] MEDS: MAGNESIUM SULFATE 1 GM/D5W 100 ML IVPB (14:14)
[2019-04-16] MEDS: ATORVASTATIN 80 MG TAB PO (21:10)
[2019-04-17] MEDS: morphine 2 MG INJ IV ×2 (01:35→13:54)
[2019-04-17] MEDS: PANTOPRAZOLE (EC) 40 MG TAB PO (06:25)
[2019-04-17] MEDS: LACTOBACILLUS RHAMNOSUS CAP PO ×2 (09:00→21:00)
[2019-04-17] MEDS: FUROSEMIDE 20 MG TAB PO (09:00)
[2019-04-17] MEDS: LACTULOSE 30ML CUP PO (09:00)
[2019-04-17] MEDS: METOLAZONE 2.5 MG TAB PO (09:00)
[2019-04-17] MEDS: MAGNESIUM OXIDE 400 MG TAB PO ×2 (09:27→21:00)
[2019-04-17] MEDS: ASPIRIN (EC) 81 MG TAB PO (09:27)
[2019-04-17] MEDS: DOCUSATE SODIUM 100 MG CAP PO (09:27)
[2019-04-17] MEDS: ISOSORBIDE DINITRATE 5 MG TAB PO ×2 (09:27→21:08)
[2019-04-17] MEDS: ENOXAPARIN 40 MG/0.4 ML SYG SC (09:34)
[2019-04-17 09:46] LABS: ADD MAN DIFF? NO
[2019-04-17] MEDS: HYDROCODONE/APAP (5/325) TAB PO ×2 (09:46→21:37)
[2019-04-17 09:51] LABS: BASOPHILS % 0.4 % (0.0-2.0); EOSINOPHILS # 0.1 10^3/ul (0.0-0.5); EOSINOPHILS % 2.4 % (0.0-7.0); HEMATOCRIT 33.1 % (42.0-52.0); HEMOGLOBIN 9.7 g/dl (14.0-18.0); LYMPHOCYTES # 1.3 10^3/ul (0.8-2.9); LYMPHOCYTES % 23.8 % (15.0-51.0); MEAN CORPUSCULAR HEMOGLOBIN 26.9 pg (29.0-33.0); MEAN CORPUSCULAR HGB CONC 29.3 g/dl (32.0-37.0); MEAN CORPUSCULAR VOLUME 91.7 fl (82.0-101.0); MEAN PLATELET VOLUME 10.6 fl (7.4-10.4); MONOCYTE # 0.3 10^3/ul (0.3-0.9); NEUTROPHIL # 3.6 10^3/ul (1.6-7.5); PLATELET COUNT 221 10^3/UL (140-415); RED BLOOD COUNT 3.61 10^6/ul (4.70-6.10); RED CELL DISTRIBUTION WIDTH 19.7 % (11.5-14.5)
[2019-04-17 09:51] LABS: WHITE BLOOD COUNT 5.4 10^3/ul (4.8-10.8)
[2019-04-17 10:13] LABS: MAGNESIUM 1.7 mg/dl (1.7-2.5)
[2019-04-17 10:13] LABS: PHOSPHORUS 4.1 mg/dl (2.5-4.9)
[2019-04-17 10:48] LABS: ANION GAP 11 (5-13); BLOOD UREA NITROGEN 29 mg/dl (7-20); CALCIUM 8.8 mg/dl (8.4-10.2); CARBON DIOXIDE 23 mmol/L (21-31); CHLORIDE 110 mmol/L (97-110); CREATININE 0.99 mg/dl (0.61-1.24); Estimated GFR > 60 mL/min (>60); GLUCOSE 132 mg/dl (70-220); POTASSIUM 4.8 mmol/L (3.5-5.1); SODIUM 144 mmol/L (135-144)
[2019-04-17] MEDS: THIAMINE 100 MG TAB PO (11:40)
[2019-04-17] MEDS: ATORVASTATIN 80 MG TAB PO (21:08)
[2019-04-18] MEDS: morphine 2 MG INJ IV ×2 (02:44→13:57)
[2019-04-18 06:52] LABS: ADD MAN DIFF? NO
[2019-04-18 06:55] LABS: BASOPHILS % 0.8 % (0.0-2.0); EOSINOPHILS # 0.2 10^3/ul (0.0-0.5); EOSINOPHILS % 3.6 % (0.0-7.0); HEMATOCRIT 28.2 % (42.0-52.0); HEMOGLOBIN 8.4 g/dl (14.0-18.0); LYMPHOCYTES # 1.4 10^3/ul (0.8-2.9); MEAN CORPUSCULAR HEMOGLOBIN 27.2 pg (29.0-33.0); MEAN CORPUSCULAR HGB CONC 29.8 g/dl (32.0-37.0); MEAN CORPUSCULAR VOLUME 91.3 fl (82.0-101.0); MEAN PLATELET VOLUME 11.3 fl (7.4-10.4); MONOCYTE # 0.3 10^3/ul (0.3-0.9); MONOCYTES % 6.5 % (0.0-11.0); NEUTROPHIL # 2.8 10^3/ul (1.6-7.5); NEUTROPHILS % 58.7 % (39.0-77.0); PLATELET COUNT 240 10^3/UL (140-415); RED BLOOD COUNT 3.09 10^6/ul (4.70-6.10); RED CELL DISTRIBUTION WIDTH 19.8 % (11.5-14.5)
[2019-04-18 06:55] LABS: WHITE BLOOD COUNT 4.8 10^3/ul (4.8-10.8)
[2019-04-18 07:13] LABS: PHOSPHORUS 3.8 mg/dl (2.5-4.9)
[2019-04-18 07:13] LABS: MAGNESIUM 1.7 mg/dl (1.7-2.5)
[2019-04-18 07:16] LABS: ANION GAP 8 (5-13); Estimated GFR > 60 mL/min (>60)
[2019-04-18 07:26] LABS: BLOOD UREA NITROGEN 27 mg/dl (7-20); CALCIUM 8.6 mg/dl (8.4-10.2); CARBON DIOXIDE 25 mmol/L (21-31); CHLORIDE 110 mmol/L (97-110); CREATININE 0.98 mg/dl (0.61-1.24); GLUCOSE 135 mg/dl (70-220); POTASSIUM 3.8 mmol/L (3.5-5.1); SODIUM 143 mmol/L (135-144)
[2019-04-18] MEDS: METOLAZONE 2.5 MG TAB PO (09:00)
[2019-04-18] MEDS: LACTULOSE 30ML CUP PO (09:00)
[2019-04-18] MEDS: FUROSEMIDE 20 MG TAB PO (09:00)
[2019-04-18] MEDS: ASPIRIN (EC) 81 MG TAB PO (09:08)
[2019-04-18] MEDS: MAGNESIUM OXIDE 400 MG TAB PO ×2 (09:08→21:00)
[2019-04-18] MEDS: DOCUSATE SODIUM 100 MG CAP PO (09:08)
[2019-04-18] MEDS: THIAMINE 100 MG TAB PO (09:09)
[2019-04-18] MEDS: ISOSORBIDE DINITRATE 5 MG TAB PO ×2 (09:09→21:26)
[2019-04-18] MEDS: LACTOBACILLUS RHAMNOSUS CAP PO ×2 (09:10→21:00)
[2019-04-18] MEDS: PANTOPRAZOLE (EC) 40 MG TAB PO (09:10)
[2019-04-18] MEDS: ENOXAPARIN 40 MG/0.4 ML SYG SC (09:15)
[2019-04-18] MEDS: MAGNESIUM SULFATE 2 GM/50 ML 50 ML IVPB (14:30)
[2019-04-18] MEDS: HYDROCODONE/APAP (5/325) TAB PO ×2 (15:16→21:33)
[2019-04-18 15:22] LABS: INR 1.04; PROTIME 13.7 Sec (11.9-14.9); PT RATIO 1.1
[2019-04-18] MEDS: ATORVASTATIN 80 MG TAB PO (21:26)
[2019-04-19] MEDS: morphine 2 MG INJ IV ×2 (00:18→12:23)
[2019-04-19] MEDS: HYDROCODONE/APAP (5/325) TAB PO ×4 (01:52→20:54)
[2019-04-19 06:54] LABS: ADD MAN DIFF? NO
[2019-04-19 07:03] LABS: WHITE BLOOD COUNT 5.8 10^3/ul (4.8-10.8)
[2019-04-19 07:03] LABS: BASOPHILS % 0.5 % (0.0-2.0); EOSINOPHILS # 0.1 10^3/ul (0.0-0.5); EOSINOPHILS % 1.9 % (0.0-7.0); HEMATOCRIT 31.3 % (42.0-52.0); HEMOGLOBIN 9.3 g/dl (14.0-18.0); LYMPHOCYTES # 1.8 10^3/ul (0.8-2.9); LYMPHOCYTES % 31.9 % (15.0-51.0); MEAN CORPUSCULAR HEMOGLOBIN 26.8 pg (29.0-33.0); MEAN CORPUSCULAR HGB CONC 29.7 g/dl (32.0-37.0); MEAN CORPUSCULAR VOLUME 90.2 fl (82.0-101.0); MEAN PLATELET VOLUME 12.1 fl (7.4-10.4); MONOCYTE # 0.4 10^3/ul (0.3-0.9); MONOCYTES % 6.8 % (0.0-11.0); NEUTROPHIL # 3.4 10^3/ul (1.6-7.5); NEUTROPHILS % 58.6 % (39.0-77.0); PLATELET COUNT 175 10^3/UL (140-415); RED BLOOD COUNT 3.47 10^6/ul (4.70-6.10); RED CELL DISTRIBUTION WIDTH 19.9 % (11.5-14.5)
[2019-04-19 07:16] LABS: PARTIAL THROMBOPLASTIN TIME 30.7 Sec (23.0-35.0)
[2019-04-19 07:25] LABS: ANION GAP 9 (5-13); BLOOD UREA NITROGEN 30 mg/dl (7-20); CALCIUM 8.9 mg/dl (8.4-10.2); CARBON DIOXIDE 25 mmol/L (21-31); CHLORIDE 109 mmol/L (97-110); CREATININE 1.04 mg/dl (0.61-1.24); Estimated GFR > 60 mL/min (>60); GLUCOSE 93 mg/dl (70-220); POTASSIUM 4.3 mmol/L (3.5-5.1); SODIUM 143 mmol/L (135-144)
[2019-04-19 08:04] LABS: MAGNESIUM 1.7 mg/dl (1.7-2.5)
[2019-04-19] MEDS: MAGNESIUM OXIDE 400 MG TAB PO ×2 (09:00→21:05)
[2019-04-19] MEDS: ISOSORBIDE DINITRATE 5 MG TAB PO ×2 (09:00→21:00)
[2019-04-19] MEDS: THIAMINE 100 MG TAB PO (09:00)
[2019-04-19] MEDS: LACTULOSE 30ML CUP PO (09:00)
[2019-04-19] MEDS: FUROSEMIDE 20 MG TAB PO (09:00)
[2019-04-19] MEDS: LACTOBACILLUS RHAMNOSUS CAP PO ×2 (09:00→21:00)
[2019-04-19] MEDS: METOLAZONE 2.5 MG TAB PO (09:00)
[2019-04-19] MEDS: DOCUSATE SODIUM 100 MG CAP PO (09:27)
[2019-04-19] MEDS: ASPIRIN (EC) 81 MG TAB PO (09:28)
[2019-04-19] MEDS: PANTOPRAZOLE (EC) 40 MG TAB PO (09:28)
[2019-04-19] MEDS: LORAZEPAM 2 MG INJ IV (17:15)
[2019-04-19] MEDS: ATORVASTATIN 80 MG TAB PO (21:04)
[2019-04-20] MEDS: morphine 2 MG INJ IV ×3 (01:36→23:15)
[2019-04-20] MEDS: PANTOPRAZOLE (EC) 40 MG TAB PO ×2 (07:25→09:53)
[2019-04-20] MEDS: ASPIRIN (EC) 81 MG TAB PO ×2 (08:58→09:52)
[2019-04-20] MEDS: ISOSORBIDE DINITRATE 5 MG TAB PO ×3 (08:58→20:53)
[2019-04-20] MEDS: FUROSEMIDE 20 MG TAB PO (08:58)
[2019-04-20] MEDS: DOCUSATE SODIUM 100 MG CAP PO ×2 (08:58→09:52)
[2019-04-20] MEDS: LACTULOSE 30ML CUP PO (08:58)
[2019-04-20] MEDS: LACTOBACILLUS RHAMNOSUS CAP PO ×2 (08:58→20:53)
[2019-04-20] MEDS: THIAMINE 100 MG TAB PO ×2 (08:59→09:53)
[2019-04-20] MEDS: METOLAZONE 2.5 MG TAB PO (08:59)
[2019-04-20] MEDS: MAGNESIUM OXIDE 400 MG TAB PO ×3 (08:59→20:54)
[2019-04-20] MEDS: HYDROCODONE/APAP (5/325) TAB PO (12:04)
[2019-04-20] MEDS: ALPRAZOLAM 0.5 MG TAB PO (12:57)
[2019-04-20] MEDS: ATORVASTATIN 80 MG TAB PO (20:52)
[2019-04-21 06:21] LABS: ADD MAN DIFF? NO
[2019-04-21 06:30] LABS: ABNORMAL IP MESSAGE 1; BASOPHILS % 0.5 % (0.0-2.0); EOSINOPHILS # 0.1 10^3/ul (0.0-0.5); HEMATOCRIT 31.1 % (42.0-52.0); LYMPHOCYTES # 1.7 10^3/ul (0.8-2.9); LYMPHOCYTES % 28.5 % (15.0-51.0); MEAN CORPUSCULAR HEMOGLOBIN 26.3 pg (29.0-33.0); MEAN CORPUSCULAR HGB CONC 28.9 g/dl (32.0-37.0); MEAN CORPUSCULAR VOLUME 90.9 fl (82.0-101.0); MEAN PLATELET VOLUME 11.1 fl (7.4-10.4); MONOCYTE # 0.5 10^3/ul (0.3-0.9); MONOCYTES % 8.6 % (0.0-11.0); NEUTROPHIL # 3.6 10^3/ul (1.6-7.5); NEUTROPHILS % 59.9 % (39.0-77.0); PLATELET COUNT 254 10^3/UL (140-415); POSITIVE DIFF @See below; RED BLOOD COUNT 3.42 10^6/ul (4.70-6.10); RED CELL DISTRIBUTION WIDTH 19.9 % (11.5-14.5)
[2019-04-21 07:01] LABS: ANION GAP 9 (5-13); BLOOD UREA NITROGEN 32 mg/dl (7-20); CALCIUM 8.9 mg/dl (8.4-10.2); CARBON DIOXIDE 25 mmol/L (21-31); CHLORIDE 110 mmol/L (97-110); Estimated GFR > 60 mL/min (>60); GLUCOSE 133 mg/dl (70-220); POTASSIUM 4.1 mmol/L (3.5-5.1); SODIUM 144 mmol/L (135-144)
[2019-04-21 07:14] LABS: MAGNESIUM 1.8 mg/dl (1.7-2.5)
[2019-04-21 07:14] LABS: PHOSPHORUS 3.6 mg/dl (2.5-4.9)
[2019-04-21] MEDS: LACTULOSE 30ML CUP PO (09:00)
[2019-04-21] MEDS: LACTOBACILLUS RHAMNOSUS CAP PO ×2 (09:00→20:17)
[2019-04-21] MEDS: FUROSEMIDE 20 MG TAB PO (09:00)
[2019-04-21] MEDS: ISOSORBIDE DINITRATE 5 MG TAB PO ×2 (09:00→20:19)
[2019-04-21] MEDS: METOLAZONE 2.5 MG TAB PO (09:00)
[2019-04-21] MEDS: ALPRAZOLAM 0.5 MG TAB PO (09:37)
[2019-04-21] MEDS: PANTOPRAZOLE (EC) 40 MG TAB PO (09:39)
[2019-04-21] MEDS: ASPIRIN (EC) 81 MG TAB PO (09:40)
[2019-04-21] MEDS: DOCUSATE SODIUM 100 MG CAP PO (09:40)
[2019-04-21] MEDS: THIAMINE 100 MG TAB PO (09:41)
[2019-04-21] MEDS: MAGNESIUM OXIDE 400 MG TAB PO ×2 (09:41→20:18)
[2019-04-21] MEDS: BISACODYL (EC) 5 MG TAB PO (10:15)
[2019-04-21] MEDS: morphine 2 MG INJ IV (11:27)
[2019-04-21] MEDS: ATORVASTATIN 80 MG TAB PO (20:18)
[2019-04-21] MEDS: DULOXETINE 20 MG CAP DR PO (20:19)
[2019-04-21] MEDS: HYDROCODONE/APAP (5/325) TAB PO (20:20)
[2019-04-22] MEDS: MAGNESIUM OXIDE 400 MG TAB PO ×2 (08:30→21:44)
[2019-04-22] MEDS: DULOXETINE 20 MG CAP DR PO ×2 (08:30→21:44)
[2019-04-22] MEDS: METOLAZONE 2.5 MG TAB PO (08:31)
[2019-04-22] MEDS: LACTOBACILLUS RHAMNOSUS CAP PO ×2 (08:31→21:00)
[2019-04-22] MEDS: PANTOPRAZOLE (EC) 40 MG TAB PO (08:32)
[2019-04-22] MEDS: ASPIRIN (EC) 81 MG TAB PO (08:32)
[2019-04-22] MEDS: FUROSEMIDE 20 MG TAB PO (08:33)
[2019-04-22] MEDS: THIAMINE 100 MG TAB PO (08:33)
[2019-04-22] MEDS: DOCUSATE SODIUM 100 MG CAP PO (08:34)
[2019-04-22] MEDS: ISOSORBIDE DINITRATE 5 MG TAB PO ×2 (08:36→21:00)
[2019-04-22] MEDS: LACTULOSE 30ML CUP PO (08:36)
[2019-04-22] MEDS ORDERED: morphine SULFATE/PF (10 MG/10 ML) INJ IV (11:38)
[2019-04-22] MEDS: morphine 2 MG INJ IV ×2 (11:57→22:07)
[2019-04-22] MEDS: ALPRAZOLAM 0.5 MG TAB PO (12:52)
[2019-04-22] MEDS: HYDROCODONE/APAP (5/325) TAB PO (17:26)
[2019-04-22] MEDS: ATORVASTATIN 80 MG TAB PO (21:44)
[2019-04-23] MEDS: METOLAZONE 2.5 MG TAB PO (09:00)
[2019-04-23] MEDS: FUROSEMIDE 20 MG TAB PO (09:00)
[2019-04-23] MEDS: ISOSORBIDE DINITRATE 5 MG TAB PO ×2 (09:00→21:00)
[2019-04-23] MEDS: LACTOBACILLUS RHAMNOSUS CAP PO ×2 (09:00→21:00)
[2019-04-23] MEDS: LACTULOSE 30ML CUP PO (09:00)
[2019-04-23] MEDS: PANTOPRAZOLE (EC) 40 MG TAB PO (09:41)
[2019-04-23] MEDS: DOCUSATE SODIUM 100 MG CAP PO (09:41)
[2019-04-23] MEDS: DULOXETINE 20 MG CAP DR PO ×2 (09:43→21:17)
[2019-04-23] MEDS: ASPIRIN (EC) 81 MG TAB PO (09:44)
[2019-04-23] MEDS: MAGNESIUM OXIDE 400 MG TAB PO ×2 (09:44→21:00)
[2019-04-23] MEDS: THIAMINE 100 MG TAB PO (09:45)
[2019-04-23] MEDS: morphine 2 MG INJ IV ×2 (11:18→23:37)
[2019-04-23] MEDS: HYDROCODONE/APAP (5/325) TAB PO (17:43)
[2019-04-23] MEDS: FAMOTIDINE 20 MG TAB PO (21:00)
[2019-04-23] MEDS: ATORVASTATIN 80 MG TAB PO (21:16)
[2019-04-24] MEDS: ALPRAZOLAM 0.5 MG TAB PO (03:14)
[2019-04-24] MEDS: FUROSEMIDE 20 MG TAB PO (09:00)
[2019-04-24] MEDS: METOLAZONE 2.5 MG TAB PO (09:00)
[2019-04-24] MEDS: LACTULOSE 30ML CUP PO (09:00)
[2019-04-24] MEDS: LACTOBACILLUS RHAMNOSUS CAP PO ×3 (09:00→21:37)
[2019-04-24] MEDS: ASPIRIN (EC) 81 MG TAB PO (09:52)
[2019-04-24] MEDS: DOCUSATE SODIUM 100 MG CAP PO (09:52)
[2019-04-24] MEDS: MAGNESIUM OXIDE 400 MG TAB PO ×2 (09:53→21:36)
[2019-04-24] MEDS: DULOXETINE 20 MG CAP DR PO ×2 (09:53→21:37)
[2019-04-24] MEDS: THIAMINE 100 MG TAB PO (09:53)
[2019-04-24] MEDS: ISOSORBIDE DINITRATE 5 MG TAB PO ×2 (09:53→21:37)
[2019-04-24] MEDS: HYDROCODONE/APAP (5/325) TAB PO ×2 (09:55→22:10)
[2019-04-24] MEDS: morphine 2 MG INJ IV (12:06)
[2019-04-24] MEDS: ATORVASTATIN 80 MG TAB PO (21:36)
[2019-04-24] MEDS: FAMOTIDINE 20 MG TAB PO (21:37)
[2019-04-25] MEDS: morphine 2 MG INJ IV ×2 (02:46→15:15)
[2019-04-25] MEDS: ISOSORBIDE DINITRATE 5 MG TAB PO ×2 (11:05→20:58)
[2019-04-25] MEDS: THIAMINE 100 MG TAB PO (11:05)
[2019-04-25] MEDS: ASPIRIN (EC) 81 MG TAB PO (11:05)
[2019-04-25] MEDS: LACTOBACILLUS RHAMNOSUS CAP PO ×2 (11:05→20:59)
[2019-04-25] MEDS: MAGNESIUM OXIDE 400 MG TAB PO ×2 (11:06→20:58)
[2019-04-25] MEDS: METOLAZONE 2.5 MG TAB PO (11:06)
[2019-04-25] MEDS: DULOXETINE 20 MG CAP DR PO ×2 (11:06→20:58)
[2019-04-25] MEDS: FUROSEMIDE 20 MG TAB PO (11:06)
[2019-04-25] MEDS: DOCUSATE SODIUM 100 MG CAP PO (11:07)
[2019-04-25] MEDS: ENOXAPARIN 40 MG/0.4 ML SYG SC (11:11)
[2019-04-25] MEDS: HYDROCODONE/APAP (5/325) TAB PO (12:02)
[2019-04-25] MEDS: ALPRAZOLAM 0.5 MG TAB PO (12:02)
[2019-04-25] MEDS: MAGNESIUM SULFATE 3 GM in DEXTROSE 5% 100 ML IVPB (13:00)
[2019-04-25] MEDS: ATORVASTATIN 80 MG TAB PO (20:58)
[2019-04-25] MEDS: FAMOTIDINE 20 MG TAB PO (20:59)
[2019-04-26] MEDS: HYDROCODONE/APAP (5/325) TAB PO ×2 (01:43→16:03)
[2019-04-26] MEDS: morphine 2 MG INJ IV ×2 (03:14→14:52)
[2019-04-26 07:06] LABS: ANION GAP 6 (5-13); BLOOD UREA NITROGEN 24 mg/dl (7-20); CALCIUM 8.9 mg/dl (8.4-10.2); CARBON DIOXIDE 27 mmol/L (21-31); CHLORIDE 106 mmol/L (97-110); CREATININE 1.03 mg/dl (0.61-1.24); Estimated GFR > 60 mL/min (>60); GLUCOSE 109 mg/dl (70-220); POTASSIUM 4.4 mmol/L (3.5-5.1); SODIUM 139 mmol/L (135-144)
[2019-04-26 07:12] LABS: TROPONIN-I < 0.012 ng/ml (0.000-0.120)
[2019-04-26 07:14] LABS: MAGNESIUM 2.4 mg/dl (1.7-2.5)
[2019-04-26] MEDS: ISOSORBIDE DINITRATE 5 MG TAB PO ×2 (09:00→20:35)
[2019-04-26] MEDS: METOLAZONE 2.5 MG TAB PO (09:00)
[2019-04-26] MEDS: FUROSEMIDE 20 MG TAB PO (09:00)
[2019-04-26] MEDS: LACTOBACILLUS RHAMNOSUS CAP PO ×2 (09:00→20:35)
[2019-04-26] MEDS: DOCUSATE SODIUM 100 MG CAP PO (09:05)
[2019-04-26] MEDS: ASPIRIN (EC) 81 MG TAB PO (09:05)
[2019-04-26] MEDS: DULOXETINE 20 MG CAP DR PO ×2 (09:06→20:31)
[2019-04-26] MEDS: THIAMINE 100 MG TAB PO (09:06)
[2019-04-26] MEDS: MAGNESIUM OXIDE 400 MG TAB PO ×3 (09:07→20:31)
[2019-04-26] MEDS: ENOXAPARIN 40 MG/0.4 ML SYG SC (09:12)
[2019-04-26] MEDS: FAMOTIDINE 20 MG TAB PO (20:31)
[2019-04-26] MEDS: ATORVASTATIN 80 MG TAB PO (20:31)
[2019-04-27] MEDS: morphine 2 MG INJ IV ×2 (03:34→19:47)
[2019-04-27] MEDS: HYDROCODONE/APAP (5/325) TAB PO ×2 (04:08→17:31)
[2019-04-27] MEDS: METOLAZONE 2.5 MG TAB PO (09:00)
[2019-04-27] MEDS: FUROSEMIDE 20 MG TAB PO (09:30)
[2019-04-27] MEDS: LACTOBACILLUS RHAMNOSUS CAP PO ×2 (09:30→20:55)
[2019-04-27] MEDS: ISOSORBIDE DINITRATE 5 MG TAB PO ×2 (09:30→20:55)
[2019-04-27] MEDS: ASPIRIN (EC) 81 MG TAB PO (09:32)
[2019-04-27] MEDS: THIAMINE 100 MG TAB PO (09:33)
[2019-04-27] MEDS: DULOXETINE 20 MG CAP DR PO ×2 (09:33→20:55)
[2019-04-27] MEDS: DOCUSATE SODIUM 100 MG CAP PO (09:34)
[2019-04-27] MEDS: MAGNESIUM OXIDE 400 MG TAB PO ×3 (09:34→20:56)
[2019-04-27] MEDS: ENOXAPARIN 40 MG/0.4 ML SYG SC (09:41)
[2019-04-27] MEDS: ACETAMINOPHEN 325 MG TAB PO (11:46)
[2019-04-27] MEDS: FAMOTIDINE 20 MG TAB PO (20:55)
[2019-04-27] MEDS: ATORVASTATIN 80 MG TAB PO (20:55)
[2019-04-28] MEDS: morphine 2 MG INJ IV ×2 (08:02→19:32)
[2019-04-28] MEDS: LACTOBACILLUS RHAMNOSUS CAP PO ×2 (09:00→20:21)
[2019-04-28] MEDS: FUROSEMIDE 20 MG TAB PO (09:00)
[2019-04-28] MEDS: METOLAZONE 2.5 MG TAB PO (09:00)
[2019-04-28] MEDS: THIAMINE 100 MG TAB PO (09:12)
[2019-04-28] MEDS: DULOXETINE 20 MG CAP DR PO ×2 (09:12→20:13)
[2019-04-28] MEDS: MAGNESIUM OXIDE 400 MG TAB PO ×3 (09:12→20:13)
[2019-04-28] MEDS: ISOSORBIDE DINITRATE 5 MG TAB PO ×2 (09:12→20:21)
[2019-04-28] MEDS: DOCUSATE SODIUM 100 MG CAP PO (09:13)
[2019-04-28] MEDS: ASPIRIN (EC) 81 MG TAB PO (09:13)
[2019-04-28] MEDS: ENOXAPARIN 40 MG/0.4 ML SYG SC (09:18)
[2019-04-28] MEDS: HYDROCODONE/APAP (5/325) TAB PO (13:07)
[2019-04-28] MEDS: ATORVASTATIN 80 MG TAB PO (20:13)
[2019-04-28] MEDS: FAMOTIDINE 20 MG TAB PO (20:13)
[2019-04-29] MEDS: HYDROCODONE/APAP (5/325) TAB PO ×2 (02:45→19:01)
[2019-04-29] MEDS: morphine 2 MG INJ IV ×2 (08:35→20:44)
[2019-04-29] MEDS: DOCUSATE SODIUM 100 MG CAP PO (08:37)
[2019-04-29] MEDS: FUROSEMIDE 20 MG TAB PO (08:38)
[2019-04-29] MEDS: ASPIRIN (EC) 81 MG TAB PO (08:39)
[2019-04-29] MEDS: DULOXETINE 20 MG CAP DR PO ×2 (08:39→20:45)
[2019-04-29] MEDS: THIAMINE 100 MG TAB PO (08:39)
[2019-04-29] MEDS: LACTOBACILLUS RHAMNOSUS CAP PO ×2 (08:42→21:00)
[2019-04-29] MEDS: ENOXAPARIN 40 MG/0.4 ML SYG SC (08:42)
[2019-04-29] MEDS: ISOSORBIDE DINITRATE 5 MG TAB PO ×2 (08:51→20:45)
[2019-04-29] MEDS: METOLAZONE 2.5 MG TAB PO (09:00)
[2019-04-29] MEDS: MAGNESIUM OXIDE 400 MG TAB PO ×3 (10:37→20:45)
[2019-04-29] MEDS ORDERED: ALPRAZOLAM 0.5 MG TAB PO (16:30)
[2019-04-29] MEDS: ATORVASTATIN 80 MG TAB PO (20:45)
[2019-04-29] MEDS: FAMOTIDINE 20 MG TAB PO (20:46)
[2019-04-30 06:56] LABS: MAGNESIUM 2.3 mg/dl (1.7-2.5)
[2019-04-30 07:14] LABS: ANION GAP 8 (5-13); BLOOD UREA NITROGEN 27 mg/dl (7-20); CALCIUM 9.1 mg/dl (8.4-10.2); CARBON DIOXIDE 27 mmol/L (21-31); CHLORIDE 104 mmol/L (97-110); CREATININE 1.13 mg/dl (0.61-1.24); Estimated GFR > 60 mL/min (>60); GLUCOSE 90 mg/dl (70-220); POTASSIUM 4.5 mmol/L (3.5-5.1); SODIUM 139 mmol/L (135-144)
[2019-04-30] MEDS: DULOXETINE 20 MG CAP DR PO ×2 (08:42→21:48)
[2019-04-30] MEDS: morphine 2 MG INJ IV ×2 (08:47→21:47)
[2019-04-30] MEDS: MAGNESIUM OXIDE 400 MG TAB PO ×3 (08:50→21:49)
[2019-04-30] MEDS: ASPIRIN (EC) 81 MG TAB PO (08:55)
[2019-04-30] MEDS: ISOSORBIDE DINITRATE 5 MG TAB PO ×2 (08:56→21:00)
[2019-04-30] MEDS: LACTOBACILLUS RHAMNOSUS CAP PO ×2 (08:56→21:00)
[2019-04-30] MEDS: METOLAZONE 2.5 MG TAB PO (08:57)
[2019-04-30] MEDS: THIAMINE 100 MG TAB PO (08:57)
[2019-04-30] MEDS: FUROSEMIDE 20 MG TAB PO (08:57)
[2019-04-30] MEDS: ENOXAPARIN 40 MG/0.4 ML SYG SC (09:56)
[2019-04-30] MEDS: HYDROCODONE/APAP (5/325) TAB PO (11:25)
[2019-04-30] MEDS: FAMOTIDINE 20 MG TAB PO (21:49)
[2019-04-30] MEDS: ATORVASTATIN 80 MG TAB PO (21:49)
[2019-04-30] MEDS: DOCUSATE SODIUM 100 MG CAP PO (21:56)
[2019-05-01] MEDS: HYDROCODONE/APAP (5/325) TAB PO ×2 (00:11→12:48)
[2019-05-01] MEDS: METOLAZONE 2.5 MG TAB PO (08:37)
[2019-05-01] MEDS: LACTOBACILLUS RHAMNOSUS CAP PO ×2 (08:38→20:09)
[2019-05-01] MEDS: THIAMINE 100 MG TAB PO (08:46)
[2019-05-01] MEDS: BALSAM PERU/CASTOR OIL 60 GM TUBE TOP (08:46)
[2019-05-01] MEDS: ASPIRIN (EC) 81 MG TAB PO (08:46)
[2019-05-01] MEDS: DULOXETINE 20 MG CAP DR PO ×2 (08:46→20:07)
[2019-05-01] MEDS: MAGNESIUM OXIDE 400 MG TAB PO ×3 (08:46→20:07)
[2019-05-01] MEDS: ENOXAPARIN 40 MG/0.4 ML SYG SC (08:52)
[2019-05-01] MEDS: FUROSEMIDE 20 MG TAB PO (08:53)
[2019-05-01] MEDS: ISOSORBIDE DINITRATE 5 MG TAB PO ×2 (08:53→20:10)
[2019-05-01] MEDS: morphine 2 MG INJ IV ×2 (10:06→22:04)
[2019-05-01] MEDS: FAMOTIDINE 20 MG TAB PO (20:07)
[2019-05-01] MEDS: ATORVASTATIN 80 MG TAB PO (20:07)
[2019-05-02] MEDS: BALSAM PERU/CASTOR OIL 60 GM TUBE TOP (09:00)
[2019-05-02] MEDS: FUROSEMIDE 20 MG TAB PO (09:00)
[2019-05-02] MEDS: ISOSORBIDE DINITRATE 5 MG TAB PO ×2 (09:00→20:05)
[2019-05-02] MEDS: METOLAZONE 2.5 MG TAB PO (09:00)
[2019-05-02] MEDS: LACTOBACILLUS RHAMNOSUS CAP PO ×2 (09:00→20:05)
[2019-05-02] MEDS: MAGNESIUM OXIDE 400 MG TAB PO ×3 (09:40→20:05)
[2019-05-02] MEDS: DULOXETINE 20 MG CAP DR PO ×2 (09:40→20:05)
[2019-05-02] MEDS: THIAMINE 100 MG TAB PO (09:40)
[2019-05-02] MEDS: ASPIRIN (EC) 81 MG TAB PO (09:40)
[2019-05-02] MEDS: ENOXAPARIN 40 MG/0.4 ML SYG SC (09:49)
[2019-05-02] MEDS: morphine 2 MG INJ IV (11:52)
[2019-05-02] MEDS: HYDROCODONE/APAP (5/325) TAB PO (12:37)
[2019-05-02] MEDS: FAMOTIDINE 20 MG TAB PO (20:05)
[2019-05-02] MEDS: ATORVASTATIN 80 MG TAB PO (20:06)
[2019-05-03] MEDS: morphine 2 MG INJ IV ×2 (00:18→12:06)
[2019-05-03] MEDS: HYDROCODONE/APAP (5/325) TAB PO ×2 (02:15→13:07)
[2019-05-03] MEDS: BALSAM PERU/CASTOR OIL 60 GM TUBE TOP (09:00)
[2019-05-03] MEDS: ISOSORBIDE DINITRATE 5 MG TAB PO ×2 (09:00→21:56)
[2019-05-03] MEDS: LACTOBACILLUS RHAMNOSUS CAP PO ×2 (09:00→21:00)
[2019-05-03] MEDS: MAGNESIUM OXIDE 400 MG TAB PO ×3 (09:17→21:00)
[2019-05-03] MEDS: BISACODYL (EC) 5 MG TAB PO (09:18)
[2019-05-03] MEDS: THIAMINE 100 MG TAB PO (09:18)
[2019-05-03] MEDS: DULOXETINE 20 MG CAP DR PO ×2 (09:19→21:52)
[2019-05-03] MEDS: ASPIRIN (EC) 81 MG TAB PO (09:20)
[2019-05-03] MEDS: ENOXAPARIN 40 MG/0.4 ML SYG SC (09:31)
[2019-05-03] MEDS: METOLAZONE 2.5 MG TAB PO (09:34)
[2019-05-03] MEDS: FUROSEMIDE 20 MG TAB PO (09:34)
[2019-05-03] MEDS: APIXABAN 5 MG TABLET PO (21:52)
[2019-05-03] MEDS: ATORVASTATIN 80 MG TAB PO (21:52)
[2019-05-03] MEDS: FAMOTIDINE 20 MG TAB PO (21:54)
[2019-05-04] MEDS: morphine 2 MG INJ IV ×2 (00:08→12:12)
[2019-05-04] MEDS: HYDROCODONE/APAP (5/325) TAB PO ×2 (00:45→13:13)
[2019-05-04] MEDS: APIXABAN 5 MG TABLET PO ×2 (09:00→21:40)
[2019-05-04] MEDS: LACTOBACILLUS RHAMNOSUS CAP PO ×2 (09:00→21:00)
[2019-05-04] MEDS: METOLAZONE 2.5 MG TAB PO (09:00)
[2019-05-04] MEDS: MAGNESIUM OXIDE 400 MG TAB PO ×3 (09:50→21:40)
[2019-05-04] MEDS: THIAMINE 100 MG TAB PO (09:50)
[2019-05-04] MEDS: FUROSEMIDE 20 MG TAB PO (09:53)
[2019-05-04] MEDS: ISOSORBIDE DINITRATE 5 MG TAB PO ×2 (09:53→21:41)
[2019-05-04] MEDS: DULOXETINE 20 MG CAP DR PO ×2 (09:54→21:41)
[2019-05-04] MEDS: BALSAM PERU/CASTOR OIL 60 GM TUBE TOP (09:56)
[2019-05-04] MEDS: FAMOTIDINE 20 MG TAB PO (21:40)
[2019-05-04] MEDS: ATORVASTATIN 80 MG TAB PO (21:41)
[2019-05-05] MEDS: morphine 2 MG INJ IV ×3 (00:14→18:12)
[2019-05-05] MEDS: HYDROCODONE/APAP (5/325) TAB PO (04:34)
[2019-05-05] MEDS: BALSAM PERU/CASTOR OIL 60 GM TUBE TOP (08:48)
[2019-05-05] MEDS: THIAMINE 100 MG TAB PO (08:49)
[2019-05-05] MEDS: LACTOBACILLUS RHAMNOSUS CAP PO ×2 (08:49→20:34)
[2019-05-05] MEDS: MAGNESIUM OXIDE 400 MG TAB PO ×3 (08:49→20:32)
[2019-05-05] MEDS: APIXABAN 5 MG TABLET PO ×2 (08:49→20:31)
[2019-05-05] MEDS: DULOXETINE 20 MG CAP DR PO ×2 (08:49→20:31)
[2019-05-05] MEDS: METOLAZONE 2.5 MG TAB PO (08:50)
[2019-05-05] MEDS: ISOSORBIDE DINITRATE 5 MG TAB PO ×2 (08:50→20:33)
[2019-05-05] MEDS: FUROSEMIDE 20 MG TAB PO (08:50)
[2019-05-05] MEDS: ATORVASTATIN 80 MG TAB PO (20:32)
[2019-05-05] MEDS: FAMOTIDINE 20 MG TAB PO (20:32)
[2019-05-06] MEDS: morphine 2 MG INJ IV ×4 (02:39→20:11)
[2019-05-06] MEDS: ISOSORBIDE DINITRATE 5 MG TAB PO ×2 (08:41→20:10)
[2019-05-06] MEDS: LACTOBACILLUS RHAMNOSUS CAP PO ×2 (08:41→20:09)
[2019-05-06] MEDS: FUROSEMIDE 20 MG TAB PO (08:42)
[2019-05-06] MEDS: METOLAZONE 2.5 MG TAB PO (08:42)
[2019-05-06] MEDS: THIAMINE 100 MG TAB PO (08:52)
[2019-05-06] MEDS: MAGNESIUM OXIDE 400 MG TAB PO ×3 (08:52→20:10)
[2019-05-06] MEDS: APIXABAN 5 MG TABLET PO ×2 (08:52→20:09)
[2019-05-06] MEDS: DULOXETINE 20 MG CAP DR PO ×2 (08:52→20:09)
[2019-05-06] MEDS: BALSAM PERU/CASTOR OIL 60 GM TUBE TOP (08:53)
[2019-05-06] MEDS: FAMOTIDINE 20 MG TAB PO (20:10)
[2019-05-06] MEDS: ATORVASTATIN 80 MG TAB PO (20:10)
[2019-05-06] MEDS: DOCUSATE SODIUM 100 MG CAP PO (20:17)
[2019-05-06] MEDS: HYDROCODONE/APAP (5/325) TAB PO (22:20)
[2019-05-07] MEDS: morphine 2 MG INJ IV ×4 (02:39→21:05)
[2019-05-07] MEDS: ISOSORBIDE DINITRATE 5 MG TAB PO ×2 (08:45→21:00)
[2019-05-07] MEDS: APIXABAN 5 MG TABLET PO ×2 (08:46→21:02)
[2019-05-07] MEDS: THIAMINE 100 MG TAB PO (08:47)
[2019-05-07] MEDS: LACTOBACILLUS RHAMNOSUS CAP PO ×2 (08:47→21:01)
[2019-05-07] MEDS: DULOXETINE 20 MG CAP DR PO ×2 (08:47→21:03)
[2019-05-07] MEDS: MAGNESIUM OXIDE 400 MG TAB PO ×3 (08:47→21:01)
[2019-05-07] MEDS: BALSAM PERU/CASTOR OIL 60 GM TUBE TOP (09:00)
[2019-05-07] MEDS: METOLAZONE 2.5 MG TAB PO (12:34)
[2019-05-07] MEDS: FUROSEMIDE 20 MG TAB PO (12:35)
[2019-05-07] MEDS: DOCUSATE SODIUM 100 MG CAP PO (21:01)
[2019-05-07] MEDS: FAMOTIDINE 20 MG TAB PO (21:02)
[2019-05-07] MEDS: ATORVASTATIN 80 MG TAB PO (21:02)
[2019-05-08] MEDS: morphine 2 MG INJ IV ×4 (04:04→23:05)
[2019-05-08] MEDS: DULOXETINE 20 MG CAP DR PO ×2 (09:00→20:34)
[2019-05-08] MEDS: FUROSEMIDE 20 MG TAB PO (09:00)
[2019-05-08] MEDS: BALSAM PERU/CASTOR OIL 60 GM TUBE TOP (09:00)
[2019-05-08] MEDS: METOLAZONE 2.5 MG TAB PO (09:00)
[2019-05-08] MEDS: LACTOBACILLUS RHAMNOSUS CAP PO ×2 (10:56→20:34)
[2019-05-08] MEDS: APIXABAN 5 MG TABLET PO ×2 (10:56→20:32)
[2019-05-08] MEDS: THIAMINE 100 MG TAB PO (10:57)
[2019-05-08] MEDS: ISOSORBIDE DINITRATE 5 MG TAB PO ×2 (10:57→20:34)
[2019-05-08] MEDS: MAGNESIUM OXIDE 400 MG TAB PO ×3 (10:57→20:35)
[2019-05-08] MEDS: FAMOTIDINE 20 MG TAB PO (20:32)
[2019-05-08] MEDS: DOCUSATE SODIUM 100 MG CAP PO (20:32)
[2019-05-08] MEDS: ATORVASTATIN 80 MG TAB PO (20:34)
[2019-05-09] MEDS: HYDROCODONE/APAP (5/325) TAB PO ×2 (01:16→19:34)
[2019-05-09] MEDS: morphine 2 MG INJ IV ×4 (05:59→23:50)
[2019-05-09] MEDS: FUROSEMIDE 20 MG TAB PO (08:33)
[2019-05-09] MEDS: APIXABAN 5 MG TABLET PO ×2 (08:33→21:24)
[2019-05-09] MEDS: ISOSORBIDE DINITRATE 5 MG TAB PO ×2 (08:33→21:00)
[2019-05-09] MEDS: DULOXETINE 20 MG CAP DR PO ×2 (08:33→21:24)
[2019-05-09] MEDS: LACTOBACILLUS RHAMNOSUS CAP PO ×2 (08:33→21:00)
[2019-05-09] MEDS: MAGNESIUM OXIDE 400 MG TAB PO ×3 (08:33→21:24)
[2019-05-09] MEDS: THIAMINE 100 MG TAB PO (08:34)
[2019-05-09] MEDS: METOLAZONE 2.5 MG TAB PO (08:34)
[2019-05-09] MEDS: BALSAM PERU/CASTOR OIL 60 GM TUBE TOP (08:34)
[2019-05-09] MEDS: ATORVASTATIN 80 MG TAB PO (21:00)
[2019-05-09] MEDS: FAMOTIDINE 20 MG TAB PO (21:00)
[2019-05-10] MEDS: morphine 2 MG INJ IV ×3 (06:04→18:05)
[2019-05-10] MEDS: LACTOBACILLUS RHAMNOSUS CAP PO ×2 (08:28→21:00)
[2019-05-10] MEDS: MAGNESIUM OXIDE 400 MG TAB PO ×3 (08:29→21:01)
[2019-05-10] MEDS: APIXABAN 5 MG TABLET PO ×2 (08:29→21:01)
[2019-05-10] MEDS: THIAMINE 100 MG TAB PO (08:29)
[2019-05-10] MEDS: FUROSEMIDE 20 MG TAB PO (08:29)
[2019-05-10] MEDS: METOLAZONE 2.5 MG TAB PO (08:29)
[2019-05-10] MEDS: ISOSORBIDE DINITRATE 5 MG TAB PO ×2 (08:29→21:00)
[2019-05-10] MEDS: BALSAM PERU/CASTOR OIL 60 GM TUBE TOP (08:29)
[2019-05-10] MEDS: DULOXETINE 20 MG CAP DR PO ×2 (08:29→21:01)
[2019-05-10] MEDS: DOCUSATE SODIUM 100 MG CAP PO (18:06)
[2019-05-10] MEDS: HYDROCODONE/APAP (5/325) TAB PO (20:04)
[2019-05-10] MEDS: ATORVASTATIN 80 MG TAB PO (21:01)
[2019-05-10] MEDS: FAMOTIDINE 20 MG TAB PO (21:01)
[2019-05-11] MEDS: HYDROCODONE/APAP (5/325) TAB PO ×3 (03:19→21:58)
[2019-05-11] MEDS: morphine 2 MG INJ IV ×3 (06:40→18:37)
[2019-05-11] MEDS: MAGNESIUM OXIDE 400 MG TAB PO ×3 (08:27→21:27)
[2019-05-11] MEDS: LACTOBACILLUS RHAMNOSUS CAP PO ×2 (08:27→21:00)
[2019-05-11] MEDS: DULOXETINE 20 MG CAP DR PO ×2 (08:27→21:27)
[2019-05-11] MEDS: FUROSEMIDE 20 MG TAB PO (08:28)
[2019-05-11] MEDS: ISOSORBIDE DINITRATE 5 MG TAB PO ×2 (08:28→21:00)
[2019-05-11] MEDS: THIAMINE 100 MG TAB PO (08:28)
[2019-05-11] MEDS: APIXABAN 5 MG TABLET PO ×2 (08:28→21:27)
[2019-05-11] MEDS: BALSAM PERU/CASTOR OIL 60 GM TUBE TOP (08:29)
[2019-05-11] MEDS: METOLAZONE 2.5 MG TAB PO (08:29)
[2019-05-11] MEDS: FAMOTIDINE 20 MG TAB PO (21:26)
[2019-05-11] MEDS: ATORVASTATIN 80 MG TAB PO (21:27)
[2019-05-12] MEDS: morphine 2 MG INJ IV ×3 (00:41→12:29)
[2019-05-12] MEDS: LACTOBACILLUS RHAMNOSUS CAP PO (08:26)
[2019-05-12] MEDS: APIXABAN 5 MG TABLET PO (08:28)
[2019-05-12] MEDS: MAGNESIUM OXIDE 400 MG TAB PO ×2 (08:28→12:29)
[2019-05-12] MEDS: THIAMINE 100 MG TAB PO (08:29)
[2019-05-12] MEDS: DULOXETINE 20 MG CAP DR PO (08:29)
[2019-05-12] MEDS: ISOSORBIDE DINITRATE 5 MG TAB PO (08:30)
[2019-05-12] MEDS: FUROSEMIDE 20 MG TAB PO (08:31)
[2019-05-12] MEDS: METOLAZONE 2.5 MG TAB PO (08:32)
[2019-05-12] MEDS: BALSAM PERU/CASTOR OIL 60 GM TUBE TOP (08:32)
[2019-05-12] MEDS: HYDROCODONE/APAP (5/325) TAB PO (09:12)
[2019-05-12] MEDS: DOCUSATE SODIUM 100 MG CAP PO (12:29)
== END 2019-05-12 17:00 | disposition other institution (70) | DRG 302 ==
LOC: MS3 05-11 09:07 → E/R 19:06 → TEL 20:38
DX: I25.5 Ischemic cardiomyopathy (principal); I50.23 Acute on chronic systolic (congestive) heart failure; N17.9 Acute kidney failure, unspecified; I13.0 Hypertensive heart and chronic kidney disease with heart failure and stage 1 through stage 4 chronic kidney disease, or unspecified chronic kidney disease; I25.10 Atherosclerotic heart disease of native coronary artery without angina pectoris; Z95.1 Presence of aortocoronary bypass graft; I48.91 Unspecified atrial fibrillation; E11.22 Type 2 diabetes mellitus with diabetic chronic kidney disease; N18.9 Chronic kidney disease, unspecified; Z66 Do not resuscitate; Z91.19 Patient's noncompliance with other medical treatment and regimen; D64.9 Anemia, unspecified; R53.1 Weakness; R00.0 Tachycardia, unspecified; Z79.82 Long term (current) use of aspirin; Z87.891 Personal history of nicotine dependence
CPT/HCPCS: 36005; 80048; 80053; 82550; 82553; 83735; 84100; 84484; 85025; 85610; 85730; 93005; 93306; 99285-25; G0378

== ENCOUNTER → 2019-03-31 | Emergency (ER) | payer MEDICARE, OTHER | END | disposition home or self-care (01) | LOC: E/R 17:42 | DX: Z45.09 Encounter for adjustment and management of other cardiac device (principal); Z79.82 Long term (current) use of aspirin; Z95.1 Presence of aortocoronary bypass graft | CPT/HCPCS: 99283 ==